=== PATIENT | female | born 1935 | race Caucasian/White ===

== ENCOUNTER → 2017-04-11 | Outpatient (CLI) | payer MEDICARE, BC ==
--- NOTE | 2017-04-12 09:17 | MM ---
Reason for exam: screening (asymptomatic). Last mammogram was performed 1 year and 3 months ago. History: Patient is postmenopausal and has history of other cancer at age 48. Family history of premenopausal breast cancer in daughter at age 44. Benign excisional biopsy of the right breast, 1969. Physical Findings: A clinical breast exam by your physician is recommended on an annual basis and results should be correlated with mammographic findings. MG Screening Mammo w CAD Bilateral CC and MLO view(s) were taken. Prior study comparison: December 31, 2015, bilateral MG screening mammo w CAD. The breast tissue is heterogeneously dense. This may lower the sensitivity of mammography. Previous mammotome biopsy in the left breast. No significant changes when compared with prior studies. ASSESSMENT: Benign, BI-RAD 2 RECOMMENDATION: Routine screening mammogram of both breasts in 1 year.
== END | disposition home or self-care (01) ==
LOC: RADMAMWWP 10:26
PROVIDERS: ATTEND Internal Medicine Geriatric Medicine
DX: Z12.31 Encounter for screening mammogram for malignant neoplasm of breast (principal)

== ENCOUNTER 2017-10-13 14:14 | Emergency (ER) | payer MEDICARE, BC ==
--- NOTE | 2017-10-13 16:03 | ED ---
General Adult HPI - General Chief complaint: Skin/Abscess/Foreign Body Stated complaint: Swollen finger Time Seen by Provider: 10/13/17 15:38 Source: patient Mode of arrival: ambulatory Limitations: physical limitation - History of Present Illness Initial comments: the patient is a very pleasant 82-year-old female presents with a chief complaint of swollen fingers and inability to remove her rings. The patient states that over the last week or so she has been "retaining water", and was recently placed on Lasix for this issue by her primary care physician. The patient reports pain to her left ring finger as she has an engagement, and room wedding ring on that finger. Patient denies pain proximally or distally to her rings. Patient states that she has tried cold water, lubrication, and soap to get the rings off without avail. The patient has no other complaints at this time. - Related Data Home Medications Medication Instructions Recorded Confirmed Levothyroxine Sodium [Levoxyl] 75 mcg PO DAILY 09/18/14 10/13/17 Simvastatin [Zocor] 20 mg PO DAILY 09/18/14 10/13/17 Lisinopril [Zestril] 10 mg PO DAILY 08/17/17 10/13/17 Multivit-Min/Iron/Folic/Lutein 1 tab PO DAILY 08/17/17 10/13/17 [Centrum Silver Women Tablet] Timolol 0.5% Ophth Soln [Timoptic 1 drop BOTH EYES QAM 08/17/17 10/13/17 0.5% Ophth Soln] amLODIPine [Norvasc] 10 mg PO DAILY 08/17/17 10/13/17 Pantoprazole Sodium [Protonix] 40 mg PO DAILY 08/18/17 10/13/17 Furosemide [Lasix] 20 mg PO DAILY@1530 10/13/17 10/13/17 Mirtazapine [Remeron] 15 mg PO HS 10/13/17 10/13/17 Previous Rx's Medication Instructions Recorded Sulfamethox-Tmp 800-160Mg [Bactrim 1 tab PO Q12HR #10 tab 10/13/17 DS 800-160 mg] Allergies Allergy/AdvReac Type Severity Reaction Status Date / Time [facility] Allergy Unknown Verified 10/13/17 16:02 guaifenesin Allergy Unknown Verified 10/13/17 16:02 Latex, Natural Rubber Allergy BURNING Verified 10/13/17 16:02 SKIN levofloxacin [From Levaquin] Allergy Unknown Verified 10/13/17 16:02 pneumococcal vaccine Allergy Unknown Verified 10/13/17 16:02 Review of Systems ROS Statement: Those systems with pertinent positive or pertinent negative responses have been documented in the HPI. ROS Other: All systems not noted in ROS Statement are negative. Past Medical History Past Medical History: Cancer, Eye Disorder, GERD/Reflux, Hyperlipidemia, Hypertension, Osteoarthritis (OA), Pneumonia, Skin Disorder, Thyroid Disorder Additional Past Medical History / Comment(s): Glaucoma and macular degeneration bilaterally, hypothyroid, heart murmur, oral cancer with removal, UTIs, bronhitis, past Raynauld's syndrome, osteoporosis, psoriasis, hemorrhoids. History of Any Multi-Drug Resistant Organisms: None Reported Past Surgical History: Breast Surgery, Section Additional Past Surgical History / Comment(s): mouth cancer removed, R breast lumpectomy-benign, colonoscopies, bilateral cataract removal with lens implants. Past Anesthesia/Blood Transfusion Reactions: No Reported Reaction Past Psychological History: No Psychological Hx Reported Smoking Status: Former smoker Past Alcohol Use History: None Reported Past Drug Use History: None Reported - Past Family History Father Family Medical History: Cancer, Myocardial Infarction (DC) Additional Family Medical History / Comment(s): Father at age 77yrs from a DC and lung cancer. Mother Family Medical History: No Reported History Additional Family Medical History / Comment(s): Mother at age 87yrs. She was healthy. General Exam Limitations: physical limitation General appearance: alert, in no apparent distress Head exam: Present: atraumatic, normocephalic Eye exam: Present: normal appearance ENT exam: Present: normal exam Neck exam: Present: normal inspection Respiratory exam: Present: normal lung sounds bilaterally, respiratory distress Cardiovascular Exam: Present: regular rate, normal rhythm GI/Abdominal exam: Present: soft. Absent: distended, tenderness Extremities exam: Present: other (patient has excoriation and warmth at the area of her rings on her ring finger. There is mild swelling present. The skin underneath the rings appears excoriated. That area is tender to touch. There is no drainage or purulence noted) Back exam: Present: normal inspection Neurological exam: Present: alert, oriented X3 Psychiatric exam: Present: normal affect, normal mood Skin exam: Present: warm, dry, intact Course Vital Signs 10/13/17 15:20 Temperature 97.0 F L Pulse Rate 88 Respiratory 22 Rate Blood Pressure 129/90 O2 Sat by Pulse 96 Oximetry Medical Decision Making - Medical Decision Making patient presents with a chief complaint of finger swelling and inability to remove her rings. Patient asked to have her rings cut off. On initial evaluation, patient appears stable, vital signs are within normal limits. Patient is no acute distress. Patient is rings were cut off, reevaluation of the finger shows an excoriated left ring finger without overt signs of infection. There is no tenderness proximally or distally to the area of the rings. 4:25 PM The patient was instructed to wash her hands thoroughly for 5 minutes. Her finger was reexamined, the patient states that her pain is already improved vastly. Does not appear to be any signs of infection at this time however given the fact that the affected area is on the patient's hand she will be covered prophylactically with Bactrim as there is skin breakdown excoriation. She was instructed to follow up with primary care or return to the emergency department if her symptoms worsen or change. Disposition Clinical Impression: Finger swelling Disposition: HOME SELF-CARE Condition: Good Instructions: Cellulitis (ED) Prescriptions: Sulfamethox-Tmp 800-160Mg [Bactrim DS 800-160 mg] 1 tab PO Q12HR #10 tab Referrals: Darwin Jaquez MD [Primary Care Provider] - 1-2 days
[2017-10-13 16:52] VITALS: BP 124/90; PULSE 82; RESP 20; TEMP 97.1
== END 2017-10-13 16:51 | disposition home or self-care (01) ==
LOC: EC 14:14
DX: M79.89 Other specified soft tissue disorders (principal); M79.645 Pain in left finger(s); K21.9 Gastro-esophageal reflux disease without esophagitis; E78.5 Hyperlipidemia, unspecified; I10 Essential (primary) hypertension; E03.9 Hypothyroidism, unspecified; Z85.819 Personal history of malignant neoplasm of unspecified site of lip, oral cavity, and pharynx; Z87.891 Personal history of nicotine dependence; Z88.7 Allergy status to serum and vaccine; Z88.1 Allergy status to other antibiotic agents; Z91.040 Latex allergy status; Z91.048 Other nonmedicinal substance allergy status; Z88.8 Allergy status to other drugs, medicaments and biological substances; Z79.899 Other long term (current) drug therapy
CPT/HCPCS: 99283

== ENCOUNTER → 2018-06-18 | Outpatient (CLI) | payer MEDICARE, BC ==
--- NOTE | 2018-06-19 09:17 | MM ---
Reason for exam: screening (asymptomatic). Last mammogram was performed 1 year and 2 months ago. History: Patient is postmenopausal and has history of other cancer at age 48. Family history of premenopausal breast cancer in daughter at age 44. Benign excisional biopsy of the right breast, 1969. Physical Findings: A clinical breast exam by your physician is recommended on an annual basis and results should be correlated with mammographic findings. MG Screening Mammo w CAD Bilateral CC and MLO view(s) were taken. Prior study comparison: April 11, 2017, bilateral MG screening mammo w CAD. December 31, 2015, bilateral MG screening mammo w CAD. The breast tissue is heterogeneously dense. This may lower the sensitivity of mammography. There is no discrete abnormality. No significant changes when compared with prior studies. ASSESSMENT: Negative, BI-RAD 1 RECOMMENDATION: Routine screening mammogram of both breasts in 1 year.
== END | disposition home or self-care (01) ==
LOC: RADMAMWWP 10:31
PROVIDERS: ATTEND Internal Medicine
DX: Z12.31 Encounter for screening mammogram for malignant neoplasm of breast (principal)
CPT/HCPCS: 77067

== ENCOUNTER 2019-01-08 11:33 | Inpatient (IN) | payer MEDICARE, BC ==
[2019-01-08] MEDS ORDERED: NITROGLYCERIN OINT 1 INCH/GM PACKET TOPICAL STA (11:37)
--- NOTE | 2019-01-08 11:41 | ED ---
General Adult HPI - General Stated complaint: Chest Pain Time Seen by Provider: 01/08/19 11:33 Source: RN notes reviewed - History of Present Illness Initial comments: This is an 83-year-old female has past medical history significant for an LA diabetes high blood pressure high cholesterol. Patient states approximately one hour prior to arrival she started having chest pain throughout her whole chest. Patient states she took 2 aspirin it did not help she took some Tums that did not help. Patient called in and does when EMS arrived they gave her nitroglycerin that also did not help. Patient states the pain now is starting to finally subside. Patient denies any associated radiation of the pain or difficulty breathing. Patient denies any palpitations. Patient denied any nausea or diaphoretic episodes. Patient denies any abdominal pain. Patient denies any nausea or vomiting. Patient denies headache patient denies numbness weakness. Patient denies any leg swelling or calf tenderness. - Related Data Home Medications Medication Instructions Recorded Confirmed Levothyroxine Sodium [Levoxyl] 75 mcg PO DAILY 09/18/14 01/08/19 Timolol 0.5% Ophth Soln [Timoptic 1 drop BOTH EYES QAM 08/17/17 01/08/19 0.5% Ophth Soln] amLODIPine [Norvasc] 10 mg PO HS 08/17/17 01/08/19 Pantoprazole Sodium [Protonix] 40 mg PO DAILY 08/18/17 01/08/19 Metoprolol Tartrate [Lopressor] 12.5 mg PO BID 12/06/17 01/08/19 Naphazoline HCl/Glycerin [Clear 1 drop BOTH EYES Q4H PRN 12/06/17 01/08/19 Eyes Max Redness Rlf Drp] Nitroglycerin Sl Tabs [Nitrostat] 0.4 mg SUBLINGUAL Q5M PRN 12/06/17 01/08/19 Aspirin EC [Ecotrin Low Dose] 81 mg PO DAILY 01/08/19 01/08/19 Carbamide Peroxide [Debrox Otic] 1 drops BOTH EARS Q7D 01/08/19 01/08/19 Latanoprost [Xalatan 0.005%] 1 drop BOTH EYES HS 01/08/19 01/08/19 Loperamide [Imodium] 4 mg PO TID PRN 01/08/19 01/08/19 Multivitamins, Thera [Multivitamin 1 tab PO DAILY 01/08/19 01/08/19 (formulary)] Vit A/Vit C/Vit E/Zinc/Copper 2 cap PO BID 01/08/19 01/08/19 [ICAPS SOFTGEL] Allergies Allergy/AdvReac Type Severity Reaction Status Date / Time cetirizine [From Zyrtec] Allergy Unknown Verified 01/08/19 12:13 guaifenesin Allergy Unknown Verified 01/08/19 12:13 Latex, Natural Rubber Allergy BURNING Verified 01/08/19 12:13 SKIN levofloxacin [From Levaquin] Allergy Unknown Verified 01/08/19 12:13 pneumococcal vaccine Allergy Unknown Verified 01/08/19 12:13 Review of Systems ROS Statement: Those systems with pertinent positive or pertinent negative responses have been documented in the HPI. ROS Other: All systems not noted in ROS Statement are negative. Past Medical History Past Medical History: Cancer, Eye Disorder, GERD/Reflux, Hyperlipidemia, Hyper tension, Skin Disorder, Thyroid Disorder Additional Past Medical History / Comment(s): Glaucoma and macular degeneration bilaterally, hypothyroid, heart murmur, oral cancer with removal, UTIs, bronhitis, past Raynauld's syndrome, osteoporosis, psoriasis, hemorrhoids. History of Any Multi-Drug Resistant Organisms: None Reported Past Surgical History: Breast Surgery, Section Additional Past Surgical History / Comment(s): mouth cancer removed, R breast lumpectomy-benign, colonoscopies, bilateral cataract removal with lens implants. Past Anesthesia/Blood Transfusion Reactions: No Reported Reaction Past Psychological History: No Psychological Hx Reported Additional Psychological History / Comment(s): Pt resides alone. She uses a walker when out at the mall. She no longer has a vehicle. She uses [employer] for transportation. She gets meals on wheels. She manages her own medications. Smoking Status: Former smoker Past Alcohol Use History: None Reported Additional Past Alcohol Use History / Comment(s): Pt smoked from [id number]. She drinks 2-3 beers each evening. Past Drug Use History: None Reported - Past Family History Father Family Medical History: Cancer, Myocardial Infarction (LA) Additional Family Medical History / Comment(s): Father at age 77yrs from a LA and lung cancer. Mother Family Medical History: No Reported History Additional Family Medical History / Comment(s): Mother at age 87yrs. She was healthy. General Exam - General Exam Comments Initial Comments: GENERAL: Patient is well-developed and well-nourished. Patient is nontoxic and well- hydrated and is in mild distress. ENT: Neck is soft and supple. No significant lymphadenopathy is noted. Oropharynx i s clear. Moist mucous membranes. Neck has full range of motion without eliciting any pain. EYES: The sclera were anicteric and conjunctiva were pink and moist. Extraocular movements were intact and pupils were equal round and reactive to light. Eyelids were unremarkable. PULMONARY: Unlabored respirations. Good breath sounds bilaterally. No audible rales rhonchi or wheezing was noted. CARDIOVASCULAR: There is a regular rate and rhythm without any murmurs gallops or rubs. ABDOMEN: Soft and nontender with normal bowel sounds. SKIN: Skin is clear with no lesions or rashes and otherwise unremarkable. NEUROLOGIC: Patient is alert and oriented x3. Cranial nerves II through XII are grossly intact. Motor and sensory are also intact. Normal speech, volume and content. Symmetrical smile. MUSCULOSKELETAL: Normal extremities with adequate strength and full range of motion. LYMPHATICS: No significant lymphadenopathy is noted PSYCHIATRIC: Normal psychiatric evaluation. Course Vital Signs 01/08/19 01/08/19 01/08/19 11:34 11:42 11:45 Temperature 99.0 F Pulse Rate 79 84 73 Respiratory 18 45 H 26 H Rate Blood Pressure 145/85 145/85 O2 Sat by Pulse 96 97 Oximetry 01/08/19 01/08/19 01/08/19 11:50 11:55 12:00 Temperature Pulse Rate 27 L 84 86 Respiratory 39 H 24 21 Rate Blood Pressure 145/85 113/78 113/78 O2 Sat by Pulse 93 L 97 92 L Oximetry 01/08/19 12:05 Temperature Pulse Rate 76 Respiratory 11 L Rate Blood Pressure 114/69 O2 Sat by Pulse 97 Oximetry Medical Decision Making - Medical Decision Making EKG shows a normal sinus rhythm at 79 bpm ND interval is 146 QRS is 116 QT interval 394 QTC is 451. Patient's EKG shows no ST segment elevation or depression compared this EKG to an old EKG no acute changes are noted. Patient started having significant chest pain after we had first interviewed her. I get a repeat EKG about prior to that her rhythm strip showed bradycardia about 28 beats a minute she was having pretty significant chest pain at this point time I gave her half an amp of atropine her heart rate went up to about 75-80 at this time and she was feeling better. The second EKG showed a normal sinus rhythm at 87 bpm ND interval is 142 QRS is 116 QT interval 414 QTC is 498. Patient's EKG shows no ST segment elevation or depression or T-wave abdomen is noted I spoke with Dr. Ritchie at 12:00 and indicated to him that the patient was having quite symptomatic bradycardia. Shortly after I spoke with Dr. Ritchie he arrived in the emergency department and evaluated the patient. Dr. Guerra stated that he thought this was probably related to a vasovagal episode. I spoke with Dr. Jaquez he is aware of the patient's emergency department and he agrees to admit the patient admitted the patient wrote admitting orders I started the patient on heparin. I consult cardiology. I continue aspirin and Nitropaste and heparin the floor. - Lab Data Result diagrams: 01/08/19 12:00 01/08/19 12:00 Lab Results 01/08/19 01/08/19 01/08/19 Range/Units 12:00 12:00 12:00 WBC 7.5 (3.8-10.6) k/uL RBC 4.14 (3.80-5.40) m/uL Hgb 13.2 (11.4-16.0) gm/dL Hct 39.8 (34.0-46.0) % MCV 96.1 (80.0-100.0) fL MCH 32.0 (25.0-35.0) pg MCHC 33.3 (31.0-37.0) g/dL RDW 13.1 (11.5-15.5) % Plt Count 285 (150-450) k/uL Neutrophils % 63 % Lymphocytes % 21 % Monocytes % 9 % Eosinophils % 4 % Basophils % 1 % Neutrophils # 4.7 (1.3-7.7) k/uL Lymphocytes # 1.5 (1.0-4.8) k/uL Monocytes # 0.6 (0-1.0) k/uL Eosinophils # 0.3 (0-0.7) k/uL Basophils # 0.0 (0-0.2) k/uL PT 11.3 (9.0-12.0) sec INR 1.1 (<1.2) APTT 24.9 (22.0-30.0) sec Sodium 136 L (137-145) mmol/L Potassium 4.1 (3.5-5.1) mmol/L Chloride 103 (98-107) mmol/L Carbon Dioxide 24 (22-30) mmol/L Anion Gap 9 mmol/L BUN 18 H (7-17) mg/dL Creatinine 0.84 (0.52-1.04) mg/dL Est GFR (CKD-EPI)AfAm 73 (>60 ml/min/1.73 sqM) Est GFR (CKD-EPI)NonAf 64 (>60 ml/min/1.73 sqM) Glucose 119 H (74-99) mg/dL Calcium 9.4 (8.4-10.2) mg/dL Magnesium 1.9 (1.6-2.3) mg/dL Total Bilirubin 1.0 (0.2-1.3) mg/dL AST 49 H (14-36) U/L ALT 40 (9-52) U/L Alkaline Phosphatase 310 H (38-126) U/L Troponin I (0.000-0.034) ng/mL Total Protein 7.6 (6.3-8.2) g/dL Albumin 4.1 (3.5-5.0) g/dL 01/08/19 Range/Units 12:00 WBC (3.8-10.6) k/uL RBC (3.80-5.40) m/uL Hgb (11.4-16.0) gm/dL Hct (34.0-46.0) % MCV (80.0-100.0) fL MCH (25.0-35.0) pg MCHC (31.0-37.0) g/dL RDW (11.5-15.5) % Plt Count (150-450) k/uL Neutrophils % % Lymphocytes % % Monocytes % % Eosinophils % % Basophils % % Neutrophils # (1.3-7.7) k/uL Lymphocytes # (1.0-4.8) k/uL Monocytes # (0-1.0) k/uL Eosinophils # (0-0.7) k/uL Basophils # (0-0.2) k/uL PT (9.0-12.0) sec INR (<1.2) APTT (22.0-30.0) sec Sodium (137-145) mmol/L Potassium (3.5-5.1) mmol/L Chloride (98-107) mmol/L Carbon Dioxide (22-30) mmol/L Anion Gap mmol/L BUN (7-17) mg/dL Creatinine (0.52-1.04) mg/dL Est GFR (CKD-EPI)AfAm (>60 ml/min/1.73 sqM) Est GFR (CKD-EPI)NonAf (>60 ml/min/1.73 sqM) Glucose (74-99) mg/dL Calcium (8.4-10.2) mg/dL Magnesium (1.6-2.3) mg/dL Total Bilirubin (0.2-1.3) mg/dL AST (14-36) U/L ALT (9-52) U/L Alkaline Phosphatase (38-126) U/L Troponin I <0.012 (0.000-0.034) ng/mL Total Protein (6.3-8.2) g/dL Albumin (3.5-5.0) g/dL Critical Care Time Critical Care Time: Yes Total Critical Care Time: 35 Disposition Clinical Impression: Symptomatic bradycardia, Unstable angina Disposition: ADMITTED IP TO THIS HOSP Is patient prescribed a controlled substance at d/c from ED?: No Referrals: Darwin Jaquez MD [Primary Care Provider] - 1-2 days Time of Disposition: 13:21
[2019-01-08] MEDS ORDERED: ONDANSETRON 4 MG/2 ML VIAL IVP STA (11:51)
[2019-01-08] MEDS ORDERED: ATROPINE SULFATE 0.1 MG/ML 10ML SYRINGE IV STA (11:51)
[2019-01-08 12:13] LABS: Basophils % (A) 1 %; Eosinophils # (A) 0.3 k/uL (0-0.7); Eosinophils % (A) 4 %; HCT 39.8 % (34.0-46.0); HGB 13.2 gm/dL (11.4-16.0); Lymphocytes # (A) 1.5 k/uL (1.0-4.8); Lymphocytes % (A) 21 %; MCHC 33.3 g/dL (31.0-37.0); MCV 96.1 fL (80.0-100.0); Mean Platelet Volume 6.8; Monocytes # (A) 0.6 k/uL (0-1.0); Monocytes % (A) 9 %; Neutrophils # (A) 4.7 k/uL (1.3-7.7); Neutrophils % (A) 63 %; Platelet Count 285 k/uL (150-450); RBC 4.14 m/uL (3.80-5.40); RDW 13.1 % (11.5-15.5); WBC 7.5 k/uL (3.8-10.6)
[2019-01-08 12:21] LABS: Albumin 4.1 g/dL (3.5-5.0); Calcium 9.4 mg/dL (8.4-10.2); Magnesium 1.9 mg/dL (1.6-2.3); Potassium 4.1 mmol/L (3.5-5.1); Total Protein 7.6 g/dL (6.3-8.2)
[2019-01-08 12:37] LABS: INR 1.1 (<1.2); Partial Thromboplastin Time 24.9 sec (22.0-30.0); Prothrombin Time 11.3 sec (9.0-12.0)
--- NOTE | 2019-01-08 12:56 | XR ---
EXAMINATION TYPE: XR chest 2V DATE OF EXAM: 01/08/2019 COMPARISON: 12/06/2017 INDICATION: Chest pain TECHNIQUE: Frontal and lateral views of the chest are obtained. FINDINGS: The heart size is normal. The pulmonary vasculature is normal. The lungs are clear. IMPRESSION: 1. No acute pulmonary process.
[2019-01-08] MEDS ORDERED: HEPARIN SODIUM,PORCINE 5,000 UNIT/ML 1 ML VIAL IV ONE (13:22)
[2019-01-08] MEDS ORDERED: NITROGLYCERIN SL TABS 0.4 MG TAB SUBLINGUAL PRN ×2 (13:24→14:32)
[2019-01-08] MEDS ORDERED: HEPARIN SOD,PORK IN 0.45% NACL 25,000 UNIT in 0.45% NACL 1 250ML.BAG IV SCH (13:30)
--- NOTE | 2019-01-08 13:31 | CONS ---
CONSULTATION CHIEF COMPLAINT: Chest pain. Elizabeth is an 83-year-old lady with history of coronary artery disease, hypothyroidism, GERD, and hypertension who presented to hospital complaining of chest pain. She describes it as a chest discomfort that is all over the place including over the abdomen and over the chest. She is having intermittent episodes of this pain. Her baseline EKG shows left bundle branch block. While in the emergency room, she had an episode of pain, nausea, and became bradycardic. She received atropine following which she developed stable sinus rhythm and has been well since. At the time of my evaluation, patient appears comfortable at rest. She is not diaphoretic. She is not short of breath. When asked she complains of this vague pain both over her chest and abdomen. Her labs show a hemoglobin of 13.2, platelet count is 285. Potassium is 4.1. AST is elevated. Alkaline phosphatase is elevated. Troponin is normal. The patient's chest and abdominal pain could either be due to an acute ischemic syndrome or could be related to an acute abdominal process. I will obtain a 2-D echo to evaluate his LV function and wall motion and obtain cardiac enzymes to rule out myocardial infarction. If she has further episodes of chest pain, we will consider invasive angiography. In the meantime, I will treat her with IV heparin. PAST MEDICAL HISTORY: Significant for hypertension, GERD, hypothyroidism. CURRENT MEDICATIONS: Current medications include Xalatan, aspirin, Imodium, Lopressor, multivitamins, Protonix, Norvasc. ALLERGIES: Patient is allergic to LATEX, LEVAQUIN and ZYRTEC. FAMILY HISTORY: Family history is negative for premature coronary artery disease. SOCIAL HISTORY: Social history is negative for smoking, EtOH abuse or drug abuse. REVIEW OF SYSTEMS: HEENT is unremarkable. CARDIAC: As described above. RESPIRATORY: Negative. GI: Negative. GENITOURINARY: Negative. ALLERGY/IMMUNOLOGY: Negative. SKIN: Negative. MUSCULOSKELETAL: Significant for arthritis. PSYCHOSOCIAL: Negative. ENDOCRINE: Negative. HEMATOLOGICAL: Negative. DERM: Negative. CONSTITUTIONAL: Negative. ONCOLOGICAL: Negative. PHYSICAL EXAMINATION: On exam, patient is comfortable at rest. Heart rate is 76 beats per minute. Blood pressure is 114/69. Respiratory rate is 18. Chest exam reveals good air entry bilaterally. Heart exam reveals first and second heart sounds. Systolic murmur at the left lower sternal border. Abdomen is soft. Examination of the extremities revealed trace edema. Peripheral pulses are palpable. Labs have been reviewed. EKG is as described above. Rhythm strips are as described above. ASSESSMENT: 1. Precordial chest pain. 2. Severe symptomatic bradycardia, probably vasovagal in origin related to pain and vomiting. PLAN: I will obtain a 2D echo, IV heparin, obtain troponin and watch and see how she does. If she has more abdominal pain and chest pain, then that needs to be investigated. If she continues to have chest pain, she will need invasive angiography. MMODL / IJN: [id number] /
[2019-01-08] MEDS ORDERED: NAPHAZOLINE-PHENIRA 0.025-0.3% DROPS 15 ML BTL BOTH EYES PRN (14:32)
--- NOTE | 2019-01-08 17:07 | HP ---
HISTORY AND PHYSICAL Age 83-year-old white female, . Date of is 1935. Expected to be in the gambling monitor floor. Currently on hold in the ER #4. NEW DATA: She is 5 foot height, weight 48.081 kg, BSA 1.43 m2, BMI 20.7 kg/m2. ALLERGY: SHE IS ALLERGIC TO CITRUS SEEN, GUAIFENESIN, LATEX, NATURAL RUBBER, LEVOFLOXACIN, PNEUMONIA VACCINE. HISTORY AND CHIEF COMPLAINT: Patient brought by ambulance with the chest pain, precordial with no specific radiation to the neck or to the arm. HISTORY OF PRESENT ILLNESS: The patient has a chronic problem with diarrhea versus loose bowel and recently. Today, she had experienced precordial chest pain, which she never had before. She tried Tums twice, it did not work. Subsequently, she took a couple aspirin and she thought maybe heart attack. Subsequently called the ambulance 911, who brought her to [facility] emergency room. In the emergency room, the patient seen by the ER physician, and subsequently she underwent a sinus bradycardia. They gave her atropine and put a pacer and she recovered very nicely. Currently, her heart rate 72 per minute. In the emergency room, she had initially normal sinus rhythm with a questionable anterior OR undetermined age and subsequently the event happened with severe bradycardia. Chest x-ray was done and was negative. In the ER was mentioned as presentation, she had a past history of OR, hypertension, diabetes and the pain as brought by EMS they gave her nitroglycerin, however, did not help. The patient denied any radiation. No shortness of breath. No palpitation. However, patient was nauseated and the pain got her the pocket, but she never vomited. No swelling of her legs. and no shortness of breath. MEDICATION: She is on the Levothyroxine 75 mcg daily. She is on eye drops, timolol ophthalmic solution. She is on amlodipine for hypertension 10 mg at bedtime and also for GERD disease on pantoprazole 40 mg daily and she is on Lopressor 12.5 mg twice a day. She has also eye hydrops every hours for dryness. She has been on sublingual nitroglycerin and aspirin enteric-coated 81 mg daily and she is on Debrox, otic solution that is a p.r.n. and Xalatan 0.005% 1 drop each eye. Currently, she is on Loperamide Imodium 4 mg t.i.d. for loose and frequent bowel movement. She is on multivitamin once a day and vitamin AC and D and zinc and copper, which is soft gel 1 capsule. She take 2 capsules twice a day. ALLERGY: As reviewed with the patient. She only have the latex and natural rubber causes burning of the skin. However, the other allergy reaction is unknown. PAST MEDICAL HISTORY: She had history of hyperlipidemia, hypertension, skin disorder, thyroid disease and eye disorder and history of cancer. She has also history of glaucoma and macular degeneration bilaterally and hypothyroidism. She has a heart murmur and she had oral cancer removed. She has been recently on antibiotic, which is finished and she had partial lower for denture and the upper caps. She had history of Raynaud phenomenon and osteoporosis. However, she was stating that she had psoriasis, but actually there is no lesion to indicate psoriasis and she has appointment with Dr. Zohaib Gao Dermatology. However, she is here at this time and will be seeing him later on after she is discharged. She had right breast lumpectomy and her history of cancer of the mouth. She has past history of colonoscopy, bilateral cataracts and history of removal of the lenses and the implant. SOCIAL HISTORY: She uses a walker when she have a prolonged walk, especially in the mall and she uses the [employer] on [employer] for transportation. She does not drive and she gets [employer] on wheels. She used to be former smoker. However, she has been a nonsmoker since 1951. She drinks 2-3 beers in the evening intermittently. FAMILY HISTORY: Father has OR and cancer, of age 7777 years old and was lung cancer. Mother at age of 87 and she was healthy. REVIEW OF SYSTEM: Neuropsychiatry was negative. She has ear severe hard of hearing with bilateral hearing aid. Oropharynx: She had lower partial and upper caps. She has underlying generalized degenerative arthritis. Heart: Prior to this event: Regular sinus. Chest is no shortness of breath. GI: She had frequent bowel movement and sometimes is normal, sometimes is loose. was negative and musculoskeletal she use a cane and occasionally walker with the underlying arthritis. Skin: She had complaints of skin spots, looks like eczema to me. However, somebody told her that she had psoriasis, which I do not believe. She has no history of stroke. No lymphadenopathy and no psychiatric breakdown. PHYSICAL EXAMINATION: On the physical exam today, the patient seen in the module #4 and her vital signs indicating that her febrile. Pulse is 75 per minute, regular sinus and her respiratory rate is 14. His blood pressure 111/65 with a mean 80. Her oxygen was fluctuating however currently on oxygen 2 L nasal cannula. On the exam, HEENT head was normocephalic, atraumatic. Pupils equal, reactive. Conjunctivae was pink. Sclerae was nonicteric. Oropharynx as mentioned. She had a partial lower and she history of caps. Hearing aides bilaterally. Normal smelling and nose. No rhinitis. Neck was supple. No JVD. No thyromegaly. No lymphadenopathy. However, she is having arthritis of the cervical spine. CHEST: Clear to auscultation and percussion with the mild increased anteroposterior diameter with underlying mild kyphoscoliosis. The heart was PMI in the 5th intercostal space and outside midclavicular line with underlying normal S1, S2. However, the patient during her presence in the ER went to bradycardia and at that time they gave her atropine as well as the put the external pacer as well as consultation with the Cardiology, Dr. Ritchie who saw her in the ER. ABDOMEN: Soft, positive bowel sounds. No organ enlargement. EXTREMITIES: No edema and positive pulses. She has degenerative arthritis of the feet, knees and spine and cervical spine as well. The consultation was made by Dr. Brannon Ritchie and he is indicating that patient while she was in the emergency room, she had episode of midline EKG showed left bundle branch block and the emergency room she had an episode of pain, nausea become after that bradycardic. She received atropine as he stated which she developed sinus rhythm and has been since sinus. She appears comfortable. She is not diaphoretic, not short of breath and she complained that this is vague pain both over her chest and abdomen. Hemoglobin was 13.2, and the platelet count was 285, and potassium 4.1 with a mild elevation of AST and alkaline phosphatase. Troponin is normal the 1st draws. His explanation that could be associated with ischemic syndrome and he will order a 2D echos for assessment of her heart and also cardiac enzymes. If there is abnormalities, will be considered the invasive angiography and the patient placed on IV heparin by the Cardiology. IMPRESSION: 1. Precordial chest pain. 2. Severe symptomatic bradycardia, probably vasovagal and related to the pain. Currently plan will be the patient admitted to gambling monitor floor. She is currently on hold in the ER until the bed is available, patient will have 2D echo, IV heparin, and monitoring chest pain or abdominal pain and if there is further abnormalities, further angiography will be obtained. LABORATORIES: On reviewing the laboratories was indicating that white count 7.5 with hemoglobin 13.2 and hematocrit is 39.8. Initial PT 11.3 and INR 1.1 and PTT 24.9. Her chemistry indicating the sodium 136, potassium 4.1, chloride 103, carbon dioxide 24, BUN 18, creatinine 0.84 with the estimated glomerular filtration rate for non- 64. Her blood sugar 119. Her liver enzymes was indicating that AST 49 and that is mildly above the normal range, but ALT is normal 40. The she had alkaline phosphatase is elevated at 310 and her protein and albumin is normal. PLAN: We will be obtaining the alkaline phosphatase, enzyme for clarification came from bone or came from the liver. Her magnesium is normal and total bilirubin is normal. Further evaluation depends on patient's current condition and improvement. Initial troponin less than 0.012. MMODL / IJN: [id number] /
[2019-01-08] MEDS: NITROGLYCERIN OINT 1 INCH/GM PACKET TOPICAL SCH ×2 (17:23→22:57)
[2019-01-08] MEDS: METOPROLOL TARTRATE 12.5 MG TAB PO SCH (21:37)
[2019-01-08] MEDS: LATANOPROST 0.005% OPHTH DROPS 2.5 ML BTL BOTH EYES SCH (21:37)
[2019-01-09] MEDS: NITROGLYCERIN OINT 1 INCH/GM PACKET TOPICAL SCH ×4 (06:21→22:40)
[2019-01-09] MEDS: PANTOPRAZOLE 40 MG TABLET PO SCH (06:21)
[2019-01-09] MEDS: LEVOTHYROXINE 75 MCG TAB PO SCH (06:21)
[2019-01-09 07:26] LABS: Calcium 9.2 mg/dL (8.4-10.2); Potassium 4.1 mmol/L (3.5-5.1)
[2019-01-09] MEDS: ASPIRIN 81 MG PO SCH (08:30)
[2019-01-09] MEDS: MULTIVITAMINS, THERA 1 EACH TAB PO SCH (08:31)
[2019-01-09] MEDS: METOPROLOL TARTRATE 12.5 MG TAB PO SCH ×2 (08:31→19:53)
[2019-01-09] MEDS: TIMOLOL 0.5% OPHTH DROPS 5 ML BTL BOTH EYES SCH (08:31)
[2019-01-09] MEDS ORDERED: ASPIRIN 325 MG TAB PO SCH (09:00)
[2019-01-09] MEDS ORDERED: ZOLPIDEM 5 MG TAB PO PRN (12:32)
--- NOTE | 2019-01-09 12:44 | P.PN ---
Subjective Progress Note Date: 01/09/19 (Precordial chest pain) Dictation on the progress note date of service 01/09/2019. Patient seen and evaluated. Troponin 3 less than 0.012. No evidence of EKG changes. Laboratory reviewed with the underlying heparin protocol has been discontinued, with the plan by the cardiology for echocardiogram and stress test in the morning. And if this testing has been negative patient will be discharged tomorrow subsequently. Patient her alkaline phosphatase is elevated was on admission 310 today is 248, her blood sugar 101 normal and the EGFR for non- 68. Otherwise electrolytes within normal limit. Lipid profile indicating that he'll LDL 35, HDL 66 and total cholesterol 114. Her vital sign Vital sign indicating temperature 97.6 orally pulse 87 regular respiratory rate 20 blood pressure 113/57 with a mean 75 oxygen saturation 94%. Patient severe hard of hearing with a bilateral hearing aids. HEENT was negative otherwise. Neck was supple no JVD no thyromegaly no lymphadenopathy trachea midline. Chest is clear to auscultation and percussion with the underlying mild increased anteroposterior diameter with kyphoscoliosis. The heart regular sinus rhythm soft murmur left sternal border with history of mitral regurg. Abdomen soft positive bowel sounds no tenderness in the 4 quadrants. Extremities no edema and positive pulses. Assessment: Acute precordial chest pain brought her by ambulance to the emergency room. Hypertension with the underlying left bundle branch block no acute changes and the blood pressure is controlled. Insomnia with inability to sleep during the night in the hospital requesting sleeping 8 and will start her on Ambien 5 mg at at bedtime when necessary. Plan: #1 patient going to have echocardiogram as well as stress test that will be done in the morning. #2 Ambien 5 mg at at bedtime for sleeping with insomnia. #3 we'll check on her thyroid function. Rule out event of bradycardia/tachycardia. Objective - Vital Signs Vital signs: Vital Signs Temp 97.6 F 01/09/19 08:00 Pulse 87 01/09/19 08:00 Resp 20 01/09/19 08:00 BP 113/57 01/09/19 08:00 Pulse Ox 94 L 01/09/19 08:00 Intake & Output 01/08/19 01/09/19 01/09/19 18:59 06:59 18:59 Intake Total 240 45.198 180 Balance 240 45.198 180 Weight 48.081 kg 48.7 kg Intake: Intake, IV Titration 45.198 Amount Heparin Sod,Pork in 0.45% 45.198 NaCl 25,000 unit In 0.45 % NaCl 1 250ml.bag @ 12 UNITS/KG/HR 5.77 mls/hr IV .Q24H COUNTS INCLUDE 234 BEDS AT THE [facility] Rx#: [id number] Oral 240 180 Other: Voiding Method Bedside Commode # Voids 1 1 1 - Labs CBC & Chem 7: 01/08/19 12:00 01/09/19 06:15 Labs: Abnormal Lab Results - Last 24 Hours (Table) 01/08/19 01/09/19 01/09/19 Range/Units 21:04 06:15 06:15 APTT 44.7 H 55.3 H (22.0-30.0) sec Glucose 101 H (74-99) mg/dL Alkaline Phosphatase 248 H (38-126) U/L HDL Cholesterol 66 H (40-60) mg/dL
[2019-01-09 13:19] LABS: Hemoglobin A1C 5.8 % (4.0-6.0)
[2019-01-09 14:19] VITALS: BMI 20.9
--- NOTE | 2019-01-09 14:42 | P.PN ---
Subjective Progress Note Date: 01/09/19 This is a pleasant 83-year-old female patient with history of coronary artery disease, hypothyroidism, GERD, hypertension, who initially presented to the hospital with symptoms of chest pain. She was seen in consultation by Dr. Sparks. Patient was also noted to have some mild abnormality in the alkaline ph osphatase. Which is improved today. Echocardiogram with Doppler study has been performed but is yet pending. Patient was seen and examined this morning, she denies having any further chest discomfort, actually feels well and is anticipating being discharged home soon. We will review the results of her echocardiogram with Doppler study. Dr. Ritchie also recommend patient undergo stress testing. Objective - Vital Signs Vital signs: Vital Signs Temp 97.3 F L 01/09/19 12:00 Pulse 75 01/09/19 12:00 Resp 18 01/09/19 12:00 BP 121/74 01/09/19 12:00 Pulse Ox 96 01/09/19 12:00 Intake & Output 01/08/19 01/09/19 01/09/19 18:59 06:59 18:59 Intake Total 240 45.198 550 Balance 240 45.198 550 Weight 48.081 kg 48.7 kg 48.7 kg Intake: IV 10 0.9 10 Intake, IV Titration 45.198 Amount Heparin Sod,Pork in 0.45% 45.198 NaCl 25,000 unit In 0.45 % NaCl 1 250ml.bag @ 12 UNITS/KG/HR 5.77 mls/hr IV .Q24H [facility] Rx#: [id number] Oral 240 540 Other: Voiding Method Bedside Commode Toilet # Voids 1 1 1 - Exam PHYSICAL EXAMINATION: GENERAL: 83-year-old female in no acute distress at the time HEENT: Head is atraumatic, normocephalic. Pupils equal, round. Sclera anic teric. Conjunctiva are clear. Mucous membranes of the mouth are moist. Neck is supple. There is no elevated jugular venous pressure. No carotid bruit is heard. HEART EXAMINATION: S1 and S2 systolic murmur is heard. CHEST EXAMINATION: Lungs are clear to auscultation and precussion. No chest wall tenderness is noted on palpation or with deep breathing. ABDOMEN: Soft, nontender. Bowel sounds are heard. No organomegaly noted. EXTREMITIES: 2+ peripheral pulses with no evidence of peripheral edema and no calf tenderness noted. NEUROLOGIC patient is awake, alert and oriented 3. . - Labs CBC & Chem 7: 01/08/19 12:00 01/09/19 06:15 Labs: Abnormal Lab Results - Last 24 Hours (Table) 01/08/19 01/09/19 01/09/19 Range/Units 21:04 06:15 06:15 APTT 44.7 H 55.3 H (22.0-30.0) sec Glucose 101 H (74-99) mg/dL Alkaline Phosphatase 248 H (38-126) U/L HDL Cholesterol 66 H (40-60) mg/dL Assessment and Plan Plan: Assessment and plan #1 chest pain, cardiac enzymes and troponins negative. #2 sinus bradycardia, could be secondary to abdominal discomfort Plan We will review the echocardiogram with Doppler study. We'll also recommend patient undergo stress testing which will be scheduled for tomorrow. Further recommendations to follow. DNP note has been reviewed, I agree with a documented findings and plan of care. Patient was seen and examined.
[2019-01-09] MEDS: LATANOPROST 0.005% OPHTH DROPS 2.5 ML BTL BOTH EYES SCH (19:53)
[2019-01-10 05:44] VITALS: TEMP 97.2
[2019-01-10] MEDS ORDERED: CAFFEINE CITRATE 60 MG/3 ML VIAL IV PRN (09:23)
[2019-01-10] MEDS ORDERED: AMINOPHYLLINE 500 MG/20 ML VIAL IV PRN (09:23)
[2019-01-10] MEDS ORDERED: REGADENOSON 0.4 MG/5 ML SYRINGE IV ONE (09:23)
[2019-01-10] MEDS ORDERED: SODIUM CHLORIDE 0.9% IV ONE (09:30)
[2019-01-10] MEDS ORDERED: DIPYRIDAMOLE IV ONE (09:30)
--- NOTE | 2019-01-10 09:56 | ECHOF ---
Referral Reason:chest pain MEASUREMENTS -------- HEIGHT: 152.4 cm WEIGHT: 47.6 kg BP: RVIDd: 2.1 cm (< 3.3) IVSd: 0.8 cm (0.6 - 1.1) LVIDd: 4.2 cm (3.9 - 5.3) LVPWd: 0.9 cm (0.6 - 1.1) IVSs: 1.3 cm LVIDs: 2.3 cm LVPWs: 1.1 cm LA Diam: 3.2 cm (2.7 - 3.8) Ao Diam: 2.6 cm (2.0 - 3.7) AV Cusp: 1.6 cm (1.5 - 2.6) LA Diam: 3.4 cm (2.7 - 3.8) MV EXCURSION: 10.412 mm (> 18.000) MV EF SLOPE: 93 mm/s (70 - 150) EPSS: 0.2 cm MV E Roverto: 0.47 m/s MV DecT: 167 ms MV A Roverto: 0.75 m/s MV E/A Ratio: 0.63 RAP: 5.00 mmHg RVSP: 35.85 mmHg FINDINGS -------- Sinus rhythm. This was a techncally difficult study with suboptimal views, , Lumason utilized for enhancement of im ages. The left ventricular size is normal. Left ventricular wall thickness is normal. Overall left vent ricular systolic function is low-normal with, an EF between 50 - 55 %. Basal inferoseptal LV wall m otion is hypokinetic. The right ventricle is normal in size. The left atrial size is normal. The right atrial size is normal. 5.0mg OF Lumason UTLIZED: 2 OR MORE WALL SEGMENTS NOT VISUALIZED. Interatrial and interventricular septum intact. There is mild aortic valve sclerosis. There is no evidence of aortic regurgitation. Mild mitral annular calcification present. Mild mitral regurgitation is present. Mild tricuspid regurgitation present. There is mild pulmonary hypertension. The right ventricular systolic pressure, as measured by Doppler, is 35.85mmHg. The pulmonic valve was not well visualized. The aortic root size is normal. There is no pericardial effusion. CONCLUSIONS -------- 1. This was a techncally difficult study with suboptimal views, , Lumason utilized for enhancement of images. 2. The left ventricular size is normal. 3. Left ventricular wall thickness is normal. 4. Overall left ventricular systolic function is low-normal with, an EF between 50 - 55 %. 5. Basal inferoseptal LV wall motion is hypokinetic. 6. The right ventricle is normal in size. 7. The left atrial size is normal. 8. The right atrial size is normal. 9. 5.0mg OF Lumason UTLIZED: 2 OR MORE WALL SEGMENTS NOT VISUALIZED. 10. Interatrial and interventricular septum intact. 11. There is mild aortic valve sclerosis. 12. Mild mitral annular calcification present. 13. Mild mitral regurgitation is present. 14. Mild tricuspid regurgitation present. 15. There is mild pulmonary hypertension. 16. The right ventricular systolic pressure, as measured by Doppler, is 35.85mmHg. 17. The pulmonic valve was not well visualized. 18. The aortic root size is normal. 19. There is no pericardial effusion. COSMETIC SALES ADVISOR: Xochilt Hinkle RDCS
[2019-01-10 10:44] VITALS: RESP 16
--- NOTE | 2019-01-10 12:19 | NM ---
EXAMINATION TYPE: NM stress lexiscan cardiolite DATE OF EXAM: 01/10/2019 COMPARISON: NONE HISTORY: Chest pain with hypertension, diabetes, hyperlipidemia, prior [place], and family history of matilda nary artery disease TECHNIQUE: After the intravenous administration of 9.89 mCi Tc 99m Sestamibi - Cardiolite resting SP ECT images acquired 45 minutes post injection. The patient received 0.4mg Lexiscan, 25.2 mCi Tc 99m Sestamibi - Stress images obtained [address] injection FINDINGS: Review of stress and rest SPECT images demonstrates no reversible perfusion abnormality. There is a small mild defect in the anteroseptal wall in the distribution of the left anterior descending bee ry artery compatible with prior infarct. Gated analysis shows normal wall motion with an estimated le ft ventricular ejection fraction of 71 %. TID is calculated within normal limits at 0.92. IMPRESSION: 1. No scintigraphic evidence for reversible ischemia. 2. Small defect in the distribution of the left anterior descending coronary artery and the anterior septal wall from prior infarct. No louise-infarct ischemia seen.
--- NOTE | 2019-01-10 12:39 | P.DS ---
Providers Date of admission: 01/08/19 13:24 Expected date of discharge: 01/10/19 (Precordial chest pain without EKG changes or elevated troponin) Attending physician: Darwin Jaquez Consults: 01/08/19 13:03 Consult Physician Urgent Consulting Provider: Brannon Ritchie Consult Reason/Comments: Chest Pain/Bradycardia Do you want consulting provider notified?: Yes Primary care physician: Darwin Jaquez Diagnosis: Acute precordial chest pain with no radiation, no EKG changes with the underlying chronic left bundle branch block and no troponin elevation. #2 hypothyroidism on treatment chronic. #3 hypertension with hypertensive heart disease with the blood pressure control 127/24781/69. #4 dysfunctional bowel with frequency and loose intermittently has been resolved. With loperamide. #5 coronary artery disease atherosclerotic heart disease. #6 Mild pulmonary hypertension #7 mitral regurgitation tricuspid regurg. #7 no evidence of diabetes mellitus. Echocardiogram: Results indicating #1 ejection fraction 50-55%, basal inferoseptal left ventricular wall motion hypokinesis. Mild aortic valve sclerosis, mitral regurgitation mild, tricuspid regurgitation mild, pulmonary hypertension mild,. Lexiscan stress test was done result to follow. Laboratories: Last lab on 01/09/2019 alkaline phosphatase 248, the isoenzyme is not available or the bone fraction is not available. The troponin 3 was nega tive neck is and 0.012, Lipid profile indicating her HDL 66 with the LDL 35 and the total cholesterol 114. Her TSH space 3.530 and she is receiving thyroid medication and hypothyroidism has been controlled. Her hemoglobin A1c 5.8 and a fasting blood sugar is normal and that she had blood sugar 101 in a.m. no evidence of diabetes mellitus. Patient seen and examined today prior to the discharge. Conscious alert oriented, ambulatory, she just returned from the stress test with the picture of the heart the result not available. ER presentation: Precordial chest pain she called the [address] [place] [address] ER. Hospital course patient, patient monitors, seen in the ER by Dr. Guerra cardiology, subsequent Admitted to telemetry, echocardiogram was obtained, which was essentially negative for acute MA, serial cardiac enzyme and EKG was negative. She underwent stress test this morning and the result is pending. As the results is negative patient will go home today as a did discuss with her in [id number] conversation. Discharge exam: Conscious alert oriented 3 no chest pain and she did not have a bowel movement since she had medication advised to that to hold on loperamide until she had a bowel movement. HEENT was negative, Neck supple no JVD no thyromegaly no lymphadenopathy. Chest is clear to auscultation percussion no wheezes no rhonchi's. Heart regular sinus rhythm no dysrhythmia and no chest pain. Abdomen soft positive bowel sounds no organ enlargement. Extremities no edema and positive pulses Neurologically: No lateralizing sign, severe hearing deficit. Assessment and plan: Discussed with the patient in detail, waiting for the stress test results, patient had no chest pain no other symptoms no shortness of breath. Patient will be discharged home today if the stress test is negative, I did discuss it with Dr. Cavazos the nurse of dictation for cardiology and to responded to the clinician if there is any problem patient will be counseled the discharge. In the regards of the results of the stress test. We'll continue the current medication has been given to her at home. Acceptive the cardiology changing any medication they will give a prescription for It. Plan - Discharge Summary Discharge Rx Participant: No New Discharge Prescriptions: Continue Levothyroxine Sodium [Levoxyl] 75 mcg PO DAILY amLODIPine [Norvasc] 10 mg PO HS Timolol 0.5% Ophth Soln [Timoptic 0.5% Ophth Soln] 1 drop BOTH EYES QAM Pantoprazole Sodium [Protonix] 40 mg PO DAILY Nitroglycerin Sl Tabs [Nitrostat] 0.4 mg SUBLINGUAL Q5M PRN PRN Reason: Chest Pain Naphazoline HCl/Glycerin [Clear Eyes Max Redness Rlf Drp] 1 drop BOTH EYES Q4H PRN PRN Reason: DRY EYES Metoprolol Tartrate [Lopressor] 12.5 mg PO BID Vit A/Vit C/Vit E/Zinc/Copper [ICAPS SOFTGEL] 2 cap PO BID Latanoprost [Xalatan 0.005%] 1 drop BOTH EYES HS Aspirin EC [Ecotrin Low Dose] 81 mg PO DAILY Multivitamins, Thera [Multivitamin (formulary)] 1 tab PO DAILY Loperamide [Imodium] 4 mg PO TID PRN PRN Reason: Loose Stool Carbamide Peroxide [Debrox Otic] 1 drops BOTH EARS Q7D Discharge Medication List Levothyroxine Sodium [Levoxyl] 75 mcg PO DAILY 09/18/14 [History] Timolol 0.5% Ophth Soln [Timoptic 0.5% Ophth Soln] 1 drop BOTH EYES QAM 08/17/17 [History] amLODIPine [Norvasc] 10 mg PO HS 08/17/17 [History] Pantoprazole Sodium [Protonix] 40 mg PO DAILY 08/18/17 [History] Metoprolol Tartrate [Lopressor] 12.5 mg PO BID 12/06/17 [History] Naphazoline HCl/Glycerin [Clear Eyes Max Redness Rlf Drp] 1 drop BOTH EYES Q4H PRN 12/06/17 [History] Nitroglycerin Sl Tabs [Nitrostat] 0.4 mg SUBLINGUAL Q5M PRN 12/06/17 [History] Aspirin EC [Ecotrin Low Dose] 81 mg PO DAILY 01/08/19 [History] Carbamide Peroxide [Debrox Otic] 1 drops BOTH EARS Q7D 01/08/19 [History] Latanoprost [Xalatan 0.005%] 1 drop BOTH EYES HS 01/08/19 [History] Loperamide [Imodium] 4 mg PO TID PRN 01/08/19 [History] Multivitamins, Thera [Multivitamin (formulary)] 1 tab PO DAILY 01/08/19 [History] Vit A/Vit C/Vit E/Zinc/Copper [ICAPS SOFTGEL] 2 cap PO BID 01/08/19 [History] Follow up Appointment(s)/Referral(s): [facility] [Provider Group] - 1 Week Darwin Jaquez MD [Primary Care Provider] - 1-2 days Discharge Disposition: HOME SELF-CARE
--- NOTE | 2019-01-10 12:46 | P.PN ---
Subjective Progress Note Date: 01/10/19 This is a pleasant 83-year-old female patient with history of coronary artery disease, hypothyroidism, GERD, hypertension, who initially presented to the hospital with symptoms of chest pain. She was seen in consultation by Dr. Sparks. Patient was also noted to have some mild abnormality in the alkaline ph osphatase. Which is improved today. Echocardiogram with Doppler study has been performed but is yet pending. Patient was seen and examined this morning, she denies having any further chest discomfort, actually feels well and is anticipating being discharged home soon. We will review the results of her echocardiogram with Doppler study. Dr. Ritchie also recommend patient undergo stress testing. 01/10/2018 Patient was seen and examined this morning, no further episodes of any chest discomfort. She underwent a Persantine stress test today which was negative for any reversible ischemia. Blood pressure 138/60 with a heart rate in the 70s, 94% on room air. Sodium 138, potassium 4.1, BUN 16 and creatinine 0.8. Objective - Vital Signs Vital signs: Vital Signs Temp 97.2 F L 01/10/19 04:00 Pulse 75 01/10/19 08:00 Resp 16 01/10/19 11:48 BP 139/69 01/10/19 08:00 Pulse Ox 94 L 01/10/19 08:00 Intake & Output 01/09/19 01/10/19 01/10/19 18:59 06:59 18:59 Intake Total 910 Balance 910 Weight 48.7 kg 48.4 kg 48.4 kg Intake: IV 10 0.9 10 Oral 900 Other: Voiding Method Toilet Toilet Toilet # Voids 1 2 - Exam PHYSICAL EXAMINATION: GENERAL: 83-year-old female in no acute distress at the time HEENT: Head is atraumatic, normocephalic. Pupils equal, round. Sclera anicteric. Conjunctiva are clear. Mucous membranes of the mouth are moist. Neck is supple. There is no elevated jugular venous pressure. No carotid bruit is heard. HEART EXAMINATION: S1 and S2 systolic murmur is heard. CHEST EXAMINATION: Lungs are clear to auscultation and precussion. No chest wall tenderness is noted on palpation or with deep breathing. ABDOMEN: Soft, nontender. Bowel sounds are heard. No organomegaly noted. EXTREMITIES: 2+ peripheral pulses with no evidence of peripheral edema and no calf tenderness noted. NEUROLOGIC patient is awake, alert and oriented 3. . - Labs CBC & Chem 7: 01/08/19 12:00 01/09/19 06:15 Assessment and Plan Plan: Assessment and plan #1 chest pain, cardiac enzymes and troponins negative. #2 sinus bradycardia, could be secondary to abdominal discomfort Plan Echocardiogram with Doppler study revealed an ejection fraction of 50-55%, basal inferior septal wall hypokinesia. Persantine stress test negative for any reversible ischemia. From cardiology's perspective, patient may be able to be discharged home today. We will make a follow-up appointment in the office with Dr. Ritchie post discharge. DNP note has been reviewed, I agree with a documented findings and plan of care. Patient was seen and examined.
[2019-01-10] MEDS: NITROGLYCERIN OINT 1 INCH/GM PACKET TOPICAL SCH ×2 (12:50→12:57)
[2019-01-10] MEDS: MULTIVITAMINS, THERA 1 EACH TAB PO SCH (12:56)
[2019-01-10] MEDS: METOPROLOL TARTRATE 12.5 MG TAB PO SCH (12:56)
[2019-01-10] MEDS: ASPIRIN 81 MG PO SCH (12:56)
[2019-01-10] MEDS: TIMOLOL 0.5% OPHTH DROPS 5 ML BTL BOTH EYES SCH (12:56)
[2019-01-10] MEDS: PANTOPRAZOLE 40 MG TABLET PO SCH (12:57)
[2019-01-10] MEDS: LEVOTHYROXINE 75 MCG TAB PO SCH (12:57)
[2019-01-10 13:04] VITALS: BP 164/72; PULSE 97
--- NOTE | 2019-01-10 13:12 | EST ---
EXERCISE STRESS DATE OF SERVICE: 01/10/2019 AGE: 83 SEX: Female HT: 60" WT: 106 pounds PROTOCOL: Lexiscan Cardiolite STAGE: DURATION OF EXERCISE: HEART RATE REST: 74 BLOOD PRESSURE REST: 158/78 MAXIMUM HEART RATE ACHIEVED: 103 MAXIMUM BLOOD PRESSURE: 166/82 85% MPHR: 115 100% MPHR: 135 METS: INDICATIONS: Chest pain. CLINICAL INFORMATION: Baseline EKG revealed a sinus mechanism with IVCD and inferolateral ST-segment depression. With Lexiscan administration, heart rate changed from 74 to 103 beats per minute. Blood pressure changed from 158/78 to 166/82. EKG remained inconclusive. Patient did not have any significant symptoms. Rare PVCs were noted. By EKG criteria is an inconclusive Lexiscan stress test. The nuclear scan results which are more pertinent will be reported by the radiologist. ASHISH / LUDMILA: [id number] /
== END 2019-01-10 14:21 | disposition home or self-care (01) | DRG 313 ==
LOC: EC 11:33 → 3SCARD 13:24
PROVIDERS: ADMIT Internal Medicine; ATTEND Internal Medicine
DX: R07.2 Precordial pain (principal); E03.9 Hypothyroidism, unspecified; I11.9 Hypertensive heart disease without heart failure; I27.20 Pulmonary hypertension, unspecified; I08.1 Rheumatic disorders of both mitral and tricuspid valves; E78.00 Pure hypercholesterolemia, unspecified; E78.5 Hyperlipidemia, unspecified; G47.00 Insomnia, unspecified; H35.30 Unspecified macular degeneration; E11.39 Type 2 diabetes mellitus with other diabetic ophthalmic complication; H42 Glaucoma in diseases classified elsewhere; H91.90 Unspecified hearing loss, unspecified ear; I44.7 Left bundle-branch block, unspecified; I73.00 Raynaud's syndrome without gangrene; K21.9 Gastro-esophageal reflux disease without esophagitis; M41.9 Scoliosis, unspecified; R00.1 Bradycardia, unspecified; M81.0 Age-related osteoporosis without current pathological fracture; Z96.1 Presence of intraocular lens; I25.2 Old myocardial infarction; Z91.018 Allergy to other foods; Z88.1 Allergy status to other antibiotic agents; Z91.040 Latex allergy status; Z88.7 Allergy status to serum and vaccine; Z91.09 Other allergy status, other than to drugs and biological substances; Z79.82 Long term (current) use of aspirin; Z79.890 Hormone replacement therapy; Z79.899 Other long term (current) drug therapy; Z85.3 Personal history of malignant neoplasm of breast; Z85.819 Personal history of malignant neoplasm of unspecified site of lip, oral cavity, and pharynx; Z87.891 Personal history of nicotine dependence; Z98.41 Cataract extraction status, right eye; Z98.42 Cataract extraction status, left eye; Z80.1 Family history of malignant neoplasm of trachea, bronchus and lung; Z82.49 Family history of ischemic heart disease and other diseases of the circulatory system
CPT/HCPCS: 36415; 71046; 78452; 80048; 80053; 80061; 83036; 83735; 84075; 84443; 84484; 85025; 85610; 85730; 93005; 93017; 93306; 96374; 96375; 99291

== ENCOUNTER → 2019-03-17 | Outpatient (CLI) | payer MEDICARE, BC ==
--- NOTE | 2019-03-17 09:35 | XR ---
EXAMINATION TYPE: XR abdomen 2V DATE OF EXAM: 03/17/2019 9:28 AM CLINICAL HISTORY: Abdominal pain TECHNIQUE: Single upright image of the abdomen is obtained. COMPARISON: None. FINDINGS: Scattered gas is seen in nondilated small bowel loops. Gas and fecal material is seen in no ndilated colon. No pneumoperitoneum. The lung bases are clear and the osseous structures are intact. Cholecystectomy clips are present. Numerous phleboliths are seen within the low pelvis. Additional ca lculus in the upper true pelvis measures 4 mm and may relate to a ureteral calcification or additiona l phlebolith. Extensive atherosclerosis is seen within the small vasculature. Moderate to severe bila teral femoral acetabular arthropathy and degenerative changes of the lumbosacral junction are also no mike. IMPRESSION: Nonobstructive bowel gas pattern. 4 mm calculus within the true pelvis on the left may relate to uret eral calculus or phlebolith.
== END | disposition home or self-care (01) ==
LOC: RADXRMAIN 09:13
PROVIDERS: ATTEND Internal Medicine
DX: N20.0 Calculus of kidney (principal); Z90.49 Acquired absence of other specified parts of digestive tract
CPT/HCPCS: 74019

== ENCOUNTER 2019-04-17 11:15 | Inpatient (IN) | payer MEDICARE, BC ==
--- NOTE | 2019-04-17 11:36 | ED ---
General Adult HPI - General Chief complaint: Fall Stated complaint: Fall Time Seen by Provider: 04/17/19 11:19 Source: patient, EMS Mode of arrival: EMS Limitations: physical limitation - History of Present Illness Initial comments: Dictation was produced using [employer] dictation software. please excuse any grammatical, word or spelling errors. Chief Complaint: 84-year-old female presents after fall. History of Present Illness: 84-year-old female she is brought in by EMS. Patient allegedly fell last night. She states she had tenderness she is causing her to fall forward. Patient reports that she was too weak to get up. 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 She was found to be on the ground. Patient states she did not lose consciousness. She does complain of bilateral knee pain. States that she was able to get up and stand was crawling around in her living space. She did manage to get to the bathroom equal the cord for help. Patient complains of bilateral knee pain, left shoulder pain bilateral elbow pain. She denies taking any blood thinners. The ROS documented in this emergency department record has been reviewed and confirmed by me. Those systems with pertinent positive or negative responses have been documented in the HPI. All other systems are other negative and/or noncontributory. PHYSICAL EXAM: General Impression: Alert and oriented x3, not in acute distress HEENT: Periorbital left ecchymoses without tarsal plate sparing, extra-ocular movements intact, pupils equal and reactive to light bilaterally, mucous membranes moist. Cardiovascular: Heart regular rate and rhythm, S1&S2 audible, no murmurs, rubs or gallops Chest: Lungs clear to auscultation bilaterally, no rhonchi, no wheeze, no rales Abdomen: Bowel sounds present, abdomen soft, non-tender, non-distended, no organomegaly Musculoskeletal: Pulses present and equal in all extremities, no peripheral edema Motor: no focal deficits noted Neurological: CN II-XII grossly intact, no focal motor or sensory deficits noted Skin: Ecchymoses of bilateral elbows and bilateral knees Psych: Normal affect and mood ED course: 84-year-old female presents after fall. She reports being on the ground for several hours since last night. Concerns of rhabdomyolysis. Vital signs upon arrival shows heart rate of 121, rest of vital signs within acceptable limits. Review vital signs were obtained showing improvement of heart rate and blood pressure. Lab data evaluation obtained mild leukocytosis of 13.8 likely secondary to stress. Rest of CBC unremarkable. Coag panel negative. Patient d oes have mild Acidosis. She does have elevated renal markers. HEENT sinuses consistent with rhabdomyolysis. Urinalysis is unremarkable. Chest x-ray is nonacute. Computed tomography scan of the head and C-spine are unremarkable. C-collar was cleared. Pelvis x-ray is nonacute. Shoulder x-ray is negative. Pending the x-ray and elbow x-ray radiology read. Doubt significant acute traumatic injury. Discussed patient case with Dr. Adele Phipps who is willing to accept patients care for rhabdomyolysis. Nephrology be on consultation. EKG interpretation: Ventricular rate 110, sinus tachycardia, OK interval 122, care is 114, QTc 484. No OK prolongation, no QTC prolongation, no ST or T-wave changes noted. EKG compared to 01/08/2019 showing no changes. Overall, this EKG is unremarkable - Related Data Home Medications Medication Instructions Recorded Confirmed Levothyroxine Sodium [Levoxyl] 75 mcg PO DAILY 09/18/14 04/17/19 Timolol 0.5% Ophth Soln [Timoptic 1 drop BOTH EYES QAM 08/17/17 04/17/19 0.5% Ophth Soln] amLODIPine [Norvasc] 10 mg PO HS 08/17/17 04/17/19 Pantoprazole Sodium [Protonix] 40 mg PO DAILY 08/18/17 04/17/19 Metoprolol Tartrate [Lopressor] 12.5 mg PO BID 12/06/17 04/17/19 Naphazoline HCl/Glycerin [Clear 1 drop BOTH EYES Q4H PRN 12/06/17 04/17/19 Eyes Max Redness Rlf Drp] Nitroglycerin Sl Tabs [Nitrostat] 0.4 mg SUBLINGUAL Q5M PRN 12/06/17 04/17/19 Aspirin EC [Ecotrin Low Dose] 81 mg PO DAILY 01/08/19 04/17/19 Carbamide Peroxide [Debrox Otic] 1 drops BOTH EARS Q7D 01/08/19 04/17/19 Latanoprost [Xalatan 0.005%] 1 drop BOTH EYES HS 01/08/19 04/17/19 Loperamide [Imodium] 4 mg PO TID PRN 01/08/19 04/17/19 Multivitamins, Thera [Multivitamin 1 tab PO DAILY 01/08/19 04/17/19 (formulary)] Vit A/Vit C/Vit E/Zinc/Copper 2 cap PO BID 01/08/19 04/17/19 [ICAPS SOFTGEL] Allergies Allergy/AdvReac Type Severity Reaction Status Date / Time cetirizine [From Zyrtec] Allergy Unknown Verified 04/17/19 12:19 guaifenesin Allergy Unknown Verified 04/17/19 12:19 Latex, Natural Rubber Allergy BURNING Verified 04/17/19 12:19 SKIN levofloxacin [From Levaquin] Allergy Unknown Verified 04/17/19 12:19 pneumococcal vaccine Allergy Unknown Verified 04/17/19 12:19 Review of Systems ROS Statement: Those systems with pertinent positive or pertinent negative responses have been documented in the HPI. ROS Other: All systems not noted in ROS Statement are negative. Past Medical History Past Medical History: Cancer, Eye Disorder, GERD/Reflux, Hyperlipidemia, Hypertension, Myocardial Infarction (MD), Pneumonia, Skin Disorder, Thyroid Disorder Additional Past Medical History / Comment(s): Glaucoma and macular degeneration bilaterally, hypothyroid, heart murmur, oral cancer with removal, UTIs, bronchitis, Raynauld's syndrome, osteoporosis, psoriasis, hemorrhoids. Last Myocardial Infarction Date:: ? 1-1.5 yrs ago per pt History of Any Multi-Drug Resistant Organisms: None Reported Past Surgical History: Breast Surgery, Section, Cholecystectomy Additional Past Surgical History / Comment(s): Oral cancer removed, R breast lumpectomy-benign, colonoscopies, bilateral cataract removal with lens implants. Past Anesthesia/Blood Transfusion Reactions: No Reported Reaction Past Psychological History: No Psychological Hx Reported Smoking Status: Former smoker Past Alcohol Use History: Daily - Past Family History Father Family Medical History: Cancer, Myocardial Infarction (MD) Additional Family Medical History / Comment(s): Father at age 77yrs from a MD and lung cancer. Mother Family Medical History: No Reported History Additional Family Medical History / Comment(s): Mother at age 87yrs. She was healthy. General Exam Limitations: physical limitation Course Vital Signs 04/17/19 04/17/19 04/17/19 11:17 11:21 12:00 Temperature 97.8 F Pulse Rate 121 H Respiratory 20 Rate Blood Pressure 114/99 114/99 143/80 O2 Sat by Pulse 98 95 98 Oximetry 04/17/19 12:30 Temperature Pulse Rate Respiratory Rate Blood Pressure 135/78 O2 Sat by Pulse 92 L Oximetry Medical Decision Making - Lab Data Result diagrams: 04/17/19 11:43 04/17/19 11:43 Lab Results 04/17/19 04/17/19 04/17/19 Range/Units 11:43 11:43 11:43 WBC 13.8 H (3.8-10.6) k/uL RBC 4.92 (3.80-5.40) m/uL Hgb 16.0 (11.4-16.0) gm/dL Hct 47.0 H (34.0-46.0) % MCV 95.6 (80.0-100.0) fL MCH 32.6 (25.0-35.0) pg MCHC 34.1 (31.0-37.0) g/dL RDW 13.5 (11.5-15.5) % Plt Count 372 (150-450) k/uL Neutrophils % 86 % Lymphocytes % 7 % Monocytes % 5 % Eosinophils % 0 % Basophils % 0 % Neutrophils # 11.9 H (1.3-7.7) k/uL Lymphocytes # 1.0 (1.0-4.8) k/uL Monocytes # 0.7 (0-1.0) k/uL Eosinophils # 0.0 (0-0.7) k/uL Basophils # 0.0 (0-0.2) k/uL PT 11.0 (9.0-12.0) sec INR 1.0 (<1.2) Sodium 139 (137-145) mmol/L Potassium 4.4 (3.5-5.1) mmol/L Chloride 100 (98-107) mmol/L Carbon Dioxide 19 L (22-30) mmol/L Anion Gap 20 mmol/L BUN 34 H (7-17) mg/dL Creatinine 1.38 H (0.52-1.04) mg/dL Est GFR (CKD-EPI)AfAm 40 (>60 ml/min/1.73 sqM) Est GFR (CKD-EPI)NonAf 35 (>60 ml/min/1.73 sqM) Glucose 179 H (74-99) mg/dL Calcium 10.1 (8.4-10.2) mg/dL Magnesium 2.1 (1.6-2.3) mg/dL Creatine Kinase 2437 H* (30-135) U/L Urine Color Urine Appearance (Clear) Urine pH (5.0-8.0) Ur Specific [place] (1.001-1.035) Urine Protein (Negative) Urine Glucose (UA) (Negative) Urine Ketones (Negative) Urine Blood (Negative) Urine Nitrite (Negative) Urine Bilirubin (Negative) Urine Urobilinogen (<2.0) mg/dL Ur Leukocyte Esterase (Negative) Urine RBC (0-5) /hpf Urine WBC (0-5) /hpf Ur Squamous Epith Cells (0-4) /hpf Hyaline Casts (0-2) /lpf Urine Mucus (None) /hpf 04/17/19 Range/Units 13:37 WBC (3.8-10.6) k/uL RBC (3.80-5.40) m/uL Hgb (11.4-16.0) gm/dL Hct (34.0-46.0) % MCV (80.0-100.0) fL MCH (25.0-35.0) pg MCHC (31.0-37.0) g/dL RDW (11.5-15.5) % Plt Count (150-450) k/uL Neutrophils % % Lymphocytes % % Monocytes % % Eosinophils % % Basophils % % Neutrophils # (1.3-7.7) k/uL Lymphocytes # (1.0-4.8) k/uL Monocytes # (0-1.0) k/uL Eosinophils # (0-0.7) k/uL Basophils # (0-0.2) k/uL PT (9.0-12.0) sec INR (<1.2) Sodium (137-145) mmol/L Potassium (3.5-5.1) mmol/L Chloride (98-107) mmol/L Carbon Dioxide (22-30) mmol/L Anion Gap mmol/L BUN (7-17) mg/dL Creatinine (0.52-1.04) mg/dL Est GFR (CKD-EPI)AfAm (>60 ml/min/1.73 sqM) Est GFR (CKD-EPI)NonAf (>60 ml/min/1.73 sqM) Glucose (74-99) mg/dL Calcium (8.4-10.2) mg/dL Magnesium (1.6-2.3) mg/dL Creatine Kinase (30-135) U/L Urine Color Yellow Urine Appearance Clear (Clear) Urine pH 6.0 (5.0-8.0) Ur Specific [place] 1.017 (1.001-1.035) Urine Protein 2+ H (Negative) Urine Glucose (UA) Negative (Negative) Urine Ketones 1+ H (Negative) Urine Blood Negative (Negative) Urine Nitrite Negative (Negative) Urine Bilirubin Negative (Negative) Urine Urobilinogen <2.0 (<2.0) mg/dL Ur Leukocyte Esterase Negative (Negative) Urine RBC <1 (0-5) /hpf Urine WBC 2 (0-5) /hpf Ur Squamous Epith Cells 1 (0-4) /hpf Hyaline Casts 4 H (0-2) /lpf Urine Mucus Occasional H (None) /hpf Disposition Clinical Impression: Rhabdomyolysis Disposition: ADMITTED IP TO THIS [facility] Condition: Fair Is patient prescribed a controlled substance at d/c from ED?: No Referrals: Darwin Jaquez MD [Primary Care Provider] - 1-2 days Decision Time: 14:51
[2019-04-17 11:58] LABS: Basophils % (A) 0 %; Eosinophils % (A) 0 %; Lymphocytes % (A) 7 %; MCH 32.6 pg (25.0-35.0); MCHC 34.1 g/dL (31.0-37.0); MCV 95.6 fL (80.0-100.0); Mean Platelet Volume 6.8; Monocytes # (A) 0.7 k/uL (0-1.0); Monocytes % (A) 5 %; Neutrophils # (A) 11.9 k/uL (1.3-7.7); Neutrophils % (A) 86 %; Platelet Count 372 k/uL (150-450); RBC 4.92 m/uL (3.80-5.40); RDW 13.5 % (11.5-15.5); WBC 13.8 k/uL (3.8-10.6)
[2019-04-17 12:13] LABS: Calcium 10.1 mg/dL (8.4-10.2); Magnesium 2.1 mg/dL (1.6-2.3); Potassium 4.4 mmol/L (3.5-5.1)
--- NOTE | 2019-04-17 12:50 | CT ---
EXAMINATION TYPE: CT brain herbie maria DATE OF EXAM: 04/17/2019 COMPARISON: NONE HISTORY: Fall with subsequent head and neck pain CT DLP: 1311.4 mGycm. Automated Exposure Control for Dose Reduction was Utilized. TECHNIQUE: CT scan of the head and cervical spine are performed without contrast. FINDINGS: There is no acute intracranial hemorrhage or midline shift identified. There is diffuse v entricular and sulcal prominence consistent with diffuse age-related cerebral atrophy. There is low- attenuation in the periventricular white matter consistent with chronic small vessel ischemic change. The globes are intact and the visualized sinuses are clear. Cervical spine is visualized in its entirety from C1 through upper thoracic levels and demonstrates s atisfactory alignment without evidence of acute fracture or dislocation. Moderate multilevel degenera tive disc disease is seen with posterior disc osteophyte complexes at C5-C6 and C6-C7, multilevel unc overtebral hypertrophy, and multilevel facet arthropathy creating variable degrees of neural foramina l narrowing. Prevertebral soft tissue appears within normal limits. The C1-C2 articulation is unrema rkable. IMPRESSION: 1. There is no acute fracture or dislocation evident in the cervical spine. 2. No acute intracranial hemorrhage, mass effect, or midline shift is seen. 3. 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 4. Age-related cerebral volume loss and confluent areas of nonspecific white matter change, likely on the basis of microangiopathy.
[2019-04-17] MEDS ORDERED: SODIUM CHLORIDE 0.9% 1,000 ML IV STA (13:24)
[2019-04-17 13:55] LABS: Appearance,Urine Clear (Clear); Bilirubin,Urine Negative (Negative); Blood,Urine Negative (Negative); Color,Urine Yellow; Glucose,Urine (UA) Negative (Negative); Hyaline Casts,Urine 4 /lpf (0-2); Ketones,Urine 1+ (Negative); Leukocyte Esterase,Urine Negative (Negative); Mucus,Urine Occasional /hpf; Nitrite,Urine Negative (Negative); Protein,Urine 2+ (Negative); RBC,Urine <1 /hpf (0-5); Specific Gravity,Urine 1.017 (1.001-1.035); Squamous Epithelial Cell,Urine 1 /hpf (0-4); Urobilinogen,Urine <2.0 mg/dL (<2.0); WBC,Urine 2 /hpf (0-5)
--- NOTE | 2019-04-17 14:39 | XR ---
EXAMINATION TYPE: XR shoulder complete LT DATE OF EXAM: 04/17/2019 CLINICAL HISTORY: Fall injury with pain. TECHNIQUE: Three views of the left shoulder are obtained. COMPARISON: None. FINDINGS: Demineralization is present. There is no acute fracture/dislocation evident in the left sh oulder. There is moderate narrowing and spurring at acromioclavicular joint. Glenohumeral joint is m aintained. The visualized ribs are intact and unremarkable. IMPRESSION: There is no acute fracture or dislocation in the left shoulder.
--- NOTE | 2019-04-17 14:43 | XR ---
EXAMINATION TYPE: XR pelvis AP view DATE OF EXAM: 04/17/2019 CLINICAL HISTORY: Fall injury with pain. TECHNIQUE: A single AP view of the pelvis is obtained. COMPARISON: Abdominal x-ray March 17, 2019 FINDINGS: There is no acute fracture/dislocation evident in the pelvis. Asymmetric left sacroiliac j oint narrowing is redemonstrated. Moderate axial joint space loss in both hips is redemonstrated. Sc attered pelvic phlebolith are again seen. Vascular calcification into bilateral groin region is redem onstrated. IMPRESSION: There is no acute fracture or dislocation in the pelvis.
[2019-04-17] MEDS ORDERED: NALOXONE 0.4 MG/ML 1 ML VIAL IV PRN (14:46)
--- NOTE | 2019-04-17 14:46 | XR ---
EXAMINATION TYPE: XR chest 1V portable DATE OF EXAM: 04/17/2019 COMPARISON: 01/08/2019 HISTORY: Shortness of breath TECHNIQUE: Single frontal view of the chest is obtained. FINDINGS: There is no focal air space opacity, pleural effusion, or pneumothorax seen. The cardiac silhouette size is within normal limits. The osseous structures are intact. IMPRESSION: No acute process.
--- NOTE | 2019-04-17 14:49 | XR ---
EXAMINATION TYPE: XR elbow limited bilateral DATE OF EXAM: 04/17/2019 CLINICAL HISTORY: Bilateral elbow pain after fall TECHNIQUE: Frontal and lateral images of the bilateral ankles were obtained. COMPARISON: 02/09/2015 bone survey FINDINGS: There is no acute fracture/dislocation evident in either elbow. No abnormal fat pad signs are seen. Old well-corticated fractures are seen of the lateral epicondyles is noted on the prior b one survey dated 02/09/2015. These appear well-corticated. The overlying soft tissue appears unremarka ble. IMPRESSION: acute fracture or dislocation in either elbow.
--- NOTE | 2019-04-17 14:52 | XR ---
EXAMINATION TYPE: XR knee 4V bilateral DATE OF EXAM: 04/17/2019 CLINICAL HISTORY: Bilateral knee pain after fall. TECHNIQUE: 4 views of the bilateral knees were obtained. COMPARISON: None. FINDINGS: There is no acute fracture/dislocation evident in either knee. There is medial and lateral compartment chondrocalcinosis of the bilateral knees. Very small medial compartment osteophytes is s een on the left and lateral compartment osteophyte on the right. Small superior patellar pole osteoph ytes are also seen bilaterally. Severe atherosclerosis on the left and moderate to severe atheroscler osis on the right. No patellar dislocation bilaterally. No discrete patellar fracture is seen of eith er knee. Minimal suprapatellar subcutaneous soft tissue swelling of the right. No suprapatellar joint effusion of either knee. IMPRESSION: 1. No acute fracture or dislocation in either knee. 2. Mild soft tissue swelling of the suprapatellar subcutaneous tissues on the right. 3. Mild arthropathy of the knees and bicompartmental chondrocalcinosis bilaterally.
[2019-04-17] MEDS: SODIUM CHLORIDE 0.9% 1,000 ML IV SCH (16:33)
[2019-04-17] MEDS ORDERED: LOPERAMIDE 2 MG CAP PO PRN (18:05)
[2019-04-17] MEDS ORDERED: NITROGLYCERIN SL TABS 0.4 MG TAB SUBLINGUAL PRN (18:05)
--- NOTE | 2019-04-17 19:01 | P.HPIM ---
History of Present Illness H&P Date: 04/17/19 (Fall off her bed during the night) Chief Complaint: Aches and pain secondary to fall off her bed during the night and stayed on This is the tavera history and physical dictated to service 04/17/2019. Chief complaint: Patient presented to the emergency room by ambulance after she fell down off her bed during the night [place] in her blankets and could not get up History of present illness 84 years old white female lives in an apartment of assisted living, urinating the night she was planning to go to the bathroom but she indicating old and her blankets fell on the floor and could not get up until the morning. Patient missed her appointment with Dr. Reese Davison see the gastroenterology and at that time they called to the assisted living where the maintenance and check on her apartment found that she is laying on the floor could not stand up with the underlying weakness , vision sent to the hospital by ambulance and at that time found she had abrasion on the knee, they did x-rays elbows knees and neck and head and pelvis with no evidence of fracture. Laboratory indicating the patient had rhabdomyolysis secondary to fall, and a creatine kinase 2437 with the underlying rhabdomyolysis also found that her carbon dioxide is 19 and a creatinine 1.38 and had a BUN 35. With the normal magnesium and normal calcium, also found that her white count 13.8 with leukocyt osis with negative chest x-ray and negative urine analysis, patient to hematocrit was 47 which is high and the hemoglobin was 16 with the associated dehydration moderate. Her estimated glomerular filtration rate for non- 35. And she had a mild hyperglycemia with glucose was 170. Her past medical history : Essential hypertension, hyperlipidemia, hypothyroidism, pulmonary hypertension, rheumatic tricuspid insufficiency, diabetes mellitus without complication, irritable bowel syndrome, Mona Karon. Patient followed by Dr. 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 She had a follow-up appointment with Dr. Reese Lizarraga gastroenterology for her regular bowel movement from diarrhea to constipation and very vigorous with failure of treatment as outpatient. Social history: Caffeine 3-4 cups per day, alcohol very rare beer. Former smoker started at age of 16 and ended at age of 47 and was back per day. Family history: She had a daughter 1 and the son 1. She lives in assisted living alone. And she is following low sugar diet. ALLERGY to pneumococcal vaccine. She is on Lipitor 10 mg tablet daily at bedtime, metoprolol 25 mg she take only half a tablet equal to 12.5 mg twice a day. Protonix 40 mg before meals breakfast, 4 hypertension amlodipine 10 mg at bedtime, hypothyroidism she takes levothyroxine 75 g daily Cristobal before meals breakfast. She had underlying history of angina and she used nitroglycerin 0.4 mg sublingual when necessary. She also using Debrox 6.5% solution for wax of t he ears. She uses clear I drops ophthalmic [id number] medication. She take aspirin 81 mg daily and that she take timolol ophthalmic from 0.5% solution 1 drop each eye in a.m. by Dr. Bear. She also taken N a past of cellulitic 0.005% solution that was ordered in the past by Dr. Mahmood. She has been seen Dr. Leigh gastroenterology for frequent bowel movement with unknown etiology. Review of system: Patient has severe hard of hearing with the use of hearing aid and the need for loud voice still here or understanding. HEENT: The head no confusion and normocephalic and atraumatic. Ear bilateral hearing aid, nose no discharge. Pupil reactive and she had history Mona Karon. Oropharynx negative, Neck was supple no JVD no thyromegaly no lymphadenopathy trachea midline. Chest was clear to auscultation and percussion with the underlying mild kyphosis. Abdomen is soft positive bowel sounds no organ enlargement. Skin warm and dry with the abrasions on the knee bilaterally associated with the fall. Extremities: There is no edema and positive pulses but she had fall with scattered confusion normal x-rays no evidence of fracture. Neurologically stable general condition. Laboratory underlying leukocytosis with the stress of fall and laid down all night on the floor associated with rhabdo as well as abrasion of the knee. Assessment: #1 fall off the bed during the night as entangled in the bed sheets and she was planning to go to the bathroom. She stayed on the floor rest of the night. #2 rhabdomyolysis with the high creatinine kinase. #3 hyperglycemia with mild diabetes mellitus type 2 #4 chronic kidney disease stage III #5 hemoconcentration with a possibly mild dehydration with elevated hematocrit. #6 advanced degenerative osteoarthritis generalized. Plan: #1 continue hydration #2 consultation with the nephrology #3 patient has mild decrease on the CO2 however patient currently hydrated and will see the effect tomorrow. #3 monitoring the serum creatinine kinase with lab tomorrow for also the renal function. #4 heparin subcu every 12 lower as patient bedridden at this time. Past Medical History Past Medical History: Cancer, Eye Disorder, GERD/Reflux, Hyperlipidemia, Hypertension, Myocardial Infarction ([place]), Pneumonia, Skin Disorder, Thyroid Disorder Additional Past Medical History / Comment(s): Glaucoma and macular degeneration bilaterally, hypothyroid, heart murmur, oral cancer with removal, UTIs, bronchitis, Raynauld's syndrome, osteoporosis, psoriasis, hemorrhoids. Last Myocardial Infarction Date:: ? 1-1.5 yrs ago per pt History of Any Multi-Drug Resistant Organisms: None Reported Past Surgical History: Breast Surgery, Section, Cholecystectomy Additional Past Surgical History / Comment(s): Oral cancer removed, R breast lumpectomy-benign, colonoscopies, bilateral cataract removal with lens implants. Past Anesthesia/Blood Transfusion Reactions: No Reported Reaction Past Psychological History: No Psychological Hx Reported Additional Psychological History / Comment(s): Pt resides alone. She uses a walker occasionally. She no longer has a vehicle. She uses [employer] for transportation. She does light housework and has a petrographer every 2 weeks for the heavier cleaning. She manages her own medications. Smoking Status: Former smoker Past Alcohol Use History: Daily Additional Past Alcohol Use History / Comment(s): Pt smoked from 3438-5714. She used to drink 2-3 beers each evening but states she no longer drinks at all. Past Drug Use History: None Reported - Past Family History Father Family Medical History: Cancer, Myocardial Infarction ([place]) Additional Family Medical History / Comment(s): Father at age 77yrs from a [place] and lung cancer. Mother Family Medical History: No Reported History Additional Family Medical History / Comment(s): Mother at age 87yrs. She was healthy. Medications and Allergies Home Medications Medication Instructions Recorded Confirmed Type Levothyroxine Sodium [Levoxyl] 75 mcg PO DAILY 09/18/14 04/17/19 History Timolol 0.5% Ophth Soln [Timoptic 1 drop BOTH EYES QAM 08/17/17 04/17/19 History 0.5% Ophth Soln] amLODIPine [Norvasc] 10 mg PO HS 08/17/17 04/17/19 History Pantoprazole Sodium [Protonix] 40 mg PO DAILY 08/18/17 04/17/19 History Metoprolol Tartrate [Lopressor] 12.5 mg PO BID 12/06/17 04/17/19 History Naphazoline HCl/Glycerin [Clear 1 drop BOTH EYES Q4H PRN 12/06/17 04/17/19 History Eyes Max Redness Rlf Drp] Nitroglycerin Sl Tabs [Nitrostat] 0.4 mg SUBLINGUAL Q5M PRN 12/06/17 04/17/19 History Aspirin EC [Ecotrin Low Dose] 81 mg PO DAILY 01/08/19 04/17/19 History Carbamide Peroxide [Debrox Otic] 1 drops BOTH EARS Q7D 01/08/19 04/17/19 History Latanoprost [Xalatan 0.005%] 1 drop BOTH EYES HS 01/08/19 04/17/19 History Loperamide [Imodium] 4 mg PO TID PRN 01/08/19 04/17/19 History Multivitamins, Thera [Multivitamin 1 tab PO DAILY 01/08/19 04/17/19 History (formulary)] Vit A/Vit C/Vit E/Zinc/Copper 2 cap PO BID 01/08/19 04/17/19 History [ICAPS SOFTGEL] Allergies Allergy/AdvReac Type Severity Reaction Status Date / Time cetirizine [From Zyrtec] Allergy Unknown Verified 04/17/19 12:19 guaifenesin Allergy Unknown Verified 04/17/19 12:19 Latex, Natural Rubber Allergy BURNING Verified 04/17/19 12:19 SKIN levofloxacin [From Levaquin] Allergy Unknown Verified 04/17/19 12:19 pneumococcal vaccine Allergy Unknown Verified 04/17/19 12:19 Physical Exam Vitals: Vital Signs Temp Pulse Resp BP Pulse Ox 04/17/19 14:48 51 L 18 103/85 95 04/17/19 12:30 135/78 92 L 04/17/19 12:00 143/80 98 04/17/19 11:21 114/99 95 04/17/19 11:17 97.8 F 121 H 20 114/99 98 Intake and Output 04/17/19 04/17/19 04/17/19 06:59 14:59 22:59 Other: Weight 48.534 kg Results CBC & Chem 7: 04/17/19 11:43 04/17/19 11:43 Labs: Abnormal Lab Results - Last 24 Hours (Table) 04/17/19 04/17/19 04/17/19 Range/Units 11:43 11:43 13:37 WBC 13.8 H (3.8-10.6) k/uL Hct 47.0 H (34.0-46.0) % Neutrophils # 11.9 H (1.3-7.7) k/uL Carbon Dioxide 19 L (22-30) mmol/L BUN 34 H (7-17) mg/dL Creatinine 1.38 H (0.52-1.04) mg/dL Glucose 179 H (74-99) mg/dL Creatine Kinase 2437 H* (30-135) U/L Urine Protein 2+ H (Negative) Urine Ketones 1+ H (Negative) Hyaline Casts 4 H (0-2) /lpf Urine Mucus Occasional H (None) /hpf Microbiology - Last 24 Hours (Table) 04/17/19 13:37 Urine Culture - Preliminary Urine,Voided
[2019-04-17] MEDS: amLODIPine 5 MG TAB PO SCH (20:17)
[2019-04-17] MEDS: METOPROLOL TARTRATE 12.5 MG TAB PO SCH (20:33)
[2019-04-17] MEDS: BACITRACIN 500 UNIT/GM OINT 28.4 GM TUBE TOPICAL SCH (20:33)
[2019-04-17] MEDS: VIT A,C & E-LUTEIN-MINERALS 1 EACH TAB PO SCH (20:33)
[2019-04-17] MEDS: HEPARIN SODIUM,PORCINE 5,000 UNIT/ML 1 ML VIAL SQ SCH (20:33)
[2019-04-17] MEDS: LATANOPROST 0.005% OPHTH DROPS 2.5 ML BTL BOTH EYES SCH (20:33)
[2019-04-17] MEDS ORDERED: amLODIPine 10 MG TAB PO SCH (21:00)
[2019-04-17] MEDS ORDERED: KETOTIFEN 0.025% OPHTH DROPS 5 ML BTL BOTH EYES PRN (21:00)
[2019-04-17] MEDS: ZOLPIDEM 5 MG TAB PO PRN (21:10)
[2019-04-18] MEDS: SODIUM CHLORIDE 0.9% 1,000 ML IV SCH ×3 (01:17→21:06)
[2019-04-18] MEDS ORDERED: LEVOTHYROXINE 75 MCG TAB PO SCH (06:30)
[2019-04-18 07:40] LABS: Albumin 3.6 g/dL (3.5-5.0); Potassium 3.5 mmol/L (3.5-5.1); Total Bilirubin 1.5 mg/dL (0.2-1.3); Total Protein 6.9 g/dL (6.3-8.2)
[2019-04-18 07:44] LABS: Basophils % (A) 0 %; Eosinophils # (A) 0.1 k/uL (0-0.7); Eosinophils % (A) 1 %; HCT 40.9 % (34.0-46.0); HGB 13.3 gm/dL (11.4-16.0); Lymphocytes # (A) 1.1 k/uL (1.0-4.8); Lymphocytes % (A) 11 %; MCH 31.7 pg (25.0-35.0); MCHC 32.6 g/dL (31.0-37.0); MCV 97.2 fL (80.0-100.0); Mean Platelet Volume 7.1; Monocytes # (A) 0.7 k/uL (0-1.0); Monocytes % (A) 7 %; Neutrophils # (A) 7.3 k/uL (1.3-7.7); Neutrophils % (A) 78 %; Platelet Count 254 k/uL (150-450); RBC 4.21 m/uL (3.80-5.40); RDW 14.7 % (11.5-15.5); WBC 9.3 k/uL (3.8-10.6)
[2019-04-18 08:53] LABS: T4, Free (Free Thyroxine) 1.17 ng/dL (0.78-2.19)
[2019-04-18] MEDS: ASPIRIN 81 MG PO SCH (09:15)
[2019-04-18] MEDS: BACITRACIN 500 UNIT/GM OINT 28.4 GM TUBE TOPICAL SCH ×2 (09:15→21:27)
[2019-04-18] MEDS: TIMOLOL 0.5% OPHTH DROPS 5 ML BTL BOTH EYES SCH (09:15)
[2019-04-18] MEDS: MULTIVITAMINS, THERA 1 EACH TAB PO SCH (09:15)
[2019-04-18] MEDS: VIT A,C & E-LUTEIN-MINERALS 1 EACH TAB PO SCH ×2 (09:15→21:28)
[2019-04-18] MEDS: PANTOPRAZOLE 40 MG TABLET PO SCH (09:15)
[2019-04-18] MEDS: HEPARIN SODIUM,PORCINE 5,000 UNIT/ML 1 ML VIAL SQ SCH ×2 (09:16→21:27)
[2019-04-18] MEDS: METOPROLOL TARTRATE 12.5 MG TAB PO SCH ×2 (09:16→21:27)
--- NOTE | 2019-04-18 09:27 | P.PN ---
Subjective Progress Note Date: 04/18/19 (Fall off her bed, rhabdomyolysis, dehydration) Principal diagnosis: Diagnoses: #1 rhabdomyolysis, secondary to fall off her bed, entangled in her bedsheet, stayed on the floor for approximately 12 are. #2 dehydration. #3 chronic kidney disease stage III with hypertensive nephrosclerosis. #4 hypothyroidism not well controlled medication adjusted. #5 hypertension was hypertensive heart disease. Patient seen today, progress note date of service 04/18/2019. Patient reviewed her laboratory indicating that her creatine kinase 1146 which is improving but still elevated. Her TSH 16 which is indicating the thyroid was not well controlled. Leukocytosis has been resolved it was 13.8, now 9.3. Her hemoglobin was 16 now is 13.3 with hydration, hematocrit 47 on admission and now 40.9. Platelet count 254 stable. Carbon dioxide was 19 now improved to 21, BUN 34 now 29. Creatinine mean was 1.38 now 0.93 with the underlying estimated GFR indicating 56 currently was 35 on admission. Vital sign temperature 97.4 F oral heart rate is 84 bpm regular sinus and respiratory rate 15 her blood pressure 148/80 and the pulse ox 97 on the room air. On the clinical exam patient is conscious alert oriented she had a little bruises on her left facial from the fall. She had the abrasion on the knee bilateral which was treated. X-rays was negative in the ER however he has generalized rhabdomyolysis as well as generalized weakness. Her blood pressure fluctuating earlier blood pressure 106/61 and currently 148/80 currently within the movement of the patient as well as her shower this morning. HEENT was negative neck was supple and no JVD chest was clear and the heart was regular sinus rhythm Abdomen is soft positive bowel sounds and no tenderness and extremities no edema she had the abrasion on the knee pulses was intact bilateral. Patient is very hard of hearing in spite of that she use a hearing aid. Patient able to swallow communicate as well as eat. Assessment: # #1 the rhabdomyolysis secondary to a fell off her bed during the night, gradual improvement but not cleared yet. #2 dehydration improving. #3 hemoconcentration and that resulted in the IV fluid. #4 chronic kidney disease stage III. #5 history of severe hypertension was hypertensive nephrosclerosis. #6 hearing deficit bilateral neurosensory with the use of the hearing aid. Number #7 advanced degenerative osteoarthritis generalized with no evidence of fracture. #8 hypothyroidism with the uncontrolled and the TSH today 16 supplemented. 9 need the physical therapist. Plan continue with the treatment and hydration, increase it levothyroxin to 100 g once a day. And continue monitoring the creatine kinase and the renal function which is improved. Check on hemoglobin A1c with a history of diabetes mellitus diet controlled. And we'll obtain CBG before meals meals. Objective - Vital Signs Vital signs: Vital Signs Temp 97.4 F L 04/18/19 00:18 Pulse 84 04/18/19 00:18 Resp 15 04/18/19 00:18 BP 148/80 04/18/19 00:18 Pulse Ox 97 04/18/19 00:18 Intake & Output 04/17/19 04/18/19 04/18/19 18:59 06:59 18:59 Weight 48.534 kg Other: Voiding Method Bedpan # Voids 1 - Labs CBC & Chem 7: 04/18/19 07:05 04/18/19 07:05 Labs: Abnormal Lab Results - Last 24 Hours (Table) 04/17/19 04/17/19 04/17/19 Range/Units 11:43 11:43 13:37 WBC 13.8 H (3.8-10.6) k/uL Hct 47.0 H (34.0-46.0) % Neutrophils # 11.9 H (1.3-7.7) k/uL Carbon Dioxide 19 L (22-30) mmol/L BUN 34 H (7-17) mg/dL Creatinine 1.38 H (0.52-1.04) mg/dL Glucose 179 H (74-99) mg/dL Total Bilirubin (0.2-1.3) mg/dL AST (14-36) U/L ALT (9-52) U/L Alkaline Phosphatase (38-126) U/L Creatine Kinase 2437 H* (30-135) U/L TSH (0.465-4.680) mIU/L Urine Protein 2+ H (Negative) Urine Ketones 1+ H (Negative) Hyaline Casts 4 H (0-2) /lpf Urine Mucus Occasional H (None) /hpf 04/18/19 Range/Units 07:05 WBC (3.8-10.6) k/uL Hct (34.0-46.0) % Neutrophils # (1.3-7.7) k/uL Carbon Dioxide 21 L (22-30) mmol/L BUN 29 H (7-17) mg/dL Creatinine (0.52-1.04) mg/dL Glucose 112 H (74-99) mg/dL Total Bilirubin 1.5 H (0.2-1.3) mg/dL AST 87 H (14-36) U/L ALT 54 H (9-52) U/L Alkaline Phosphatase 160 H (38-126) U/L Creatine Kinase 1146 H* (30-135) U/L TSH 16.000 H (0.465-4.680) mIU/L Urine Protein (Negative) Urine Ketones (Negative) Hyaline Casts (0-2) /lpf Urine Mucus (None) /hpf Microbiology - Last 24 Hours (Table) 04/17/19 13:37 Urine Culture - Preliminary Urine,Voided
--- NOTE | 2019-04-18 11:02 | CDI ---
Documentation Clarification Form Date: 04/18/2019 10:12:00 AM From: Patricia Gtz RN, CCDS Admit Date: 04/17/2019 2:46:00 PM Patient Name: Elizabeth Correa Visit Number: [id number] Discharge Date: ATTENTION: The Clinical Documentation Specialists (CDI) and [facility] Coding Staff appreciate your assistance in clarifying documentation. Please respond to the clarification below the line at the bottom and electronically sign. The CDI & [facility] Coding staff will review the response and follow-up if needed. Please note: Queries are made part of the Legal Health Record. If you have any questions, please contact the author of this message via ITS. Dr. Darwin Jaquez The patient presented after a fall on the floor and reports was too weak to get up. History/Risk Factors: Hypertension, Diabetes Mellitus Type 2, Irritable bowel syndrome, Former smoker Clinical Indicators: 84-year-old female present after fall at home on ground all night. She complains of bilateral knees pain, left shoulder pain and bilateral elbow pain. She has ecchymosis of bilateral elbows and bilateral knees. All x- rays were negative for fracture. Lab findings: Creatine kinase 2437, CO2 19, Creatinine 1.38, BUN 35, GFR 35; WBC 13.8, Vital Signs: 114/99 121 20 97.8 98 % RA Treatment: IV Fluids Montor Lytes, serum Creatine Kinase Consults: Nephrology (Pending) In your professional opinion, can you please further clarify the Rhabdomyolysis? Rhabdomyolysis, Traumatic Rhabdomyolysis, Nontraumatic Other, please specify Unable to determine (Last Revision: December 2017) Rhabdomyolysis, traumatic as mentioned in the history and physical and the progress note due to fall off her bed tangled with a sheet stayed on the floor for almost 12 hours approximately. YANCI
[2019-04-18 12:08] LABS: Glucose,Whole Blood 95 mg/dL (75-99)
[2019-04-18] MEDS: INSULIN ASPART (NovoLOG) 100 UNIT/ML VIAL SQ SCH ×2 (13:33→16:57)
[2019-04-18] MEDS ORDERED: POTASSIUM CHLORIDE ER 20 MEQ TAB.ER PO STA (15:06)
--- NOTE | 2019-04-18 15:08 | P.NPCON ---
History of Present Illness - Reason for Consult acute renal failure - History of Present Illness Reason for consultation: Acute kidney injury History of present illness: Patient is a 84-year-old female seen in consultation for acute kidney injury. Creatinine was 1.3 done admission and is down to 0.93 today. He should presented to the hospital after sustaining a fall. Patient states she got tangled in her bed sheets and try to get up too fast to go to the bathroom and fell. Patient states she was down on the floor all night and was unable to get up. Patient's CK level was 2437 on admission and is 1146 today. She is maintained on normal saline at 100 mL an hour. She denies any vomiting or zhou rrhea. Hemodynamically she stable. She has been voiding. No hematuria or dysuria. Denies chest pain or shortness of breath. Admits to being sore. Denies any history of renal disease. No history of diabetes. Denies regular use of nonsteroidals. Vital signs are stable. General: The patient appeared well nourished and normally developed. HEENT: Head exam is unremarkable. Neck is without jugular venous distension. LUNGS: Lungs are clear to auscultation and percussion. Breath sounds decreased. HEART: Rate and Rhythm are regular. First and second heart sounds normal. No murmurs, rubs or gallops. ABDOMEN: Abdominal exam reveals normal bowel sounds. Non-tender and non- distended. No evidence of peritonitis. EXTREMITITES: No clubbing, cyanosis, or edema. Past Medical History Past Medical History: Cancer, Eye Disorder, GERD/Reflux, Hyperlipidemia, Hypertension, Myocardial Infarction ([place]), Pneumonia, Skin Disorder, Thyroid Disorder Additional Past Medical History / Comment(s): Glaucoma and macular degeneration bilaterally, hypothyroid, heart murmur, oral cancer with removal, UTIs, bronchitis, Raynauld's syndrome, osteoporosis, psoriasis, hemorrhoids. Last Myocardial Infarction Date:: ? 1-1.5 yrs ago per pt History of Any Multi-Drug Resistant Organisms: None Reported Past Surgical History: Breast Surgery, Section, Cholecystectomy Additional Past Surgical History / Comment(s): Oral cancer removed, R breast lumpectomy-benign, colonoscopies, bilateral cataract removal with lens implants. Past Anesthesia/Blood Transfusion Reactions: No Reported Reaction Past Psychological History: No Psychological Hx Reported Additional Psychological History / Comment(s): Pt resides alone. She uses a walker occasionally. She no longer has a vehicle. She uses [employer] for transportation. She does light housework and has a retail merchandising coordinator every 2 weeks for the heavier cleaning. She manages her own medications. Smoking Status: Former smoker Past Alcohol Use History: Daily Additional Past Alcohol Use History / Comment(s): Pt smoked from [id number]. She used to drink 2-3 beers each evening but states she no longer drinks at all. Past Drug Use History: None Reported - Past Family History Father Family Medical History: Cancer, Myocardial Infarction ([place]) Additional Family Medical History / Comment(s): Father at age 77yrs from a [place] and lung cancer. Mother Family Medical History: No Reported History Additional Family Medical History / Comment(s): Mother at age 87yrs. She was healthy. Medications and Allergies Home Medications Medication Instructions Recorded Confirmed Type Levothyroxine Sodium [Levoxyl] 75 mcg PO DAILY 09/18/14 04/17/19 History Timolol 0.5% Ophth Soln [Timoptic 1 drop BOTH EYES QAM 08/17/17 04/17/19 History 0.5% Ophth Soln] amLODIPine [Norvasc] 10 mg PO HS 08/17/17 04/17/19 History Pantoprazole Sodium [Protonix] 40 mg PO DAILY 08/18/17 04/17/19 History Metoprolol Tartrate [Lopressor] 12.5 mg PO BID 12/06/17 04/17/19 History Naphazoline HCl/Glycerin [Clear 1 drop BOTH EYES Q4H PRN 12/06/17 04/17/19 History Eyes Max Redness Rlf Drp] Nitroglycerin Sl Tabs [Nitrostat] 0.4 mg SUBLINGUAL Q5M PRN 12/06/17 04/17/19 History Aspirin EC [Ecotrin Low Dose] 81 mg PO DAILY 01/08/19 04/17/19 History Carbamide Peroxide [Debrox Otic] 1 drops BOTH EARS Q7D 01/08/19 04/17/19 History Latanoprost [Xalatan 0.005%] 1 drop BOTH EYES HS 01/08/19 04/17/19 History Loperamide [Imodium] 4 mg PO TID PRN 01/08/19 04/17/19 History Multivitamins, Thera [Multivitamin 1 tab PO DAILY 01/08/19 04/17/19 History (formulary)] Vit A/Vit C/Vit E/Zinc/Copper 2 cap PO BID 01/08/19 04/17/19 History [ICAPS SOFTGEL] Allergies Allergy/AdvReac Type Severity Reaction Status Date / Time cetirizine [From Zyrtec] Allergy Unknown Verified 04/17/19 12:19 guaifenesin Allergy Unknown Verified 04/17/19 12:19 Latex, Natural Rubber Allergy BURNING Verified 04/17/19 12:19 SKIN levofloxacin [From Levaquin] Allergy Unknown Verified 04/17/19 12:19 pneumococcal vaccine Allergy Unknown Verified 04/17/19 12:19 Physical Exam Vitals: Vital Signs Temp Pulse Resp BP Pulse Ox 04/18/19 07:00 98.2 F 92 12 152/81 94 L 04/18/19 00:18 97.4 F L 84 15 148/80 97 04/17/19 19:30 97.8 F 107 H 15 106/61 96 Intake and Output 04/18/19 04/18/19 04/18/19 06:59 14:59 22:59 Other: # Voids 1 Results - Lab Results Most recent lab results Calcium 9.0 mg/dL (8.4-10.2) 04/18/19 07:05 Magnesium 2.1 mg/dL (1.6-2.3) 04/17/19 11:43 04/18/19 07:05 04/18/19 07:05 Assessment and Plan Plan: Assessment: 1. Acute kidney injury mostly prerenal improved with IV hydration. Creatinine 0.93 today. 2. Mild rhabdomyolysis. CK levels trending down. 3. Status post fall. 4. Metabolic acidosis secondary to acute kidney injury. Better. 5. Benign hypertension. 6. Mild hypokalemia and hypomagnesemia. Plan: Maintain normal saline at 100 mL an hour. Likely Hep-Lock IV fluids tomorrow. Replace potassium. 20 mEq today. Replace magnesium. 2 g IV today. Repeat electrolytes in the morning. Thank you for the consultation. I will continue to follow patient with you during her hospital stay.
[2019-04-18] MEDS: MAGNESIUM SULFATE-D5W PMX 1 GM in DEXTROSE/WATER 1 100ML.BAG IVPB SCH ×2 (16:23→18:14)
[2019-04-18 17:08] LABS: Glucose,Whole Blood 112 mg/dL (75-99)
[2019-04-18] MEDS: LATANOPROST 0.005% OPHTH DROPS 2.5 ML BTL BOTH EYES SCH (21:27)
[2019-04-18] MEDS: amLODIPine 5 MG TAB PO SCH (21:28)
[2019-04-18] MEDS: ZOLPIDEM 5 MG TAB PO PRN (21:28)
[2019-04-18 22:05] LABS: Glucose,Whole Blood 103 mg/dL (75-99)
[2019-04-19 03:05] LABS: Hemoglobin A1C 5.9 % (4.0-6.0)
[2019-04-19] MEDS: LEVOTHYROXINE 100 MCG TAB PO SCH (06:00)
[2019-04-19 07:32] LABS: Glucose,Whole Blood 79 mg/dL (75-99)
--- NOTE | 2019-04-19 09:59 | P.PN ---
Subjective Progress Note Date: 04/19/19 Principal diagnosis: Diagnoses: #1 rhabdomyolysis, secondary to fall off her bed, entangled in her bedsheet, stayed on the floor for approximately 12 are. #2 dehydration. #3 chronic kidney disease stage III with hypertensive nephrosclerosis. #4 hypothyroidism not well controlled medication adjusted. #5 hypertension was hypertensive heart disease. Progress note date of service 04/19/2019Sunday. Patient seen and evaluated and discussed with her the future management, need for rehabilitation, patient is conscious alert oriented 3, she requested I [facility] or [facility] [place] for continuing rehabilitation. Her laboratory and the creatinine creatine kinase is not available or BMP and is ordered for today. Patient has generalized soreness and rehabilitation in the hospital has been consulted. Her vital signs stable temperature 98.5 F oral. And pulse rate 65/m regular sinus respiratory rate is 12/m nonlabored blood pressure 132/79 with a mean 96. And the the pulse ox is 99 on room air. On 04/18/2019 creatine kinase 1146 today is not yet available. TSH was 16 on the same day 726 and supplementation was added. Her blood sugar has been fairly well controlled was no need for adding insulin however she had CBG to scale with the insulin coverage. On exam: Patient conscious alert oriented 3 and she helped with the physical therapy. Her HEENT was negative she had only left fascial bruises from the fall. Neck was supple no JVD no thyromegaly no lymphadenopathy trachea midline. Chest was clear to auscultation and percussion. Heart was regular sinus rhythm. No dysphagia and no evidence of heart failure. The abdomen is soft positive bowel sounds no organ enlargement. Extremities she had an abrasion on the knee is healing. The next. No edema of the lower extremities. Her blood pressure well-controlled she had history of severe hypertension. Assessment: Dr. James did see the patient and his impression is acute kidney injury. And History of dehydration prerenal. Rhabdomyolysis mild. Hypertension is well-controlled at this time. Sensory deficit of the hearing with a severe hearing disability. Patient may need for further rehabilitation especially she lives alone in an apartment after her fall and tingling in her sheet of the bed and stayed on the floor for almost 12 hour that associated with rhabdomyolysis. Plan we order the creatine kinases and BMP, and we will wait also for arrangement for the custodial rehabilitation probably patient will be ready to go by Sunday to custodial. Objective - Vital Signs Vital signs: Vital Signs Temp 98.5 F 04/19/19 07:00 Pulse 65 04/19/19 07:35 Resp 12 04/19/19 07:35 BP 132/79 04/19/19 07:00 Pulse Ox 99 04/19/19 07:00 Intake & Output 04/18/19 04/19/19 04/19/19 18:59 06:59 18:59 Other: Voiding Method Bedside Commode Toilet Bedside Commode # Voids 3 1 1 - Labs CBC & Chem 7: 04/18/19 07:05 04/18/19 07:05 Labs: Abnormal Lab Results - Last 24 Hours (Table) 04/18/19 04/18/19 Range/Units 16:57 21:53 POC Glucose (mg/dL) 112 H 103 H (75-99) mg/dL Microbiology - Last 24 Hours (Table) 04/17/19 13:37 Urine Culture - Final Urine,Voided
[2019-04-19] MEDS: BACITRACIN 500 UNIT/GM OINT 28.4 GM TUBE TOPICAL SCH ×2 (10:45→21:35)
[2019-04-19] MEDS: SODIUM CHLORIDE 0.9% 1,000 ML IV SCH ×2 (10:48→17:03)
[2019-04-19] MEDS: INSULIN ASPART (NovoLOG) 100 UNIT/ML VIAL SQ SCH ×3 (10:48→17:04)
[2019-04-19] MEDS: TIMOLOL 0.5% OPHTH DROPS 5 ML BTL BOTH EYES SCH (10:49)
[2019-04-19] MEDS: ASPIRIN 81 MG PO SCH (10:49)
[2019-04-19] MEDS: HEPARIN SODIUM,PORCINE 5,000 UNIT/ML 1 ML VIAL SQ SCH ×2 (10:49→21:35)
[2019-04-19] MEDS: METOPROLOL TARTRATE 12.5 MG TAB PO SCH ×2 (10:49→21:35)
[2019-04-19] MEDS: PANTOPRAZOLE 40 MG TABLET PO SCH (10:50)
[2019-04-19] MEDS: VIT A,C & E-LUTEIN-MINERALS 1 EACH TAB PO SCH ×2 (10:58→21:36)
[2019-04-19] MEDS: MULTIVITAMINS, THERA 1 EACH TAB PO SCH (10:58)
[2019-04-19 11:31] LABS: Calcium 8.9 mg/dL (8.4-10.2); Potassium 3.8 mmol/L (3.5-5.1)
[2019-04-19 12:16] LABS: Glucose,Whole Blood 115 mg/dL (75-99)
[2019-04-19 17:10] LABS: Glucose,Whole Blood 108 mg/dL (75-99)
[2019-04-19] MEDS: amLODIPine 5 MG TAB PO SCH (21:35)
[2019-04-19] MEDS: LATANOPROST 0.005% OPHTH DROPS 2.5 ML BTL BOTH EYES SCH (21:35)
[2019-04-19] MEDS: ZOLPIDEM 5 MG TAB PO PRN (21:36)
[2019-04-19 22:06] LABS: Glucose,Whole Blood 100 mg/dL (75-99)
[2019-04-20] MEDS: SODIUM CHLORIDE 0.9% 1,000 ML IV SCH ×2 (04:33→17:36)
[2019-04-20] MEDS: LEVOTHYROXINE 100 MCG TAB PO SCH (05:27)
[2019-04-20 07:04] LABS: Glucose,Whole Blood 91 mg/dL (75-99)
[2019-04-20] MEDS: INSULIN ASPART (NovoLOG) 100 UNIT/ML VIAL SQ SCH ×3 (08:59→17:36)
[2019-04-20] MEDS: TIMOLOL 0.5% OPHTH DROPS 5 ML BTL BOTH EYES SCH (09:15)
[2019-04-20] MEDS: MULTIVITAMINS, THERA 1 EACH TAB PO SCH (09:16)
[2019-04-20] MEDS: VIT A,C & E-LUTEIN-MINERALS 1 EACH TAB PO SCH ×2 (09:16→21:31)
[2019-04-20] MEDS: PANTOPRAZOLE 40 MG TABLET PO SCH (09:16)
[2019-04-20] MEDS: HEPARIN SODIUM,PORCINE 5,000 UNIT/ML 1 ML VIAL SQ SCH ×2 (09:16→21:31)
[2019-04-20] MEDS: BACITRACIN 500 UNIT/GM OINT 28.4 GM TUBE TOPICAL SCH ×2 (09:16→21:31)
[2019-04-20] MEDS: ASPIRIN 81 MG PO SCH (09:16)
[2019-04-20] MEDS: METOPROLOL TARTRATE 12.5 MG TAB PO SCH ×2 (09:16→21:31)
[2019-04-20 11:31] LABS: Glucose,Whole Blood 96 mg/dL (75-99)
--- NOTE | 2019-04-20 11:51 | P.PN ---
Subjective Progress Note Date: 04/20/19 (Rhabdomyolysis) Principal diagnosis: Diagnoses: #1 rhabdomyolysis, secondary to fall off her bed, entangled in her bedsheet, stayed on the floor for approximately 12 are. #2 dehydration. #3 chronic kidney disease stage III with hypertensive nephrosclerosis. #4 hypothyroidism not well controlled medication adjusted. #5 hypertension was hypertensive heart disease. This is a progress note date of service 04/20/2019. Patient seen and evaluated discussed with her the plan, patient has generalized weakness and need to 4:30 rehabilitation in one of the fdc she donnell Bustillos. Her vital sign is stable with temperature 98.3 F oral, her pulse rate 86/m and regular sinus, her respiratory rate 17 nonlabored, her blood pressure drug abuse technician hour was 164/80 and a mean blood pressure is 108, her pulse ox was 94. With the increase of blood pressure drug abuse technician hour we'll start her on lisinopril DARWIN inhibitor 5 mg daily 1 dose this morning. Creatinine kinase was still elevated yesterday and the level on 04/19/2019 642. And we will be repeating again with the continuing hydration this creatinine kinase tomorrow with a BMP as well as CBC. Her blood sugar has been maintained normal the highest 1:15 on 04/19/2019 115, this morning her blood sugar 91 normal without any medication or insulin added. 84 years old white female conscious alert oriented severe hearing deficit and despite that using the hearing aid. HEENT normal with no changes Neck was supple no JVD no thyromegaly no lymphadenopathy. Chest was clear to auscultation and percussion no wheezes no rhonchi's. The heart was regular sinus rhythm no dysrhythmia with mild hypertension which is adjusted medication no angina no chest pain. Abdomen soft positive bowel sound no nausea no vomiting. Extremities no edema and positive pulses bilateral. Neurologically stable. Assessment and plan: The generalized weakness with the need for rehab patient live alone and the need for referral to one of the rehab fdc i.e. [facility] [place] [facility] [place]. Rhabdomyolysis secondary to fall off her bed during the night and stayed on the floor could not stand up for almost 12 hour. History of hypertension and hypertensive heart disease Currently the blood pressure not well controlled and added lisinopril 5 mg daily 1 dose this morning. With the monitoring the blood pressure is well We'll be maintaining current physical therapy and the plan for fdc rehab in the bed is available and 24 hour period Laboratory ordered for this tomorrow morning. Objective - Vital Signs Vital signs: Vital Signs Temp 98.2 F 04/20/19 11:41 Pulse 80 04/20/19 11:41 Resp 16 04/20/19 11:41 BP 145/80 04/20/19 11:41 Pulse Ox 96 04/20/19 11:41 Intake & Output 04/19/19 04/20/19 04/20/19 18:59 06:59 18:59 Intake Total 900 240 Balance 900 240 Intake: Intake, IV Titration 900 Amount Sodium Chloride 0.9% 1, 900 000 ml @ 100 mls/hr IV . Q10H [facility] Rx#:[id number] Oral 240 Other: Voiding Method Toilet Bedside Commode # Voids 3 1 1 # Bowel Movements 1 - Labs CBC & Chem 7: 04/18/19 07:05 04/19/19 10:36 Labs: Abnormal Lab Results - Last 24 Hours (Table) 04/19/19 04/19/19 04/19/19 Range/Units 11:39 16:43 21:55 POC Glucose (mg/dL) 115 H 108 H 100 H (75-99) mg/dL
[2019-04-20] MEDS: LISINOPRIL 5 MG TAB PO SCH (12:39)
[2019-04-20 17:02] LABS: Glucose,Whole Blood 97 mg/dL (75-99)
[2019-04-20 21:00] LABS: Glucose,Whole Blood 105 mg/dL (75-99)
[2019-04-20] MEDS: amLODIPine 5 MG TAB PO SCH (21:31)
[2019-04-20] MEDS: LATANOPROST 0.005% OPHTH DROPS 2.5 ML BTL BOTH EYES SCH (21:31)
[2019-04-20] MEDS: ZOLPIDEM 5 MG TAB PO PRN (21:32)
[2019-04-21] MEDS: SODIUM CHLORIDE 0.9% 1,000 ML IV SCH ×2 (01:34→10:46)
[2019-04-21] MEDS: LEVOTHYROXINE 100 MCG TAB PO SCH (05:23)
[2019-04-21 06:28] VITALS: RESP 17
[2019-04-21 07:35] LABS: Glucose,Whole Blood 87 mg/dL (75-99)
[2019-04-21 07:37] VITALS: BP 162/90; PULSE 94; TEMP 98.6
[2019-04-21] MEDS: INSULIN ASPART (NovoLOG) 100 UNIT/ML VIAL SQ SCH ×2 (08:41→12:58)
[2019-04-21] MEDS: PANTOPRAZOLE 40 MG TABLET PO SCH (10:43)
[2019-04-21] MEDS: MULTIVITAMINS, THERA 1 EACH TAB PO SCH (10:44)
[2019-04-21] MEDS: VIT A,C & E-LUTEIN-MINERALS 1 EACH TAB PO SCH (10:44)
[2019-04-21] MEDS: ASPIRIN 81 MG PO SCH (10:44)
[2019-04-21] MEDS: METOPROLOL TARTRATE 12.5 MG TAB PO SCH (10:45)
[2019-04-21] MEDS: LISINOPRIL 5 MG TAB PO SCH (10:45)
[2019-04-21] MEDS: HEPARIN SODIUM,PORCINE 5,000 UNIT/ML 1 ML VIAL SQ SCH (10:45)
[2019-04-21] MEDS: TIMOLOL 0.5% OPHTH DROPS 5 ML BTL BOTH EYES SCH (10:46)
[2019-04-21] MEDS: BACITRACIN 500 UNIT/GM OINT 28.4 GM TUBE TOPICAL SCH (10:46)
[2019-04-21 11:04] LABS: Basophils % (A) 0 %; Eosinophils # (A) 0.1 k/uL (0-0.7); Eosinophils % (A) 2 %; HCT 39.1 % (34.0-46.0); HGB 12.8 gm/dL (11.4-16.0); Lymphocytes # (A) 0.9 k/uL (1.0-4.8); Lymphocytes % (A) 15 %; MCH 32.1 pg (25.0-35.0); MCHC 32.6 g/dL (31.0-37.0); MCV 98.6 fL (80.0-100.0); Mean Platelet Volume 7.4; Monocytes # (A) 0.6 k/uL (0-1.0); Monocytes % (A) 10 %; Neutrophils # (A) 3.9 k/uL (1.3-7.7); Neutrophils % (A) 69 %; Platelet Count 264 k/uL (150-450); RBC 3.97 m/uL (3.80-5.40); RDW 14.4 % (11.5-15.5); WBC 5.7 k/uL (3.8-10.6)
[2019-04-21 11:07] LABS: Glucose,Whole Blood 106 mg/dL (75-99)
[2019-04-21 11:14] LABS: Calcium 9.5 mg/dL (8.4-10.2); Potassium 3.2 mmol/L (3.5-5.1)
[2019-04-21] MEDS ORDERED: POTASSIUM CHLORIDE ER 20 MEQ TAB.ER PO STA (13:08)
--- NOTE | 2019-04-21 13:26 | P.DS ---
Providers Date of admission: 04/17/19 14:46 Expected date of discharge: 04/21/19 (Rhabdomyolysis secondary to the fall) Attending physician: Darwin Jaquez Consults: 04/17/19 14:47 Consult Physician Routine Consulting Provider: Vishal James Consult Reason/Comments: rhabdo Do you want consulting provider notified?: Yes Primary care physician: Darwin Jaquez The dictation of discharge summary date of service 04/21/2019. Final diagnosis: #1 rhabdomyolysis secondary to fall off the bed entangled in her sheet stayed on the floor for almost 12 hours . #2 hypertension with hypertensive heart disease. #3 severe hearing deficit even with the use of hearing aid. #4 dehydration. #5 generalized weakening with walking disability. #6 acute kidney injury prerenal. Borderline diabetes mellitus with blood sugar fasting 106 and she is not in any medication on diet only. #7 uncontrolled hypothyroidism and adjusted medication for her levothyroxine to 100 g daily. #8 the hypertension was uncontrolled and we added lisinopril 5 mg once daily. Patient presented to the emergency room: With the high CPK creatinekinase more than 2000, Patient's admitted to the hospital, hospital course In the emergency room consulted Dr. James nephrology will follow the patient. Patient hydrated and followed and monitored the creatinine kinase currently is down with the descending number and patient is conscious alert oriented and her renal function has been improved Hospital course: Patient did well her vital signs stable and still need for rehabilitation. Temperature 98.6 F oral pulse rate is 94 permanent respiratory rate 17 per minute nonlabored blood pressure was fluctuating between 127/72 and 162/90. With the saturation 95% on the room air. Laboratory: White count 5.7 hemoglobin 12.8 hematocrit 39.1 and MCV 98.6. Her chemistry indicating that sodium 137 potassium 3.2 supplemented today with 20 mEq of KCl to be checked in the halfway which she is going to medical [facility] [place]. Her renal function has significantly improved with the estimated glomerular filtration rate for non- 16 9 and creatinine kinase today is 316 with the descending trend to normal. Examination on discharge: Patient conscious alert oriented able to communicate freely however she had severe hearing deficit. HEENT was negative neck was supple chest was clear to auscultation and percussion with no wheezes no rhonchi's the heart was regular sinus rhythm and abdomen is soft positive bowel sounds extremities no edema and positive pulses and she is in rehab for continuing rehab dictation. No neuro deficit. Assessment and plan patient will be transferred today to medical [place] [facility] [place]. We'll be following her in the medical [place]. Patient her medications continued including the lisinopril 5 mg once daily and increased her levothyroxine to 100 g Patient Condition at Discharge: Fair Plan - Discharge Summary New Discharge Prescriptions: New Bacitracin Oint 1 applic TOPICAL BID applic Levothyroxine Sodium [Synthroid] 100 mcg PO DAILY@0630 tab Lisinopril [Zestril] 5 mg PO DAILY tab Continue amLODIPine [Norvasc] 10 mg PO HS Timolol 0.5% Ophth Soln [Timoptic 0.5% Ophth Soln] 1 drop BOTH EYES QAM Pantoprazole Sodium [Protonix] 40 mg PO DAILY Nitroglycerin Sl Tabs [Nitrostat] 0.4 mg SUBLINGUAL Q5M PRN PRN Reason: Chest Pain Naphazoline HCl/Glycerin [Clear Eyes Max Redness Rlf Drp] 1 drop BOTH EYES Q4H PRN PRN Reason: DRY EYES Metoprolol Tartrate [Lopressor] 12.5 mg PO BID Vit A/Vit C/Vit E/Zinc/Copper [ICAPS SOFTGEL] 2 cap PO BID Latanoprost [Xalatan 0.005%] 1 drop BOTH EYES HS Aspirin EC [Ecotrin Low Dose] 81 mg PO DAILY Multivitamins, Thera [Multivitamin (formulary)] 1 tab PO DAILY Loperamide [Imodium] 4 mg PO TID PRN PRN Reason: Loose Stool Discontinued Levothyroxine Sodium [Levoxyl] 75 mcg PO DAILY Carbamide Peroxide [Debrox Otic] 1 drops BOTH EARS Q7D Discharge Medication List Timolol 0.5% Ophth Soln [Timoptic 0.5% Ophth Soln] 1 drop BOTH EYES QAM 08/17/17 [History] amLODIPine [Norvasc] 10 mg PO HS 08/17/17 [History] Pantoprazole Sodium [Protonix] 40 mg PO DAILY 08/18/17 [History] Metoprolol Tartrate [Lopressor] 12.5 mg PO BID 12/06/17 [History] Naphazoline HCl/Glycerin [Clear Eyes Max Redness Rlf Drp] 1 drop BOTH EYES Q4H PRN 12/06/17 [History] Nitroglycerin Sl Tabs [Nitrostat] 0.4 mg SUBLINGUAL Q5M PRN 12/06/17 [History] Aspirin EC [Ecotrin Low Dose] 81 mg PO DAILY 01/08/19 [History] Latanoprost [Xalatan 0.005%] 1 drop BOTH EYES HS 01/08/19 [History] Loperamide [Imodium] 4 mg PO TID PRN 01/08/19 [History] Multivitamins, Thera [Multivitamin (formulary)] 1 tab PO DAILY 01/08/19 [History] Vit A/Vit C/Vit E/Zinc/Copper [ICAPS SOFTGEL] 2 cap PO BID 01/08/19 [History] Bacitracin Oint 1 applic TOPICAL BID applic 04/21/19 [Rx] Levothyroxine Sodium [Synthroid] 100 mcg PO DAILY@0630 tab 04/21/19 [Rx] Lisinopril [Zestril] 5 mg PO DAILY tab 04/21/19 [Rx] Follow up Appointment(s)/Referral(s): Lexi Mcnamara, [NON-STAFF] - As Needed Darwin Jaquez MD [Primary Care Provider] - 1-2 days
[2019-04-23] MEDS ORDERED: CARBAMIDE PEROXIDE 6.5% DROPS 15 ML BTL BOTH EARS SCH (09:00)
== END 2019-04-21 15:31 | DRG 565 ==
LOC: EC 11:15 → 4SSUR 14:46
PROVIDERS: ADMIT Internal Medicine; ATTEND Internal Medicine
DX: T79.6XXA Traumatic ischemia of muscle, initial encounter (principal); E87.2 Acidosis; N17.9 Acute kidney failure, unspecified; E11.22 Type 2 diabetes mellitus with diabetic chronic kidney disease; E11.65 Type 2 diabetes mellitus with hyperglycemia; E86.0 Dehydration; N18.3 Chronic kidney disease, stage 3 (moderate); E03.9 Hypothyroidism, unspecified; E78.5 Hyperlipidemia, unspecified; E83.42 Hypomagnesemia; E87.6 Hypokalemia; I07.1 Rheumatic tricuspid insufficiency; H91.90 Unspecified hearing loss, unspecified ear; I12.9 Hypertensive chronic kidney disease with stage 1 through stage 4 chronic kidney disease, or unspecified chronic kidney disease; H35.30 Unspecified macular degeneration; M19.90 Unspecified osteoarthritis, unspecified site; M81.0 Age-related osteoporosis without current pathological fracture; Z96.1 Presence of intraocular lens; K21.9 Gastro-esophageal reflux disease without esophagitis; W06.XXXA Fall from bed, initial encounter; I27.20 Pulmonary hypertension, unspecified; I25.2 Old myocardial infarction; Z79.890 Hormone replacement therapy; Z79.82 Long term (current) use of aspirin; Z79.899 Other long term (current) drug therapy; Z80.1 Family history of malignant neoplasm of trachea, bronchus and lung; Z82.49 Family history of ischemic heart disease and other diseases of the circulatory system; Z85.819 Personal history of malignant neoplasm of unspecified site of lip, oral cavity, and pharynx; Z87.891 Personal history of nicotine dependence; Z98.41 Cataract extraction status, right eye; Z98.42 Cataract extraction status, left eye; Z88.7 Allergy status to serum and vaccine; Z88.1 Allergy status to other antibiotic agents; Z91.040 Latex allergy status; Z87.01 Personal history of pneumonia (recurrent); Z90.49 Acquired absence of other specified parts of digestive tract; Z90.89 Acquired absence of other organs; Z98.890 Other specified postprocedural states; Y93.89 Activity, other specified; Y92.092 Bedroom in other non-institutional residence as the place of occurrence of the external cause; Z74.01 Bed confinement status
CPT/HCPCS: 36415; 70450; 71045; 72125; 72170; 80048; 80053; 81001; 82550; 83036; 83735; 84439; 84443; 85025; 85610; 87086; 93005; 96360; 99285

== ENCOUNTER 2019-10-06 14:27 | Emergency (ER) | payer MEDICARE, BC ==
[2019-10-06 14:32] VITALS: RESP 18; TEMP 98.7
[2019-10-06] MEDS ORDERED: NITROGLYCERIN SL TABS 0.4 MG TAB SUBLINGUAL STA (14:48)
[2019-10-06] MEDS ORDERED: ASPIRIN 81 MG PO STA (14:48)
--- NOTE | 2019-10-06 14:54 | ED ---
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 No dizziness or lightheadedness. She states the pain does get worse with lying on her side but no overt change with movement. No other modifying factors or complaints at this time MD Complaint: chest pain - Related Data Home Medications Medication Instructions Recorded Confirmed Timolol 0.5% Ophth Soln [Timoptic 1 drop BOTH EYES QAM 08/17/17 04/17/19 0.5% Ophth Soln] amLODIPine [Norvasc] 10 mg PO HS 08/17/17 04/17/19 Pantoprazole Sodium [Protonix] 40 mg PO DAILY 08/18/17 04/17/19 Metoprolol Tartrate [Lopressor] 12.5 mg PO BID 12/06/17 04/17/19 Naphazoline HCl/Glycerin [Clear 1 drop BOTH EYES Q4H PRN 12/06/17 04/17/19 Eyes Max Redness Rlf Drp] Nitroglycerin Sl Tabs [Nitrostat] 0.4 mg SUBLINGUAL Q5M PRN 12/06/17 04/17/19 Aspirin EC [Ecotrin Low Dose] 81 mg PO DAILY 01/08/19 04/17/19 Latanoprost [Xalatan 0.005%] 1 drop BOTH EYES HS 01/08/19 04/17/19 Loperamide [Imodium] 4 mg PO TID PRN 01/08/19 04/17/19 Multivitamins, Thera [Multivitamin 1 tab PO DAILY 01/08/19 04/17/19 (formulary)] Vit A/Vit C/Vit E/Zinc/Copper 2 cap PO BID 01/08/19 04/17/19 [ICAPS SOFTGEL] Previous Rx's Medication Instructions Recorded Bacitracin Oint 1 applic TOPICAL BID applic 04/21/19 Levothyroxine Sodium [Synthroid] 100 mcg PO DAILY@0630 tab 04/21/19 Lisinopril [Zestril] 5 mg PO DAILY tab 04/21/19 Ibuprofen [Motrin] 600 mg PO Q6HR PRN #20 tab 10/06/19 Allergies Allergy/AdvReac Type Severity Reaction Status Date / Time cetirizine [From Zyrtec] Allergy Unknown Verified 10/06/19 14:30 [email or web address] Allergy Unknown Verified 10/06/19 14:30 Latex, Natural Rubber Allergy BURNING Verified 10/06/19 14:30 SKIN levofloxacin [From Levaquin] Allergy Unknown Verified 10/06/19 14:30 pneumococcal vaccine Allergy Unknown Verified 10/06/19 14:30 Review of Systems ROS Statement: Those systems with pertinent positive or pertinent negative responses have been documented in the HPI. ROS Other: All systems not noted in ROS Statement are negative. Past Medical History Past Medical History: Cancer, Eye Disorder, GERD/Reflux, Hyperlipidemia, Hypertension, Myocardial Infarction ([place]), Pneumonia, Skin Disorder, Thyroid Disorder Additional Past Medical History / Comment(s): Glaucoma and macular degeneration bilaterally, hypothyroid, heart murmur, oral cancer with removal, UTIs, bronchitis, Raynauld's syndrome, osteoporosis, psoriasis, hemorrhoids. Last Myocardial Infarction Date:: ? 1-1.5 yrs ago per pt History of Any Multi-Drug Resistant Organisms: None Reported Past Surgical History: Breast Surgery, Section, Cholecystectomy Additional Past Surgical History / Comment(s): Oral cancer removed, R breast lumpectomy-benign, colonoscopies, bilateral cataract removal with lens implants. Past Anesthesia/Blood Transfusion Reactions: No Reported Reaction Past Psychological History: No Psychological Hx Reported Smoking Status: Former smoker Past Alcohol Use History: Daily Past Drug Use History: None Reported - Past Family History Father Family Medical History: Cancer, Myocardial Infarction ([place]) Additional Family Medical History / Comment(s): Father at age 77yrs from a [place] and lung cancer. Mother Family Medical History: No Reported History Additional Family Medical History / Comment(s): Mother at age 87yrs. She was healthy. General Exam - General Exam Comments Initial Comments: This is a well-developed asthenic appearing female who is awake alert oriented 3 she is hard of hearing Limitations: no limitations General appearance: alert, in no apparent distress Head exam: Present: atraumatic, normocephalic, normal inspection Eye exam: Present: normal appearance, PERRL, EOMI. Absent: scleral icterus, conjunctival injection, periorbital swelling ENT exam: Present: normal exam, mucous membranes moist Neck exam: Present: normal inspection. Absent: tenderness, meningismus, lymphadenopathy Respiratory exam: Present: normal lung sounds bilaterally. Absent: respiratory distress, wheezes, rales, rhonchi, stridor Cardiovascular Exam: Present: regular rate, normal rhythm, normal heart sounds. Absent: systolic murmur, diastolic murmur, rubs, gallop, clicks GI/Abdominal exam: Present: soft, normal bowel sounds. Absent: distended, tenderness, guarding, rebound, rigid Extremities exam: Present: normal inspection, full ROM, tenderness (Tennis palpation of the mid to distal left arm it does somewhat reproduce patient's pain she states), normal capillary refill. Absent: pedal edema, joint swelling, calf tenderness Back exam: Present: normal inspection Neurological exam: Present: alert, oriented X3, CN II-XII intact Psychiatric exam: Present: normal affect, normal mood Skin exam: Present: warm, dry, intact, normal color. 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 EKG shows evidence of an old anterior changes and bundle-branch block which is been there on previous examinations. Patient be discharged and follow-up with Dr. Ritchie. I did discuss case with Dr. Ritchie and with family members the current presentation is consistent with musculoskeletal pain Disposition Clinical Impression: Musculoskeletal pain of left upper extremity Disposition: HOME SELF-CARE Condition: Good Instructions (If sedation given, give patient instructions): Musculoskeletal Pain (ED) Additional Instructions: The prescription was sent to the [facility] pharmacy Prescriptions: Ibuprofen [Motrin] 600 mg PO Q6HR PRN #20 tab PRN Reason: Pain Is patient prescribed a controlled substance at d/c from ED?: No Referrals: Darwin Jaquez MD [Primary Care Provider] - 1-2 days
[2019-10-06 15:22] LABS: Basophils # (A) 0.1 k/uL (0-0.2); Basophils % (A) 1 %; Eosinophils # (A) 0.1 k/uL (0-0.7); Eosinophils % (A) 2 %; HCT 42.7 % (34.0-46.0); HGB 13.7 gm/dL (11.4-16.0); Lymphocytes # (A) 1.2 k/uL (1.0-4.8); Lymphocytes % (A) 23 %; MCH 31.1 pg (25.0-35.0); MCHC 32.1 g/dL (31.0-37.0); MCV 96.7 fL (80.0-100.0); Monocytes # (A) 0.6 k/uL (0-1.0); Monocytes % (A) 11 %; Neutrophils # (A) 3.3 k/uL (1.3-7.7); Neutrophils % (A) 60 %; Platelet Count 246 k/uL (150-450); RBC 4.42 m/uL (3.80-5.40); RDW 13.5 % (11.5-15.5); WBC 5.5 k/uL (3.8-10.6)
--- NOTE | 2019-10-06 15:25 | XR ---
EXAMINATION TYPE: XR chest 2V DATE OF EXAM: 10/06/2019 COMPARISON: 04/17/2019 HISTORY: Chest pain TECHNIQUE: Frontal and lateral views of the chest are obtained. FINDINGS: There is no focal air space opacity, pleural effusion, or pneumothorax seen. The cardiac silhouette size is within normal limits. The osseous structures are intact. Mild multilevel degener ative change of the spine. IMPRESSION: No acute cardiopulmonary process.
[2019-10-06 15:32] LABS: Albumin 4.4 g/dL (3.5-5.0); Calcium 9.6 mg/dL (8.4-10.2); Total Bilirubin 0.7 mg/dL (0.2-1.3)
[2019-10-06 15:50] LABS: D-Dimer 0.54 mg/L FEU (<0.60); Partial Thromboplastin Time 23.9 sec (22.0-30.0); Prothrombin Time 10.6 sec (9.0-12.0)
[2019-10-06 16:23] VITALS: BP 150/81; PULSE 86
[2019-10-06] MEDS ORDERED: KETOROLAC 60 MG/2 ML VIAL IM STA (16:28)
[2019-10-06] MEDS ORDERED: KETOROLAC 30 MG/ML 1 ML VIAL IVP STA (16:53)
== END 2019-10-06 16:55 | disposition home or self-care (01) ==
LOC: EC 14:27
DX: M79.602 Pain in left arm (principal); I45.4 Nonspecific intraventricular block; H91.90 Unspecified hearing loss, unspecified ear; R53.1 Weakness; R07.9 Chest pain, unspecified; H40.9 Unspecified glaucoma; H35.30 Unspecified macular degeneration; K21.9 Gastro-esophageal reflux disease without esophagitis; I10 Essential (primary) hypertension; I25.2 Old myocardial infarction; Z87.891 Personal history of nicotine dependence; Z88.1 Allergy status to other antibiotic agents; Z88.7 Allergy status to serum and vaccine; Z88.8 Allergy status to other drugs, medicaments and biological substances; Z91.040 Latex allergy status; Z79.82 Long term (current) use of aspirin; Z79.899 Other long term (current) drug therapy; Z82.49 Family history of ischemic heart disease and other diseases of the circulatory system; Z53.8 Procedure and treatment not carried out for other reasons; Z85.819 Personal history of malignant neoplasm of unspecified site of lip, oral cavity, and pharynx; Z98.890 Other specified postprocedural states
CPT/HCPCS: 36415; 93005; 85379; 83880; 80053; 82550; 83690; 83735; 84484; 85025; 85610; 85730; 71046; 99285; 96374; J1885

== ENCOUNTER 2019-10-18 11:54 | Emergency (ER) | payer MEDICARE, BC ==
[2019-10-18 12:01] VITALS: TEMP 97.6
--- NOTE | 2019-10-18 12:43 | XR ---
EXAMINATION TYPE: XR shoulder complete RT , 4 VIEWS DATE OF EXAM ORDERED: 10/18/2019 HISTORY: pain. COMPARISON: None. FINDINGS: There is a comminuted fracture of the greater tuberosity. This is minimally displaced. No additional fractures are seen. No dislocation is identified. IMPRESSION: MILDLY DISPLACED, COMMINUTED FRACTURES OF THE GREATER TUBEROSITY OF THE RIGHT HUMERUS. CODE A: INITIAL ENCOUNTER FOR CLOSED FRACTURE.
--- NOTE | 2019-10-18 13:16 | ED ---
Upper Extremity HPI - General Chief Complaint: Extremity Injury, Upper Stated Complaint: Fall Time Seen by Provider: 10/18/19 12:06 Source: patient, EMS Mode of arrival: EMS Limitations: no limitations - History of Present Illness Initial Comments: This is a 84 show female presents emergency Department chief complaint of trip and fall. Patient states that she tripped at home falling onto her right shoulder. Patient did not strike her head no loss conscious. Patient also complaints right shoulder pain. Patient is right-hand dominant. No prior fr actures. - Related Data Home Medications Medication Instructions Recorded Confirmed Timolol 0.5% Ophth Soln [Timoptic 1 drop BOTH EYES QAM 08/17/17 04/17/19 0.5% Ophth Soln] amLODIPine [Norvasc] 10 mg PO HS 08/17/17 04/17/19 Pantoprazole Sodium [Protonix] 40 mg PO DAILY 08/18/17 04/17/19 Metoprolol Tartrate [Lopressor] 12.5 mg PO BID 12/06/17 04/17/19 Naphazoline HCl/Glycerin [Clear 1 drop BOTH EYES Q4H PRN 12/06/17 04/17/19 Eyes Max Redness Rlf Drp] Nitroglycerin Sl Tabs [Nitrostat] 0.4 mg SUBLINGUAL Q5M PRN 12/06/17 04/17/19 Aspirin EC [Ecotrin Low Dose] 81 mg PO DAILY 01/08/19 04/17/19 Latanoprost [Xalatan 0.005%] 1 drop BOTH EYES HS 01/08/19 04/17/19 Loperamide [Imodium] 4 mg PO TID PRN 01/08/19 04/17/19 Multivitamins, Thera [Multivitamin 1 tab PO DAILY 01/08/19 04/17/19 (formulary)] Vit A/Vit C/Vit E/Zinc/Copper 2 cap PO BID 01/08/19 04/17/19 [ICAPS SOFTGEL] Previous Rx's Medication Instructions Recorded Bacitracin Oint 1 applic TOPICAL BID applic 04/21/19 Levothyroxine Sodium [Synthroid] 100 mcg PO DAILY@0630 tab 04/21/19 Lisinopril [Zestril] 5 mg PO DAILY tab 04/21/19 Ibuprofen [Motrin] 600 mg PO Q6HR PRN #20 tab 10/06/19 Allergies Allergy/AdvReac Type Severity Reaction Status Date / Time cetirizine [From Zyrtec] Allergy Unknown Verified 10/06/19 14:30 guaifenesin Allergy Unknown Verified 10/06/19 14:30 Latex, Natural Rubber Allergy BURNING Verified 10/06/19 14:30 SKIN levofloxacin [From Levaquin] Allergy Unknown Verified 10/06/19 14:30 pneumococcal vaccine Allergy Unknown Verified 10/06/19 14:30 Review of Systems ROS Statement: Those systems with pertinent positive or pertinent negative responses have been documented in the HPI. ROS Other: All systems not noted in ROS Statement are negative. Past Medical History Past Medical History: Cancer, Eye Disorder, GERD/Reflux, Hyperlipidemia, Hypertension, Myocardial Infarction ([place]), Pneumonia, Skin Disorder, Thyroid Disorder Additional Past Medical History / Comment(s): Glaucoma and macular degeneration bilaterally, hypothyroid, heart murmur, oral cancer with removal, UTIs, bronchitis, Raynauld's syndrome, osteoporosis, psoriasis, hemorrhoids. Last Myocardial Infarction Date:: ? 1-1.5 yrs ago per pt History of Any Multi-Drug Resistant Organisms: None Reported Past Surgical History: Breast Surgery, Section, Cholecystectomy Additional Past Surgical History / Comment(s): Oral cancer removed, R breast lumpectomy-benign, colonoscopies, bilateral cataract removal with lens implants. Past Anesthesia/Blood Transfusion Reactions: No Reported Reaction Past Psychological History: No Psychological Hx Reported Smoking Status: Former smoker Past Alcohol Use History: Daily Past Drug Use History: None Reported - Past Family History Father Family Medical History: Cancer, Myocardial Infarction ([place]) Additional Family Medical History / Comment(s): Father at age 77yrs from a [place] and lung cancer. Mother Family Medical History: No Reported History Additional Family Medical History / Comment(s): Mother at age 87yrs. She was healthy. General Exam Limitations: no limitations General appearance: alert, in no apparent distress Head exam: Present: atraumatic, normocephalic, normal inspection Eye exam: Present: normal appearance, PERRL, EOMI. Absent: scleral icterus, conjunctival injection, periorbital swelling ENT exam: Present: normal exam, normal oropharynx, mucous membranes moist Neck exam: Present: normal inspection, full ROM. Absent: tenderness, meningismus, lymphadenopathy Respiratory exam: Present: normal lung sounds bilaterally. Absent: respiratory distress, wheezes, rales, rhonchi, stridor Cardiovascular Exam: Present: regular rate, normal rhythm, normal heart sounds. Absent: systolic murmur, diastolic murmur, rubs, gallop, clicks Extremities exam: Present: other (Right shoulder tenderness at the proximal humerus region, no iris deformity neurovascular intact limited range of motion) Back exam: Present: full ROM. Absent: tenderness, paraspinal tenderness, vertebral tenderness Course Vital Signs 10/18/19 11:55 Temperature 97.6 F Pulse Rate 69 Respiratory 16 Rate Blood Pressure 135/67 O2 Sat by Pulse 96 Oximetry Medical Decision Making - Medical Decision Making X-rays were obtained shows evidence of comminuted fracture of the right proximal humerus region. Patient was offered pain medication in the emergency department and upon discharge patient declined. Patient was placed in a sling and will follow-up with on-call orthopedics Disposition Clinical Impression: Closed fracture of right proximal humerus Disposition: HOME SELF-CARE Condition: Stable Instructions (If sedation given, give patient instructions): Proximal Humerus Fracture (ED) Additional Instructions: Please return to the Emergency Department if symptoms worsen or any other concerns. Is patient prescribed a controlled substance at d/c from ED?: No Referrals: Darwin Jaquez MD [Primary Care Provider] - 1-2 days Michael Rice MD [STAFF PHYSICIAN] - 1-2 days Time of Disposition: 13:15
[2019-10-18 13:49] VITALS: BP 128/79; PULSE 79; RESP 18
== END 2019-10-18 13:49 | disposition home or self-care (01) ==
LOC: EC 11:54
DX: S42.201A Unspecified fracture of upper end of right humerus, initial encounter for closed fracture (principal); K21.9 Gastro-esophageal reflux disease without esophagitis; I10 Essential (primary) hypertension; I25.2 Old myocardial infarction; H40.9 Unspecified glaucoma; Z85.818 Personal history of malignant neoplasm of other sites of lip, oral cavity, and pharynx; Z87.891 Personal history of nicotine dependence; Z79.82 Long term (current) use of aspirin; Z79.899 Other long term (current) drug therapy; Z88.8 Allergy status to other drugs, medicaments and biological substances; Z91.040 Latex allergy status; Z88.1 Allergy status to other antibiotic agents; Z88.7 Allergy status to serum and vaccine; Z53.29 Procedure and treatment not carried out because of patient's decision for other reasons; W01.0XXA Fall on same level from slipping, tripping and stumbling without subsequent striking against object, initial encounter; Y92.009 Unspecified place in unspecified non-institutional (private) residence as the place of occurrence of the external cause
CPT/HCPCS: 99284

== ENCOUNTER → 2019-11-24 | Outpatient (CLI) | payer MEDICARE, BC ==
[2019-11-24 17:00] LABS: Basophils % (A) 1 %; Eosinophils # (A) 0.2 k/uL (0-0.7); Eosinophils % (A) 4 %; HCT 42.3 % (34.0-46.0); HGB 13.6 gm/dL (11.4-16.0); Lymphocytes # (A) 1.2 k/uL (1.0-4.8); Lymphocytes % (A) 19 %; MCH 31.4 pg (25.0-35.0); MCHC 32.1 g/dL (31.0-37.0); MCV 97.7 fL (80.0-100.0); Monocytes # (A) 0.7 k/uL (0-1.0); Monocytes % (A) 10 %; Neutrophils # (A) 3.9 k/uL (1.3-7.7); Neutrophils % (A) 63 %; Platelet Count 284 k/uL (150-450); RBC 4.33 m/uL (3.80-5.40); RDW 12.9 % (11.5-15.5); WBC 6.3 k/uL (3.8-10.6)
--- NOTE | 2019-11-25 08:43 | XR ---
EXAMINATION TYPE: XR chest 2V DATE OF EXAM: 11/24/2019 COMPARISON: 10/06/2019 INDICATION: Persistent cough TECHNIQUE: Frontal and lateral views of the chest are obtained. FINDINGS: The heart size is normal. The pulmonary vasculature is normal. The lungs are clear. IMPRESSION: 1. No acute pulmonary process.
== END | disposition home or self-care (01) ==
LOC: LABWHC1 16:23
PROVIDERS: ATTEND Internal Medicine
DX: R05 Cough (principal)
CPT/HCPCS: 36415; 71046; 85025

== ENCOUNTER → 2020-04-07 | Outpatient (CLI) | payer MEDICARE, BC ==
--- NOTE | 2020-04-09 09:00 | MM ---
Reason for exam: screening (asymptomatic). Last mammogram was performed 1 year and 10 months ago. History: Patient is postmenopausal and has history of other cancer at age 48. Family history of premenopausal breast cancer in daughter at age 44. Benign excisional biopsy of the right breast, 1969. Physical Findings: A clinical breast exam by your physician is recommended on an annual basis and results should be correlated with mammographic findings. MG 3D Screening Mammo W/Cad Bilateral CC and MLO view(s) were taken. Prior study comparison: June 18, 2018, bilateral MG screening mammo w CAD. April 11, 2017, bilateral MG screening mammo w CAD. The breast tissue is heterogeneously dense. This may lower the sensitivity of mammography. No significant changes when compared with prior studies. ASSESSMENT: Negative, BI-RAD 1 RECOMMENDATION: Routine screening mammogram of both breasts in 1 year.
== END | disposition home or self-care (01) ==
LOC: RADMAMWWP 13:15
PROVIDERS: ATTEND Internal Medicine
DX: Z12.31 Encounter for screening mammogram for malignant neoplasm of breast (principal)
CPT/HCPCS: 77063; 77067

== ENCOUNTER 2021-04-20 19:12 | Inpatient (IN) | payer MEDICARE, BC ==
--- NOTE | 2021-04-20 19:43 | ED ---
Fall HPI - General Chief Complaint: Fall Stated Complaint: fall Time Seen by Provider: 04/20/21 19:28 Source: EMS, old records reviewed Mode of arrival: EMS - History of Present Illness Initial Comments: Patient is an 86-year-old female presenting to the emergency department via EMS after falling at home. Patient pressed her medical tendon and EMS arrived on scene. She was complaining of right leg pain. She states she did not hit her head or lose consciousness however when asked, patient states she does not know how she fell. She does smell of alcohol, does admit to drinking. He denies having a headache, no neck pain, no chest pain or shortness of breath, no abdominal pain. She denies any upper extremity pain. She states her only pain is her upper right leg. She denies any previous surgeries of her right hip. She denies being on blood thinners. C-collar was placed by EMS, she was given a baby aspirin. She has no further complaints. Her vitals are stable upon arrival. - Related Data Home Medications Medication Instructions Recorded Confirmed Timolol 0.5% Ophth Soln [Timoptic 1 drop BOTH EYES QA 08/17/17 04/20/21 0.5% Ophth Soln] amLODIPine [Norvasc] 10 mg PO HS 08/17/17 04/20/21 Pantoprazole Sodium [Protonix] 40 mg PO DAILY 08/18/17 04/20/21 Metoprolol Tartrate [Lopressor] 12.5 mg PO BID 12/06/17 04/20/21 Latanoprost [Xalatan 0.005%] 1 drop BOTH EYES HS 01/08/19 04/20/21 Atorvastatin Calcium [Lipitor] 10 mg PO DAILY 04/20/21 04/20/21 Escitalopram [Lexapro] 10 mg PO DAILY 04/20/21 04/20/21 Levothyroxine Sodium [Synthroid] 75 mcg PO DAILY 04/20/21 04/20/21 hydrALAZINE HCL 25 mg PO BID 04/20/21 04/20/21 Allergies Allergy/AdvReac Type Severity Reaction Status Date / Time cetirizine [From Zyrtec] Allergy Unknown Verified 04/20/21 20:56 guaifenesin Allergy Unknown Verified 04/20/21 20:56 Latex, Natural Rubber Allergy BURNING Verified 04/20/21 20:56 SKIN levofloxacin [From Levaquin] Allergy Unknown Verified 04/20/21 20:56 pneumococcal vaccine Allergy Unknown Verified 04/20/21 20:56 Review of Systems ROS Statement: Those systems with pertinent positive or pertinent negative responses have been documented in the HPI. ROS Other: All systems not noted in ROS Statement are negative. Past Medical History Past Medical History: Cancer, Eye Disorder, GERD/Reflux, Hyperlipidemia, Hypertension, Myocardial Infarction ([place]), Pneumonia, Skin Disorder, Thyroid Disorder Additional Past Medical History / Comment(s): Glaucoma and macular degeneration bilaterally, hypothyroid, heart murmur, oral cancer with removal, UTIs, bronchitis, Raynauld's syndrome, osteoporosis, psoriasis, hemorrhoids. Last Myocardial Infarction Date:: ? 1-1.5 yrs ago per pt History of Any Multi-Drug Resistant Organisms: None Reported Past Surgical History: Breast Surgery, Section, Cholecystectomy Additional Past Surgical History / Comment(s): Oral cancer removed, R breast lumpectomy-benign, colonoscopies, bilateral cataract removal with lens implants. Past Anesthesia/Blood Transfusion Reactions: No Reported Reaction Past Psychological History: No Psychological Hx Reported Past Alcohol Use History: Daily Past Drug Use History: None Reported - Past Family History Father Family Medical History: Cancer, Myocardial Infarction ([place]) Additional Family Medical History / Comment(s): Father at age 77yrs from a [place] and lung cancer. Mother Family Medical History: No Reported History Additional Family Medical History / Comment(s): Mother at age 87yrs. She was healthy. General Exam - General Exam Comments Initial Comments: GENERAL: Patient is well-developed and well-nourished. Patient is nontoxic and in no acute distress, smells of alcohol, intoxicated. Very hard of hearing HEAD: Atraumatic, normocephalic. She has no hematoma, no signs of a surgical fracture. EYES: Anisocoria, left pupil is smaller, she does have history of this. extraocular movements intact, sclera anicteric, conjunctiva are normal. Eyelids were unremarkable. ENT: TMs normal, nares patent, oropharynx clear without exudates. Moist mucous membranes. NECK: C-collar place on EMS prior to arrival, after cleared, Normal range of motion, supple without lymphadenopathy or JVD. No midline tenderness. LUNGS: Unlabored respirations. Breath sounds clear to auscultation bilaterally and equal. No wheezes rales or rhonchi. HEART: Regular rate and rhythm without murmurs, rubs or gallops. ABDOMEN: Soft, nontender, normoactive bowel sounds. No guarding, no rebound. No masses appreciated. : Deferred MUSCULOSKELETAL: Pain of the right hip, decreased range of motion secondary to pain. She neurovascular intact, there is some shortening noted to the right leg compared to left. No clubbing or cyanosis. NEUROLOGICAL: Patient is alert and oriented x 3. Motor and sensory are also intact. Cranial nerves II through XII grossly intact. Symmetrical smile. PSYCH: Normal mood, normal affect. SKIN: Warm, Dry, normal turgor, no rashes or lesions noted. Limitations: physical limitation Course Vital Signs 04/20/21 19: Temperature 97.7 F Pulse Rate 82 Respiratory 18 Rate Blood Pressure 141/77 O2 Sat by Pulse 94 L Oximetry Medical Decision Making - Medical Decision Making Patient is an 86-year-old female brought in by EMS after a fall at home. She is complaining of right hip pain. She does admit to drinking alcohol tonight. She does not remember how she fell, she states she did not hit her head. She has no neck pain. Her vitals are stable upon arrival. CT of the brain and C-spine show no acute intracranial abnormalities, no acute fractures or dislocations of the neck. Right hip x-ray shows an acute intertrochanteric fracture of the right femur. Presurgical chest x-ray was ordered, no acute process, EKG showing normal sinus rhythm, stable. Labs show normal coags, alcohol is 169 today. Some hyponatremia with sodium at 127. Patient will be admitted for hip fractu re, patient accepted by [facility], with Dr. Garibay. I did order a right femur x-ray per Lon, his is pending. I also consulted Dr. Jaquez for medical clearance and medical management. Case discussed with Dr. Dow. - Lab Data Result diagrams: 04/20/21 19:53 04/20/21 19:53 Lab Results 04/20/21 04/20/21 04/20/21 Range/Units 19:53 19:53 19:53 WBC 5.8 (3.8-10.6) k/uL RBC 4.14 (3.80-5.40) m/uL Hgb 14.0 (11.4-16.0) gm/dL Hct 40.8 (34.0-46.0) % MCV 98.5 (80.0-100.0) fL MCH 33.8 (25.0-35.0) pg MCHC 34.3 (31.0-37.0) g/dL RDW 12.7 (11.5-15.5) % Plt Count 203 (150-450) k/uL MPV 8.1 PT 10.7 (9.0-12.0) sec INR 1.0 (<1.2) APTT 23.4 (22.0-30.0) sec Sodium 127 L (137-145) mmol/L Potassium 4.4 (3.5-5.1) mmol/L Chloride 90 L (98-107) mmol/L Carbon Dioxide 24 (22-30) mmol/L Anion Gap 13 mmol/L BUN 23 H (7-17) mg/dL Creatinine 0.69 (0.52-1.04) mg/dL Est GFR (CKD-EPI)AfAm >90 (>60 ml/min/1.73 sqM) Est GFR (CKD-EPI)NonAf 78 (>60 ml/min/1.73 sqM) Glucose 131 H (74-99) mg/dL Calcium 9.5 (8.4-10.2) mg/dL Total Bilirubin 0.8 (0.2-1.3) mg/dL AST 88 H (14-36) U/L ALT 52 H (4-34) U/L Alkaline Phosphatase 621 H (38-126) U/L Total Protein 8.2 (6.3-8.2) g/dL Albumin 4.5 (3.5-5.0) g/dL Serum Alcohol 169 mg/dL - EKG Data EKG Comments: Normal sinus rhythm, septal infarct, age undetermined, no signs of acute ST segment elevation. Ventricular rate 83, [place] interval 162, QTC 408. This is similar to her previous on 10/06/2019. Disposition Clinical Impression: Fall, Alcohol abuse, Intertrochanteric fracture of right femur Disposition: ADMITTED IP TO THIS [facility] Condition: Stable Referrals: None,Stated [Primary Care Provider] - 1-2 days Decision Date: 04/20/21 Decision Time: 21:16
[2021-04-20 20:10] LABS: ALT 52 U/L (4-34); AST 88 U/L (14-36); African American GFR (CKD) >90 (>60 ml/min/1.73 sqM); Albumin 4.5 g/dL (3.5-5.0); Alkaline Phosphatase 621 U/L (38-126); Anion Gap 13 mmol/L; Blood Urea Nitrogen 23 mg/dL (7-17); Calcium 9.5 mg/dL (8.4-10.2); Carbon Dioxide 24 mmol/L (22-30); Chloride 90 mmol/L (98-107); Glucose 131 mg/dL (74-99); Non-African American GFR(CKD) 78 (>60 ml/min/1.73 sqM); Potassium 4.4 mmol/L (3.5-5.1); Sodium 127 mmol/L (137-145); Total Bilirubin 0.8 mg/dL (0.2-1.3); Total Protein 8.2 g/dL (6.3-8.2)
[2021-04-20 20:17] LABS: Partial Thromboplastin Time 23.4 sec (22.0-30.0); Prothrombin Time 10.7 sec (9.0-12.0)
[2021-04-20 20:18] LABS: HCT 40.8 % (34.0-46.0); MCH 33.8 pg (25.0-35.0); MCHC 34.3 g/dL (31.0-37.0); MCV 98.5 fL (80.0-100.0); Mean Platelet Volume 8.1; Platelet Count 203 k/uL (150-450); RBC 4.14 m/uL (3.80-5.40); RDW 12.7 % (11.5-15.5); WBC 5.8 k/uL (3.8-10.6)
[2021-04-20 20:36] LABS: Alcohol 169 mg/dL
--- NOTE | 2021-04-20 20:36 | CT ---
EXAMINATION TYPE: CT brain herbie wo con DATE OF EXAM: 04/20/2021 COMPARISON: 04/17/2019 HISTORY: Fall. CT DLP: 1405.9 mGycm Automated exposure control for dose reduction was used. Images obtained of the brain and cervical spine without contrast. There is cerebral atrophy. There is no mass effect nor midline shift. There is no sign of intracrania l hemorrhage. Calvarium is intact. There is hypodensity in the periventricular white matter. Cervical vertebra have normal alignment. There is narrowing of the C5-6 and C6-7 disc spaces with spu rring of the endplates. There is uncovertebral spurring and bilateral neural foraminal narrowing at C 5-6 and C6-7. There is no paraspinal mass. There is no compression fracture. There is spurring of the facet joints throughout the cervical spine. IMPRESSION: Cerebral atrophy and chronic small vessel ischemia. No acute intracranial abnormality. White matter c hanges more noticeable than old exam. Spondylotic changes in the cervical spine. There is increased spurring at C5-6 and C6-7 compared to o ld exam.
--- NOTE | 2021-04-20 20:40 | XR ---
EXAMINATION TYPE: XR chest 1V DATE OF EXAM: 04/20/2021 COMPARISON: November 24, 2019 HISTORY: Chest pain TECHNIQUE: FINDINGS: Heart is normal. Lungs are clear of consolidation. There are no hilar masses. Thoracic aort a is atheromatous. There is no pleural effusion. Bony thorax appears intact. IMPRESSION: No active cardiopulmonary disease. Normal heart.
--- NOTE | 2021-04-20 20:44 | XR ---
EXAMINATION TYPE: XR Hip RT and AP Pelvis DATE OF EXAM: 04/20/2021 COMPARISON: NONE HISTORY: Fall. Pain. TECHNIQUE: 3 views FINDINGS: The pelvic ring is intact. There is an acute comminuted intertrochanteric fracture of the r ight femur. There is coxa vera deformity. Proximal left femur is intact there is vascular calcificati on. Sacroiliac joints are intact. IMPRESSION: Acute intertrochanteric fracture right femur.
[2021-04-20] MEDS ORDERED: MORPHINE SULFATE 2 MG/ML SYRINGE IVP ONE (20:51)
[2021-04-20] MEDS ORDERED: NALOXONE 0.4 MG/ML 1 ML VIAL IV PRN (21:09)
[2021-04-20 21:17] LABS: Eosinophils # (M) 0.29 k/uL (0-0.7); Lymphocytes # (M) 1.57 k/uL (1.0-4.8); Monocytes # (M) 0.87 k/uL (0-1.0); Neutrophils # (M) 3.07 k/uL (1.3-7.7); Neutrophils % (M) 53 %; Nucleated Red Blood Cells 0 /100 WBC (0-0); Total Cells Counted 100
[2021-04-20 21:36] LABS: Amorphous Sediment,Urine Occasional /hpf; Appearance,Urine Clear (Clear); Bilirubin,Urine Negative (Negative); Blood,Urine Negative (Negative); Color,Urine Yellow; Glucose,Urine (UA) Negative (Negative); Hyaline Casts,Urine 3 /lpf (0-2); Ketones,Urine Negative (Negative); Leukocyte Esterase,Urine Negative (Negative); Mucus,Urine Rare /hpf; Nitrite,Urine Negative (Negative); PH, Urine 5.5 (5.0-8.0); Protein,Urine 1+ (Negative); RBC,Urine 1 /hpf (0-5); Specific Gravity,Urine 1.016 (1.001-1.035); Squamous Epithelial Cell,Urine <1 /hpf (0-4); Urobilinogen,Urine <2.0 mg/dL (<2.0); WBC,Urine 1 /hpf (0-5)
[2021-04-20 21:45] LABS: Amphetamine Screen,Urine Not Detected (NotDetected); Barbiturate Screen,Urine Not Detected (NotDetected); Benzodiazepines Screen,Urine Not Detected (NotDetected); Cocaine Screen,Urine Not Detected (NotDetected); Methadone Screen, Urine Not Detected (NotDetected); Opiate Screen,Urine Not Detected (NotDetected); Oxycodone Screen, Urine Not Detected (NotDetected); Phencyclidine Screen,Urine Not Detected (NotDetected); Tricyclic Antidepressant,Urine Not Detected (NotDetected); Urn Cannabinoid Scrn Not Detected (NotDetected)
[2021-04-20] MEDS: SODIUM CHLORIDE 0.9% 1,000 ML IV SCH (21:50)
--- NOTE | 2021-04-20 21:50 | XR ---
EXAMINATION TYPE: XR femur RT DATE OF EXAM: 04/20/2021 COMPARISON: NONE HISTORY: Fall. Pain TECHNIQUE: 4 views FINDINGS: There is comminuted acute intertrochanteric fracture right femur. The knee joint is intact. There is vascular calcification. There is coxa vera deformity. IMPRESSION: Acute intertrochanteric fracture right femur.
[2021-04-20] MEDS ORDERED: LORazepam 2 MG/ML INJ IV PRN ×3 (23:06)
[2021-04-20] MEDS: THIAMINE 100 MG TAB PO SCH (23:11)
[2021-04-21] MEDS: ONDANSETRON 4 MG/2 ML VIAL IVP PRN (00:20)
[2021-04-21] MEDS: MORPHINE SULFATE 4 MG/ML SYRINGE IV PRN ×4 (01:56→23:25)
--- NOTE | 2021-04-21 03:54 | P.CONS ---
History of Present Illness - Reason for Consult Consult date: 04/21/21 - History of Present Illness The patient is a 86-year-old female with a PMH of hypertension, hyperlipidemia, coronary artery disease, and hypogonadism who was brought into the emergency room after a fall at home. The patient is extremely hard of hearing despite having hearing aids in place, thereby history was very difficult to obtain. After the fall, the patient had activated her medical alert bracelet after which the EMS arrived that her home. The patient reported falling on her right leg but was unable to recall what triggered the fall. She denied losing consciousness or head trauma. The patient reported having drank 2 glasses of wine tonight, which is how much she drinks on a daily basis. She denied any trauma elsewhere aside from her right leg. Denied any previous such falls. Further denied experiencing chest discomfort, shortness of breath, palpitations. Denied nausea, vomiting, abdominal pain, diarrhea. Denied headaches, weakness, numbness, tingling. Patient was admitted to the orthopedic surgery service with the medicine on consult. In the emergency room, imaging revealed a right femora l fracture with laboratory evaluation showing a sodium of 127, chloride 90, BUN 23, was 131, AST 82, ALT 52, alk phos 621, and an unremarkable UA. Review of systems: Pertinent positives and negatives as discussed in HPI, a complete review of systems was performed and all other systems are negative. Physical examination: General: non toxic, no distress, appears at stated age, normal weight Derm: no unusual rashes/lesions no unusual ecchymoses, warm, dry Head: atraumatic, normocephalic, symmetric Eyes: EOMI, no lid lag, anicteric sclera, pupils equal round reactive to light ENT: Nose and ears atraumatic, no thrush, no pharyngeal erythema Neck: No thyromegaly, no cervical lymphadenopathy, trachea midline, supple Mouth: no lip lesion, mucus membranes moist Cardiovascular: S1S2 reg, no murmur, positive posterior tibial pulse bilateral, no edema, capillary refill less than 2 seconds Lungs: CTA bilateral, no rhonchi, no rales , no accessory muscle use Abdominal: soft, nontender to palpation, no guarding, no appreciable organomegaly, normal bowel sounds Ext: no gross muscle atrophy, muscle strength 5 out of 5 in all 4 extremities grossly except right lower extremity due to pain, no right lower extremity overlying skin abnormalities noted, right lateral hip mild tenderness, no cont ractures, Neuro: CN II-XI grossly intact, light touch intact all 4 extremities, finger to nose within normal limits, Psych: Alert, oriented, appropriate affect Assessment/plan Preoperative evaluation -RCRI score - 0 -Reports using her walker to ambulate throughout her house and is able to complete most of her ADLs as she lives independently. She denied experiencing exertional dyspnea or chest discomfort. -The patient is however currently hyponatremic and is thereby NOT optimized for surgery at this time -Hyponatremia workup pending -May be due to SIADH in setting of acute pain and stress versus poor oral intake with tea and toast diet Abnormal LFTs -Likely secondary to EtOH use -Monitor for now -CIWA protocol Prerenal azotemia -Suspected secondary to poor oral intake -Continue the IV fluids Right femoral fracture -Defer management including pain control and DVT prophylaxis to the surgery service Past Medical History Past Medical History: Cancer, Eye Disorder, GERD/Reflux, Hyperlipidemia, Hypertension, Myocardial Infarction ([place]), Pneumonia, Skin Disorder, Thyroid Disorder Additional Past Medical History / Comment(s): Glaucoma and macular degeneration bilaterally, hypothyroid, heart murmur, oral cancer with removal, UTIs, bronchitis, Raynauld's syndrome, osteoporosis, psoriasis, hemorrhoids. Last Myocardial Infarction Date:: ? 1-1.5 yrs ago per pt History of Any Multi-Drug Resistant Organisms: None Reported Past Surgical History: Breast Surgery, Section, Cholecystectomy Additional Past Surgical History / Comment(s): Oral cancer removed, R breast lumpectomy-benign, colonoscopies, bilateral cataract removal with lens implants. Past Anesthesia/Blood Transfusion Reactions: No Reported Reaction Past Psychological History: No Psychological Hx Reported Additional Psychological History / Comment(s): Pt resides alone. She uses a walker occasionally. She no longer has a vehicle. She uses [employer] for transportation. She does light housework and has a toolmaker every 2 weeks for the heavier cleaning. She manages her own medications. Smoking Status: Former smoker Past Alcohol Use History: Daily Additional Past Alcohol Use History / Comment(s): Pt smoked from [id number]. She used to drink 2-3 beers each evening but states she no longer drinks at all. Past Drug Use History: None Reported - Past Family History Father Family Medical History: Cancer, Myocardial Infarction ([place]) Additional Family Medical History / Comment(s): Father at age 77yrs from a [place] and lung cancer. Mother Family Medical History: No Reported History Additional Family Medical History / Comment(s): Mother at age 87yrs. She was healthy. Medications and Allergies Home Medications Medication Instructions Recorded Confirmed Type Timolol 0.5% Ophth Soln [Timoptic 1 drop BOTH EYES QAM 08/17/17 04/20/21 History 0.5% Ophth Soln] amLODIPine [Norvasc] 10 mg PO HS 08/17/17 04/20/21 History Pantoprazole Sodium [Protonix] 40 mg PO DAILY 08/18/17 04/20/21 History Metoprolol Tartrate [Lopressor] 12.5 mg PO BID 12/06/17 04/20/21 History Latanoprost [Xalatan 0.005%] 1 drop BOTH EYES HS 01/08/19 04/20/21 History Atorvastatin Calcium [Lipitor] 10 mg PO DAILY 04/20/21 04/20/21 History Escitalopram [Lexapro] 10 mg PO DAILY 04/20/21 04/20/21 History Levothyroxine Sodium [Synthroid] 75 mcg PO DAILY 04/20/21 04/20/21 History hydrALAZINE HCL 25 mg PO BID 04/20/21 04/20/21 History Allergies Allergy/AdvReac Type Severity Reaction Status Date / Time cetirizine [From Zyrtec] Allergy Unknown Verified 04/20/21 20:56 guaifenesin Allergy Unknown Verified 04/20/21 20:56 Latex, Natural Rubber Allergy BURNING Verified 04/20/21 20:56 SKIN levofloxacin [From Levaquin] Allergy Unknown Verified 04/20/21 20:56 pneumococcal vaccine Allergy Unknown Verified 04/20/21 20:56 Physical Exam Vitals: Vital Signs Temp Pulse Pulse Resp BP BP Pulse Ox 04/21/21 01:44 97.4 F L 81 16 111/53 95 04/20/21 21:52 81 16 116/70 96 04/20/21 19:21 97.7 F 82 18 141/77 94 L Intake and Output 04/20/21 04/20/21 04/21/21 14:59 22:59 06:59 Other: Voiding Method Indwelling Catheter Weight 54.885 kg 54.885 kg Results CBC & Chem 7: 04/20/21 19:53 04/20/21 19:53 Labs: Abnormal Lab Results - Last 24 Hours (Table) 04/20/21 04/20/21 Range/Units 19:53 21:12 Sodium 127 L (137-145) mmol/L Chloride 90 L (98-107) mmol/L BUN 23 H (7-17) mg/dL Glucose 131 H (74-99) mg/dL AST 88 H (14-36) U/L ALT 52 H (4-34) U/L Alkaline Phosphatase 621 H (38-126) U/L Urine Protein 1+ H (Negative) Amorphous Sediment Occasional H (None) /hpf Hyaline Casts 3 H (0-2) /lpf Urine Mucus Rare H (None) /hpf
[2021-04-21] MEDS: THIAMINE 100 MG TAB PO SCH ×3 (07:37→21:14)
[2021-04-21 07:40] LABS: ALT 68 U/L (4-34); AST 135 U/L (14-36); African American GFR (CKD) >90 (>60 ml/min/1.73 sqM); Albumin 4.1 g/dL (3.5-5.0); Albumin/Globulin Ratio 1.3; Alkaline Phosphatase 624 U/L (38-126); Anion Gap 11 mmol/L; Blood Urea Nitrogen 23 mg/dL (7-17); Calcium 9.1 mg/dL (8.4-10.2); Carbon Dioxide 25 mmol/L (22-30); Chloride 92 mmol/L (98-107); Globulin 3.2 g/dL; Glucose 127 mg/dL (74-99); Magnesium 1.8 mg/dL (1.6-2.3); Non-African American GFR(CKD) 78 (>60 ml/min/1.73 sqM); Potassium 4.8 mmol/L (3.5-5.1); Sodium 128 mmol/L (137-145); Total Bilirubin 1.3 mg/dL (0.2-1.3); Total Protein 7.3 g/dL (6.3-8.2)
[2021-04-21 07:44] LABS: Glucose,Whole Blood 126 mg/dL (75-99)
[2021-04-21] MEDS: SODIUM CHLORIDE 0.9% 1,000 ML IV SCH ×2 (07:54→23:25)
--- NOTE | 2021-04-21 10:02 | P.HPOR ---
<FishLon - Last Filed: 04/21/21 10:02> History of Present Illness H&P Date: 04/21/21 Chief Complaint: right hip pain 86-year-old female presenting to the ER yesterday with right hip pain status post fall at home. Patient denies any other previous orthopedic surgical history. Patient says pain is 10/10 located at the right hip and she points and grimaces at the anterior aspect of her right hip. Her right leg is shortened and externally rotated. Patient says she is not any blood thinners and denies any heart history. She says patient will ambulate with walker/cane at home usually. Patient denies chest pain, fever, shortness of breath, change in vision, nausea, vomiting. Patient denies saddle anesthesia. Patient denies loss of bowel/bladder control. Past Medical History Past Medical History: Cancer, Eye Disorder, GERD/Reflux, Hyperlipidemia, Hypertension, Myocardial Infarction ([place]), Pneumonia, Skin Disorder, Thyroid Disorder Additional Past Medical History / Comment(s): Glaucoma and macular degeneration bilaterally, hypothyroid, heart murmur, oral cancer with removal, UTIs, bronchitis, Raynauld's syndrome, osteoporosis, psoriasis, hemorrhoids. Last Myocardial Infarction Date:: ? 1-1.5 yrs ago per pt History of Any Multi-Drug Resistant Organisms: None Reported Past Surgical History: Breast Surgery, Section, Cholecystectomy Additional Past Surgical History / Comment(s): Oral cancer removed, R breast lumpectomy-benign, colonoscopies, bilateral cataract removal with lens implants. Past Anesthesia/Blood Transfusion Reactions: No Reported Reaction Past Psychological History: No Psychological Hx Reported Additional Psychological History / Comment(s): Pt resides alone. She uses a walker occasionally. She no longer has a vehicle. She uses [employer] for transportation. She does light housework and has a surveillance systems engineer every 2 weeks for the heavier cleaning. She manages her own medications. Smoking Status: Former smoker Past Alcohol Use History: Daily Additional Past Alcohol Use History / Comment(s): Pt smoked from [id number]. She used to drink 2-3 beers each evening but states she no longer drinks at all. Past Drug Use History: None Reported - Past Family History Father Family Medical History: Cancer, Myocardial Infarction ([place]) Additional Family Medical History / Comment(s): Father at age 77yrs from a [place] and lung cancer. Mother Family Medical History: No Reported History Additional Family Medical History / Comment(s): Mother at age 87yrs. She was healthy. Medications and Allergies Home Medications Medication Instructions Recorded Confirmed Type Timolol 0.5% Ophth Soln [Timoptic 1 drop BOTH EYES QAM 08/17/17 04/20/21 History 0.5% Ophth Soln] amLODIPine [Norvasc] 10 mg PO HS 08/17/17 04/20/21 History Pantoprazole Sodium [Protonix] 40 mg PO DAILY 08/18/17 04/20/21 History Metoprolol Tartrate [Lopressor] 12.5 mg PO BID 12/06/17 04/20/21 History Latanoprost [Xalatan 0.005%] 1 drop BOTH EYES HS 01/08/19 04/20/21 History Atorvastatin Calcium [Lipitor] 10 mg PO DAILY 04/20/21 04/20/21 History Escitalopram [Lexapro] 10 mg PO DAILY 04/20/21 04/20/21 History Levothyroxine Sodium [Synthroid] 75 mcg PO DAILY 04/20/21 04/20/21 History hydrALAZINE HCL 25 mg PO BID 04/20/21 04/20/21 History Allergies Allergy/AdvReac Type Severity Reaction Status Date / Time cetirizine [From Zyrtec] Allergy Unknown Verified 04/20/21 20:56 guaifenesin Allergy Unknown Verified 04/20/21 20:56 Latex, Natural Rubber Allergy BURNING Verified 04/20/21 20:56 SKIN levofloxacin [From Levaquin] Allergy Unknown Verified 04/20/21 20:56 pneumococcal vaccine Allergy Unknown Verified 04/20/21 20:56 Physical Examination Inspection: Shortening and external rotation of right leg. No evidence of open fractures. Negative for any ecchymosis. Negative for any significant discoloration other than as noted. Negative for nodules, erythema. Sensation: Sensation is intact in bilateral upper extremities symmetric, equal in distribution. Sensation is intact in bilateral lower extremities symmetric, equal in distribution Palpation: Significant tenderness to palpation over the proximal right femur anteriorly and medially. Nontender to palpation throughout rest of exam Range of motion: Limited range of motion in the right leg due to patient being in significant pain. Decreased hip flexion in right leg. Bilateral upper extremities full range of motion in elbow extension/flexion as well as shoulder internal and external rotation abduction and forward elevation. Left lower extremity full range of motion and knee flexion extension and hip flexion extension. Plantar and dorsiflexion full range of motion bilaterally Motor: Strength 5 out of 5 in upper extremities as well as conservation biology professor strength. Left lower extremity 5/5 in resisted flexion extension and hip flexion extension. Right leg exam limited due to patient being in significant amount of pain Neurovascular status/tensioning signs: Refill under 3 seconds bilaterally in lower and upper extremities. Skin mildly warm to touch in hands bilaterally as well as bilaterally in the lower extremities. Dorsalis pedis pulses intact, 2+ bilaterally. Radial pulses intact, 2+ bilaterally. Negative Homans bilaterally. Negative Ariane's bilaterally. Negative clonus upon dorsiflex ing feet bilaterally. Results - Labs Labs: Abnormal Lab Results - Last 24 Hours (Table) 04/20/21 04/20/21 04/21/21 Range/Units 19:53 21:12 06:11 Sodium 127 L 128 L (137-145) mmol/L Chloride 90 L 92 L (98-107) mmol/L BUN 23 H 23 H (7-17) mg/dL Glucose 131 H 127 H (74-99) mg/dL POC Glucose (mg/dL) (75-99) mg/dL Osmolality 271 L (280-301) mosm/kg AST 88 H 135 H (14-36) U/L ALT 52 H 68 H (4-34) U/L Alkaline Phosphatase 621 H 624 H (38-126) U/L Urine Protein 1+ H (Negative) Amorphous Sediment Occasional H (None) /hpf Hyaline Casts 3 H (0-2) /lpf Urine Mucus Rare H (None) /hpf 04/21/21 Range/Units 07:30 Sodium (137-145) mmol/L Chloride (98-107) mmol/L BUN (7-17) mg/dL Glucose (74-99) mg/dL POC Glucose (mg/dL) 126 H (75-99) mg/dL Osmolality (280-301) mosm/kg AST (14-36) U/L ALT (4-34) U/L Alkaline Phosphatase (38-126) U/L Urine Protein (Negative) Amorphous Sediment (None) /hpf Hyaline Casts (0-2) /lpf Urine Mucus (None) /hpf H & H 07/28/21 Range/Units 19:53 Hgb 14.0 (11.4-16.0) gm/dL Hct 40.8 (34.0-46.0) % Coagulation 04/20/21 Range/Units 19:53 INR 1.0 (<1.2) Result Diagrams: 04/20/21 19:53 04/21/21 06:11 Assessment and Plan Assessment: 1. Right hip intertrochanteric fracture, displaced, status post fall Plan: 1. Right hip intertrochanteric fracture, displaced - surgery has been scheduled for this afternoon, , 04/21/2021 for right hip IM nail. Nothing by mouth diet. Patient needs medical clearance. CBC, PT/INR, chest x-ray 2. Appreciate medical management - needs medical clearance 3. Pain management - stable at this time 4. PT/OT - nonweightbearing right leg. Time with Patient: Less than 30 <Henrique Garibay - Last Filed: 04/21/21 10:12> Physical Examination Osteopathic Statement: *. No significant issues noted on an osteopathic s tructural exam other than those noted in the History and Physical/Consult. Results - Labs Labs: Abnormal Lab Results - Last 24 Hours (Table) 04/20/21 04/20/21 04/21/21 Range/Units 19:53 21:12 06:11 Sodium 127 L 128 L (137-145) mmol/L Chloride 90 L 92 L (98-107) mmol/L BUN 23 H 23 H (7-17) mg/dL Glucose 131 H 127 H (74-99) mg/dL POC Glucose (mg/dL) (75-99) mg/dL Osmolality 271 L (280-301) mosm/kg AST 88 H 135 H (14-36) U/L ALT 52 H 68 H (4-34) U/L Alkaline Phosphatase 621 H 624 H (38-126) U/L Urine Protein 1+ H (Negative) Amorphous Sediment Occasional H (None) /hpf Hyaline Casts 3 H (0-2) /lpf Urine Mucus Rare H (None) /hpf 04/21/21 Range/Units 07:30 Sodium (137-145) mmol/L Chloride (98-107) mmol/L BUN (7-17) mg/dL Glucose (74-99) mg/dL POC Glucose (mg/dL) 126 H (75-99) mg/dL Osmolality (280-301) mosm/kg AST (14-36) U/L ALT (4-34) U/L Alkaline Phosphatase (38-126) U/L Urine Protein (Negative) Amorphous Sediment (None) /hpf Hyaline Casts (0-2) /lpf Urine Mucus (None) /hpf H & H 04/20/21 Range/Units 19:53 Hgb 14.0 (11.4-16.0) gm/dL Hct 40.8 (34.0-46.0) % Coagulation 04/20/21 Range/Units 19:53 INR 1.0 (<1.2) Result Diagrams: 04/20/21 19:53 04/21/21 06:11
--- NOTE | 2021-04-21 10:42 | P.PN ---
Progress Note - Text Progress Note Date: 04/21/21 I saw and evaluated patient today independently. I agree with the assessment and plan as documented by my colleague earlier this morning. RCRI is 1 with score based on prior [place] with evidence on EKG with anterior deep Q waves and patient report. Patient otherwise has a METs equivalent < 4. However, no further testing is indicated at this time as testing would not preclude the patient from undergoing this beneficial surgery which outweighs the risks. Clinical optimization of fluid and Na status could be considered for 12-24 hours from admission, but should not further delay surgery as any risk reduction benefit would be marginal when weighed against the increased risk of clots and prolonged immobilization.
[2021-04-21 12:28] LABS: Creatinine,Urine Random 89.8 mg/dL
[2021-04-21 14:02] LABS: African American GFR (CKD) >90 (>60 ml/min/1.73 sqM); Anion Gap 8 mmol/L; Blood Urea Nitrogen 17 mg/dL (7-17); Calcium 8.9 mg/dL (8.4-10.2); Carbon Dioxide 27 mmol/L (22-30); Chloride 93 mmol/L (98-107); Glucose 123 mg/dL (74-99); Non-African American GFR(CKD) 81 (>60 ml/min/1.73 sqM); Potassium 4.7 mmol/L (3.5-5.1); Sodium 128 mmol/L (137-145)
[2021-04-22] MEDS: ACETAMINOPHEN TAB 325 MG TAB PO PRN ×2 (01:16→19:48)
[2021-04-22] MEDS: MORPHINE SULFATE 4 MG/ML SYRINGE IV PRN ×2 (02:54→22:03)
[2021-04-22 07:45] LABS: ALT 45 U/L (4-34); AST 60 U/L (14-36); African American GFR (CKD) >90 (>60 ml/min/1.73 sqM); Albumin 3.6 g/dL (3.5-5.0); Albumin/Globulin Ratio 1.2; Alkaline Phosphatase 526 U/L (38-126); Anion Gap 4 mmol/L; Blood Urea Nitrogen 11 mg/dL (7-17); Calcium 9.2 mg/dL (8.4-10.2); Carbon Dioxide 30 mmol/L (22-30); Chloride 99 mmol/L (98-107); Globulin 3.1 g/dL; Glucose 160 mg/dL (74-99); Non-African American GFR(CKD) 84 (>60 ml/min/1.73 sqM); Potassium 5.3 mmol/L (3.5-5.1); Sodium 133 mmol/L (137-145); Total Bilirubin 1.2 mg/dL (0.2-1.3); Total Protein 6.7 g/dL (6.3-8.2)
--- NOTE | 2021-04-22 08:58 | P.PN ---
Subjective Progress Note Date: 04/22/21 Principal diagnosis: right hip intertrochanteric fracture Patient seen at bedside this morning. Patient lying semirecumbent in bed. She says her right hip is still painful. She says she is ready of surgery. Patient denies any new areas of pain. Patient denies chest pain, fever, shortness breath, nausea, vomiting, change in vision, loss of bowel/bladder control. Objective - Vital Signs Vital signs: Vital Signs Temp 97.7 F 04/22/21 07:54 Pulse 83 04/22/21 07:54 Resp 16 04/22/21 07:54 BP 134/72 04/22/21 07:54 Pulse Ox 92 L 04/22/21 07:54 Intake & Output 04/21/21 04/22/21 04/22/21 18:59 06:59 18:59 Intake Total 600 Output Total 400 825 Balance 200 -825 Intake: Intake, IV Titration 600 Amount Sodium Chloride 0.9% 1, 600 000 ml @ 75 mls/hr IV . [id number] [facility] Rx#:[id number] Output: Urine 400 825 Uretheral ([place]) 150 Other: Voiding Method Indwelling Catheter Indwelling Catheter - Exam Inspection: Shortening and external rotation of right leg. No evidence of open fractures. Negative for any ecchymosis. Negative for any significant discoloration other than as noted. Negative for nodules, erythema. Sensation: Sensation is intact in bilateral upper extremities symmetric, equal in distribution. Sensation is intact in bilateral lower extremities symmetric, equal in distribution Palpation: Significant tenderness to palpation over the proximal right femur anteriorly and medially. Nontender to palpation throughout rest of exam Range of motion: Limited range of motion in the right leg due to patient being in significant pain. Decreased hip flexion in right leg. Bilateral upper extremities full range of motion in elbow extension/flexion as well as shoulder internal and external rotation abduction and forward elevation. Left lower extremity full range of motion and knee flexion extension and hip flexion extension. Plantar and dorsiflexion full range of motion bilaterally Motor: Strength 5 out of 5 in upper extremities as well as gluing machine offbearer strength. Left lower extremity 5/5 in resisted flexion extension and hip flexion extension. Right leg exam limited due to patient being in significant amount of pain Neurovascular status/tensioning signs: Refill under 3 seconds bilaterally in lower and upper extremities. Skin mildly warm to touch in hands bilaterally as well as bilaterally in the lower extremities. Dorsalis pedis pulses intact, 2+ bilaterally. Radial pulses intact, 2+ bilaterally. Negative Homans bilaterally. Negative Ariane's bilaterally. Negative clonus upon dorsiflexing feet bilaterally. - Labs CBC & Chem 7: 04/20/21 19:53 04/22/21 07:10 Labs: Abnormal Lab Results - Last 24 Hours (Table) 04/21/21 04/22/21 Range/Units 13:39 07:10 Sodium 128 L 133 L (137-145) mmol/L Potassium 5.3 H (3.5-5.1) mmol/L Chloride 93 L (98-107) mmol/L Glucose 123 H 160 H (74-99) mg/dL AST 60 H (14-36) U/L ALT 45 H (4-34) U/L Alkaline Phosphatase 526 H (38-126) U/L Assessment and Plan Assessment: 1. Right hip intertrochanteric fracture, displaced, status post fall Plan: 1. Right hip intertrochanteric fracture, displaced - surgery has been scheduled for this afternoon, 04/22/2021 for right hip IM nail. Nothing by mouth diet. CBC, PT/INR, chest x-ray 2. Appreciate medical management 3. Pain management - stable at this time 4. PT/OT - nonweightbearing right leg.
--- NOTE | 2021-04-22 11:38 | P.PN ---
Subjective Progress Note Date: 04/22/21 Pt doing well, is ready for surgery, no copmlaints of dyspnea or chest pain, palps. Objective - Vital Signs Vital signs: Vital Signs Temp 97.7 F 04/22/21 07:54 Pulse 83 04/22/21 07:54 Resp 16 04/22/21 07:54 BP 134/72 04/22/21 07:54 Pulse Ox 92 L 04/22/21 07:54 Intake & Output 04/21/21 04/22/21 04/22/21 18:59 06:59 18:59 Intake Total 600 Output Total 400 825 Balance 200 -825 Intake: Intake, IV Titration 600 Amount Sodium Chloride 0.9% 1, 600 000 ml @ 75 mls/hr IV . [id number] [facility] Rx#:[id number] Output: Urine 400 825 Uretheral ([place]) 150 Other: Voiding Method Indwelling Catheter Indwelling Catheter Indwelling Catheter - Exam Gen: asleep, resting comfortably HEENT: normocephalic, atraumatic, good hearing acuity, moist mucous membranes Resp: good air exchange, breathing comfortably with no accessory muscle use CVS: good distal perfusion x 4, GI: soft, NTTP, ND : no SPT, no CVAT, stover catheter not present MSK: no pitting edema, no clubbing Neuro: non-focal, moving all extremities Psych: cooperative, euthymic mood - Labs CBC & Chem 7: 04/20/21 19:53 04/22/21 07:10 Labs: Abnormal Lab Results - Last 24 Hours (Table) 04/21/21 04/22/21 Range/Units 13:39 07:10 Sodium 128 L 133 L (137-145) mmol/L Potassium 5.3 H (3.5-5.1) mmol/L Chloride 93 L (98-107) mmol/L Glucose 123 H 160 H (74-99) mg/dL AST 60 H (14-36) U/L ALT 45 H (4-34) U/L Alkaline Phosphatase 526 H (38-126) U/L Assessment and Plan Assessment: Preoperative evaluation -Reports using her walker to ambulate throughout her house and is able to complete most of her ADLs as she lives independently. She denied experiencing exertional dyspnea or chest discomfort. -RCRI is 1 with score based on prior [place] with evidence on EKG with anterior deep Q waves and patient report. Patient otherwise has a METs equivalent < 4. However, no further testing is indicated at this time as testing would not preclude the patient from undergoing this beneficial surgery which outweighs the risks. Clinical optimization of fluid and Na status could be considered for 12- 24 hours from admission, but should not further delay surgery as any risk reduction benefit would be marginal when weighed against the increased risk of clots and prolonged immobilization. ETOH Abuse Hyponatremia -Monitor for now -[facility] protocol -ETOH level 126 on admission -IVF likely to improve Na, as it is most likely hypovolemic hyponatremia secondary to ETOH related diuresis and poor dietary intake -NS @ 75 cc/hr -Na on 04/22 is 133 Acute Hypoxemic Respiratory Failure -likely secondary to atelectasis -oxygen PRN -encourage IS, early mobilization s/p surgery -daily CBC -duoneb PRN Right femoral fracture -Defer management including pain control and DVT prophylaxis to the surgery service
[2021-04-22] MEDS ORDERED: LACTATED RINGERS 1,000 ML IV ONE (12:02)
[2021-04-22] MEDS: ONDANSETRON 4 MG/2 ML VIAL IVP PRN (12:02)
[2021-04-22] MEDS ORDERED: PROPOFOL 10 MG/ML 20 ML VIAL IV ONE (12:38)
[2021-04-22] MEDS ORDERED: MIDAZOLAM 2 MG/2 ML VIAL ONE (12:38)
[2021-04-22] MEDS ORDERED: PHENYLEPHRINE-0.9% NACL SYG 1,000 MCG/10 ML SYRINGE ONE (12:38)
[2021-04-22] MEDS ORDERED: KETAMINE 10 MG/ML 20 ML VIAL ONE (12:38)
[2021-04-22] MEDS ORDERED: ceFAZolin 1,000 MG in SODIUM CHLORIDE 0.9% 1,000 ML IRRIGATION ONE (13:12)
--- NOTE | 2021-04-22 13:41 | CONS ---
CONSULTATION REASON FOR CONSULT: Hyponatremia. HISTORY OF PRESENT ILLNESS: The patient is an 86-year-old female who was admitted to the hospital status post fall. She has underlying history of hypertension, hyperlipidemia. The patient was found to have right femoral fracture and awaiting surgery. Serum sodium was noted to be 127 mEq/L. The patient denies any previous history of low sodium. Her blood pressure has been slightly on the lower side with systolic around 111-105 mmHg. The patient was maintained on saline at 75 mL an hour. Her sodium has improved to 133 today. Urine osmolality 602. PAST MEDICAL HISTORY: Significant for hypertension, gastroesophageal reflux disease, hyperlipidemia, history of NH, pneumonia, hypothyroidism, macular degeneration, UTIs, Raynaud syndrome, hypothyroidism, psoriasis, hemorrhoids, osteoporosis. PAST SURGICAL HISTORY: Removal of oral cancer, right breast lumpectomy, colonoscopies, cataract surgery. SOCIAL HISTORY: The patient is a former smoker. No history of drug abuse or alcohol abuse. MEDICATIONS: Medications prior to admission included: Protonix, Lopressor, Lipitor, Lexapro, Synthroid, hydralazine, Norvasc. ALLERGIES: INCLUDE ZYRTEC, GUAIFENESIN, LEVAQUIN, PNEUMOCOCCAL VACCINE. REVIEW OF SYSTEMS: As per HPI. Other systems negative. EXAMINATION: Comfortable, awake, alert, oriented x3, not in any acute distress. Blood pressure 134/72, heart rate 83 per minute. She is afebrile. Examination of the heart S1, S2. Examination of the lungs, bilateral breath sounds are heard. Abdomen is soft, nontender. Examination of lower extremities shows no significant edema. SERVICES REP exam grossly intact. Patient is not moving her right leg much from pain. LAB: Show sodium 133, potassium 5.3, chloride 99, BUN 11, creatinine 0.5. ASSESSMENT: 1. Hypovolemic hyponatremia currently improved with normal saline. Urine osmolality is high, mostly due to volume depletion. I will continue with the saline for now and repeat labs again tomorrow morning. 2. Status post fall with right femoral fracture with plans for surgery. 3. History of hypertension, blood pressure on the lower side. 4. Mild hyperkalemia, monitor for now. PLAN: Okay to proceed with surgery. Continue with normal saline. Repeat labs in a.m. Encourage increased oral intake, particularly protein. Thank you for this consultation. We will continue to follow the patient with you during her hospitalization. ASHISH / IJN: [id number] / YANCI
--- NOTE | 2021-04-22 14:51 | XR ---
EXAMINATION TYPE: XR Hip Complete RT DATE OF EXAM: 04/22/2021 CLINICAL HISTORY: Left hip pain and osteoarthritis. TECHNIQUE: Single AP portable view of right hip is obtained immediately postoperatively. COMPARISON: None. FINDINGS: Metallic hardware from right hip dynamic compression screw and intramedullary yo is seen a nd appears satisfactory in alignment and position. There is evidence of recent surgery with subcutan eous gas noted laterally. IMPRESSION: As above
--- NOTE | 2021-04-22 14:53 | FL ---
Fluoroscopy History: RIGHT INTERTROCHANTERIC FRACTURE RT hip nailing with Dr. Garibay. 9 images sent. 2 min 2 sec fluoro time.
--- NOTE | 2021-04-22 15:49 | P.OP ---
Date of Procedure: 04/22/21 Preoperative Diagnosis: 1. Right comminuted, displaced, intertrocanteric hip fracture 2. s/p ffs 3. complex medical history Postoperative Diagnosis: 1. Right comminuted, displaced, intertrocanteric hip fracture 2. s/p ffs 3. complex medical history Procedure(s) Performed: 1. intramedullary nail fixation of right hip Implants: Alonso and nephew IM nail 130 deg x 11 mm x 178 mm 95 mm lag screw 90 mm compression screw 27.5 mm distal locking screw Anesthesia: spinal Surgeon: Henrique Garibay Estimated Blood Loss (ml): 100 IV fluids (ml): 1,300 Urine output (ml): 150 Pathology: none sent Condition: stable Disposition: PACU Indications for Procedure: 86 yo female presented after ffs on to her right hip with right hip pain inability to ambulate and hyponatremia. Pt found to have a comminuted right intertrochanteric hip fracture requiring fixation. Discussed risks and benefits with pt, cousin and son all in agreement with surgical fixation based on risks and benefits and they are willing to assume these for surgery. She was medically optimized prior to surgery and cleared by anesthesia prior to surgery. Operative Findings: Displaced, comminuted 3-4 part IT fracture right hip Description of Procedure: The patient was seen and examined in the preoperative area. All preoperative protocols were followed. Informed consent was obtained risks and benefits of the procedure were discussed at length. Risks including bleeding infection damage to the surrounding tissue and risk of reoperation were discussed with the patient. Risk of anesthesia up to and including was a discussed with the patient. These are outlined in the risk reviewed. They were willing to accept these risks and all of the risks of surgery. The patient was given a weight- based dose of antibiotics in the form of 2 g Ancef IVPB 1. The patient was seen and evaluated by the anesthesia team who deemed them fit for surgery. The site was marked, the patient was willing to proceed with the procedure. The patient was transferred to the operative suite by the Department of anesthesia. There were then drifted off to sleep by the department of anesth esia and final anesthesia along with sedationanesthesia was used. Once adequate anesthesia had been obtained the patient was carefully transferred to the operative bed. All bony prominences were padded accordingly. SCDs were placed on the nonoperative lower extremities. Arms were well padded. right lower extremity was placed in a hand table boot secured to the table. The left leg was placed in the well leg duarte and well padded and secured patient was secured to the table with a post as well as safety strap Preoperative briefing was done with the operative team and everyone was ready for the procedure to start. The patients right leg was then prepped and draped in the normal sterile fashion. Timeout was then performed and all parties in agreement with the procedure to be performed. incision was made to send me approximately greater trochanter taken down to the fascia which was split bluntly. Blunt dissection was taken down to the greater trochanteric region and all was then used to localize a starting point for intramedullary nail fixation. All was then advanced under AP and lateral fluoroscopy and was in good position both guidewire was then placed over this a ll was removed an opening reamer was placed. Reaming was placed we then used a 10 flexible reamer followed by a 13 flexible reamer to allow for placement of a nail through the isthmus region due to her small stature. We then measured and selected for a 11 mm x 1 30 short nail. This was in place of the ball-tipped guidewire which was then removed nail was impacted into good position in AP and lateral fluoroscopy. We then used the guide for the lag screw this was marked on the skin the skin incision was made then made and taken through the tensor fascia was then used blunt dissection taken down to the femoral shaft. The guide was then placed and a guidepin was placed through the proximal hole. This was drilled to within 10 mm of AP and lateral of the subchondral bone. This was measured to 95 mm. We then drilled for the compression screw distally within the proximal legs for hole this was drilled in this fashion was in place. We then drilled over the pin for a 95 mm screw. The screw was then placed over the guidewire and in good position once it was in good position and the compression screw was placed to this was then hand tightened to allow for about 5 mm of compression under AP and lateral fluoroscopy. Once this is all in good position we turned our attention to the distal locking screw through the place the guide for the distal locking screws and the skin incision was made and blunt dissection taken down the guide was in place against bone we then drilled this and measured it for a 27.5 mm distal locking screws was then placed under AP and lateral fluoroscopic guidance position. We then locked the nail proximally. The jig was then removed and final x-rays were taken the nail was in good position fracture was reduced and in good position. We then copiously irrigated the wounds with normal sterile saline. #1 Vicryl was used to close the fascia proximally in the gluteal region as well as over the tensor fascia orin. We then used 0 Vicryl in the deep subcu tissue followed by 2-0 Vicryl in the subcu tissue followed by ajith in the skin. We then cleaned and sterilely dressed the wound with sterile Adaptic ABDs and tape. The patient was then transferred back to their hospital bed. There were awakened by department of anesthesia having tolerated the procedure very well with no complications. The patient was then transported to the postoperative care unit in stable condition.
[2021-04-22] MEDS: THIAMINE 100 MG TAB PO SCH ×2 (16:31→19:47)
[2021-04-22] MEDS: SODIUM CHLORIDE 0.9% 1,000 ML IV SCH ×2 (16:31→22:02)
[2021-04-22] MEDS: traMADol 50 MG TAB PO PRN (17:42)
--- NOTE | 2021-04-22 18:58 | XR ---
EXAMINATION TYPE: XR Hip Complete RT DATE OF EXAM: 04/22/2021 COMPARISON: NONE HISTORY: Postop TECHNIQUE: One view submitted. FINDINGS: There is postsurgical change in near anatomic alignment. There is soft tissue edema and emphysema. IMPRESSION: 1. Postoperative change. Appears in near-anatomic alignment.
[2021-04-23] MEDS ORDERED: SODIUM POLYSTYRENE SULFONATE 15 GM/60 ML BOTTLE PO ONE (03:47)
[2021-04-23] MEDS: LEVOTHYROXINE 75 MCG TAB PO SCH (06:17)
[2021-04-23] MEDS: PANTOPRAZOLE 40 MG TABLET PO SCH (08:13)
[2021-04-23] MEDS: TIMOLOL 0.5% OPHTH DROPS 5 ML BTL BOTH EYES SCH (08:13)
[2021-04-23] MEDS: ESCITALOPRAM 10 MG TAB PO SCH (08:13)
[2021-04-23] MEDS: METOPROLOL TARTRATE 12.5 MG TAB PO SCH ×2 (08:13→19:44)
[2021-04-23] MEDS: ATORVASTATIN 10 MG TAB PO SCH (08:13)
[2021-04-23] MEDS: ACETAMINOPHEN TAB 325 MG TAB PO PRN ×2 (08:18→15:17)
[2021-04-23] MEDS ORDERED: ESCITALOPRAM 10 MG TAB PO SCH (09:00)
--- NOTE | 2021-04-23 09:44 | P.PN ---
Subjective Progress Note Date: 04/23/21 Principal diagnosis: POD #1 s/p right hip intertrochanteric fracture Patient seen at bedside this morning. Patient lying semirecumbent in bed. She is eating breakfast. Patient states her hip is feeling okay this morning. Patient says she has not had a bowel movement yet, however, patient says she has been passing gas. Patient denies chest pain, fever, shortness breath, nausea, vomiting, change in vision, loss of bowel/bladder control. Objective - Vital Signs Vital signs: Vital Signs Temp 98.4 F 04/23/21 07:58 Pulse 87 04/23/21 08:15 Resp 17 04/23/21 08:15 BP 111/65 04/23/21 07:58 Pulse Ox 93 L 04/23/21 07:58 Intake & Output 04/22/21 04/23/21 04/23/21 18:59 06:59 18:59 Intake Total 651 Output Total 900 150 Balance -249 -150 Intake: IV 651 Output: Urine 800 150 Estimated Blood Loss 100 Other: Voiding Method Indwelling Catheter Indwelling Catheter Indwelling Catheter - Exam Inspection: Incision is clean, dry, intact. Gilbert in good place. No evidence of open fractures. Negative for any ecchymosis. Negative for any significant discoloration other than as noted. Negative for nodules, erythema. Sensation: Sensation is intact in bilateral upper extremities symmetric, equal in distribution. Sensation is intact in bilateral lower extremities symmetric, equal in distribution Palpation: Right hip still somewhat TTP over incision. Nontender to palpation throughout rest of exam Range of motion: Limited range of motion in the right leg due to patient being in poain post-surgery. Bilateral upper extremities full range of motion in elbow extension/flexion as well as shoulder internal and external rotation abduction and forward elevation. Left lower extremity full range of motion and knee flexion extension and hip flexion extension. Plantar and dorsiflexion full range of motion bilaterally Motor: Strength 5 out of 5 in upper extremities as well as painter drum strength. Left lower extremity 5/5 in resisted flexion extension and hip flexion extension. Right leg exam limited due to patient being in post-surgical pain Neurovascular status/tensioning signs: Refill under 3 seconds bilaterally in l ower and upper extremities. Skin mildly warm to touch in hands bilaterally as well as bilaterally in the lower extremities. Dorsalis pedis pulses intact, 2+ bilaterally. Radial pulses intact, 2+ bilaterally. Negative Homans bilaterally. Negative Ariane's bilaterally. Negative clonus upon haven siflexing feet bilaterally. - Labs CBC & Chem 7: 04/20/21 19:53 04/22/21 07:10 Assessment and Plan Assessment: 1. Right hip intertrochanteric fracture, displaced, status post fall Plan: 1. Right hip intertrochanteric fracture, displaced - surgery performes yesterday, 04/22/2021 - right hip IM nail. Patient seen at bedside this morning doing well. We'll continue to follow daily. 2. Appreciate medical management 3. Pain management - stable at this time 4. PT/OT - weightbearing as tolerated with walker for assistance 5. GI ppx/DVT ppx - Protonix; Lovenox 6. Discharge planning - Plan to discharge to rehab Sunday vs Sunday Time with Patient: Less than 30
--- NOTE | 2021-04-23 09:51 | P.PN ---
Progress Note - Text Progress Note Date: 04/23/21 Patient seen and examined she is doing okay this morning. She states some pain in her hip after surgery. She is otherwise doing alright she is sitting up eating breakfast. She denies any fevers chills or some breath or chest pain. She has good strength in dorsi flexion and plantar flexion bilaterally. Her sensations intact L2 S1 is palpable dorsalis pedis was posterior to the pulses components are soft and compressible. Dressings are clean dry and intact no erythema or ecchymosis or edema surrounding area. Postop images demonstrated good placement right intramedullary nail Today we have encouraged patient to ambulate with assist and physical therapy pain control as well as GI and DVT prophylaxis. He will continue with medications appreciate medical management at this time and we will plan for RAAD within the next one to 2 days. Her her labs as well for possible need for sparks sfusion
--- NOTE | 2021-04-23 09:59 | XR ---
EXAMINATION TYPE: XR chest 1V portable DATE OF EXAM: 04/23/2021 COMPARISON: 04/12/2021 HISTORY: Chest pain TECHNIQUE: Single frontal view of the chest is obtained. FINDINGS: There has been mild increase in airspace opacity in the right lung base compared to previou s. The remainder the lungs are clear. There is no pleural effusion or pneumothorax. The heart, pulmonary vasculature, mediastinum and hilum appear normal. The osseous structures are intact. IMPRESSION: Subtle partial mild opacity in the right lung base. Could represent an early pneumonic process or pulmonary edema. Clinical correlation and short-term follow-up to resolution is recommende guerrero
[2021-04-23 10:01] LABS: African American GFR (CKD) >90 (>60 ml/min/1.73 sqM); Anion Gap 9 mmol/L; Blood Urea Nitrogen 14 mg/dL (7-17); Calcium 8.5 mg/dL (8.4-10.2); Carbon Dioxide 25 mmol/L (22-30); Chloride 97 mmol/L (98-107); Glucose 199 mg/dL (74-99); Magnesium 1.8 mg/dL (1.6-2.3); Non-African American GFR(CKD) 78 (>60 ml/min/1.73 sqM); Potassium 4.1 mmol/L (3.5-5.1); Sodium 131 mmol/L (137-145)
[2021-04-23 10:10] LABS: Basophils % (A) 0 %; Eosinophils # (A) 0.1 k/uL (0-0.7); Eosinophils % (A) 1 %; HCT 30.9 % (34.0-46.0); Lymphocytes # (A) 0.7 k/uL (1.0-4.8); Lymphocytes % (A) 8 %; MCH 34.2 pg (25.0-35.0); MCHC 32.9 g/dL (31.0-37.0); Macrocytosis Slight; Mean Platelet Volume 8.5; Monocytes # (A) 0.6 k/uL (0-1.0); Monocytes % (A) 7 %; Neutrophils # (A) 7.2 k/uL (1.3-7.7); Neutrophils % (A) 81 %; Platelet Count 160 k/uL (150-450); RBC 2.97 m/uL (3.80-5.40); RDW 13.3 % (11.5-15.5); WBC 8.9 k/uL (3.8-10.6)
[2021-04-23 10:12] LABS: HGB 10.2 gm/dL (11.4-16.0)
[2021-04-23 11:26] LABS: Glucose,Whole Blood 178 mg/dL (75-99)
--- NOTE | 2021-04-23 12:10 | P.PN ---
Subjective Progress Note Date: 04/23/21 Pt is doing well s/p ORIF yesterday. Increased O2 requirement but no chest pain, dyspnea, palps, cough, fevers, chills. CXR from today shows increased opacity in the RLL with increased pulmonary vascular markings throughout, possible mild right sided pleural effusion as well. Pt still with elevated alk phos and midly elevated AST/ALT in cholestatic pattern. Will obtain echo to rule out HF with hepatic congestion. Objective - Vital Signs Vital signs: Vital Signs Temp 98.4 F 04/23/21 07:58 Pulse 87 04/23/21 08:15 Resp 17 04/23/21 08:15 BP 111/65 04/23/21 07:58 Pulse Ox 93 L 04/23/21 07:58 Intake & Output 04/22/21 04/23/21 04/23/21 18:59 06:59 18:59 Intake Total 651 Output Total 900 150 Balance -249 -150 Intake: IV 651 Output: Urine 800 150 Estimated Blood Loss 100 Other: Voiding Method Indwelling Catheter Indwelling Catheter Indwelling Catheter - Exam Gen: asleep, resting comfortably HEENT: normocephalic, atraumatic, good hearing acuity, moist mucous membranes Resp: good air exchange, breathing comfortably with no accessory muscle use, Right and Left posterior crackles in lower lung sandoval, worse on the right CVS: good distal perfusion x 4, GI: soft, NTTP, ND : no SPT, no CVAT, stover catheter not present MSK: no pitting edema, no clubbing Neuro: non-focal, moving all extremities Psych: cooperative, euthymic mood - Labs CBC & Chem 7: 04/23/21 09:02 04/23/21 09:02 Labs: Abnormal Lab Results - Last 24 Hours (Table) 04/23/21 04/23/21 04/23/21 Range/Units 09:02 09:02 11:26 RBC 2.97 L (3.80-5.40) m/uL Hgb 10.2 L D (11.4-16.0) gm/dL Hct 30.9 L (34.0-46.0) % MCV 104.0 H D (80.0-100.0) fL Lymphocytes # 0.7 L (1.0-4.8) k/uL Sodium 131 L (137-145) mmol/L Chloride 97 L (98-107) mmol/L Glucose 199 H (74-99) mg/dL POC Glucose (mg/dL) 178 H (75-99) mg/dL Assessment and Plan Assessment: Preoperative evaluation -Reports using her walker to ambulate throughout her house and is able to complete most of her ADLs as she lives independently. She denied experiencing exertional dyspnea or chest discomfort. -RCRI is 1 with score based on prior [place] with evidence on EKG with anterior deep Q waves and patient report. Patient otherwise has a METs equivalent < 4. However, no further testing is indicated at this time as testing would not preclude the patient from undergoing this beneficial surgery which outweighs the risks. Clinical optimization of fluid and Na status could be considered for 12-24 hours from admission, but should not further delay surgery as any risk reduction benefit would be marginal when weighed against the increased risk of clots and prolonged immobilization. ETOH Abuse Hyponatremia -Monitor for now -[facility] protocol -ETOH level 126 on admission -IVF likely to improve Na, as it is most likely hypovolemic hyponatremia secondary to ETOH related diuresis and poor dietary intake -NS @ 75 cc/hr -Na on 04/23 is 131, UOsm on 04/22 in the 600s Acute Hypoxemic Respiratory Failure versus Volume Overload versus Early Aspiration Pneumonia -oxygen PRN -encourage IS, early mobilization s/p surgery -daily CBC -duoneb PRN -Echo pending -BNP pending -will hold off on abx for now, but low threshold to start unasyn Right femoral fracture -Defer management including pain control and DVT prophylaxis to the surgery service
--- NOTE | 2021-04-23 15:01 | P.PN ---
Subjective Progress Note Date: 04/23/21 Follow-up for hyponatremia. Objective - Vital Signs Vital signs: Vital Signs Temp 98.4 F 04/23/21 14:00 Pulse 104 H 04/23/21 14:00 Resp 18 04/23/21 14:00 BP 118/65 04/23/21 14:00 Pulse Ox 90 L 04/23/21 14:00 Intake & Output 04/22/21 04/23/21 04/23/21 18:59 06:59 18:59 Intake Total 651 Output Total 900 150 450 Balance -249 -150 -450 Intake: IV 651 Output: Urine 800 150 450 Estimated Blood Loss 100 Other: Voiding Method Indwelling Catheter Indwelling Catheter Indwelling Catheter - Exam No acute distress S1-S2 heard Lungs clear No edema - Labs CBC & Chem 7: 04/23/21 09:02 04/23/21 09:02 Labs: Abnormal Lab Results - Last 24 Hours (Table) 04/23/21 04/23/21 04/23/21 Range/Units 09:02 09:02 11:26 RBC 2.97 L (3.80-5.40) m/uL Hgb 10.2 L D (11.4-16.0) gm/dL Hct 30.9 L (34.0-46.0) % MCV 104.0 H D (80.0-100.0) fL Lymphocytes # 0.7 L (1.0-4.8) k/uL Sodium 131 L (137-145) mmol/L Chloride 97 L (98-107) mmol/L Glucose 199 H (74-99) mg/dL POC Glucose (mg/dL) 178 H (75-99) mg/dL Assessment and Plan Assessment: #1 hypovolemic hyponatremia improved with saline. SIADH cannot be completely excluded. #2 status post fall with right femoral fracture #3 hypertension essential. Plan: #1 sodium improved yesterday and started dropping again today. Stop IV fluids. #2 repeat labs in the morning.
[2021-04-23] MEDS ORDERED: MAGNESIUM HYDROXIDE 2,400 MG/10 ML CUP PO PRN (15:12)
[2021-04-23] MEDS: THIAMINE 100 MG TAB PO SCH (17:12)
--- NOTE | 2021-04-23 17:46 | ECHOF ---
Referral Reason:pulmonary edema MEASUREMENTS -------- HEIGHT: 152.4 cm WEIGHT: 49.9 kg BP: 111/65 RVIDd: 3.1 cm (< 3.3) IVSd: 1.0 cm (0.6 - 1.1) LVIDd: 3.5 cm (3.9 - 5.3) LVPWd: 1.1 cm (0.6 - 1.1) IVSs: 1.4 cm LVIDs: 2.3 cm LVPWs: 1.6 cm LA Diam: 2.9 cm (2.7 - 3.8) LAESV Index (A-L): 20.97 ml/m Ao Diam: 2.9 cm (2.0 - 3.7) AV Cusp: 1.7 cm (1.5 - 2.6) MV EXCURSION: 14.881 mm (> 18.000) MV EF SLOPE: 46 mm/s (70 - 150) EPSS: 0.3 cm MV E Roverto: 0.83 m/s MV DecT: 185 ms MV A Roverto: 1.15 m/s MV E/A Ratio: 0.72 RAP: 5.00 mmHg RVSP: 45.50 mmHg FINDINGS -------- Sinus rhythm. This was a technically adequate study. The left ventricular size is normal. There is borderline concentric left ventricular hypertrophy. Overall left ventricular systolic function is normal with, an EF between 60 - 65 %. The right ventricle is normal in size. Normal LA size by volume 22+/-6 ml/m2. The right atrium is normal in size. Interatrial and interventricular septum intact. There is mild aortic valve sclerosis. The mitral valve leaflets are mildly thickened. Mild mitral annular calcification present. Mild tricuspid regurgitation present. There is mild to moderate pulmonary hypertension. The right ventricular systolic pressure, as measured by Doppler, is 45.50mmHg. The pulmonic valve was not well visualized. The aortic root size is normal. Normal inferior vena cava with normal inspiratory collapse consistent with estimated right atrial pre ssure of 5 mmHg. There is no pericardial effusion. CONCLUSIONS -------- 1. The left ventricular size is normal. 2. There is borderline concentric left ventricular hypertrophy. 3. Overall left ventricular systolic function is normal with, an EF between 60 - 65 %. 4. The mitral valve leaflets are mildly thickened. 5. Mild mitral annular calcification present. 6. Mild tricuspid regurgitation present. 7. There is mild to moderate pulmonary hypertension. 8. The right ventricular systolic pressure, as measured by Doppler, is 45.50mmHg. 9. There is no pericardial effusion. DRY CANS BACK TENDER: Amy Landin RDCS
[2021-04-23] MEDS: LATANOPROST 0.005% OPHTH DROPS 2.5 ML BTL BOTH EYES SCH (19:44)
[2021-04-23] MEDS: amLODIPine 10 MG TAB PO SCH (19:45)
[2021-04-23] MEDS: traMADol 50 MG TAB PO PRN (21:45)
[2021-04-24] MEDS: MAGNESIUM HYDROXIDE 2,400 MG/10 ML CUP PO PRN (05:50)
[2021-04-24] MEDS: LEVOTHYROXINE 75 MCG TAB PO SCH (05:50)
[2021-04-24] MEDS: traMADol 50 MG TAB PO PRN ×2 (05:57→20:15)
[2021-04-24] MEDS: TIMOLOL 0.5% OPHTH DROPS 5 ML BTL BOTH EYES SCH (07:41)
[2021-04-24] MEDS: THIAMINE 100 MG TAB PO SCH ×2 (08:02→16:24)
[2021-04-24] MEDS: PANTOPRAZOLE 40 MG TABLET PO SCH (08:02)
[2021-04-24] MEDS: METOPROLOL TARTRATE 12.5 MG TAB PO SCH ×2 (08:02→20:15)
[2021-04-24] MEDS: ATORVASTATIN 10 MG TAB PO SCH (08:02)
[2021-04-24] MEDS: ESCITALOPRAM 10 MG TAB PO SCH (08:02)
[2021-04-24] MEDS: ENOXAPARIN 40 MG/0.4 ML SYRINGE SQ SCH (08:02)
[2021-04-24] MEDS ORDERED: FUROSEMIDE 10 MG/ML 2 ML VIAL IV ONE (08:44)
--- NOTE | 2021-04-24 09:19 | P.PN ---
Subjective Progress Note Date: 04/24/21 Principal diagnosis: POD #2 s/p right hip intertrochanteric fracture Patient seen at bedside this morning. Patient lying semirecumbent in bed. Patient states her hip is feeling a little better this morning. She says she got up with PT yesterday and walked around room using walker. She said her hip was sore after that. Patient says she has not had a bowel movement yet, however, patient says she has been passing gas. Patient denies chest pain, fever, shortness breath, nausea, vomiting, change in vision, loss of bowel/bladder control. Objective - Vital Signs Vital signs: Vital Signs Temp 98.4 F 04/24/21 07:54 Pulse 95 04/24/21 08:03 Resp 18 04/24/21 08:03 BP 122/66 04/24/21 07:54 Pulse Ox 92 L 04/24/21 07:54 Intake & Output 04/23/21 04/24/21 04/24/21 18:59 06:59 18:59 Output Total 450 1800 Balance -450 -1800 Output: Urine 450 1800 Other: Voiding Method Indwelling Catheter Indwelling Catheter Indwelling Catheter - Exam Inspection: Incision is clean, dry, intact. Gilbert in good place. No evidence of open fractures. Negative for any ecchymosis. Negative for any significant discoloration other than as noted. Negative for nodules, erythema. Sensation: Sensation is intact in bilateral upper extremities symmetric, equal in distribution. Sensation is intact in bilateral lower extremities symmetric, equal in distribution Palpation: Right hip still somewhat TTP over incision. Nontender to palpation throughout rest of exam Range of motion: Limited range of motion in the right leg due to patient being in pain post-surgery. Bilateral upper extremities full range of motion in elbow extension/flexion as well as shoulder internal and external rotation abduction and forward elevation. Left lower extremity full range of motion and knee flexion extension and hip flexion extension. Plantar and dorsiflexion full range of motion bilaterally Motor: Strength 5 out of 5 in upper extremities as well as irb compliance coordinator strength. Left lower extremity 5/5 in resisted flexion extension and hip flexion extension. Right leg exam limited due to patient being in post-surgical pain Neurovascular status/tensioning signs: Refill under 3 seconds bilaterally in lower and upper extremities. Skin mildly warm to touch in hands bilaterally as well as bilaterally in the lower extremities. Dorsalis pedis pulses intact, 2+ bilaterally. Radial pulses intact, 2+ bilaterally. Negative Homans bilaterally. Negative Ariane's bilaterally. Negative clonus upon dorsiflexing feet bilaterally. - Labs CBC & Chem 7: 04/23/21 09:02 04/23/21 09:02 Labs: Abnormal Lab Results - Last 24 Hours (Table) 04/23/21 04/23/21 04/23/21 Range/Units 09:02 09:02 11:26 RBC 2.97 L (3.80-5.40) m/uL Hgb 10.2 L D (11.4-16.0) gm/dL Hct 30.9 L (34.0-46.0) % MCV 104.0 H D (80.0-100.0) fL Lymphocytes # 0.7 L (1.0-4.8) k/uL Sodium 131 L (137-145) mmol/L Chloride 97 L (98-107) mmol/L Glucose 199 H (74-99) mg/dL POC Glucose (mg/dL) 178 H (75-99) mg/dL Assessment and Plan Assessment: 1. Right hip intertrochanteric fracture, displaced, status post fall Plan: 1. Right hip intertrochanteric fracture, displaced - surgery performed 04/22/2021 - right hip IM nail. Patient seen at bedside this morning doing well. We'll continue to follow daily. 2. Appreciate medical management 3. Pain management - stable at this time 4. PT/OT - weightbearing as tolerated with walker for assistance 5. GI ppx/DVT ppx - Protonix; Lovenox 6. Discharge planning - Plan to discharge to rehab Sunday vs Sunday Time with Patient: Less than 30
[2021-04-24 10:22] LABS: HCT 25.7 % (37.2-46.3); HGB 8.2 g/dL (12.0-15.0); MCH 32.5 pg (27.0-32.0); MCHC 31.9 g/dL (32.0-37.0); Mean Platelet Volume 10.2 fL (9.5-12.2); Platelet Count 136 X 10*3/uL (140-440); RBC 2.52 X 10*6/uL (4.10-5.20); RDW 13.4 % (11.5-14.5)
[2021-04-24 10:24] LABS: African American GFR (CKD) 100.2 (60.0-200.0); Anion Gap 3.1 mmol/L (4.00-12.00); Calcium 8.4 mg/dL (8.7-10.3); Carbon Dioxide 33.9 mmol/L (21.6-31.8); Magnesium 1.6 mg/dL (1.5-2.4); Non-African American GFR(CKD) 86.4 (60.0-200.0); Potassium 3.8 mmol/L (3.5-5.5)
[2021-04-24 11:04] LABS: Basophils # (A) 0.03 X 10*3/uL (0.00-0.10); Basophils % (A) 0.4 %; Eosinophils # (A) 0.18 X 10*3/uL (0.04-0.35); Eosinophils % (A) 2.6 %; Lymphocytes # (A) 0.93 X 10*3/uL (0.90-5.00); Lymphocytes % (A) 13.7 %; Monocytes # (A) 0.68 X 10*3/uL (0.20-1.00); Neutrophils # (A) 4.94 X 10*3/uL (1.80-7.70); Neutrophils % (A) 72.7 %
--- NOTE | 2021-04-24 13:57 | P.PN ---
Subjective Progress Note Date: 04/24/21 No new complaints today. Hgb is 8.2, down from 14 on admission. O2 requirement is still 4L and patient is at 92%, but no complaints of dyspnea. RLL has crackles, no wheezing throughout. Objective - Vital Signs Vital signs: Vital Signs Temp 98.4 F 04/24/21 07:54 Pulse 95 04/24/21 08:03 Resp 18 04/24/21 08:03 BP 122/66 04/24/21 07:54 Pulse Ox 92 L 04/24/21 07:54 Intake & Output 04/23/21 04/24/21 04/24/21 18:59 06:59 18:59 Output Total 450 1800 Balance -450 -1800 Output: Urine 450 1800 Other: Voiding Method Indwelling Catheter Indwelling Catheter Indwelling Catheter - Exam Gen: asleep, resting comfortably HEENT: normocephalic, atraumatic, good hearing acuity, moist mucous membranes Resp: good air exchange, breathing comfortably with no accessory muscle use, Right and Left posterior crackles in lower lung sandoval, worse on the right CVS: good distal perfusion x 4, GI: soft, NTTP, ND : no SPT, no CVAT, stover catheter not present MSK: no pitting edema, no clubbing Neuro: non-focal, moving all extremities Psych: cooperative, euthymic mood - Labs CBC & Chem 7: 04/24/21 06:22 04/24/21 06:22 Labs: Abnormal Lab Results - Last 24 Hours (Table) 04/24/21 04/24/21 Range/Units 06:22 06:22 RBC 2.52 L (4.10-5.20) X 10*6/uL Hgb 8.2 L (12.0-15.0) g/dL Hct 25.7 L (37.2-46.3) % MCV 102.0 H (80.0-97.0) fL MCH 32.5 H (27.0-32.0) pg MCHC 31.9 L (32.0-37.0) g/dL Plt Count 136 L (140-440) X 10*3/uL Plt Count Comment DECREASED A Sodium 134 L (135-145) mmol/L Carbon Dioxide 33.9 H (21.6-31.8) mmol/L Anion Gap 3.10 L (4.00-12.00) mmol/L BUN 6.0 L (9.0-27.0) mg/dL Creatinine 0.5 L (0.6-1.5) mg/dL Glucose 127 H (70-110) mg/dL Calcium 8.4 L (8.7-10.3) mg/dL Assessment and Plan Assessment: Preoperative evaluation -Reports using her walker to ambulate throughout her house and is able to complete most of her ADLs as she lives independently. She denied experiencing exertional dyspnea or chest discomfort. -RCRI is 1 with score based on prior GA with evidence on EKG with anterior deep Q waves and patient report. Patient otherwise has a METs equivalent < 4. However, no further testing is indicated at this time as testing would not preclude the patient from undergoing this beneficial surgery which outweighs the risks. Clinical optimization of fluid and Na status could be considered for 12- 24 hours from admission, but should not further delay surgery as any risk reduction benefit would be marginal when weighed against the increased risk of clots and prolonged immobilization. ETOH Abuse Hyponatremia -Monitor for now -[facility] protocol -ETOH level 126 on admission -IVF likely to improve Na, as it is most likely hypovolemic hyponatremia secondary to ETOH related diuresis and poor dietary intake -NS @ 75 cc/hr -Na on 04/23 is 131, UOsm on 04/22 in the 600s Acute Hypoxemic Respiratory Failure versus Volume Overload versus Early Aspiration Pneumonia -oxygen PRN -encourage IS, early mobilization s/p surgery -daily CBC -duoneb PRN -Echo Preserved EF, no WMA, no diastolic dysfunction -BNP 479 -will hold off on abx for now, but low threshold to start unasyn -trial of lasix 20mg IV Right femoral fracture -Defer management including pain control and DVT prophylaxis to the surgery service
--- NOTE | 2021-04-24 15:42 | P.PN ---
Subjective Progress Note Date: 04/24/21 Follow-up for hyponatremia. Objective - Vital Signs Vital signs: Vital Signs Temp 97.8 F 04/24/21 14:00 Pulse 87 04/24/21 14:00 Resp 18 04/24/21 14:00 BP 104/64 04/24/21 14:00 Pulse Ox 93 L 04/24/21 14:00 Intake & Output 04/23/21 04/24/21 04/24/21 18:59 06:59 18:59 Output Total 450 1800 700 Balance -450 -1800 -700 Output: Urine 450 1800 700 Other: Voiding Method Indwelling Catheter Indwelling Catheter Indwelling Catheter - Exam No acute distress S1-S2 heard Lungs clear No edema - Labs CBC & Chem 7: 04/24/21 06:22 04/24/21 06:22 Labs: Abnormal Lab Results - Last 24 Hours (Table) 04/24/21 04/24/21 Range/Units 06:22 06:22 RBC 2.52 L (4.10-5.20) X 10*6/uL Hgb 8.2 L (12.0-15.0) g/dL Hct 25.7 L (37.2-46.3) % MCV 102.0 H (80.0-97.0) fL MCH 32.5 H (27.0-32.0) pg MCHC 31.9 L (32.0-37.0) g/dL Plt Count 136 L (140-440) X 10*3/uL Plt Count Comment DECREASED A Sodium 134 L (135-145) mmol/L Carbon Dioxide 33.9 H (21.6-31.8) mmol/L Anion Gap 3.10 L (4.00-12.00) mmol/L BUN 6.0 L (9.0-27.0) mg/dL Creatinine 0.5 L (0.6-1.5) mg/dL Glucose 127 H (70-110) mg/dL Calcium 8.4 L (8.7-10.3) mg/dL Assessment and Plan Assessment: #1 hypovolemic hyponatremia improved with saline. SIADH cannot be completely excluded. #2 status post fall with right femoral fracture #3 hypertension essential. Plan: #1 sodium improved after stopping IV fluids. #2 repeat labs in the morning.
[2021-04-24] MEDS: ACETAMINOPHEN TAB 325 MG TAB PO PRN (16:24)
[2021-04-24] MEDS: amLODIPine 10 MG TAB PO SCH (20:15)
[2021-04-24] MEDS: LATANOPROST 0.005% OPHTH DROPS 2.5 ML BTL BOTH EYES SCH (20:16)
[2021-04-25] MEDS: MORPHINE SULFATE 4 MG/ML SYRINGE IV PRN (00:38)
[2021-04-25] MEDS: LEVOTHYROXINE 75 MCG TAB PO SCH (05:47)
[2021-04-25] MEDS: PANTOPRAZOLE 40 MG TABLET PO SCH (07:45)
[2021-04-25] MEDS: THIAMINE 100 MG TAB PO SCH ×2 (07:45→15:30)
[2021-04-25] MEDS: METOPROLOL TARTRATE 12.5 MG TAB PO SCH ×2 (07:45→20:15)
[2021-04-25] MEDS: ENOXAPARIN 40 MG/0.4 ML SYRINGE SQ SCH (07:46)
[2021-04-25] MEDS: ATORVASTATIN 10 MG TAB PO SCH (07:46)
[2021-04-25] MEDS: TIMOLOL 0.5% OPHTH DROPS 5 ML BTL BOTH EYES SCH (07:46)
[2021-04-25] MEDS: ESCITALOPRAM 10 MG TAB PO SCH (07:46)
[2021-04-25 09:31] LABS: African American GFR (CKD) 94.3 (60.0-200.0); Anion Gap 2.9 mmol/L (4.00-12.00); BUN/Creat Ratio 16.67 Ratio (12.00-20.00); Calcium 8.7 mg/dL (8.7-10.3); Carbon Dioxide 36.1 mmol/L (21.6-31.8); Magnesium 1.9 mg/dL (1.5-2.4); Non-African American GFR(CKD) 81.4 (60.0-200.0); Potassium 4.4 mmol/L (3.5-5.5)
--- NOTE | 2021-04-25 10:30 | P.PN ---
Subjective Patient is seen in follow-up for hyponatremia. Sodium level fairly stable. Oral intake is fair. No chest pain or shortness of breath. Nonoliguric. Vital signs are stable. General: The patient appeared well nourished and normally developed. HEENT: Head exam is unremarkable. Neck is without jugular venous distension. LUNGS: Breath sounds decreased. HEART: Rate and Rhythm are regular. ABDOMEN: Soft, no distention. EXTREMITITES: No edema. Objective - Vital Signs Vital signs: Vital Signs Temp 97.7 F 04/25/21 07:13 Pulse 88 04/25/21 07:13 Resp 17 04/25/21 07:13 BP 111/59 04/25/21 07:13 Pulse Ox 92 L 04/25/21 07:13 Intake & Output 04/24/21 04/25/21 04/25/21 18:59 06:59 18:59 Output Total 700 275 Balance -700 -275 Output: Urine 700 275 Other: Voiding Method Indwelling Catheter Indwelling Catheter - Labs CBC & Chem 7: 04/24/21 06:22 04/25/21 05:48 Labs: Abnormal Lab Results - Last 24 Hours (Table) 04/24/21 04/25/21 Range/Units 06:22 05:48 Plt Count Comment DECREASED A Sodium 133 L (135-145) mmol/L Chloride 94 L (96-109) mmol/L Carbon Dioxide 36.1 H (21.6-31.8) mmol/L Anion Gap 2.90 L (4.00-12.00) mmol/L Glucose 119 H (70-110) mg/dL Assessment and Plan Plan: Assessment: 1. Hyponatremia secondary to SIADH. Sodium level stable at 133 today.urine osmolality 602. 2. Status post fall with right femoral fracture. 3. Benign hypertension. Plan: Encouraged oral intake. 1200 mL fluid restriction. Check TSH. Repeat labs in the morning.
[2021-04-25] MEDS ORDERED: RX INFO: IV CONTRAST WAS GIVEN 1 EACH MISC MISCELLANE PRN (11:31)
--- NOTE | 2021-04-25 12:44 | P.PN ---
Subjective Progress Note Date: 04/25/21 Principal diagnosis: POD #3 s/p right hip intertrochanteric fracture Patient seen at bedside this morning. Patient lying semirecumbent in bed. Patient states her hip is feeling a little better this morning. She says she got up with PT yesterday and walked around room using walker. She said her hip was sore after that. Patient says she has not had a bowel movement yet, however, patient says she has been passing gas. Patient denies chest pain, fever, shortness breath, nausea, vomiting, change in vision, loss of bowel/bladder control. Objective - Vital Signs Vital signs: Vital Signs Temp 97.7 F 04/25/21 07:13 Pulse 88 04/25/21 07:13 Resp 17 04/25/21 07:13 BP 111/59 04/25/21 07:13 Pulse Ox 92 L 04/25/21 07:13 Intake & Output 04/24/21 04/25/21 04/25/21 18:59 06:59 18:59 Output Total 700 275 Balance -700 -275 Output: Urine 700 275 Other: Voiding Method Indwelling Catheter Indwelling Catheter - Exam Inspection: Incision is clean, dry, intact. Gilbert in good place. No evidence of open fractures. Negative for any ecchymosis. Negative for any significant discoloration other than as noted. Negative for nodules, erythema. Sensation: Sensation is intact in bilateral upper extremities symmetric, equal in distribution. Sensation is intact in bilateral lower extremities symmetric, equal in distribution Palpation: Right hip still somewhat TTP over incision. Nontender to palpation throughout rest of exam Range of motion: Limited range of motion in the right leg due to patient being in pain post-surgery. Bilateral upper extremities full range of motion in elbow extension/flexion as well as shoulder internal and external rotation abduction and forward elevation. Left lower extremity full range of motion and knee flexion extension and hip flexion extension. Plantar and dorsiflexion full range of motion bilaterally Motor: Strength 5 out of 5 in upper extremities as well as soil analyst strength. Left lower extremity 5/5 in resisted flexion extension and hip flexion extension. Right leg exam limited due to patient being in post-surgical pain Neurovascular status/tensioning signs: Refill under 3 seconds bilaterally in lower and upper extremities. Skin mildly warm to touch in hands bilaterally as well as bilaterally in the lower extremities. Dorsalis pedis pulses intact, 2+ bilaterally. Radial pulses intact, 2+ bilaterally. Negative Homans bilaterally. Negative Ariane's bilaterally. Negative clonus upon do rsiflexing feet bilaterally. - Labs CBC & Chem 7: 04/24/21 06:22 04/25/21 05:48 Labs: Abnormal Lab Results - Last 24 Hours (Table) 04/24/21 04/24/21 04/25/21 Range/Units 06:22 06:22 05:48 RBC 2.52 L (4.10-5.20) X 10*6/uL Hgb 8.2 L (12.0-15.0) g/dL Hct 25.7 L (37.2-46.3) % MCV 102.0 H (80.0-97.0) fL MCH 32.5 H (27.0-32.0) pg MCHC 31.9 L (32.0-37.0) g/dL Plt Count 136 L (140-440) X 10*3/uL Plt Count Comment DECREASED A Sodium 134 L 133 L (135-145) mmol/L Chloride 94 L (96-109) mmol/L Carbon Dioxide 33.9 H 36.1 H (21.6-31.8) mmol/L Anion Gap 3.10 L 2.90 L (4.00-12.00) mmol/L BUN 6.0 L (9.0-27.0) mg/dL Creatinine 0.5 L (0.6-1.5) mg/dL Glucose 127 H 119 H (70-110) mg/dL Calcium 8.4 L (8.7-10.3) mg/dL Assessment and Plan Assessment: 1. Right hip intertrochanteric fracture, displaced, status post fall Plan: 1. Right hip intertrochanteric fracture, displaced - surgery performed 04/22/2021 - right hip IM nail. Patient seen at bedside this morning doing well. Plan to discharge to [facility] 2. Appreciate medical management 3. Pain management - stable at this time 4. PT/OT - weightbearing as tolerated with walker for assistance 5. GI ppx/DVT ppx - Protonix; Lovenox 6. Discharge planning - Plan to discharge to [facility] for rehab. Time with Patient: Less than 30
[2021-04-25] MEDS: traMADol 50 MG TAB PO PRN ×2 (13:36→20:20)
[2021-04-25 14:07] LABS: Basophils # (A) 0.04 X 10*3/uL (0.00-0.10); Basophils % (A) 0.5 %; Eosinophils # (A) 0.32 X 10*3/uL (0.04-0.35); Eosinophils % (A) 4.4 %; HCT 25.8 % (37.2-46.3); HGB 8.3 g/dL (12.0-15.0); Lymphocytes # (A) 0.85 X 10*3/uL (0.90-5.00); Lymphocytes % (A) 11.6 %; MCH 33.2 pg (27.0-32.0); MCHC 32.2 g/dL (32.0-37.0); MCV 103.2 fL (80.0-97.0); Monocytes # (A) 1.08 X 10*3/uL (0.20-1.00); Monocytes % (A) 14.7 %; Neutrophils # (A) 4.99 X 10*3/uL (1.80-7.70); Platelet Count 174 X 10*3/uL (140-440); RDW 13.5 % (11.5-14.5); WBC 7.34 X 10*3/uL (4.50-10.00)
--- NOTE | 2021-04-25 14:08 | P.PN ---
Subjective Progress Note Date: 04/25/21 No new complaints. Pt still requiring 4L O2. Has clubbing on phx c/w chronic hypoxia, however, there does appear to be a superimposed acute component. CT chest demonstrated b/l pleural effusions and emphysema in the lungs. Plan to start lasix IV standing today. Objective - Vital Signs Vital signs: Vital Signs Temp 97.7 F 04/25/21 07:13 Pulse 81 04/25/21 08:00 Resp 17 04/25/21 08:00 BP 111/59 04/25/21 07:13 Pulse Ox 92 L 04/25/21 07:13 Intake & Output 04/24/21 04/25/21 04/25/21 18:59 06:59 18:59 Output Total 700 275 Balance -700 -275 Output: Urine 700 275 Other: Voiding Method Indwelling Catheter Indwelling Catheter Indwelling Catheter - Exam Gen: asleep, resting comfortably HEENT: normocephalic, atraumatic, good hearing acuity, moist mucous membranes Resp: good air exchange, breathing comfortably with no accessory muscle use, Right and Left posterior crackles in lower lung sandoval, worse on the right CVS: good distal perfusion x 4, GI: soft, NTTP, ND : no SPT, no CVAT, stover catheter not present MSK: no pitting edema, no clubbing Neuro: non-focal, moving all extremities Psych: cooperative, euthymic mood - Labs CBC & Chem 7: 04/24/21 06:22 04/25/21 05:48 Labs: Abnormal Lab Results - Last 24 Hours (Table) 04/25/21 Range/Units 05:48 Sodium 133 L (135-145) mmol/L Chloride 94 L (96-109) mmol/L Carbon Dioxide 36.1 H (21.6-31.8) mmol/L Anion Gap 2.90 L (4.00-12.00) mmol/L Glucose 119 H (70-110) mg/dL Assessment and Plan Assessment: Preoperative evaluation -Reports using her walker to ambulate throughout her house and is able to complete most of her ADLs as she lives independently. She denied experiencing exertional dyspnea or chest discomfort. -RCRI is 1 with score based on prior [place] with evidence on EKG with anterior deep Q waves and patient report. Patient otherwise has a METs equivalent < 4. However, no further testing is indicated at this time as testing would not preclude the patient from undergoing this beneficial surgery which outweighs the risks. Clinical optimization of fluid and Na status could be considered for 12- 24 hours from admission, but should not further delay surgery as any risk reduction benefit would be marginal when weighed against the increased risk of clots and prolonged immobilization. ETOH Abuse Hyponatremia -Monitor for now -[facility] protocol -ETOH level 126 on admission -IVF likely to improve Na, as it is most likely hypovolemic hyponatremia secondary to ETOH related diuresis and poor dietary intake -NS @ 75 cc/hr d/c'd -Na on 04/23 is 131, UOsm on 04/22 in the 600s Acute Hypoxemic Respiratory Failure secondary to Volume Overload -oxygen PRN -encourage IS, early mobilization s/p surgery -daily CBC -duoneb PRN -Echo Preserved EF, no WMA, no diastolic dysfunction -BNP 479 -will hold off on abx for now, but low threshold to start unasyn -lasix 40mg IV daily Right femoral fracture -Defer management including pain control and DVT prophylaxis to the surgery service
--- NOTE | 2021-04-25 14:37 | CT ---
EXAMINATION TYPE: CT chest w con DATE OF EXAM: 04/25/2021 COMPARISON: None HISTORY: Hypoxia with suspected Pulmonary Fibrosis CT DLP: 223.3 mGycm, Automated exposure control for dose reduction was used. CONTRAST: Performed injected with 100 mL of Isovue 300. TECHNIQUE: Axial images were obtained at 5 mm thick sections. Reconstructed images are reviewed on [employer] computer in the coronal plane. FINDINGS: Portion of the thyroid visualized is normal. Small bilateral pleural effusions are present. There is adjacent compressive atelectasis No enlarged mediastinal or hilar adenopathy is evident. The ascending aorta diameter at the level o f the main pulmonary artery is 2.8 cm. The main pulmonary artery diameter at the bifurcation is 2.5 cm. Coronary artery calcification is present Limited CT sections are obtained through the upper abdomen. Abdomen is essentially unremarkable. IMPRESSIONS: 1. Small bilateral pleural effusions with adjacent compressive atelectasis. 2. No suspicious changes for pulmonary fibrosis.
[2021-04-25] MEDS: FUROSEMIDE 10 MG/ML 4 ML VIAL IV SCH (15:29)
[2021-04-25] MEDS: amLODIPine 10 MG TAB PO SCH (20:15)
[2021-04-25] MEDS: LATANOPROST 0.005% OPHTH DROPS 2.5 ML BTL BOTH EYES SCH (20:36)
[2021-04-26] MEDS: MORPHINE SULFATE 4 MG/ML SYRINGE IV PRN (00:10)
[2021-04-26] MEDS: MELATONIN 3 MG TABLET PO SCH ×2 (02:11→22:04)
[2021-04-26] MEDS: traMADol 50 MG TAB PO PRN ×2 (02:12→16:30)
[2021-04-26] MEDS: LEVOTHYROXINE 75 MCG TAB PO SCH (05:30)
[2021-04-26] MEDS: FUROSEMIDE 10 MG/ML 4 ML VIAL IV SCH ×2 (07:26→22:03)
--- NOTE | 2021-04-26 07:59 | P.PN ---
Subjective Progress Note Date: 04/26/21 Principal diagnosis: POD #4 s/p right hip intertrochanteric fracture Patient seen at bedside this morning. Patient lying semirecumbent in bed on 2 L O2 via nasal cannula. Patient seems confused and is not responding to questions when asked. Patient denies chest pain, fever, shortness breath, nausea, vomiting, change in vision, loss of bowel/bladder control. Objective - Vital Signs Vital signs: Vital Signs Temp 98.0 F 04/26/21 02:00 Pulse 75 04/26/21 02:00 Resp 20 04/26/21 02:00 BP 105/63 04/26/21 02:00 Pulse Ox 91 L 04/26/21 02:00 Intake & Output 04/25/21 04/26/21 04/26/21 18:59 06:59 18:59 Intake Total 100 Output Total 400 600 Balance -400 -500 Intake: Oral 100 Output: Urine 400 600 Other: Voiding Method Indwelling Catheter Indwelling Catheter # Voids 0 # Bowel Movements 0 - Exam Inspection: Incision is clean, dry, intact. Gilbert in good place. No evidence of open fractures. Negative for any ecchymosis. Negative for any significant discoloration other than as noted. Negative for nodules, erythema. Sensation: Sensation is intact in bilateral upper extremities symmetric, equal in distribution. Sensation is intact in bilateral lower extremities symmetric, equal in distribution Palpation: Right hip still somewhat TTP over incision. Nontender to palpation throughout rest of exam Range of motion: Limited range of motion in the right leg due to patient being in pain post-surgery. Bilateral upper extremities full range of motion in elbow extension/flexion as well as shoulder internal and external rotation abduction and forward elevation. Left lower extremity full range of motion and knee flexion extension and hip flexion extension. Plantar and dorsiflexion full range of motion bilaterally Motor: Strength 5 out of 5 in upper extremities as well as interventional radiology technologist strength. Left lower extremity 5/5 in resisted flexion extension and hip flexion extension. Right leg exam limited due to patient being in post-surgical pain Neurovascular status/tensioning signs: Refill under 3 seconds bilaterally in lower and upper extremities. Skin mildly warm to touch in hands bilaterally as well as bilaterally in the lower extremities. Dorsalis pedis pulses intact, 2+ bilaterally. Radial pulses intact, 2+ bilaterally. Negative Homans bilaterally. Negative Ariane's bilaterally. Negative clonus upon dorsiflexing feet bilaterally. - Labs CBC & Chem 7: 04/25/21 05:48 04/25/21 05:48 Labs: Abnormal Lab Results - Last 24 Hours (Table) 04/25/21 04/25/21 Range/Units 05:48 05:48 RBC 2.50 L (4.10-5.20) X 10*6/uL Hgb 8.3 L (12.0-15.0) g/dL Hct 25.8 L (37.2-46.3) % MCV 103.2 H (80.0-97.0) fL MCH 33.2 H (27.0-32.0) pg Immature Gran # 0.06 H (0.00-0.04) X 10*3/uL Lymphocytes # 0.85 L (0.90-5.00) X 10*3/uL Monocytes # 1.08 H (0.20-1.00) X 10*3/uL Sodium 133 L (135-145) mmol/L Chloride 94 L (96-109) mmol/L Carbon Dioxide 36.1 H (21.6-31.8) mmol/L Anion Gap 2.90 L (4.00-12.00) mmol/L Glucose 119 H (70-110) mg/dL Assessment and Plan Assessment: 1. Right hip intertrochanteric fracture, displaced, status post fall Plan: 1. Right hip intertrochanteric fracture, displaced - surgery performed 04/22/2021 - right hip IM nail. Patient seen at bedside this morning. Plan to discharge to [facility] whenever patient is cleared by medicine 2. Appreciate medical management 3. Pain management - stable at this time 4. PT/OT - weightbearing as tolerated with walker for assistance 5. GI ppx/DVT ppx - Protonix; Lovenox 6. Discharge planning - Plan to discharge to [facility] for rehab. Time with Patient: Less than 30
[2021-04-26] MEDS: THIAMINE 100 MG TAB PO SCH ×2 (08:19→16:30)
[2021-04-26] MEDS: PANTOPRAZOLE 40 MG TABLET PO SCH (08:20)
[2021-04-26] MEDS: ENOXAPARIN 40 MG/0.4 ML SYRINGE SQ SCH (08:20)
[2021-04-26] MEDS: ATORVASTATIN 10 MG TAB PO SCH (08:20)
[2021-04-26] MEDS: METOPROLOL TARTRATE 12.5 MG TAB PO SCH ×2 (08:21→22:03)
[2021-04-26] MEDS: ESCITALOPRAM 10 MG TAB PO SCH (08:22)
[2021-04-26] MEDS: TIMOLOL 0.5% OPHTH DROPS 5 ML BTL BOTH EYES SCH (08:23)
--- NOTE | 2021-04-26 08:43 | P.PN ---
Progress Note - Text Progress Note Date: 04/26/21 Patient seen and examined I agree with the note of YU Johnson Patient seen and examined. She is a little slightly sleepy today. She was kept due to her oxygenation status which was poor yesterday. Her labs have been trending in better directions. She complains of some pain in the hip. Her exam is stable she has good dorsiflexion plantar flexion EHL FHL however she has poor cooperation today. Compartments are soft and compressive dressing is clean dry and intact. Fluid go to rehab today versus tomorrow pending medical treatments.
--- NOTE | 2021-04-26 10:03 | P.PN ---
Subjective Patient is seen in follow-up for hyponatremia. Sodium level fairly stable. Oral intake is fair. No chest pain or shortness of breath. Nonoliguric. On IV Lasix. Hard of hearing. Vital signs are stable. General: The patient appeared well nourished and normally developed. HEENT: Head exam is unremarkable. Neck is without jugular venous distension. LUNGS: Breath sounds decreased. HEART: Rate and Rhythm are regular. ABDOMEN: Soft, no distention. EXTREMITITES: No edema. Objective - Vital Signs Vital signs: Vital Signs Temp 98.1 F 04/26/21 08:17 Pulse 78 04/26/21 08:17 Resp 20 04/26/21 08:17 BP 108/63 04/26/21 08:17 Pulse Ox 93 L 04/26/21 08:17 Intake & Output 04/25/21 04/26/21 04/26/21 18:59 06:59 18:59 Intake Total 100 Output Total 400 600 Balance -400 -500 Intake: Oral 100 Output: Urine 400 600 Other: Voiding Method Indwelling Catheter Indwelling Catheter # Voids 0 # Bowel Movements 0 - Labs CBC & Chem 7: 04/25/21 05:48 04/25/21 05:48 Labs: Abnormal Lab Results - Last 24 Hours (Table) 04/25/21 Range/Units 05:48 RBC 2.50 L (4.10-5.20) X 10*6/uL Hgb 8.3 L (12.0-15.0) g/dL Hct 25.8 L (37.2-46.3) % MCV 103.2 H (80.0-97.0) fL MCH 33.2 H (27.0-32.0) pg Immature Gran # 0.06 H (0.00-0.04) X 10*3/uL Lymphocytes # 0.85 L (0.90-5.00) X 10*3/uL Monocytes # 1.08 H (0.20-1.00) X 10*3/uL Assessment and Plan Plan: Assessment: 1. Hyponatremia secondary to SIADH. Sodium level stable at 133 yesterday. Urine osmolality 602. 2. Status post fall with right femoral fracture. 3. Benign hypertension. Stable. Plan: Encouraged oral intake. 1200 mL fluid restriction. Maintain Lasix. Follow-up TSH. Morning labs pending.
[2021-04-26 14:45] LABS: African American GFR (CKD) 76.3 (60.0-200.0); Anion Gap 5.6 mmol/L (4.00-12.00); BUN/Creat Ratio 18.75 Ratio (12.00-20.00); Calcium 8.5 mg/dL (8.7-10.3); Carbon Dioxide 36.4 mmol/L (21.6-31.8); Magnesium 1.9 mg/dL (1.5-2.4); Non-African American GFR(CKD) 65.8 (60.0-200.0); Potassium 4.5 mmol/L (3.5-5.5)
[2021-04-26 17:16] LABS: Glucose,Whole Blood 121 mg/dL (75-99)
[2021-04-26] MEDS ORDERED: MELATONIN 3 MG TABLET PO SCH (21:00)
[2021-04-26] MEDS: amLODIPine 10 MG TAB PO SCH (22:03)
[2021-04-26] MEDS: LATANOPROST 0.005% OPHTH DROPS 2.5 ML BTL BOTH EYES SCH (22:04)
[2021-04-27] MEDS: LEVOTHYROXINE 75 MCG TAB PO SCH (05:18)
[2021-04-27] MEDS: PANTOPRAZOLE 40 MG TABLET PO SCH (07:33)
[2021-04-27] MEDS: THIAMINE 100 MG TAB PO SCH ×2 (07:33→16:51)
--- NOTE | 2021-04-27 07:54 | P.PN ---
Subjective Progress Note Date: 04/27/21 Principal diagnosis: POD #5 s/p right hip intertrochanteric fracture Patient seen at bedside this morning. Patient lying semirecumbent in bed on 2 L O2 via nasal cannula. Patient denies chest pain, fever, shortness breath, nausea, vomiting, change in vision, loss of bowel/bladder control. Objective - Vital Signs Vital signs: Vital Signs Temp 98.3 F 04/27/21 01:57 Pulse 78 04/27/21 01:57 Resp 16 04/27/21 01:57 BP 111/57 04/27/21 01:57 Pulse Ox 94 L 04/27/21 01:57 Intake & Output 04/26/21 04/27/21 04/27/21 18:59 06:59 18:59 Intake Total 200 Output Total 550 900 Balance -550 -700 Weight 57.5 kg Intake: Oral 200 Output: Urine 550 900 Other: Voiding Method Indwelling Catheter Indwelling Catheter # Bowel Movements 0 - Exam Inspection: Incision is clean, dry, intact. Gilbert in good place. No evidence of open fractures. Negative for any ecchymosis. Negative for any significant discoloration other than as noted. Negative for nodules, erythema. Sensation: Sensation is intact in bilateral upper extremities symmetric, equal in distribution. Sensation is intact in bilateral lower extremities symmetric, equal in distribution Palpation: Right hip still somewhat TTP over incision. Nontender to palpation throughout rest of exam Range of motion: Limited range of motion in the right leg due to patient being in pain post-surgery. Bilateral upper extremities full range of motion in elbow extension/flexion as well as shoulder internal and external rotation abduction and forward elevation. Left lower extremity full range of motion and knee flexion extension and hip flexion extension. Plantar and dorsiflexion full range of motion bilaterally Motor: Strength 5 out of 5 in upper extremities as well as labor service representative strength. Left lower extremity 5/5 in resisted flexion extension and hip flexion extension. Ri ght leg exam limited due to patient being in post-surgical pain Neurovascular status/tensioning signs: Refill under 3 seconds bilaterally in lower and upper extremities. Skin mildly warm to touch in hands bilaterally as well as bilaterally in the lower extremities. Dorsalis pedis pulses intact, 2+ bilaterally. Radial pulses intact, 2+ bilaterally. Negative Homans bilaterally. Negative Ariane's bilaterally. Negative clonus upon dorsiflexing feet bilaterally. - Labs CBC & Chem 7: 04/25/21 05:48 04/26/21 06:34 Labs: Abnormal Lab Results - Last 24 Hours (Table) 04/26/21 04/26/21 Range/Units 06:34 17:05 Sodium 131 L (135-145) mmol/L Chloride 89 L (96-109) mmol/L Carbon Dioxide 36.4 H (21.6-31.8) mmol/L Glucose 147 H (70-110) mg/dL POC Glucose (mg/dL) 121 H (75-99) mg/dL Calcium 8.5 L (8.7-10.3) mg/dL TSH 19.880 H (0.350-5.500) uIU/mL Assessment and Plan Assessment: 1. Right hip intertrochanteric fracture, displaced, status post fall Plan: 1. Right hip intertrochanteric fracture, displaced - surgery performed 04/22/2021 - right hip IM nail. Patient seen at bedside this morning. Plan to discharge to [facility] whenever patient is cleared by medicine 2. Appreciate medical management 3. Pain management - stable at this time 4. PT/OT - weightbearing as tolerated with walker for assistance 5. GI ppx/DVT ppx - Protonix; Lovenox 6. Discharge planning - Plan to discharge to [facility] for rehab. Time with Patient: Less than 30
[2021-04-27 08:37] LABS: HCT 26.6 % (34.0-46.0); HGB 8.9 gm/dL (11.4-16.0); MCH 33.9 pg (25.0-35.0); MCHC 33.3 g/dL (31.0-37.0); MCV 101.6 fL (80.0-100.0); Macrocytosis Slight; Mean Platelet Volume 8.6; Platelet Count 272 k/uL (150-450); RBC 2.62 m/uL (3.80-5.40); WBC 6.5 k/uL (3.8-10.6)
[2021-04-27 08:47] LABS: ALT 39 U/L (4-34); AST 69 U/L (14-36); Alkaline Phosphatase 457 U/L (38-126)
[2021-04-27] MEDS: FUROSEMIDE 10 MG/ML 4 ML VIAL IV SCH ×2 (08:59→21:53)
[2021-04-27] MEDS: ATORVASTATIN 10 MG TAB PO SCH (09:46)
[2021-04-27] MEDS: ESCITALOPRAM 10 MG TAB PO SCH (09:46)
[2021-04-27] MEDS: METOPROLOL TARTRATE 12.5 MG TAB PO SCH ×2 (09:46→21:52)
[2021-04-27] MEDS: ENOXAPARIN 40 MG/0.4 ML SYRINGE SQ SCH (09:46)
[2021-04-27] MEDS: TIMOLOL 0.5% OPHTH DROPS 5 ML BTL BOTH EYES SCH (09:47)
--- NOTE | 2021-04-27 10:10 | P.PN ---
Subjective Patient is seen in follow-up for hyponatremia. Sodium level 131 yesterday. Oral intake is fair. No chest pain or shortness of breath. Nonoliguric. On IV Lasix. Hard of hearing. Hemodynamically stable. No changes overnight. On 5 L nasal cannula. Vital signs are stable. General: The patient appeared well nourished and normally developed. HEENT: Head exam is unremarkable. Neck is without jugular venous distension. LUNGS: Breath sounds decreased. HEART: Rate and Rhythm are regular. ABDOMEN: Soft, no distention. EXTREMITITES: No edema. Objective - Vital Signs Vital signs: Vital Signs Temp 97.8 F 04/27/21 07:59 Pulse 77 04/27/21 07:59 Resp 20 04/27/21 07:59 BP 122/65 04/27/21 07:59 Pulse Ox 93 L 04/27/21 07:59 Intake & Output 04/26/21 04/27/21 04/27/21 18:59 06:59 18:59 Intake Total 200 Output Total 550 900 Balance -550 -700 Weight 57.5 kg Intake: Oral 200 Output: Urine 550 900 Other: Voiding Method Indwelling Catheter Indwelling Catheter # Bowel Movements 0 - Labs CBC & Chem 7: 04/27/21 05:48 04/26/21 06:34 Labs: Abnormal Lab Results - Last 24 Hours (Table) 04/26/21 04/26/21 04/27/21 Range/Units 06:34 17:05 05:48 RBC 2.62 L (3.80-5.40) m/uL Hgb 8.9 L (11.4-16.0) gm/dL Hct 26.6 L (34.0-46.0) % MCV 101.6 H (80.0-100.0) fL Sodium 131 L (135-145) mmol/L Chloride 89 L (96-109) mmol/L Carbon Dioxide 36.4 H (21.6-31.8) mmol/L Glucose 147 H (70-110) mg/dL POC Glucose (mg/dL) 121 H (75-99) mg/dL Calcium 8.5 L (8.7-10.3) mg/dL AST (14-36) U/L ALT (4-34) U/L Alkaline Phosphatase (38-126) U/L TSH 19.880 H (0.350-5.500) uIU/mL 04/27/21 Range/Units 05:48 RBC (3.80-5.40) m/uL Hgb (11.4-16.0) gm/dL Hct (34.0-46.0) % MCV (80.0-100.0) fL Sodium (135-145) mmol/L Chloride (96-109) mmol/L Carbon Dioxide (21.6-31.8) mmol/L Glucose (70-110) mg/dL POC Glucose (mg/dL) (75-99) mg/dL Calcium (8.7-10.3) mg/dL AST 69 H (14-36) U/L ALT 39 H (4-34) U/L Alkaline Phosphatase 457 H (38-126) U/L TSH (0.350-5.500) uIU/mL Assessment and Plan Plan: Assessment: 1. Hyponatremia secondary to SIADH. Sodium level stable at 131 yesterday. Urine osmolality 602. TSH elevated. 2. Status post fall with right femoral fracture. 3. Benign hypertension. Stable. 4. Hypothyroidism. On Synthroid. 5. Volume overload. 6. Acute on chronic diastolic CHF with moderate pulmonary hypertension. Plan: Encouraged oral intake. 1200 mL fluid restriction. Maintain Lasix. Morning labs pending.
[2021-04-27 10:57] LABS: African American GFR (CKD) 89.7 (60.0-200.0); Anion Gap 7.4 mmol/L (4.00-12.00); BUN/Creat Ratio 22.86 Ratio (12.00-20.00); Calcium 8.6 mg/dL (8.7-10.3); Carbon Dioxide 37.6 mmol/L (21.6-31.8); Magnesium 1.5 mg/dL (1.5-2.4); Non-African American GFR(CKD) 77.4 (60.0-200.0); Potassium 3.8 mmol/L (3.5-5.5)
[2021-04-27] MEDS: traMADol 50 MG TAB PO PRN (11:20)
--- NOTE | 2021-04-27 11:47 | P.PN ---
Subjective Progress Note Date: 04/26/21 Pt not complaining of dyspnea. CT scan demonstrated b/l pleural effusions. Objective - Vital Signs Vital signs: Vital Signs Temp 97.8 F 04/27/21 07:59 Pulse 77 04/27/21 07:59 Resp 20 04/27/21 07:59 BP 122/65 04/27/21 07:59 Pulse Ox 93 L 04/27/21 07:59 Intake & Output 04/26/21 04/27/21 04/27/21 18:59 06:59 18:59 Intake Total 200 Output Total 550 900 Balance -550 -700 Weight 57.5 kg Intake: Oral 200 Output: Urine 550 900 Other: Voiding Method Indwelling Catheter Indwelling Catheter Indwelling Catheter # Bowel Movements 0 - Exam Gen: asleep, resting comfortably HEENT: normocephalic, atraumatic, good hearing acuity, moist mucous membranes Resp: good air exchange, breathing comfortably with no accessory muscle use, Rig ht and Left posterior crackles in lower lung sandoval, worse on the right CVS: good distal perfusion x 4, GI: soft, NTTP, ND : no SPT, no CVAT, stover catheter not present MSK: no pitting edema, no clubbing Neuro: non-focal, moving all extremities Psych: cooperative, euthymic mood - Labs CBC & Chem 7: 04/27/21 05:48 04/27/21 05:48 Labs: Abnormal Lab Results - Last 24 Hours (Table) 04/26/21 04/26/21 04/26/21 Range/Units 06:34 06:34 17:05 RBC (3.80-5.40) m/uL Hgb (11.4-16.0) gm/dL Hct (34.0-46.0) % MCV (80.0-100.0) fL Sodium 131 L (135-145) mmol/L Chloride 89 L (96-109) mmol/L Carbon Dioxide 36.4 H (21.6-31.8) mmol/L BUN/Creatinine Ratio (12.00-20.00) Ratio Glucose 147 H (70-110) mg/dL POC Glucose (mg/dL) 121 H (75-99) mg/dL Calcium 8.5 L (8.7-10.3) mg/dL AST (14-36) U/L ALT (4-34) U/L Alkaline Phosphatase (38-126) U/L TSH 19.880 H (0.350-5.500) uIU/mL Free T4 0.70 L (0.80-1.80) ng/dL 04/27/21 04/27/21 04/27/21 Range/Units 05:48 05:48 05:48 RBC 2.62 L (3.80-5.40) m/uL Hgb 8.9 L (11.4-16.0) gm/dL Hct 26.6 L (34.0-46.0) % MCV 101.6 H (80.0-100.0) fL Sodium 131 L (135-145) mmol/L Chloride 86 L (96-109) mmol/L Carbon Dioxide 37.6 H (21.6-31.8) mmol/L BUN/Creatinine Ratio 22.86 H (12.00-20.00) Ratio Glucose (70-110) mg/dL POC Glucose (mg/dL) (75-99) mg/dL Calcium 8.6 L (8.7-10.3) mg/dL AST 69 H (14-36) U/L ALT 39 H (4-34) U/L Alkaline Phosphatase 457 H (38-126) U/L TSH (0.350-5.500) uIU/mL Free T4 (0.80-1.80) ng/dL Assessment and Plan Assessment: Preoperative evaluation -Reports using her walker to ambulate throughout her house and is able to complete most of her ADLs as she lives independently. She denied experiencing exertional dyspnea or chest discomfort. -RCRI is 1 with score based on prior LA with evidence on EKG with anterior deep Q waves and patient report. Patient otherwise has a METs equivalent < 4. However, no further testing is indicated at this time as testing would not prec lude the patient from undergoing this beneficial surgery which outweighs the risks. Clinical optimization of fluid and Na status could be considered for 12- 24 hours from admission, but should not further delay surgery as any risk reduction benefit would be marginal when weighed against the increased risk of clots and prolonged immobilization. ETOH Abuse Hyponatremia -Monitor for now -[facility] protocol -ETOH level 126 on admission -IVF likely to improve Na, as it is most likely hypovolemic hyponatremia secondary to ETOH related diuresis and poor dietary intake -NS @ 75 cc/hr d/c'd -Na on 04/23 is 131, UOsm on 04/22 in the 600s Acute Hypoxemic Respiratory Failure secondary to Volume Overload -oxygen PRN -encourage IS, early mobilization s/p surgery -daily CBC -duoneb PRN -Echo Preserved EF, no WMA, no diastolic dysfunction -BNP 479 -will hold off on abx for now, but low threshold to start unasyn -lasix 40mg IV daily Right femoral fracture -Defer management including pain control and DVT prophylaxis to the surgery service
[2021-04-27] MEDS: ACETAMINOPHEN TAB 325 MG TAB PO PRN (13:03)
[2021-04-27] MEDS: MAGNESIUM SULFATE-D5W PMX 1 GM in DEXTROSE/WATER 1 100ML.BAG IVPB SCH ×3 (13:15→16:50)
[2021-04-27 14:02] VITALS: BMI 23.9
[2021-04-27] MEDS: MORPHINE SULFATE 4 MG/ML SYRINGE IV PRN ×2 (15:03→21:54)
[2021-04-27] MEDS ORDERED: methylPREDNISolone SOD SUCCI 125 MG/2 ML VIAL IV STA (17:10)
--- NOTE | 2021-04-27 17:15 | P.PN ---
Subjective Progress Note Date: 04/27/21 Hospital course: Patient is a very pleasant 86-year-old female with a past medical history of CAD, hypertension, hyperlipidemia, and hypogonadism. she presented to the hospital on 04/21/21 after experiencing a fall at home resulting in an intertrochanteric fracture of her right femur. Patient underwent surgical repair on 04/22/21. She was initially admitted under primary orthopedic team and we were on consult for continued medical management, however patient was later transferred under our services secondary to persistent hypoxia status post surgical procedure. Physical exam: Vital signs reviewed and stable. General: Nontoxic, no distress and appears stated age. Derm: Skin warm and dry, normal coloration for ethnicity. Head: Atraumatic, normocephalic and symmetric. Eyes: EOMs intact, no lid lag, and anicteric sclera Mouth: no lip lesions, mucus membranes moist Cardiovascular: regular rate and rhythm with normal S1S2, no murmur, positive posterior tibial pulses bilaterally, and cap refill < 2 seconds. Lungs: Respirations even, regular, and unlabored on room air. Lungs CTA bilaterally, no rhonchi, no rales, no wheezing, and no accessory muscle usage. Abdominal: soft, nontender to palpation, no guarding, no appreciable organomegaly Ext: ROM intact. No gross muscle atrophy, no edema, no contractures Neuro: Speech clear, face symmetrical and CN II-XII grossly intact with no noted focal neuro deficits Psych: Alert and oriented to person, place, time, and situation. Appropriate and pleasant affect. Assessment and Plan of Care: Acute respiratory failure with Hypoxia -X-ray lungs revealing small opacity at the right lung base possibly representing an early pneumonic process versus pulmonary edema. -CT chest with contrast revealing small bilateral pleural effusions with adjacent comprehensive atelectasis negative for acute PE. Echocardiogram revealing a normal EF 60-65% with mild to moderate pulmonary hypertension. -continue oxygenation as needed to maintain SpO2 equal to or greater than 90%. Patient currently on 5 L. -Repeat chest x-ray secondary to persistent postsurgical hypoxia. -Encourage use of incentive spirometry 10-15 times hourly while awake. -Patient being given loading dose of Solu-Medrol 125 mg IVP and being started on Solu-Medrol 40 mg daily. -Repeat d-dimer Hypomagnesemia -Magnesium 1.5, replaced. -We will continue to monitor closely with repeat a.m. labs and replace abnormal electrolyte values as needed. Hypothyroidism -TSH 19.880 and free T4 of 0.70, increase Synthroid to 100 g daily. -Patient to follow up outpatient with PCP/endocrinology for continued long-term monitoring and management and repeat TSH in 8-12 weeks. Hypertension Monitor vital signs and continue daily medication regimen with amlodipine and metoprolol. Hyperlipidemia Continue daily medication management with atorvastatin. Heart healthy diet. Fall resulting in intertrochanteric fracture of right femur -Fall precautions -Symptomatic care and pain management -Management per orthopedic team. DVT prophylaxis with Lovenox. PT/OT CODE STATUS: full code DVT prophylaxis: Lovenox Discussed with: patient and RN Anticipated discharge date: clinical course to determine Anticipated discharge place: home with homecare vs SNF A total of 45 minutes was spent on the care of this complex patient more than 50% of the time was spent in counseling and care coordination. Objective - Vital Signs Vital signs: Vital Signs Temp 97.8 F 04/27/21 07:59 Pulse 77 04/27/21 07:59 Resp 20 04/27/21 07:59 BP 122/65 04/27/21 07:59 Pulse Ox 93 L 04/27/21 07:59 Intake & Output 04/26/21 04/27/21 04/27/21 18:59 06:59 18:59 Intake Total 200 Output Total 550 900 Balance -550 -700 Weight 57.5 kg Intake: Oral 200 Output: Urine 550 900 Other: Voiding Method Indwelling Catheter Indwelling Catheter # Bowel Movements 0 - Labs CBC & Chem 7: 04/27/21 05:48 04/27/21 05:48 Labs: Abnormal Lab Results - Last 24 Hours (Table) 04/26/21 04/26/21 04/27/21 Range/Units 06:34 17:05 05:48 RBC 2.62 L (3.80-5.40) m/uL Hgb 8.9 L (11.4-16.0) gm/dL Hct 26.6 L (34.0-46.0) % MCV 101.6 H (80.0-100.0) fL Sodium 131 L (135-145) mmol/L Chloride 89 L (96-109) mmol/L Carbon Dioxide 36.4 H (21.6-31.8) mmol/L Glucose 147 H (70-110) mg/dL POC Glucose (mg/dL) 121 H (75-99) mg/dL Calcium 8.5 L (8.7-10.3) mg/dL AST (14-36) U/L ALT (4-34) U/L Alkaline Phosphatase (38-126) U/L TSH 19.880 H (0.350-5.500) uIU/mL 04/27/21 Range/Units 05:48 RBC (3.80-5.40) m/uL Hgb (11.4-16.0) gm/dL Hct (34.0-46.0) % MCV (80.0-100.0) fL Sodium (135-145) mmol/L Chloride (96-109) mmol/L Carbon Dioxide (21.6-31.8) mmol/L Glucose (70-110) mg/dL POC Glucose (mg/dL) (75-99) mg/dL Calcium (8.7-10.3) mg/dL AST 69 H (14-36) U/L ALT 39 H (4-34) U/L Alkaline Phosphatase 457 H (38-126) U/L TSH (0.350-5.500) uIU/mL
--- NOTE | 2021-04-27 21:20 | CT ---
EXAMINATION TYPE: CT chest angio for PE DATE OF EXAM: 04/27/2021 COMPARISON: HISTORY: elevated d-dimer, hypoxia CT DLP: 200.5 mGycm Automated exposure control for dose reduction was used. CONTRAST: Performed with IV Contrast, patient injected with 65cc mL of Isovue 370. There are 3-D post processed images. There are mild bilateral pleural effusions. There is some atelectasis at both lung bases. Heart size is fairly normal. There is no pericardial effusion. There is no evidence of a pulmonary mass. Thoracic aorta is atheromatous. There is no mediastinal adenopathy. There are a few paratracheal lymp h nodes that measure up to 1 cm. There are no hilar masses. There is normal contrast opacification of the pulmonary arteries. There are no filling defects. There is no sign of aortic aneurysm or dissection. Bony thorax is intact. There is no compression fracture. Sternum is intact. IMPRESSION: No evidence of pulmonary embolism. Pleural effusions with basilar pulmonary atelectasis. No suspiciou s pulmonary mass. There are few nonspecific mediastinal lymph nodes.
[2021-04-27] MEDS: amLODIPine 10 MG TAB PO SCH (21:52)
[2021-04-27] MEDS: MELATONIN 3 MG TABLET PO SCH (21:52)
[2021-04-27] MEDS: LATANOPROST 0.005% OPHTH DROPS 2.5 ML BTL BOTH EYES SCH (21:54)
--- NOTE | 2021-04-28 06:30 | XR ---
EXAMINATION TYPE: XR chest 1V portable DATE OF EXAM: 04/28/2021 CLINICAL HISTORY: Hypoxia progress study. TECHNIQUE: Single AP portable upright view of the chest is obtained. COMPARISON: Chest x-ray from April 23, 2021. Chest CT April 25, 2021 FINDINGS: Persistent small to tiny bilateral pleural effusions. No new focal airspace opacity. Cardi ac silhouette size stable and within normal limits. Underlying scoliotic curvature. Old fracture defo rmity right proximal humerus. Cholecystectomy clips redemonstrated. IMPRESSION: Small to tiny bilateral pleural effusions remain present.
[2021-04-28] MEDS: LEVOTHYROXINE 100 MCG TAB PO SCH (07:08)
--- NOTE | 2021-04-28 07:32 | P.PN ---
Subjective Progress Note Date: 04/28/21 Principal diagnosis: POD #6 s/p right hip intertrochanteric fracture Patient seen at bedside this morning. Patient lying semirecumbent in bed. Patient says her hip is feeling little bit better. She still seems somewhat confused. Patient denies chest pain, fever, shortness breath, nausea, vomiting, change in vision, loss of bowel/bladder control. Objective - Vital Signs Vital signs: Vital Signs Temp 97.9 F 04/28/21 02:00 Pulse 69 04/28/21 02:00 Resp 18 04/28/21 02:00 BP 97/59 04/28/21 02:00 Pulse Ox 95 04/28/21 02:00 Intake & Output 04/27/21 04/28/21 04/28/21 18:59 06:59 18:59 Output Total 800 1300 Balance -800 -1300 Weight 57.5 kg Output: Urine 800 1300 Other: Voiding Method Indwelling Catheter Indwelling Catheter - Exam Inspection: Incision is clean, dry, intact. Gilbert in good place. No evidence of open fractures. Negative for any ecchymosis. Negative for any significant discoloration other than as noted. Negative for nodules, erythema. Sensation: Sensation is intact in bilateral upper extremities symmetric, equal in distribution. Sensation is intact in bilateral lower extremities symmetric, equal in distribution Palpation: Right hip still somewhat TTP over incision. Nontender to palpation throughout rest of exam Range of motion: Limited range of motion in the right leg due to patient being in pain post-surgery. Bilateral upper extremities full range of motion in elbow extension/flexion as well as shoulder internal and external rotation abduction and forward elevation. Left lower extremity full range of motion and knee flexion extension and hip flexion extension. Plantar and dorsiflexion full ra nge of motion bilaterally Motor: Strength 5 out of 5 in upper extremities as well as animal care giver strength. Left lower extremity 5/5 in resisted flexion extension and hip flexion extension. Right leg exam limited due to patient being in post-surgical pain Neurovascular status/tensioning signs: Refill under 3 seconds bilaterally in lower and upper extremities. Skin mildly warm to touch in hands bilaterally as well as bilaterally in the lower extremities. Dorsalis pedis pulses intact, 2+ bilaterally. Radial pulses intact, 2+ bilaterally. Negative Homans bilaterally. Negative Ariane's bilaterally. Negative clonus upon dorsiflexing feet bilaterally. - Labs CBC & Chem 7: 08/04/21 05:48 04/27/21 05:48 Labs: Abnormal Lab Results - Last 24 Hours (Table) 04/26/21 04/27/21 04/27/21 Range/Units 06:34 05:48 05:48 RBC 2.62 L (3.80-5.40) m/uL Hgb 8.9 L (11.4-16.0) gm/dL Hct 26.6 L (34.0-46.0) % MCV 101.6 H (80.0-100.0) fL D-Dimer (<0.60) mg/L FEU Sodium 131 L (135-145) mmol/L Chloride 86 L (96-109) mmol/L Carbon Dioxide 37.6 H (21.6-31.8) mmol/L BUN/Creatinine Ratio 22.86 H (12.00-20.00) Ratio Calcium 8.6 L (8.7-10.3) mg/dL AST (14-36) U/L ALT (4-34) U/L Alkaline Phosphatase (38-126) U/L Free T4 0.70 L (0.80-1.80) ng/dL 04/27/21 04/27/21 Range/Units 05:48 17:47 RBC (3.80-5.40) m/uL Hgb (11.4-16.0) gm/dL Hct (34.0-46.0) % MCV (80.0-100.0) fL D-Dimer 4.88 H (<0.60) mg/L FEU Sodium (135-145) mmol/L Chloride (96-109) mmol/L Carbon Dioxide (21.6-31.8) mmol/L BUN/Creatinine Ratio (12.00-20.00) Ratio Calcium (8.7-10.3) mg/dL AST 69 H (14-36) U/L ALT 39 H (4-34) U/L Alkaline Phosphatase 457 H (38-126) U/L Free T4 (0.80-1.80) ng/dL Assessment and Plan Assessment: 1. Right hip intertrochanteric fracture, displaced, status post fall Plan: 1. Right hip intertrochanteric fracture, displaced - surgery performed 04/22/2021 - right hip IM nail. Patient seen at bedside this morning. Plan to discharge to [facility] whenever patient is cleared by medicine 2. Appreciate medical management 3. Pain management - stable at this time 4. PT/OT - weightbearing as tolerated with walker for assistance 5. GI ppx/DVT ppx - Protonix; Lovenox 6. Discharge planning - Plan to discharge to [facility] for rehab. Time with Patient: Less than 30
[2021-04-28] MEDS: FUROSEMIDE 10 MG/ML 4 ML VIAL IV SCH ×2 (08:10→20:38)
[2021-04-28] MEDS: THIAMINE 100 MG TAB PO SCH ×2 (08:12→16:15)
[2021-04-28] MEDS: PANTOPRAZOLE 40 MG TABLET PO SCH (08:13)
[2021-04-28] MEDS ORDERED: methylPREDNISolone SOD SUCCI 40 MG/ML 1 ML VIAL IV SCH (09:00)
[2021-04-28] MEDS: ATORVASTATIN 10 MG TAB PO SCH (09:23)
[2021-04-28] MEDS: ESCITALOPRAM 10 MG TAB PO SCH (09:24)
[2021-04-28] MEDS: METOPROLOL TARTRATE 12.5 MG TAB PO SCH ×2 (09:24→20:37)
[2021-04-28] MEDS: ENOXAPARIN 40 MG/0.4 ML SYRINGE SQ SCH (09:25)
[2021-04-28] MEDS: TIMOLOL 0.5% OPHTH DROPS 5 ML BTL BOTH EYES SCH (09:27)
--- NOTE | 2021-04-28 10:08 | P.PN ---
Subjective Patient is seen in follow-up for hyponatremia. Sodium level 131 yesterday. Oral intake is fair. No chest pain or shortness of breath. Nonoliguric. On IV Lasix. Hard of hearing. Hemodynamically stable. No changes overnight. On 5 L nasal cannula. Vital signs are stable. General: The patient appeared well nourished and normally developed. HEENT: Head exam is unremarkable. Neck is without jugular venous distension. LUNGS: Breath sounds decreased. HEART: Rate and Rhythm are regular. ABDOMEN: Soft, no distention. EXTREMITITES: 1+ edema right lower extremity. Trace edema left lower extremity. Objective - Vital Signs Vital signs: Vital Signs Temp 97.0 F L 04/28/21 08:00 Pulse 74 04/28/21 08:00 Resp 20 04/28/21 08:00 BP 117/71 04/28/21 08:00 Pulse Ox 100 04/28/21 08:31 Intake & Output 04/27/21 04/28/21 04/28/21 18:59 06:59 18:59 Output Total 800 1300 Balance -800 -1300 Weight 57.5 kg Output: Urine 800 1300 Other: Voiding Method Indwelling Catheter Indwelling Catheter - Labs CBC & Chem 7: 04/27/21 05:48 04/27/21 05:48 Labs: Abnormal Lab Results - Last 24 Hours (Table) 04/26/21 04/27/21 04/27/21 Range/Units 06:34 05:48 17:47 D-Dimer 4.88 H (<0.60) mg/L FEU Sodium 131 L (135-145) mmol/L Chloride 86 L (96-109) mmol/L Carbon Dioxide 37.6 H (21.6-31.8) mmol/L BUN/Creatinine Ratio 22.86 H (12.00-20.00) Ratio Calcium 8.6 L (8.7-10.3) mg/dL Free T4 0.70 L (0.80-1.80) ng/dL Assessment and Plan Plan: Assessment: 1. Hyponatremia secondary to SIADH. Sodium level stable at 131 yesterday. Urine osmolality 602. TSH elevated. 2. Status post fall with right femoral fracture. 3. Benign hypertension. Stable. 4. Hypothyroidism. On Synthroid. 5. Volume overload. 6. Acute on chronic diastolic CHF with moderate pulmonary hypertension. 7. Hypomagnesemia from diuresis. Replaced. Plan: Encouraged oral intake. 1200 mL fluid restriction. Maintain Lasix. Morning labs pending. If sodium level is not improved, I will give her a dose of Samsca.
[2021-04-28] MEDS ORDERED: IPRATROPIUM-ALBUTEROL 3 ML NEB INHALATION PRN (10:25)
[2021-04-28 11:09] LABS: African American GFR (CKD) 76.3 (60.0-200.0); Anion Gap 10.5 mmol/L (4.00-12.00); BUN/Creat Ratio 23.75 Ratio (12.00-20.00); Calcium 8.7 mg/dL (8.7-10.3); Carbon Dioxide 34.5 mmol/L (21.6-31.8); Non-African American GFR(CKD) 65.8 (60.0-200.0); Potassium 4.1 mmol/L (3.5-5.5)
--- NOTE | 2021-04-28 12:56 | P.CNPUL ---
History of Present Illness Consult date: 04/28/21 Requesting physician: Dixon Webb Reason for consult: hypoxemia, abnormal CXR/CT (Small basilar pleural effusions/atelectasis) Chief complaint: Right hip fracture History of present illness: This is a very pleasant, very hard of hearing 86-year-old female patient presented on 04/20/2021 status post fall and found to have a intertrochanteric hip fracture on the right. She had undergone intramedullary nail fixation on 04/22/2021. Since her surgery she had remained somewhat hypoxemic. CAT scan of the chest 04/25/2021 revealed small bilateral pleural effusions with adjacent compressive atelectasis. Repeat CT angiogram on 04/27/2021 revealed no evidence of pulmonary embolism, again revealing small pleural effusions with basilar atelectasis. Today's chest x-ray reveals small, tiny bilateral pleural effusions. Echocardiogram is revealed preserved left ventricular systolic function with an ejection fraction 60-65% and no significant valvular disease. She is seen today in consultation regular medical floor. She is currently sitting up in a chair at the bedside. Awake and alert in no acute distress. She denies any worsening shortness of breath, cough or congestion. She is pulling approximately 750 MLS on the incentive spirometer. She is maintaining O2 saturations up to 100% on 5 L/m per nasal cannula. Afebrile. Hemodynamically stable. White count 6.5. Hemoglobin 8.9. Sodium 129. Potassium 4.1. Creatinine 0.8. TSH 19.88. Free T4 0.70. Review of Systems REVIEW OF SYSTEMS: CONSTITUTIONAL: Denies any recent significant weight loss or weight gain. EYES: Denies change in vision. EARS, NOSE, MOUTH, THROAT: Denies headaches, denies sore throat. CARDIOVASCULAR: Denies chest pain, palpitations or syncopal episodes. RESPIRATORY: Denies shortness of breath, cough, congestion or hemoptysis. GASTROINTESTINAL: Denies change in appetite, denies abdominal pain GENITOURINARY: Denies hematuria, denies infections. MUSKULOSKELETAL: Pain in right hip status post fall INTEGUMENTARY: Denies rash, denies eczema. NEUROLOGICAL: Denies recent memory loss, no recent seizure activity. PSYCHIATRIC: Denies anxiety, denies depression. HEMATOLOGIC/LYMPHATIC: Denies anemia, denies enlarged lymph nodes. Past Medical History Past Medical History: Cancer, Eye Disorder, GERD/Reflux, Hyperlipidemia, Hypertension, Myocardial Infarction (AK), Pneumonia, Skin Disorder, Thyroid Disorder Additional Past Medical History / Comment(s): Glaucoma and macular degeneration bilaterally, hypothyroid, heart murmur, oral cancer with removal, UTIs, bronchitis, Raynauld's syndrome, osteoporosis, psoriasis, hemorrhoids. Last Myocardial Infarction Date:: ? 1-1.5 yrs ago per pt History of Any Multi-Drug Resistant Organisms: None Reported Past Surgical History: Breast Surgery, Section, Cholecystectomy Additional Past Surgical History / Comment(s): Oral cancer removed, R breast lumpectomy-benign, colonoscopies, bilateral cataract removal with lens implants. Past Anesthesia/Blood Transfusion Reactions: No Reported Reaction Past Psychological History: No Psychological Hx Reported Additional Psychological History / Comment(s): Pt resides alone. She uses a walker occasionally. She no longer has a vehicle. She uses [employer] for transportation. She does light housework and has a general engineering teacher every 2 weeks for the heavier cleaning. She manages her own medications. Smoking Status: Former smoker Past Alcohol Use History: Daily Additional Past Alcohol Use History / Comment(s): Pt smoked from [id number]. She used to drink 2-3 beers each evening but states she no longer drinks at all. Past Drug Use History: None Reported - Past Family History Father Family Medical History: Cancer, Myocardial Infarction (AK) Additional Family Medical History / Comment(s): Father at age 77yrs from a AK and lung cancer. Mother Family Medical History: No Reported History Additional Family Medical History / Comment(s): Mother at age 87yrs. She was healthy. Medications and Allergies Home Medications Medication Instructions Recorded Confirmed Type Timolol 0.5% Ophth Soln [Timoptic 1 drop BOTH EYES QAM 08/17/17 04/20/21 History 0.5% Ophth Soln] amLODIPine [Norvasc] 10 mg PO HS 08/17/17 04/20/21 History Pantoprazole Sodium [Protonix] 40 mg PO DAILY 08/18/17 04/20/21 History Metoprolol Tartrate [Lopressor] 12.5 mg PO BID 12/06/17 04/20/21 History Latanoprost [Xalatan 0.005%] 1 drop BOTH EYES HS 01/08/19 04/20/21 History Atorvastatin Calcium [Lipitor] 10 mg PO DAILY 04/20/21 04/20/21 History Escitalopram [Lexapro] 10 mg PO DAILY 04/20/21 04/20/21 History Levothyroxine Sodium [Synthroid] 75 mcg PO DAILY 04/20/21 04/20/21 History hydrALAZINE HCL 25 mg PO BID 04/20/21 04/20/21 History Allergies Allergy/AdvReac Type Severity Reaction Status Date / Time cetirizine [From Zyrtec] Allergy Unknown Verified 04/20/21 20:56 [email or web address] Allergy Unknown Verified 04/20/21 20:56 Latex, Natural Rubber Allergy BURNING Verified 04/20/21 20:56 SKIN levofloxacin [From Levaquin] Allergy Unknown Verified 04/20/21 20:56 pneumococcal vaccine Allergy Unknown Verified 04/20/21 20:56 Physical Exam Vitals: Vital Signs Temp Pulse Resp BP BP Pulse Ox 04/28/21 08:31 100 04/28/21 08:00 97.0 F L 74 20 117/71 95 04/28/21 02:00 97.9 F 69 18 97/59 95 04/27/21 19:44 97.8 F 69 17 100/49 89 L 04/27/21 14:00 97.5 F L 73 16 90/54 90 L Intake and Output 04/27/21 04/28/21 04/28/21 22:59 06:59 14:59 Intake Total 120 Output Total 800 1300 300 Balance -800 -1300 -180 Intake: Oral 120 Output: Urine 800 1300 300 Uretheral (Taveras) 300 Other: Voiding Method Indwelling Catheter # Bowel Movements 1 GENERAL EXAM: Alert, very pleasant, very hard of hearing 78-year-old female patient, on 5 L nasal cannula, comfortable in no apparent distress. HEAD: Normocephalic. EYES: Normal reaction of pupils, equal size. NOSE: Clear with pink turbinates. THROAT: No erythema or exudates. NECK: No masses, no JVD. CHEST: No chest wall deformity. LUNGS: Equal air entry with faint crackles in the bilateral posterior bases. CVS: S1 and S2 normal with no audible murmur, regular rhythm. ABDOMEN: No hepatosplenomegaly, normal bowel sounds, no guarding or rigidity. SPINE: No scoliosis or deformity SKIN: No rashes, Surgical site clean and dry CENTRAL NERVOUS SYSTEM: No focal deficits, tone is normal in all 4 extremities. EXTREMITIES: The right hip dressing dry and intact. There is no peripheral edema. No clubbing, no cyanosis. Peripheral pulses are intact. Results - Laboratory Findings CBC and BMP: 04/27/21 05:48 04/28/21 06:20 PT/INR, D-dimer PT 10.7 sec (9.0-12.0) 04/20/21 19:53 INR 1.0 (<1.2) 04/20/21 19:53 D-Dimer 4.88 mg/L FEU (<0.60) H 04/27/21 17:47 Abnormal lab findings: Abnormal Labs 04/20/21 04/20/21 04/21/21 19:53 21:12 06:11 RBC Hgb Hct MCV MCH MCHC Plt Count Plt Count Comment Immature Gran # Lymphocytes # Monocytes # D-Dimer Sodium 127 L 128 L Potassium Chloride 90 L 92 L Carbon Dioxide Anion Gap BUN 23 H 23 H Creatinine BUN/Creatinine Ratio Glucose 131 H 127 H POC Glucose (mg/dL) Osmolality 271 L Calcium AST 88 H 135 H ALT 52 H 68 H Alkaline Phosphatase 621 H 624 H TSH Free T4 Urine Protein 1+ H Amorphous Sediment Occasional H Hyaline Casts 3 H Urine Mucus Rare H 04/21/21 04/21/21 04/22/21 07:30 13:39 07:10 RBC Hgb Hct MCV MCH MCHC Plt Count Plt Count Comment Immature Gran # Lymphocytes # Monocytes # D-Dimer Sodium 128 L 133 L Potassium 5.3 H Chloride 93 L Carbon Dioxide Anion Gap BUN Creatinine BUN/Creatinine Ratio Glucose 123 H 160 H POC Glucose (mg/dL) 126 H Osmolality Calcium AST 60 H ALT 45 H Alkaline Phosphatase 526 H TSH Free T4 Urine Protein Amorphous Sediment Hyaline Casts Urine Mucus 04/23/21 04/23/21 04/23/21 09:02 09:02 11:26 RBC 2.97 L Hgb 10.2 L D Hct 30.9 L MCV 104.0 H D MCH MCHC Plt Count Plt Count Comment Immature Gran # Lymphocytes # 0.7 L Monocytes # D-Dimer Sodium 131 L Potassium Chloride 97 L Carbon Dioxide Anion Gap BUN Creatinine BUN/Creatinine Ratio Glucose 199 H POC Glucose (mg/dL) 178 H Osmolality Calcium AST ALT Alkaline Phosphatase TSH Free T4 Urine Protein Amorphous Sediment Hyaline Casts Urine Mucus 04/24/21 04/24/21 04/25/21 06:22 06:22 05:48 RBC 2.52 L 2.50 L Hgb 8.2 L 8.3 L Hct 25.7 L 25.8 L MCV 102.0 H 103.2 H MCH 32.5 H 33.2 H MCHC 31.9 L Plt Count 136 L Plt Count Comment DECREASED A Immature Gran # 0.06 H Lymphocytes # 0.85 L Monocytes # 1.08 H D-Dimer Sodium 134 L Potassium Chloride Carbon Dioxide 33.9 H Anion Gap 3.10 L BUN 6.0 L Creatinine 0.5 L BUN/Creatinine Ratio Glucose 127 H POC Glucose (mg/dL) Osmolality Calcium 8.4 L AST ALT Alkaline Phosphatase TSH Free T4 Urine Protein Amorphous Sediment Hyaline Casts Urine Mucus 04/25/21 04/26/21 04/26/21 05:48 06:34 06:34 RBC Hgb Hct MCV MCH MCHC Plt Count Plt Count Comment Immature Gran # Lymphocytes # Monocytes # D-Dimer Sodium 133 L 131 L Potassium Chloride 94 L 89 L Carbon Dioxide 36.1 H 36.4 H Anion Gap 2.90 L BUN Creatinine BUN/Creatinine Ratio Glucose 119 H 147 H POC Glucose (mg/dL) Osmolality Calcium 8.5 L AST ALT Alkaline Phosphatase TSH 19.880 H Free T4 0.70 L Urine Protein Amorphous Sediment Hyaline Casts Urine Mucus 04/26/21 04/27/21 04/27/21 17:05 05:48 05:48 RBC 2.62 L Hgb 8.9 L Hct 26.6 L MCV 101.6 H MCH MCHC Plt Count Plt Count Comment Immature Gran # Lymphocytes # Monocytes # D-Dimer Sodium 131 L Potassium Chloride 86 L Carbon Dioxide 37.6 H Anion Gap BUN Creatinine BUN/Creatinine Ratio 22.86 H Glucose POC Glucose (mg/dL) 121 H Osmolality Calcium 8.6 L AST ALT Alkaline Phosphatase TSH Free T4 Urine Protein Amorphous Sediment Hyaline Casts Urine Mucus 04/27/21 04/27/21 04/28/21 05:48 17:47 06:20 RBC Hgb Hct MCV MCH MCHC Plt Count Plt Count Comment Immature Gran # Lymphocytes # Monocytes # D-Dimer 4.88 H Sodium 129 L Potassium Chloride 84 L Carbon Dioxide 34.5 H Anion Gap BUN Creatinine BUN/Creatinine Ratio 23.75 H Glucose 180 H POC Glucose (mg/dL) Osmolality Calcium AST 69 H ALT 39 H Alkaline Phosphatase 457 H TSH Free T4 Urine Protein Amorphous Sediment Hyaline Casts Urine Mucus - Diagnostic Findings Chest x-ray: image reviewed CT scan - chest: image reviewed Assessment and Plan Assessment: 1 Acute right intertrochanteric hip fracture secondary to fall, status post intramedullary nailing on 04/22/2021 2 Acute hypoxemic respiratory failure secondary to fluid volume overload with tiny small bilateral effusions, compressive atelectasis 3 Hyponatremia 4 Anemia 5 Hypothyroidism 6 History of coronary artery disease 7 History of daily alcohol use 8 Former smoker Plan: The patient was seen and evaluated by Dr. Gill Chest x-ray, CAT scans and labs reviewed Continue to encourage increased use the incentive spirometer and cough and deep breathing exercises Discontinue Solu-Medrol Add updraft treatments Increase her activity as tolerated Titrate down the FiO2 as tolerated Evaluate for possible home oxygen We will continue to follow and make further recommendations based on her clinical status I, the cosigning physician, performed a history & physical examination of the patient. Lungs sounds with faint crackles in the posterior bases. Maintaining good O2 saturations in the 90s on 5 L/m per nasal cannula. I discussed the assessment and plan of care with my nurse practitioner, Natalia Brandon. I attest to the above consultation as dictated by her. Time with Patient: Greater than 30
--- NOTE | 2021-04-28 13:58 | P.PN ---
Subjective Progress Note Date: 04/28/21 Hospital course: Patient is a very pleasant 86-year-old female with a past medical history of CAD, hypertension, hyperlipidemia, and hypogonadism. she presented to the hospital on 04/21/21 after experiencing a fall at home resulting in an intertrochanteric fracture of her right femur. Patient underwent surgical repair on 04/22/21. She was initially admitted under primary orthopedic team and we were on consult for continued medical management, however patient was later transferred under our services secondary to persistent hypoxia status post surgical procedure. Physical exam: Patient seen and fully evaluated at the bedside this morning. Patient was resting comfortably showing no signs of acute distress, however she remains on 5 L O2 via nasal cannula. Morning SpO2 96% which has improved patient titrated down to 3 L O2 at this time and plan to reassess. Patient denies any further complaints including headache, lightheadedness, dizziness, chest pain, palpitations, shortness of breath, cough or congestion, or experiencing any numbness/tingling/weakness in her extremities. Vital signs reviewed and stable. General: Nontoxic, no distress and appears stated age. Derm: Skin warm and dry, normal coloration for ethnicity. Head: Atraumatic, normocephalic and symmetric. Very hard of hearing Eyes: EOMs intact, no lid lag, and anicteric sclera Mouth: no lip lesions, mucus membranes moist Cardiovascular: regular rate and rhythm with normal S1S2, no murmur, positive posterior tibial pulses bilaterally, and cap refill < 2 seconds. Lungs: Respirations even, regular, and unlabored on room air. Lungs CTA bilaterally, no rhonchi, no rales, no wheezing, and no accessory muscle usage. Abdominal: soft, nontender to palpation, no guarding, no appreciable organomegaly Ext: ROM intact. No gross muscle atrophy, no edema, no contractures. Dressing right lateral hip in place, no signs of postoperative bleeding or drainage. Neuro: Speech clear, face symmetrical and CN II-XII grossly intact with no noted focal neuro deficits Psych: Alert and oriented to person, place, time, and situation. Appropriate and pleasant affect. Assessment and Plan of Care: Acute respiratory failure with Hypoxia -Continue oxygenation supplementation to maintain SpO2 greater than 90%, attempts to wean oxygen as patient tolerates. -X-ray lungs revealing small opacity at the right lung base possibly representing an early pneumonic process versus pulmonary edema. -CT chest with contrast revealing small bilateral pleural effusions with adjacent comprehensive atelectasis negative for acute PE. Echocardiogram revealing a normal EF 60-65% with mild to moderate pulmonary hypertension. -continue oxygenation as needed to maintain SpO2 equal to or greater than 90%. Patient currently on 5 L. -Repeat chest x-ray showing small tiny bilateral pleural effusions. -Encourage use of incentive spirometry 10-15 times hourly while awake. -Pulmonology following recommending patient to continue with use of incentive spirometer with cough and deep breathing exercises and plan for evaluation for possible home oxygen. Hypomagnesemia, resolved -We will continue to monitor closely with repeat a.m. labs and replace abnormal electrolyte values as needed. Hypothyroidism -TSH 19.880 and free T4 of 0.70, increase Synthroid to 100 g daily. -Patient to follow up outpatient with PCP/endocrinology for continued long-term monitoring and management and repeat TSH in 8-12 weeks. Hypertension Monitor vital signs and continue daily medication regimen with amlodipine and metoprolol. Hyperlipidemia Continue daily medication management with atorvastatin. Heart healthy diet. Fall resulting in intertrochanteric fracture of right femur status post intramedullary nailing on 04/22/21 -Fall precautions -Symptomatic care and pain management -Management per orthopedic team. DVT prophylaxis with Lovenox. PT/OT CODE STATUS: full code DVT prophylaxis: Lovenox Discussed with: patient and RN Anticipated discharge date: clinical course to determine Anticipated discharge place: home with homecare vs SNF A total of 45 minutes was spent on the care of this complex patient more than 50% of the time was spent in counseling and care coordination. Objective - Vital Signs Vital signs: Vital Signs Temp 97.0 F L 04/28/21 08:00 Pulse 74 04/28/21 08:00 Resp 20 04/28/21 08:00 BP 117/71 04/28/21 08:00 Pulse Ox 100 04/28/21 08:31 Intake & Output 04/27/21 04/28/21 04/28/21 18:59 06:59 18:59 Intake Total 120 Output Total 800 1300 300 Balance -800 -1300 -180 Weight 57.5 kg Intake: Oral 120 Output: Urine 800 1300 300 Uretheral (Taveras) 300 Other: Voiding Method Indwelling Catheter Indwelling Catheter # Bowel Movements 1 - Labs CBC & Chem 7: 04/27/21 05:48 04/28/21 06:20 Labs: Abnormal Lab Results - Last 24 Hours (Table) 04/27/21 04/28/21 Range/Units 17:47 06:20 D-Dimer 4.88 H (<0.60) mg/L FEU Sodium 129 L (135-145) mmol/L Chloride 84 L (96-109) mmol/L Carbon Dioxide 34.5 H (21.6-31.8) mmol/L BUN/Creatinine Ratio 23.75 H (12.00-20.00) Ratio Glucose 180 H (70-110) mg/dL
[2021-04-28] MEDS ORDERED: TOLVAPTAN 15 MG 1/2 TABLET PO ONE (14:00)
[2021-04-28 19:50] LABS: % Iron Saturation 24.89 (12.00-45.00)
[2021-04-28 20:23] LABS: Ferritin 325.5 ng/mL (10.0-291.0)
[2021-04-28] MEDS: amLODIPine 10 MG TAB PO SCH (20:37)
[2021-04-28] MEDS: MORPHINE SULFATE 4 MG/ML SYRINGE IV PRN (20:38)
[2021-04-28] MEDS: MELATONIN 3 MG TABLET PO SCH (20:38)
[2021-04-28] MEDS: LATANOPROST 0.005% OPHTH DROPS 2.5 ML BTL BOTH EYES SCH (20:53)
[2021-04-28] MEDS: MAGNESIUM HYDROXIDE 2,400 MG/10 ML CUP PO PRN (21:08)
[2021-04-29] MEDS: LEVOTHYROXINE 100 MCG TAB PO SCH (06:23)
[2021-04-29] MEDS: PANTOPRAZOLE 40 MG TABLET PO SCH (07:32)
[2021-04-29] MEDS: THIAMINE 100 MG TAB PO SCH (07:32)
[2021-04-29 07:54] VITALS: BP 108/53; PULSE 67; RESP 17; TEMP 97.9
[2021-04-29] MEDS: ENOXAPARIN 40 MG/0.4 ML SYRINGE SQ SCH (08:36)
[2021-04-29] MEDS: ATORVASTATIN 10 MG TAB PO SCH (08:37)
[2021-04-29] MEDS: METOPROLOL TARTRATE 12.5 MG TAB PO SCH (08:37)
[2021-04-29] MEDS: ESCITALOPRAM 10 MG TAB PO SCH (08:38)
[2021-04-29] MEDS: TIMOLOL 0.5% OPHTH DROPS 5 ML BTL BOTH EYES SCH (08:43)
--- NOTE | 2021-04-29 10:46 | P.PN ---
Subjective Patient is seen in follow-up for hyponatremia. Sodium level 129 yesterday. Oral intake is fair. No chest pain or shortness of breath. Nonoliguric. IV Lasix stopped yesterday. She did receive a dose of Samsca yesterday. Hard of hearing. Hemodynamically stable. No changes overnight. On 3 L nasal cannula. Vital signs are stable. General: The patient appeared well nourished and normally developed. HEENT: Head exam is unremarkable. Neck is without jugular venous distension. LUNGS: Breath sounds decreased. HEART: Rate and Rhythm are regular. ABDOMEN: Soft, no distention. EXTREMITITES: 1+ edema right lower extremity. Trace edema left lower extremity. Objective - Vital Signs Vital signs: Vital Signs Temp 97.9 F 04/29/21 07:53 Pulse 67 04/29/21 07:53 Resp 17 04/29/21 07:53 BP 108/53 04/29/21 07:53 Pulse Ox 95 04/29/21 07:53 Intake & Output 04/28/21 04/29/21 04/29/21 18:59 06:59 18:59 Intake Total 356 118 Output Total 850 1200 475 Balance -494 -1200 -658 Intake: Oral 356 118 Output: Urine 850 1200 475 Uretheral (Taveras) 300 950 475 Other: Voiding Method Indwelling Catheter # Bowel Movements 1 - Labs CBC & Chem 7: 04/27/21 05:48 04/28/21 18:56 Labs: Abnormal Lab Results - Last 24 Hours (Table) 04/28/21 04/28/21 04/28/21 Range/Units 06:20 06:20 18:56 Sodium 129 L 127 L (135-145) mmol/L Chloride 84 L (96-109) mmol/L Carbon Dioxide 34.5 H (21.6-31.8) mmol/L BUN/Creatinine Ratio 23.75 H (12.00-20.00) Ratio Glucose 180 H (70-110) mg/dL Ferritin 325.5 H (10.0-291.0) ng/mL Assessment and Plan Plan: Assessment: 1. Hyponatremia secondary to SIADH. Sodium level stable at 129 yesterday. Urine osmolality 602. TSH elevated -dose of Synthroid adjusted. Status post Samsca April 28. 2. Status post fall with right femoral fracture. 3. Benign hypertension. Stable. 4. Hypothyroidism. On Synthroid. 5. Volume overload. improved with diuresis. 6. Acute on chronic diastolic CHF with moderate pulmonary hypertension. 7. Hypomagnesemia from diuresis. Replaced. Plan: Encouraged oral intake. 1200 mL fluid restriction. Morning labs pending. Follow-up echocardiogram. Stop amlodipine as blood pressure is low.
--- NOTE | 2021-04-29 11:19 | P.PN ---
Subjective Progress Note Date: 04/29/21 Principal diagnosis: Right hip fracture, status post repair This is a very pleasant, very hard of hearing 86-year-old female patient presented on 04/20/2021 status post fall and found to have a intertrochanteric hip fracture on the right. She had undergone intramedullary nail fixation on 04/22/2021. Since her surgery she had remained somewhat hypoxemic. CAT scan of the chest 04/25/2021 revealed small bilateral pleural effusions with adjacent compressive atelectasis. Repeat CT angiogram on 04/27/2021 revealed no evidence of pulmonary embolism, again revealing small pleural effusions with basilar atelectasis. Today's chest x-ray reveals small, tiny bilateral pleural e ffusions. Echocardiogram is revealed preserved left ventricular systolic function with an ejection fraction 60-65% and no significant valvular disease. She is seen today in consultation regular medical floor. She is currently sitting up in a chair at the bedside. Awake and alert in no acute distress. She denies any worsening shortness of breath, cough or congestion. She is pulling approximately 750 MLS on the incentive spirometer. She is maintaining O2 saturations up to 100% on 5 L/m per nasal cannula. Afebrile. Hemodynamically stable. White count 6.5. Hemoglobin 8.9. Sodium 129. Potassium 4.1. Creatinine 0.8. TSH 19.88. Free T4 0.70. The patient is seen today 04/29/2021 in follow-up on the regular medical floor. She is currently resting comfortably in bed. Awake and alert in no acute distress. She denies any worsening shortness of breath, cough or congestion. She is still requiring oxygen at 3 L/m per nasal cannula to maintain O2 saturations in the 90s. She is attempting to work well with the incentive spirometer. She's been afebrile. She remains hyponatremic with a sodium of 127. She remains on DuoNeb inhalations, Lovenox for DVT prophylaxis. Objective - Vital Signs Vital signs: Vital Signs Temp 97.9 F 04/29/21 07:53 Pulse 67 04/29/21 07:53 Resp 17 04/29/21 07:53 BP 108/53 04/29/21 07:53 Pulse Ox 95 04/29/21 07:53 Intake & Output 04/28/21 04/29/21 04/29/21 18:59 06:59 18:59 Intake Total 356 118 Output Total 850 1200 475 Balance -494 -1200 -357 Intake: Oral 356 118 Output: Urine 850 1200 475 Uretheral (Taveras) 300 950 475 Other: Voiding Method Indwelling Catheter # Bowel Movements 1 - Exam GENERAL EXAM: Alert, very pleasant, very hard of hearing 78-year-old female patient, on 3 L nasal cannula, comfortable in no apparent distress. HEAD: Normocephalic. EYES: Normal reaction of pupils, equal size. NOSE: Clear with pink turbinates. THROAT: No erythema or exudates. NECK: No masses, no JVD. CHEST: No chest wall deformity. LUNGS: Equal air entry with faint crackles in the bilateral posterior bases. CVS: S1 and S2 normal with no audible murmur, regular rhythm. ABDOMEN: No hepatosplenomegaly, normal bowel sounds, no guarding or rigidity. SPINE: No scoliosis or deformity SKIN: No rashes, Surgical site clean and dry CENTRAL NERVOUS SYSTEM: No focal deficits, tone is normal in all 4 extremities. EXTREMITIES: The right hip dressing dry and intact. There is no peripheral edema. No clubbing, no cyanosis. Peripheral pulses are intact. - Labs CBC & Chem 7: 04/27/21 05:48 04/28/21 18:56 Labs: Abnormal Lab Results - Last 24 Hours (Table) 04/28/21 04/28/21 Range/Units 06:20 18:56 Sodium 127 L (137-145) mmol/L Ferritin 325.5 H (10.0-291.0) ng/mL Assessment and Plan Assessment: 1 Acute right intertrochanteric hip fracture secondary to fall, status post intramedullary nailing on 04/22/2021 2 Acute hypoxemic respiratory failure secondary to fluid volume overload with tiny small bilateral effusions, compressive atelectasis 3 Hyponatremia 4 Anemia 5 Hypothyroidism 6 History of coronary artery disease 7 History of daily alcohol use 8 Former smoker Plan: The patient was seen and evaluated by Dr. Gill Continue to encourage increased use the incentive spirometer and cough and deep breathing exercises Continue bronchodilators Titrate down the FiO2 as tolerated Evaluate for possible home oxygen Plan is for possible transfer to [facility] today. I, the cosigning physician, performed a history & physical examination of the patient. Lungs sounds with faint crackles in the posterior bases. Maintaining good O2 saturations in the 90s on 3 L/m per nasal cannula. I discussed the assessment and plan of care with my nurse practitioner, Natalia Brandon. I attest to the above note as dictated by her.
[2021-04-29 12:03] LABS: African American GFR (CKD) 89 (>60 ml/min/1.73 sqM); Anion Gap 6 mmol/L; Blood Urea Nitrogen 20 mg/dL (7-17); Calcium 8.8 mg/dL (8.4-10.2); Carbon Dioxide 40 mmol/L (22-30); Chloride 88 mmol/L (98-107); Glucose 155 mg/dL (74-99); Magnesium 2.3 mg/dL (1.6-2.3); Non-African American GFR(CKD) 78 (>60 ml/min/1.73 sqM); Potassium 3.4 mmol/L (3.5-5.1); Sodium 134 mmol/L (137-145)
--- NOTE | 2021-04-29 12:20 | ECHOF ---
Referral Reason:rule out intracardiac shunt, hypoxia MEASUREMENTS -------- HEIGHT: 154.9 cm WEIGHT: 57.2 kg BP: 98/49 RAP: 5.00 mmHg RVSP: 37.19 mmHg FINDINGS -------- Sinus rhythm. Limited Study Overall left ventricular systolic function is normal with, an EF between 55 - 60 %. Contrast study was performed with 2 iv injections of 8 ccs of agitated normal saline, at rest, and wi th cough. Negative saline bubble study. No shunt noted Mild tricuspid regurgitation present. There is mild pulmonary hypertension. The right ventricular systolic pressure, as measured by Doppler, is 37.19mmHg. There is no pericardial effusion. CONCLUSIONS -------- 1. Limited Study 2. Overall left ventricular systolic function is normal with, an EF between 55 - 60 %. 3. Contrast study was performed with 2 iv injections of 8 ccs of agitated normal saline, at rest, and with cough. 4. Negative saline bubble study. No shunt noted 5. Mild tricuspid regurgitation present. 6. There is mild pulmonary hypertension. 7. The right ventricular systolic pressure, as measured by Doppler, is 37.19mmHg. 8. There is no pericardial effusion. BUILDING PERFORMANCE SPECIALIST: Amy Landin RDCS
--- NOTE | 2021-04-29 12:26 | P.DS ---
Providers Date of admission: 04/20/21 21:26 Expected date of discharge: 04/29/21 Attending physician: Dixon Webb MD Consults: 04/20/21 21:56 Consult Physician Urgent Consulting Provider: Aggie Chang Consult Reason/Comments: Medical Clearance Surgery - Right Hip IT fracture Do you want consulting provider notified?: Yes 04/21/21 07:38 Consult Physician Routine Consulting Provider: Tiffany Palma Consult Reason/Comments: hyponatremia Do you want consulting provider notified?: Yes 04/28/21 08:33 Consult Physician Routine Consulting Provider: Danilo Gill Consult Reason/Comments: hypoxia, 5L O2 Do you want consulting provider notified?: Yes Primary care physician: Stated None Hospital Course: Discharge Diagnosis: Acute respiratory failure with Hypoxia, being discharged to SNF on 3 L O2 Hypomagnesemia, resolved Hypothyroidism Hypertension Hyperlipidemia Fall resulting in intertrochanteric fracture of right femur status post intramedullary nailing on 04/22/21 Hospital Course: Patient is a very pleasant 86-year-old female with a past medical history of CAD, hypertension, hyperlipidemia, and hypogonadism. she presented to the hospital on 04/21/21 after experiencing a fall at home resulting in an intertrochanteric fracture of her right femur. Patient underwent surgical repair on 04/22/21. She was initially admitted under primary orthopedic team and we were on consult for continued medical management, however patient was later transferred under our services secondary to persistent hypoxia status post surgical procedure. X-ray lungs revealing small opacity at the right lung base possibly representing an early pneumonic process versus pulmonary edema. CT chest with contrast revealing small bilateral pleural effusions with adjacent comprehensive atelectasis negative for acute PE. Echocardiogram revealing a normal EF 60-65% with mild to moderate pulmonary hypertension. Repeat chest x- ray showing small tiny bilateral pleural effusions. Patient was encouraged to use her incentive spirometer 10-15 times hourly while awake. Pulmonology was also consulted and after evaluating patient recommended for her to continue with use of incentive spirometer along with coughing and deep breathing exercises potential plan for evaluation for possible home oxygen. During admission patient was found to have hypomagnesemia which was replaced and has resolved. She was also found to have hypothyroidism with TSH 19.880 and free T4 of 0.70, her Synthroid was increased to 100 g daily from previous 75 g daily and patient was instructed she will need to follow up outpatient with PCP/endocrinology for continued long-term monitoring and management and repeat TSH in 8-12 weeks. Patient's condition has been stabilized. She is being sent to [facility] for continued treatment and rehabilitation. Patient being discharged on 3 L O2 via nasal cannula and to follow up outpatient with pulmonary for further evaluation and possible evaluation for continued home oxygen upon discharge from rehabilitation facility. Physical exam: Patient seen and fully evaluated at the bedside this morning. Patient was resting comfortably showing no signs of acute distress, she remains on 3 L O2 via nasal cannula. Morning SpO2 95% . Patient denies having any complaints including headache, lightheadedness, dizziness, chest pain, palpitations, shortness of breath, cough or congestion, or experiencing any num bness/tingling/weakness in her extremities. Vital signs reviewed and stable. General: Nontoxic, no distress and appears stated age. Derm: Skin warm and dry, normal coloration for ethnicity. Head: Atraumatic, normocephalic and symmetric. Very hard of hearing Eyes: EOMs intact, no lid lag, and anicteric sclera Mouth: no lip lesions, mucus membranes moist Cardiovascular: regular rate and rhythm with normal S1S2, no murmur, positive posterior tibial pulses bilaterally, and cap refill < 2 seconds. Lungs: Respirations even, regular, and unlabored on 3 L O2 via nasal cannula. Lungs CTA bilaterally, no rhonchi, no rales, no wheezing, and no accessory muscle usage. Abdominal: soft, nontender to palpation, no guarding, no appreciable organomegaly Ext: ROM intact. No gross muscle atrophy, no edema, no contractures. Dressing right lateral hip in place, no signs of postoperative bleeding or drainage. Neuro: Speech clear, face symmetrical and CN II-XII grossly intact with no noted focal neuro deficits Psych: Alert and oriented to person, place, time, and situation. Appropriate and pleasant affect. A total of 45 minutes of time were spent preparing this complex discharge summary. Patient Condition at Discharge: Stable Plan - Discharge Summary New Discharge Prescriptions: New Acetaminophen Tab [Tylenol] 650 mg PO Q6HR PRN tab PRN Reason: Mild Pain Or Fever > 100.5 Ipratropium-Albuterol Nebulize [Duoneb 0.5 mg-3 mg/3 ml Soln] 3 ml INHALATION RT-QID PRN ml PRN Reason: Shortness Of Breath Or Wheezing Levothyroxine Sodium [Synthroid] 100 mcg PO DAILY@629 30 Days #30 tab Continue amLODIPine [Norvasc] 10 mg PO HS Timolol 0.5% Ophth Soln [Timoptic 0.5% Ophth Soln] 1 drop BOTH EYES QAM Pantoprazole Sodium [Protonix] 40 mg PO DAILY Metoprolol Tartrate [Lopressor] 12.5 mg PO BID Latanoprost [Xalatan 0.005%] 1 drop BOTH EYES HS Escitalopram [Lexapro] 10 mg PO DAILY hydrALAZINE HCL 25 mg PO BID Atorvastatin Calcium [Lipitor] 10 mg PO DAILY Discontinued Levothyroxine Sodium [Synthroid] 75 mcg PO DAILY Discharge Medication List Timolol 0.5% Ophth Soln [Timoptic 0.5% Ophth Soln] 1 drop BOTH EYES QAM 08/17/17 [History] amLODIPine [Norvasc] 10 mg PO HS 08/17/17 [History] Pantoprazole Sodium [Protonix] 40 mg PO DAILY 08/18/17 [History] Metoprolol Tartrate [Lopressor] 12.5 mg PO BID 12/06/17 [History] Latanoprost [Xalatan 0.005%] 1 drop BOTH EYES HS 01/08/19 [History] Atorvastatin Calcium [Lipitor] 10 mg PO DAILY 04/20/21 [History] Escitalopram [Lexapro] 10 mg PO DAILY 04/20/21 [History] hydrALAZINE HCL 25 mg PO BID 04/20/21 [History] Acetaminophen Tab [Tylenol] 650 mg PO Q6HR PRN tab 04/29/21 [Rx] Ipratropium-Albuterol Nebulize [Duoneb 0.5 mg-3 mg/3 ml Soln] 3 ml INHALATION RT-QID PRN ml 04/29/21 [Rx] Levothyroxine Sodium [Synthroid] 100 mcg PO DAILY@629 30 Days #30 tab 04/29/21 [Rx] Follow up Appointment(s)/Referral(s): Danilo Gill MD [STAFF PHYSICIAN] - 1 Week Henrique Garibay DO [Doctor of Osteopathic Medicine] - 1 Week Curry Will [STAFF PHYSICIAN] - 1 Week Activity/Diet/Wound Care/Special Instructions: Activity: As tolerated Diet: Heart healthy diet Wound Care: Monitor postsurgical site right lateral hip and keep area clean and dry. Special Instructions: Patient being discharged to [facility] on 3 L O2 via nasal cannula, patient will follow up with pulmonology for evaluation of home O2. TSH 19.880 and free T4 of 0.70, Synthroid was increased to 100 mcg daily from previous 75 mcg daily. Patient will need to follow up outpatient with PCP/endocrinology for continued long-term monitoring and management of thyroid function and replacement hormones and will require a repeat TSH in 8-12 weeks. Discharge Disposition: TRANSFER TO SNF/ECF
== END 2021-04-29 13:41 | DRG 480 ==
LOC: EC 19:12 → 4SSUR 21:26
PROVIDERS: ADMIT Internal Medicine; ATTEND Internal Medicine
PROC: 0QS636Z Reposition Right Upper Femur with Intramedullary Internal Fixation Device, Percutaneous Approach (ICD-10-PCS; principal; 2021-04-22 10:40)
DX: S72.141A Displaced intertrochanteric fracture of right femur, initial encounter for closed fracture (principal); J96.01 Acute respiratory failure with hypoxia; J69.0 Pneumonitis due to inhalation of food and vomit; I50.33 Acute on chronic diastolic (congestive) heart failure; E22.2 Syndrome of inappropriate secretion of antidiuretic hormone; J98.11 Atelectasis; E03.9 Hypothyroidism, unspecified; F10.129 Alcohol abuse with intoxication, unspecified; Y90.6 Blood alcohol level of 120-199 mg/100 ml; E87.5 Hyperkalemia; I25.10 Atherosclerotic heart disease of native coronary artery without angina pectoris; E86.1 Hypovolemia; J43.9 Emphysema, unspecified; I27.20 Pulmonary hypertension, unspecified; I11.0 Hypertensive heart disease with heart failure; Z20.822 Contact with and (suspected) exposure to COVID-19; E83.42 Hypomagnesemia; D64.9 Anemia, unspecified; E78.5 Hyperlipidemia, unspecified; K21.9 Gastro-esophageal reflux disease without esophagitis; H40.9 Unspecified glaucoma; H35.30 Unspecified macular degeneration; L40.9 Psoriasis, unspecified; M81.0 Age-related osteoporosis without current pathological fracture; I73.00 Raynaud's syndrome without gangrene; H91.90 Unspecified hearing loss, unspecified ear; I25.2 Old myocardial infarction; Z79.890 Hormone replacement therapy; Z79.899 Other long term (current) drug therapy; Z87.440 Personal history of urinary (tract) infections; Z87.01 Personal history of pneumonia (recurrent); Z85.819 Personal history of malignant neoplasm of unspecified site of lip, oral cavity, and pharynx; Z90.49 Acquired absence of other specified parts of digestive tract; Z87.19 Personal history of other diseases of the digestive system; Z96.1 Presence of intraocular lens; Z98.41 Cataract extraction status, right eye; Z98.42 Cataract extraction status, left eye; Z87.2 Personal history of diseases of the skin and subcutaneous tissue; Z98.891 History of uterine scar from previous surgery; Z87.891 Personal history of nicotine dependence; Z98.890 Other specified postprocedural states; W19.XXXA Unspecified fall, initial encounter; Y92.009 Unspecified place in unspecified non-institutional (private) residence as the place of occurrence of the external cause; Z88.1 Allergy status to other antibiotic agents; Z88.7 Allergy status to serum and vaccine; Z88.8 Allergy status to other drugs, medicaments and biological substances; Z80.1 Family history of malignant neoplasm of trachea, bronchus and lung; Z82.49 Family history of ischemic heart disease and other diseases of the circulatory system
CPT/HCPCS: 36415; 70450; 71045; 71260; 71275; 72125; 73502; 80048; 80053; 80306; 80320; 81001; 82570; 82728; 83540; 83550; 83735; 83880; 83930; 83935; 84075; 84295; 84439; 84443; 84450; 84460; 85025; 85027; 85379; 85610; 85730; 93005; 93306; 93308; 94760; 96374; 99285

== ENCOUNTER 2021-07-31 06:16 | Inpatient (IN) | payer MEDICARE, BC ==
[2021-07-31] MEDS ORDERED: SODIUM CHLORIDE 0.9% 1,000 ML IV STA (06:33)
--- NOTE | 2021-07-31 06:39 | ED ---
General Adult HPI - General Chief complaint: Shortness of Breath Stated complaint: SOB Time Seen by Provider: 07/31/21 06:24 Source: patient, EMS, RN notes reviewed Mode of arrival: EMS Limitations: no limitations - History of Present Illness Initial comments: This is a 86-year-old female presents emergency Department chief complaint of generalized weakness. Patient states that she just been tired, feeling weak last couple days. She has no specific complaints. Is very difficulty information from patient as she is hard of hearing. Patient denies any chest pain shortness breath fever chills abdominal pain no nausea vomiting. Patient does admit that she had right hip fracture several months ago. Patient denies any headache dizziness. Patient did have her medical alert button and which EMS arrived on her bed awake and alert. - Related Data Home Medications Medication Instructions Recorded Confirmed Timolol 0.5% Ophth Soln [Timoptic 1 drop BOTH EYES QAM 08/17/17 04/20/21 0.5% Ophth Soln] amLODIPine [Norvasc] 10 mg PO HS 08/17/17 04/20/21 Pantoprazole Sodium [Protonix] 40 mg PO DAILY 08/18/17 04/20/21 Metoprolol Tartrate [Lopressor] 12.5 mg PO BID 12/06/17 04/20/21 Latanoprost [Xalatan 0.005%] 1 drop BOTH EYES HS 01/08/19 04/20/21 Atorvastatin Calcium [Lipitor] 10 mg PO DAILY 04/20/21 04/20/21 Escitalopram [Lexapro] 10 mg PO DAILY 04/20/21 04/20/21 hydrALAZINE HCL 25 mg PO BID 04/20/21 04/20/21 Previous Rx's Medication Instructions Recorded Acetaminophen Tab [Tylenol] 650 mg PO Q6HR PRN tab 04/29/21 Ipratropium-Albuterol Nebulize 3 ml INHALATION RT-QID PRN ml 04/29/21 [Duoneb 0.5 mg-3 mg/3 ml Soln] Levothyroxine Sodium [Synthroid] 100 mcg PO DAILY@0630 30 Days #30 04/29/21 tab Allergies Allergy/AdvReac Type Severity Reaction Status Date / Time cetirizine [From [facility]] Allergy Unknown Verified 07/31/21 06:32 guaifenesin Allergy Unknown Verified 07/31/21 06:32 Latex, Natural Rubber Allergy BURNING Verified 07/31/21 06:32 SKIN levofloxacin [From Levaquin] Allergy Unknown Verified 07/31/21 06:32 pneumococcal vaccine Allergy Unknown Verified 07/31/21 06:32 Review of Systems ROS Statement: Those systems with pertinent positive or pertinent negative responses have been documented in the HPI. ROS Other: All systems not noted in ROS Statement are negative. Past Medical History Past Medical History: Cancer, Eye Disorder, GERD/Reflux, Hyperlipidemia, Hyperte nsion, Myocardial Infarction ([place]), Pneumonia, Skin Disorder, Thyroid Disorder Additional Past Medical History / Comment(s): Glaucoma and macular degeneration bilaterally, hypothyroid, heart murmur, oral cancer with removal, UTIs, bronchitis, Raynauld's syndrome, osteoporosis, psoriasis, hemorrhoids. Last Myocardial Infarction Date:: ? 1-1.5 yrs ago per pt History of Any Multi-Drug Resistant Organisms: None Reported Past Surgical History: Breast Surgery, Section, Cholecystectomy Additional Past Surgical History / Comment(s): Oral cancer removed, R breast lumpectomy-benign, colonoscopies, bilateral cataract removal with lens implants. Past Anesthesia/Blood Transfusion Reactions: No Reported Reaction Past Psychological History: No Psychological Hx Reported Smoking Status: Former smoker Past Alcohol Use History: Daily Past Drug Use History: None Reported - Past Family History Father Family Medical History: Cancer, Myocardial Infarction ([place]) Additional Family Medical History / Comment(s): Father at age 77yrs from a [place] and lung cancer. Mother Family Medical History: No Reported History Additional Family Medical History / Comment(s): Mother at age 87yrs. She was healthy. General Exam Limitations: no limitations General appearance: alert, in no apparent distress Head exam: Present: atraumatic, normocephalic, normal inspection Eye exam: Present: normal appearance, PERRL, EOMI. Absent: scleral icterus, conjunctival injection, periorbital swelling ENT exam: Present: normal exam, normal oropharynx, mucous membranes moist, TM's normal bilaterally Neck exam: Present: normal inspection, full ROM. Absent: tenderness, meningismus, lymphadenopathy Respiratory exam: Present: normal lung sounds bilaterally. Absent: respiratory distress, wheezes, rales, rhonchi, stridor Cardiovascular Exam: Present: normal rhythm, tachycardia, normal heart sounds. Absent: systolic murmur, diastolic murmur, rubs, gallop, clicks GI/Abdominal exam: Present: soft, normal bowel sounds. Absent: distended, tenderness, guarding, rebound, rigid Neurological exam: Present: alert, oriented X3 Course Vital Signs 07/31/21 07/31/21 06:28 07:30 Temperature 98.6 F Pulse Rate 101 H 95 Respiratory 20 23 Rate Blood Pressure 147/78 143/74 O2 Sat by Pulse 97 93 L Oximetry Medical Decision Making - Medical Decision Making 86-year-old presented for generalized weakness, unable to care for herself. Caregiver who was helping her states that she is unable to care for secondary to her own health issues. Patient is not getting out of bed secondary to weakness unable to care for self patient is requesting snf. Patient is acutely dehydrated, does have mild hyponatremia patient be placed for further treatment. I did discuss case with Dr. schaffer - Lab Data Result diagrams: 07/31/21 06:40 07/31/21 06:40 Lab Results 07/31/21 07/31/21 07/31/21 Range/Units 06:40 06:40 06:40 WBC 7.5 (3.8-10.6) k/uL RBC 4.31 (3.80-5.40) m/uL Hgb 12.9 (11.4-16.0) gm/dL Hct 39.3 (34.0-46.0) % MCV 91.3 (80.0-100.0) fL MCH 29.9 (25.0-35.0) pg MCHC 32.7 (31.0-37.0) g/dL RDW 13.8 (11.5-15.5) % Plt Count 420 (150-450) k/uL MPV 7.5 Neutrophils % 79 % Lymphocytes % 7 % Monocytes % 10 % Eosinophils % 2 % Basophils % 0 % Neutrophils # 5.9 (1.3-7.7) k/uL Lymphocytes # 0.5 L (1.0-4.8) k/uL Monocytes # 0.7 (0-1.0) k/uL Eosinophils # 0.2 (0-0.7) k/uL Basophils # 0.0 (0-0.2) k/uL PT 10.9 (9.0-12.0) sec INR 1.0 (<1.2) APTT 25.4 (22.0-30.0) sec Sodium (137-145) mmol/L Potassium (3.5-5.1) mmol/L Chloride (98-107) mmol/L Carbon Dioxide (22-30) mmol/L Anion Gap mmol/L BUN (7-17) mg/dL Creatinine (0.52-1.04) mg/dL Est GFR (CKD-EPI)AfAm (>60 ml/min/1.73 sqM) Est GFR (CKD-EPI)NonAf (>60 ml/min/1.73 sqM) Glucose (74-99) mg/dL Plasma Lactic Acid Alexys (0.7-2.0) mmol/L Calcium (8.4-10.2) mg/dL Magnesium (1.6-2.3) mg/dL Total Bilirubin (0.2-1.3) mg/dL AST (14-36) U/L ALT (4-34) U/L Alkaline Phosphatase (38-126) U/L Troponin I (0.000-0.034) ng/mL Total Protein (6.3-8.2) g/dL Albumin (3.5-5.0) g/dL Urine Color Light Yellow Urine Appearance Clear (Clear) Urine pH 7.0 (5.0-8.0) Ur Specific [place] 1.005 (1.001-1.035) Urine Protein Trace H (Negative) Urine Glucose (UA) Negative (Negative) Urine Ketones Negative (Negative) Urine Blood Negative (Negative) Urine Nitrite Negative (Negative) Urine Bilirubin Negative (Negative) Urine Urobilinogen <2.0 (<2.0) mg/dL Ur Leukocyte Esterase Negative (Negative) 07/31/21 07/31/21 07/31/21 Range/Units 06:40 06:40 06:40 WBC (3.8-10.6) k/uL RBC (3.80-5.40) m/uL Hgb (11.4-16.0) gm/dL Hct (34.0-46.0) % MCV (80.0-100.0) fL MCH (25.0-35.0) pg MCHC (31.0-37.0) g/dL RDW (11.5-15.5) % Plt Count (150-450) k/uL MPV Neutrophils % % Lymphocytes % % Monocytes % % Eosinophils % % Basophils % % Neutrophils # (1.3-7.7) k/uL Lymphocytes # (1.0-4.8) k/uL Monocytes # (0-1.0) k/uL Eosinophils # (0-0.7) k/uL Basophils # (0-0.2) k/uL PT (9.0-12.0) sec INR (<1.2) APTT (22.0-30.0) sec Sodium 128 L (137-145) mmol/L Potassium 4.1 (3.5-5.1) mmol/L Chloride 90 L (98-107) mmol/L Carbon Dioxide 28 (22-30) mmol/L Anion Gap 10 mmol/L BUN 12 (7-17) mg/dL Creatinine 0.50 L (0.52-1.04) mg/dL Est GFR (CKD-EPI)AfAm >90 (>60 ml/min/1.73 sqM) Est GFR (CKD-EPI)NonAf 87 (>60 ml/min/1.73 sqM) Glucose 128 H (74-99) mg/dL Plasma Lactic Acid Alexys 1.1 (0.7-2.0) mmol/L Calcium 9.7 (8.4-10.2) mg/dL Magnesium 1.9 (1.6-2.3) mg/dL Total Bilirubin 0.9 (0.2-1.3) mg/dL AST 42 H (14-36) U/L ALT 24 (4-34) U/L Alkaline Phosphatase 632 H (38-126) U/L Troponin I <0.012 (0.000-0.034) ng/mL Total Protein 7.9 (6.3-8.2) g/dL Albumin 3.9 (3.5-5.0) g/dL Urine Color Urine Appearance (Clear) Urine pH (5.0-8.0) Ur Specific [place] (1.001-1.035) Urine Protein (Negative) Urine Glucose (UA) (Negative) Urine Ketones (Negative) Urine Blood (Negative) Urine Nitrite (Negative) Urine Bilirubin (Negative) Urine Urobilinogen (<2.0) mg/dL Ur Leukocyte Esterase (Negative) Disposition Clinical Impression: Weakness, Failure to thrive, Dehydration, Hyponatremia Disposition: ADMITTED IP TO THIS HOSP Condition: Fair Referrals: Darwin Schaffer MD [Primary Care Provider] - 1-2 days
[2021-07-31 07:05] LABS: Basophils % (A) 0 %; Eosinophils # (A) 0.2 k/uL (0-0.7); Eosinophils % (A) 2 %; HCT 39.3 % (34.0-46.0); HGB 12.9 gm/dL (11.4-16.0); Lymphocytes # (A) 0.5 k/uL (1.0-4.8); Lymphocytes % (A) 7 %; MCH 29.9 pg (25.0-35.0); MCHC 32.7 g/dL (31.0-37.0); MCV 91.3 fL (80.0-100.0); Mean Platelet Volume 7.5; Monocytes # (A) 0.7 k/uL (0-1.0); Monocytes % (A) 10 %; Neutrophils # (A) 5.9 k/uL (1.3-7.7); Neutrophils % (A) 79 %; Platelet Count 420 k/uL (150-450); RBC 4.31 m/uL (3.80-5.40); RDW 13.8 % (11.5-15.5); WBC 7.5 k/uL (3.8-10.6)
--- NOTE | 2021-07-31 07:06 | XR ---
EXAMINATION TYPE: XR chest 2V DATE OF EXAM: 07/31/2021 COMPARISON: 04/28/2021 HISTORY: Weakness TECHNIQUE: Frontal and lateral views of the chest are obtained. FINDINGS: There is no focal air space opacity, pleural effusion, or pneumothorax seen. The cardiac silhouette size is within normal limits. The osseous structures are intact. IMPRESSION: No acute cardiopulmonary process.
[2021-07-31 07:18] LABS: ALT 24 U/L (4-34); AST 42 U/L (14-36); African American GFR (CKD) >90 (>60 ml/min/1.73 sqM); Albumin 3.9 g/dL (3.5-5.0); Alkaline Phosphatase 632 U/L (38-126); Anion Gap 10 mmol/L; Blood Urea Nitrogen 12 mg/dL (7-17); Calcium 9.7 mg/dL (8.4-10.2); Carbon Dioxide 28 mmol/L (22-30); Chloride 90 mmol/L (98-107); Glucose 128 mg/dL (74-99); Magnesium 1.9 mg/dL (1.6-2.3); Non-African American GFR(CKD) 87 (>60 ml/min/1.73 sqM); Potassium 4.1 mmol/L (3.5-5.1); Sodium 128 mmol/L (137-145); Total Bilirubin 0.9 mg/dL (0.2-1.3); Total Protein 7.9 g/dL (6.3-8.2)
[2021-07-31 07:25] LABS: Partial Thromboplastin Time 25.4 sec (22.0-30.0); Prothrombin Time 10.9 sec (9.0-12.0)
[2021-07-31 08:26] LABS: Appearance,Urine Clear (Clear); Bilirubin,Urine Negative (Negative); Blood,Urine Negative (Negative); Color,Urine Light Yellow; Glucose,Urine (UA) Negative (Negative); Ketones,Urine Negative (Negative); Leukocyte Esterase,Urine Negative (Negative); Nitrite,Urine Negative (Negative); Protein,Urine Trace (Negative); Specific Gravity,Urine 1.005 (1.001-1.035); Urobilinogen,Urine <2.0 mg/dL (<2.0)
[2021-07-31] MEDS ORDERED: NALOXONE 0.4 MG/ML 1 ML VIAL IV PRN (08:40)
[2021-07-31] MEDS ORDERED: ONDANSETRON 4 MG/2 ML VIAL IVP PRN (08:40)
[2021-07-31] MEDS ORDERED: ACETAMINOPHEN TAB 325 MG TAB PO PRN ×2 (08:40→11:43)
[2021-07-31] MEDS: SODIUM CHLORIDE 0.9% 1,000 ML IV SCH (09:29)
[2021-07-31] MEDS ORDERED: METOPROLOL TARTRATE 12.5 MG TAB PO SCH (12:15)
[2021-07-31] MEDS: traMADol 50 MG TAB PO SCH ×3 (12:26→21:31)
--- NOTE | 2021-07-31 13:14 | P.HPIM ---
History of Present Illness H&P Date: 07/31/21 (hyponatremia, hypoxemia, depression, stony deafness) Chief Complaint: #1 generalized weakness, unable to thrive #2 unable to do her LDL, history and physical Date of service 07/31/[address] Russell. Chief complaint: Patient profile by EMS to the emergency room with the complaint generalized weakness and feeling weak lost couple days diet unable to do her ADL, she had severe neurosensory hearing loss, severe macular degeneration almost blind He need written paper to understand and to able to read it to answer the questions. Patient lives alone and her nieces helping her intermittently she needed full care. In the ER patient complaining of inability to urinate with the past history of neurogenic bladder, they inserted in the ER Taveras catheter which is draining well, however patient complaining of severe abdominal pain the etiology is unclear. Past medical history: #1 hypertension was hypertensive heart disease #2 history of anteroseptal OR in the past. #3 hyperlipidemia #4depression, #5 COPD with hypoxemia and desaturation to the 80s with minimal exertion. #6 pneumonia in the past #7 hypothyroidism. #8 oral cancer with surgical history oropharynx, section, cholecystectomy, oral cancer removed, right breast lumpectomy benign, colonoscopy, bilateral cataract with lens implant. She has breast surgery, Former smoker. Family history father at age of 77 with OR and lung cancer Review of systems : Neuropsychiatry history of agitation intermittently with the loss of hearing and severe diminution of her vision and ability to communicate goals to be anxious and nervous and depressed. Cardiovascular she has denied any chest pain or angina however the heart rate in the ER is between 107-90. With tachycardia Respiratory she has been short of breath with minimal exertion and she has been on oxygen before and her last admission which was [facility] [facility] without notifying me. Endocrine hypothyroidism Musculoskeletal: Difficulty of walking a few steps use walker with renal however she had frequent fall and she had multiple advanced degenerative arthritis of the spine and joint. Abdominal complain of lower abdominal pain upper abdominal pain despite the Taveras catheter in place. No history of strokes in the past. In the view of the 14 bullet no added finding. Physical exam: On admission her temperature was 98.6 Head was normocephalic and atraumatic, hearing aid bilaterally could not hear even with the hearing aids and only communication is on the paperand bilkrissy she can see with the underlying macular degeneration and subsequently she can answer. Oropharynx she had upper plate dentures and no teeth on the lower.. Neck was supple no JVD no thyromegaly no lymphadenopathy trachea midline. Chest is as symmetrical with kyphoscoliosis and increased anteroposterior diameter the previous history of smoking and history of COPD. No rhonchi's and no wheezes Heart is sinus tachycardia with no murmurs will try to obtain the echo just was done and her loss of admission. Abdomen there is tenderness suprapubic and she has a Taveras catheter also tenderness on the 4 quadrant. No rebound tenderness. She has a scar from previous surgery. Extremities: No edema pulses pulses. Catheter in place. With history of neurogenic bladder and urine hypertension. Assessment #1 hyponatremia with sodium 128 #2 dehydration. #3 renal function stable. Inability to take care of herself unable to do her ADLs. Laboratory WBC 7.5 and a hemoglobin 12.9 and MCV of 91.3, platelet counturine analysis is negative despite symptoms of lower abdominal pain. PT 10.9 and INR 1 and PTT 25.4. Plan: Mild hydration #2 the patient lab in a.m. numbers 3 obtain x-ray of the abdomen with the underlying lower abdominal pain and vague abdominal pain in spite of that she had the cast that could be secondary to spasm #4 pain control with adding Ultram renal function stable. #5 pediatric social worker consultation for fpc placement patient requesting medical [facility] Past Medical History Past Medical History: Cancer, Eye Disorder, GERD/Reflux, Hyperlipidemia, Hypertension, Myocardial Infarction ([place]), Pneumonia, Skin Disorder, Thyroid Disorder Additional Past Medical History / Comment(s): Glaucoma and macular degeneration bilaterally, hypothyroid, heart murmur, oral cancer with removal, UTIs, bronchitis, Raynauld's syndrome, osteoporosis, psoriasis, hemorrhoids. Last Myocardial Infarction Date:: ? 1-1.5 yrs ago per pt History of Any Multi-Drug Resistant Organisms: None Reported Past Surgical History: Breast Surgery, Section, Cholecystectomy Additional Past Surgical History / Comment(s): Oral cancer removed, R breast lumpectomy-benign, colonoscopies, bilateral cataract removal with lens implants. Past Anesthesia/Blood Transfusion Reactions: No Reported Reaction Past Psychological History: No Psychological Hx Reported Smoking Status: Former smoker Past Alcohol Use History: Daily Past Drug Use History: None Reported - Past Family History Father Family Medical History: Cancer, Myocardial Infarction ([place]) Additional Family Medical History / Comment(s): Father at age 77yrs from a OR and lung cancer. Mother Family Medical History: No Reported History Additional Family Medical History / Comment(s): Mother at age 87yrs. She was healthy. Medications and Allergies Home Medications Medication Instructions Recorded Confirmed Type Timolol 0.5% Ophth Soln [Timoptic 1 drop BOTH EYES DAILY 08/17/17 07/31/21 History 0.5% Ophth Soln] amLODIPine [Norvasc] 10 mg PO HS 08/17/17 07/31/21 History Pantoprazole Sodium [Protonix] 40 mg PO DAILY 08/18/17 07/31/21 History Metoprolol Tartrate [Lopressor] 12.5 mg PO BID 12/06/17 07/31/21 History Latanoprost [Xalatan 0.005%] 1 drop BOTH EYES HS 01/08/19 07/31/21 History Atorvastatin Calcium [Lipitor] 10 mg PO DAILY 04/20/21 07/31/21 History Escitalopram [Lexapro] 10 mg PO DAILY 04/20/21 07/31/21 History hydrALAZINE HCL 25 mg PO BID 04/20/21 07/31/21 History Acetaminophen Tab [Tylenol] 650 mg PO Q6HR PRN tab 04/29/21 07/31/21 Rx Levothyroxine Sodium [Synthroid] 75 mcg PO DAILY 07/31/21 07/31/21 History Multivitamins, Thera [Multivitamin 1 tab PO DAILY 07/31/21 07/31/21 History (formulary)] Vitc/E/Zinc/Copper/Lutein/Zeax 1 tab PO BID 07/31/21 07/31/21 History [Icaps Areds2 Tablet] Allergies Allergy/AdvReac Type Severity Reaction Status Date / Time cetirizine [From Zyrtec] Allergy Unknown Verified 07/31/21 06:32 guaifenesin Allergy Unknown Verified 07/31/21 06:32 Latex, Natural Rubber Allergy BURNING Verified 07/31/21 06:32 SKIN levofloxacin [From Levaquin] Allergy Unknown Verified 07/31/21 06:32 pneumococcal vaccine Allergy Unknown Verified 07/31/21 06:32 Physical Exam Vitals: Vital Signs Temp Pulse Resp BP Pulse Ox 07/31/21 11:00 97 18 136/75 92 L 07/31/21 10:00 93 18 133/76 91 L 07/31/21 09:30 94 22 128/69 90 L 07/31/21 09:00 95 15 133/74 92 L 07/31/21 08:30 96 21 127/74 92 L 07/31/21 08:00 101 H 18 142/72 91 L 07/31/21 07:30 95 23 143/74 93 L 07/31/21 06:28 98.6 F 101 H 20 147/78 97 Intake and Output 07/30/21 07/31/21 07/31/21 23:59 06:59 14:59 Output Total 600 Balance -600 Output: Urine 600 Uretheral (Taveras) 600 Other: Weight Results CBC & Chem 7: 07/31/21 06:40 07/31/21 06:40 Labs: Abnormal Lab Results - Last 24 Hours (Table) 07/31/21 07/31/21 07/31/21 Range/Units 06:40 06:40 06:40 Lymphocytes # 0.5 L (1.0-4.8) k/uL Sodium 128 L (137-145) mmol/L Chloride 90 L (98-107) mmol/L Creatinine 0.50 L (0.52-1.04) mg/dL Glucose 128 H (74-99) mg/dL AST 42 H (14-36) U/L Alkaline Phosphatase 632 H (38-126) U/L Urine Protein Trace H (Negative)
--- NOTE | 2021-07-31 13:22 | XR ---
EXAMINATION TYPE: XR abdomen complete w decub DATE OF EXAM: 07/31/2021 COMPARISON: 03/17/2019 HISTORY: Pain TECHNIQUE: Supine, upright, and left side down lateral decubitus views of the abdomen are obtained. FINDINGS: Lung bases are clear. Surgical clips are seen in right upper quadrant bowel gas pattern is nonspecific with no obstruction. Postsurgical change and nonunion fractures involving the right femur . Arthropathy of the hips bilaterally degenerative change of the spine with diffuse osteopenia. Numer ous calcifications in pelvis likely vascular. . IMPRESSION: Nonspecific abdomen with no obstruction.
[2021-07-31 21:19] LABS: Glucose,Whole Blood 83 mg/dL (75-99)
[2021-07-31] MEDS: hydrALAZINE HCL 25 MG TAB PO SCH (21:31)
[2021-07-31] MEDS: amLODIPine 10 MG TAB PO SCH (21:31)
[2021-07-31] MEDS: METOPROLOL TARTRATE 25 MG TAB PO SCH (21:31)
[2021-08-01] MEDS: VIT A,C & E-LUTEIN-MINERALS 1 EACH TAB PO SCH ×3 (00:17→21:47)
[2021-08-01] MEDS: SODIUM CHLORIDE 0.9% 1,000 ML IV SCH ×2 (00:17→13:48)
[2021-08-01] MEDS: LATANOPROST 0.005% OPHTH DROPS 2.5 ML BTL BOTH EYES SCH ×2 (00:17→21:47)
[2021-08-01] MEDS ORDERED: LEVOTHYROXINE 75 MCG TAB PO SCH (06:30)
[2021-08-01] MEDS: METOPROLOL TARTRATE 25 MG TAB PO SCH ×2 (07:29→21:47)
[2021-08-01] MEDS: traMADol 50 MG TAB PO SCH ×4 (07:29→21:47)
[2021-08-01] MEDS: PANTOPRAZOLE 40 MG TABLET PO SCH (07:30)
[2021-08-01] MEDS: ATORVASTATIN 10 MG TAB PO SCH (07:30)
[2021-08-01] MEDS: hydrALAZINE HCL 25 MG TAB PO SCH ×2 (07:30→21:47)
[2021-08-01] MEDS: MULTIVITAMINS, THERA 1 EACH TAB PO SCH (07:30)
[2021-08-01] MEDS: TIMOLOL 0.5% OPHTH DROPS 5 ML BTL BOTH EYES SCH (07:32)
[2021-08-01 07:48] LABS: Glucose,Whole Blood 99 mg/dL (75-99)
[2021-08-01] MEDS: ESCITALOPRAM 10 MG TAB PO SCH (08:50)
[2021-08-01 09:35] LABS: Basophils # (A) 0.05 X 10*3/uL (0.00-0.10); Basophils % (A) 0.7 %; Eosinophils # (A) 0.13 X 10*3/uL (0.04-0.35); Eosinophils % (A) 1.7 %; HGB 10.3 g/dL (12.0-15.0); Lymphocytes # (A) 0.46 X 10*3/uL (0.90-5.00); Lymphocytes % (A) 6.1 %; MCHC 32.2 g/dL (32.0-37.0); MCV 90.1 fL (80.0-97.0); Mean Platelet Volume 9.2 fL (9.5-12.2); Monocytes # (A) 1.04 X 10*3/uL (0.20-1.00); Monocytes % (A) 13.8 %; Neutrophils # (A) 5.82 X 10*3/uL (1.80-7.70); Neutrophils % (A) 77.3 %; Platelet Count 324 X 10*3/uL (140-440); RBC 3.55 X 10*6/uL (4.10-5.20); RDW 14.2 % (11.5-14.5); WBC 7.53 X 10*3/uL (4.50-10.00)
[2021-08-01 12:16] LABS: Glucose,Whole Blood 130 mg/dL (75-99)
--- NOTE | 2021-08-01 13:04 | P.PN ---
Progress Note - Text Progress Note Date: 08/01/21 (Hyponatremia, dehydration, anemia,) This is a progress note date of service 08/01/2021. Dictation by Dr. schaffer. Patient seen evaluated. Discussed with her nurse Margo. Patient admitted with hyponatremia, dehydration, failure to thrive, laboratory this morning indicating drop of the hemoglobin 2.6 g with hydration Will be checking on stool for Hemoccult, iron and iron binding capacity and serum ferritin to clarify the etiology. X-ray of the abdomen indicating right hip nonunion with a history of hip fracture and we will be consulting Dr. Suly Bocanegra the orthopedic surgeon [facility] who did the surgery for the patient, patient was [place] [facility] [place] and with inability to see the orthopedic or follow-up with the orthopedic as outpatient and she will be seen by his group in the hospital due to [place]. We'll consult the occupation therapy because of the patient could not hear any question or communicate and the only way is paper and pencil to write the question and she will answer verbally inspired that she had deterioration of her site and macular degeneration but she still able to recognize the communication with the hand writing. 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 We don't have today yet the BMP which is ordered to see how the sodium has been improved. On the exam patient severely difficult communication was hard of hearing and severe visual impairment she had upper plate was difficult to eat solid food and an antiemetic with loss of muscle mass. Head was normocephalic and atraumatic and she had unequal pupil with the previous surgery on the right pupil and normal left pupil. She had a hearing aid bilateral and she had surgery on the upper jaw. Neck was supple no JVD no thyromegaly no lymphadenopathy trachea midline. The chest has symmetrical was kyphoscoliosis and history of smoking in the past and increased anteroposterior diameter and she had history of COPD but not symptomatic at this time. The heart is regular sinus rhythm and her last echocardiogram was done when she was admitted for her right hip fracture and at that time the dictated on April 23 and at that time she was under care of radha the hospitalist Dr. Webb the [facility] with the [facility] with the [facility] doctor Troy Bocanegra orthopedic surgeon, she had an echocardiogram and found that she had mild mitral annular calcification, mild tricuspid regurgitation, [id number] pulmonary hypertension, right ventricular systolic pressure 45.50. They found that ejection fraction 60-65, borderline concentric left ventricular hypertrophy. With mild aortic valve sclerosis, mild tricuspid regurgitation. Abdomen positive bowel sounds soft x-ray of the abdomen was negative for obstruction however also showed that she had nonunion of the right hip surgery which improved the pain with Ultram medication she had normal renal function. Extremities no edema and positive pulses and could not ambulate due to her right hip surgery Neurologic currently stable no lateralizing sign. Assessment and plan: #1 consultation with [facility] doctor for evaluation of the right hip non-union and if anything else needs to be treated or addressed. #2 check on the iron and iron-binding capacity and serum ferritin with the stool for Hemoccult. #3 anemia with drop of hemoglobin 2.6 a gram was hydration. #4 dehydration and hyponatremia today BMP is unavailable. #5 hypertension with hypertensive heart disease and pulmonary hypertension. #6 inability to thrive with loss of hearing, macular degeneration and loss of vision, advanced osteoarthritis need to people to help with the patient #7 inability of communication with anybody except with paper and pencil to be written and patient able to redirect and she Is a answer the question. #8 need [place], she was treated badly and had previous admission to [facility], and she is requesting to go to medical [place] [place].
[2021-08-01 14:30] VITALS: BMI 20.5
--- NOTE | 2021-08-01 14:41 | XR ---
EXAMINATION TYPE: XR Hip Complete RT DATE OF EXAM: 08/01/2021 COMPARISON: NONE HISTORY: Pain TECHNIQUE: Two view submitted. FINDINGS: There is postsurgical change in near anatomic alignment. There is soft tissue edema and emphysema. V ascular calcifications. Arthropathy of the hip. Remote trauma involving the right femur. IMPRESSION: 1. Postoperative change. Appears in near-anatomic alignment.
--- NOTE | 2021-08-01 14:52 | P.CNOR ---
History of Present Illness - [facility] Consult date: 08/01/21 Consult reason: other (Previous right hip surgery) History of present illness: Patient is an 86-year-old female who was brought to [facility] yesterday with regards to generalized weakness, shortness of breath and difficulty with ambulation. Patient lives on her own, she is family members at help take care of her. Over the last few weeks it's become more difficult for the patient to do her ADLs and she is requiring a lot of extra help. Patient was admitted under internal medicine's with likely plan for rehab placement. Patient was evaluated today at bedside, she is resting comfortably. Patient is very hard of hearing, I was able to communicate with her today at bedside and she was able to answer all my questions adequately. Patient has a history of a right intertrochanteric femur fracture back in March 2021. She underwent surgery by Dr. Garibay at that time. Patient states that she was in rehab for a few months and then went home. She's been having no issues with regards to the right lower extremity. She has had no recent falls. Patient denies any other orthopedic issues. Review of Systems Constitutional: Reports as per HPI Past Medical History Past Medical History: Cancer, Eye Disorder, GERD/Reflux, Hyperlipidemia, Hypertension, Myocardial Infarction ([place]), Pneumonia, Skin Disorder, Thyroid Disorder Additional Past Medical History / Comment(s): Glaucoma and macular degeneration bilaterally, hypothyroid, heart murmur, oral cancer with removal, UTIs, bron chitis, Raynauld's syndrome, osteoporosis, psoriasis, hemorrhoids. Last Myocardial Infarction Date:: ? 1-1.5 yrs ago per pt History of Any Multi-Drug Resistant Organisms: None Reported Past Surgical History: Breast Surgery, Section, Cholecystectomy Additional Past Surgical History / Comment(s): Oral cancer removed, R breast lumpectomy-benign, colonoscopies, bilateral cataract removal with lens implants. Past Anesthesia/Blood Transfusion Reactions: No Reported Reaction Past Psychological History: No Psychological Hx Reported Additional Psychological History / Comment(s): Pt resides alone. She uses a walker occasionally. She no longer has a vehicle. She uses [employer] for transportation. She does light housework and has a [employer] clinical programmer every 2 weeks for the heavier cleaning. She manages her own medications. Smoking Status: Former smoker Past Alcohol Use History: Daily Additional Past Alcohol Use History / Comment(s): Pt smoked from [id number]. She used to drink 2-3 beers each evening but states she no longer drinks at all. Past Drug Use History: None Reported - Past Family History Father Family Medical History: Cancer, Myocardial Infarction ([place]) Additional Family Medical History / Comment(s): Father at age 77yrs from a [place] and lung cancer. Mother Family Medical History: No Reported History Additional Family Medical History / Comment(s): Mother at age 87yrs. She was healthy. Medications and Allergies Home Medications Medication Instructions Recorded Confirmed Type Timolol 0.5% Ophth Soln [Timoptic 1 drop BOTH EYES DAILY 08/17/17 07/31/21 History 0.5% Ophth Soln] amLODIPine [Norvasc] 10 mg PO HS 08/17/17 07/31/21 History Pantoprazole Sodium [Protonix] 40 mg PO DAILY 08/18/17 07/31/21 History Metoprolol Tartrate [Lopressor] 12.5 mg PO BID 12/06/17 07/31/21 History Latanoprost [Xalatan 0.005%] 1 drop BOTH EYES HS 01/08/19 07/31/21 History Atorvastatin Calcium [Lipitor] 10 mg PO DAILY 04/20/21 07/31/21 History Escitalopram [Lexapro] 10 mg PO DAILY 04/20/21 07/31/21 History hydrALAZINE HCL 25 mg PO BID 04/20/21 07/31/21 History Acetaminophen Tab [Tylenol] 650 mg PO Q6HR PRN tab 04/29/21 07/31/21 Rx Levothyroxine Sodium [Synthroid] 75 mcg PO DAILY 07/31/21 07/31/21 History Multivitamins, Thera [Multivitamin 1 tab PO DAILY 07/31/21 07/31/21 History (formulary)] Vitc/E/Zinc/Copper/Lutein/Zeax 1 tab PO BID 07/31/21 07/31/21 History [Icaps Areds2 Tablet] Allergies Allergy/AdvReac Type Severity Reaction Status Date / Time cetirizine [From Zyrte] Allergy Unknown Verified 07/31/21 06:32 guaifenesin Allergy Unknown Verified 07/31/21 06:32 Latex, Natural Rubber Allergy BURNING Verified 07/31/21 06:32 SKIN levofloxacin [From Levaquin] Allergy Unknown Verified 07/31/21 06:32 pneumococcal vaccine Allergy Unknown Verified 07/31/21 06:32 Physical Examination Right lower extremity: Well-healed incisions noted on the lateral aspect of the right lower extremity, there are no obvious skin changes, this to include open lesions, sores, areas of erythema There is no significant swelling present throughout the extremity Patient is nontender with palpation involving the proximal aspect of the extremity, knee, lower leg, foot or ankle Logroll maneuver reproduces no groin pain She is able to straight leg raise with minimal difficulty Knee flexion, knee extension, plantar flexion, dorsiflexion, EHL, FHL are intact, no obvious strength deficits appreciated, generalized weakness due to patient's age and medical status Her sensory exam to light touch is intact throughout the extremity Calf is soft no tenderness with palpation Dorsalis pedis pulses 2+ Results - Labs Labs: Abnormal Lab Results - Last 24 Hours (Table) 08/01/21 08/01/21 08/01/21 Range/Units 06:27 06:27 12:15 RBC 3.55 L (4.10-5.20) X 10*6/uL Hgb 10.3 L (12.0-15.0) g/dL Hct 32.0 L (37.2-46.3) % MPV 9.2 L (9.5-12.2) fL Lymphocytes # 0.46 L (0.90-5.00) X 10*3/uL Monocytes # 1.04 H (0.20-1.00) X 10*3/uL POC Glucose (mg/dL) 130 H (75-99) mg/dL TSH 11.600 H (0.350-5.500) uIU/mL H & H 07/31/21 08/01/21 Range/Units 06:40 06:27 Hgb 12.9 10.3 L (11.4-16.0) gm/dL Hct 39.3 32.0 L (34.0-46.0) % Coagulation 07/31/21 Range/Units 06:40 INR 1.0 (<1.2) Result Diagrams: 08/01/21 06:27 07/31/21 06:40 - Diagnostic results Hip x-ray: report reviewed, image reviewed (Report and images were reviewed of the right hip. Images demonstrate no acute fractures or dislocations. Intramedullary nail is in good position, the hip joint remains intact. There are no obvious signs of malunion) Assessment and Plan Assessment: Previous right intertrochanteric femur fracture, status post intramedullary nail March 2021, stable components Generalized weakness Other medical comorbidities Plan: I was able to discuss the case, this including both physical exam findings and imaging studies my attending Dr. Garibay. No orthopedic surgical intervention warranted at this time. Patient is demonstrating no acute signs of hardware failure, generalized weakness due to patient's medical status and age. Recommend weight-bear as tolerated, walker at all times PT/OT evaluation GI and DVT prophylaxis per primary medical service Other medical specialty recommendations Discharge planning: Recommend permanent rehab placement for assistance with ADLs, we'll be available for any further questions regarding this patient. Recommend follow up in the outpatient setting in the next 6 weeks Time with Patient: Less than 30
--- NOTE | 2021-08-01 15:26 | P.PN ---
Progress Note - Text Progress Note Date: 08/01/21 Imaging reviewed hardware is in good position with no evidence of fracture failure or loosening. The right hip is essentially healed from her intertrochanteric fracture. No other lesions fractures or bony abnormality seen at this time.
[2021-08-01 16:29] LABS: Glucose,Whole Blood 125 mg/dL (75-99)
[2021-08-01] MEDS: amLODIPine 10 MG TAB PO SCH (21:47)
[2021-08-01] MEDS: HEPARIN SODIUM,PORCINE/PF 5,000 UNIT/0.5 ML SYRINGE SQ SCH (21:48)
[2021-08-02] MEDS: SODIUM CHLORIDE 0.9% 1,000 ML IV SCH (01:40)
[2021-08-02] MEDS: LEVOTHYROXINE 100 MCG TAB PO SCH (06:07)
[2021-08-02 07:09] LABS: Glucose,Whole Blood 94 mg/dL (75-99)
[2021-08-02] MEDS: PANTOPRAZOLE 40 MG TABLET PO SCH (07:41)
[2021-08-02] MEDS: MULTIVITAMINS, THERA 1 EACH TAB PO SCH (10:25)
[2021-08-02] MEDS: hydrALAZINE HCL 25 MG TAB PO SCH ×2 (10:25→22:46)
[2021-08-02] MEDS: VIT A,C & E-LUTEIN-MINERALS 1 EACH TAB PO SCH ×2 (10:25→22:47)
[2021-08-02] MEDS: METOPROLOL TARTRATE 25 MG TAB PO SCH ×2 (10:26→22:46)
[2021-08-02] MEDS: ATORVASTATIN 10 MG TAB PO SCH (10:26)
[2021-08-02] MEDS: HEPARIN SODIUM,PORCINE/PF 5,000 UNIT/0.5 ML SYRINGE SQ SCH ×2 (10:36→22:47)
[2021-08-02] MEDS: traMADol 50 MG TAB PO SCH ×4 (10:48→22:45)
[2021-08-02 11:28] LABS: Glucose,Whole Blood 113 mg/dL (75-99)
[2021-08-02] MEDS: TIMOLOL 0.5% OPHTH DROPS 5 ML BTL BOTH EYES SCH (11:52)
[2021-08-02] MEDS: ESCITALOPRAM 10 MG TAB PO SCH (11:54)
--- NOTE | 2021-08-02 12:23 | P.PN ---
Subjective Progress Note Date: 08/02/21 Principal diagnosis: #1 dehydration #2 hyponatremia #3 anemia with hydration with the drop of hemoglobin 2.6 g. #4 failure to thrive #5 right hip fracture seen by the Ortho and he cleared her up with the recommendation. #6 COPD #7 severe kyphoscoliosis #8 walking disability and need rehabilitation. #9 needs prison placement at medical [facility]. #10 hypothyroidism was not controlled well the dose is adjusted in the hospital. #11 history of tachycardia and hypertension currently controlled medication also adjusted. #12 remote history of [place] with the last admission ejection fraction is normal. #13 pulmonary hypertension. And valvular heart disease Patient seen and evaluated today date of service 08/02/2021. Dictation by Dr. Chawla. Patient seen evaluated discussed with the patient. Patient transferred to from her room to continue room 554 after they found bedbug in her bed and she was isolated and removed and disinfected. And they talk her hearing aid as well glasses. Discussed with her nurse Dayanara, and the need for social services director for discharge planning as well as the laboratory ordered that not done and I did not recognize that the laboratory if it is a routine send her to [facility] and only lab done in the hospital is a stat. Patient had hyponatremia and we unable to know the level because of the lab is still not returned back from remote laboratory implant. Patient is conscious alert oriented and however she has severe deafness with hearing aid and without the hearing aid. She could not see with macular degeneration and they took her glasses for this infection. She has history of jaw surgery and the she has only upper plate dentures and unable to eat and motor tester and dietitian is did discuss with her the supplementation. The head was normocephalic and atraumatic pupils unequal with the right pupil have iritis surgery and the left pupil is normal and she had bilateral cataract surgery in the past. Oropharynx has only upper plate dentures and nose was negative. Neck was supple no JVD no thyromegaly no lymphadenopathy trachea midline. Chest as symmetrical with the hyperinflation of the lung mildly no wheezes no rhonchi's. However patient need 3 L oxygen for her hypoxemia and the saturation. Heart regular sinus rhythm and compensated with the previous echo indicating her ejection fraction is normal was done in admission when she break her right hip Abdomen was soft positive bowel sounds no organ enlargement. Extremities right hip fracture with intercurrent trochanteric with yo and the femur. Seen by the [facility] and he cleared her. Walking disability and she is afraid to fell down and fractured again rehabilitation adjusting for the patient. Neurologically no lateralizing sign and stable. Assessment and plan: #1 waiting for the lab which it will be, and added to 2:30 in the PM or after 2 VSS on her hypo-natremia. #2 dehydration and we will be decreasing her IV fluid to 50 mL an hour until the available lab. #3 waiting for also the bed availability and medical [facility] and the to be transferred. #4 blood pressure is stable and we decreased air and the amlodipine to 5 mg at at bedtime. And she is on beta blockers heart rate is stable as well. With the laboratory review when it is available and bed available hopefully tomorrow we can transfer her to medical [facility] if the social services director cyber policy and strategy planner did the approach in the prison and the paper and ac ceptance by the insurance done. Objective - Vital Signs Vital signs: Vital Signs Temp 98.1 F 08/02/21 08:00 Pulse 76 08/02/21 08:00 Resp 16 08/02/21 08:00 BP 108/66 08/02/21 08:00 Pulse Ox 90 L 08/02/21 08:00 Intake & Output 08/01/21 08/02/21 08/02/21 18:59 06:59 18:59 Output Total 400 400 Balance -400 -400 Weight 47.627 kg Output: Urine 400 400 Other: Voiding Method Indwelling Catheter Indwelling Catheter Indwelling Catheter # Bowel Movements 0 - Labs CBC & Chem 7: 08/01/21 06:27 07/31/21 06:40 Labs: Abnormal Lab Results - Last 24 Hours (Table) 08/01/21 08/01/21 08/02/21 Range/Units 12:15 16:27 05:32 POC Glucose (mg/dL) 130 H 125 H (75-99) mg/dL Lipase 103 H (14-63) U/L 08/02/21 Range/Units 11:26 POC Glucose (mg/dL) 113 H (75-99) mg/dL Lipase (14-63) U/L
--- NOTE | 2021-08-02 12:27 | CDI ---
Documentation Clarification Form Date: 08/02/2021 12:00:50 PM From: Joie Dominguez RN CCDS Admit Date: 07/31/2021 08:43:00 AM Patient Name: Elizabeth Correa Visit Number: [id number] Discharge Date: ATTENTION: The Clinical Documentation Specialists (CDI) and [facility] Coding Staff appreciate your assistance in clarifying documentation. Please respond to the clarification below the line at the bottom and electronically sign. The CDI & [facility] Coding staff will review the response and follow-up if needed. Please note: Queries are made part of the Legal Health Record. If you have any questions, please contact the author of this message via ITS. Dr. Darwin Jaquez The Registered Dietitian documented that the patient is underweight. Based on this information and the findings below, is there an additional diagnosis that is clinically appropriate for this patient? History/Risk Factors: 86-year-old female presents to the ED with generalized weakness and unable to do ADLs. Medical history: Oral CA removed, and COPD. Admitted with Failure to thrive. Clinical Indicators: Nutritional Consult Assessment: 08/01 Current BMI: 20.5 Nutrition: Intake, fair. Percent consumed, 25 50%. Concerns, difficulty chewing/ no bottom teeth. Related Medications: Antiemetic, Multivitamin, PPI, Synthroid and Statin. Labs Na 128, K 4.1 cr 0.50. Weight: 47.627 kg [place] body weight: 45.5 kg Physical finding: Underweight. Medicine Progress Note 08/01 she had upper plate was difficult to eat solid food and an antiemetic with loss of muscle mass. Treatment: Dietary Consult: see above Supplements: Ensure compact TID Kcal /Serving 220, Protein serving 9 Is there an additional diagnosis that is clinically appropriate for this patient? [ ] Mild Protein-Calorie Malnutrition [ x ] Moderate Protein-Calorie Malnutrition [ ] Severe Protein-Calorie Malnutrition [ ] Other condition, please specify [ ] Unable to Determine (Template Last Revised: November 2020) MTDD
[2021-08-02 16:39] LABS: Glucose,Whole Blood 148 mg/dL (75-99)
[2021-08-02] MEDS: amLODIPine 5 MG TAB PO SCH (22:47)
[2021-08-02] MEDS: LATANOPROST 0.005% OPHTH DROPS 2.5 ML BTL BOTH EYES SCH (22:52)
[2021-08-02 22:55] LABS: Glucose,Whole Blood 137 mg/dL (75-99)
[2021-08-03] MEDS: LEVOTHYROXINE 100 MCG TAB PO SCH (05:33)
[2021-08-03 07:30] LABS: Glucose,Whole Blood 119 mg/dL (75-99)
--- NOTE | 2021-08-03 07:56 | P.PN ---
Progress Note - Text Progress Note Date: 08/03/21 Pt s/e. No issues. Exam is stable no pain in hip. Would continue with conservative measures. No orthopedic intervention at this time.
[2021-08-03] MEDS: traMADol 50 MG TAB PO SCH ×4 (08:08→21:23)
[2021-08-03] MEDS: ATORVASTATIN 10 MG TAB PO SCH (08:08)
[2021-08-03] MEDS: MULTIVITAMINS, THERA 1 EACH TAB PO SCH (08:08)
[2021-08-03] MEDS: METOPROLOL TARTRATE 25 MG TAB PO SCH ×2 (08:08→21:23)
[2021-08-03] MEDS: hydrALAZINE HCL 25 MG TAB PO SCH ×2 (08:08→21:23)
[2021-08-03] MEDS: PANTOPRAZOLE 40 MG TABLET PO SCH (08:09)
[2021-08-03] MEDS: VIT A,C & E-LUTEIN-MINERALS 1 EACH TAB PO SCH ×2 (08:09→21:22)
[2021-08-03] MEDS: TIMOLOL 0.5% OPHTH DROPS 5 ML BTL BOTH EYES SCH (08:09)
[2021-08-03] MEDS: HEPARIN SODIUM,PORCINE/PF 5,000 UNIT/0.5 ML SYRINGE SQ SCH ×2 (08:09→21:22)
[2021-08-03] MEDS: ESCITALOPRAM 10 MG TAB PO SCH (08:09)
[2021-08-03] MEDS ORDERED: IPRATROPIUM-ALBUTEROL 3 ML NEB INHALATION PRN (08:45)
[2021-08-03 09:46] LABS: % Iron Saturation 8.39 (12.00-45.00); African American GFR (CKD) 100.2 (60.0-200.0); BUN/Creat Ratio 14.8 Ratio (12.00-20.00); Blood Urea Nitrogen 7.4 mg/dL (9.0-27.0); Non-African American GFR(CKD) 86.4 (60.0-200.0); Potassium 3.9 mmol/L (3.5-5.5)
[2021-08-03 10:31] LABS: African American GFR (CKD) >90 (>60 ml/min/1.73 sqM); Anion Gap 7 mmol/L; Blood Urea Nitrogen 6 mg/dL (7-17); Calcium 8.7 mg/dL (8.4-10.2); Carbon Dioxide 30 mmol/L (22-30); Chloride 90 mmol/L (98-107); Glucose 150 mg/dL (74-99); Non-African American GFR(CKD) >90 (>60 ml/min/1.73 sqM); Potassium 3.6 mmol/L (3.5-5.1); Sodium 127 mmol/L (137-145)
[2021-08-03 11:43] LABS: Glucose,Whole Blood 157 mg/dL (75-99)
--- NOTE | 2021-08-03 13:05 | P.PN ---
Subjective Progress Note Date: 08/03/21 Progress note, date of service 08/03/2021. Dictation by Dr. Chawla Patient seen and evaluated and discussed with her RN nurse Pratik. I order today stat BMP, found that her sodium 127 with hypo-natremia, I did request consultation with nephrology for evaluation and treatment. I did discuss with the RN obtaining her hearing aid from her bags and to be clean and to be used especially patient had still need to have with severe hearing deficit even with the hearing aid, but she feel more satisfied if her hearing aid in her ears to try to hear. I did request from occupational therapy, to place a pad and the pin right the question as the patient we had her glasses she still can read and can answer the question appropriately, she is conscious and alert but could not hear the spoken word. And I did not see any pad or help from the occupational therapy this morning on the trial of discussion with the patient. However I discussed that with the RN This patient seen today and evaluated The head was normocephalic and atraumatic, she could not eat solid food, she is able to communicate with her tongue and speak well with complete conscious if she understand that spoken word. Unequal pupil due to surgery of the right eye. Oropharynx denture upper only. Neck was supple no JVD no thyromegaly no lymphadenopathy trachea midline. Chest is clear to auscultation and percussion Heart regular sinus rhythm she had echocardiogram on her previous admission with the underlying pulmonary hypertension and the chest x-ray done on this admission. The abdomen was soft positive bowel sounds, on admission she had abdominal pain, she had retention of the urine. We did take the catheter out and doing trial of bladder scan every 6 hour to estimate if there is any urinary retention, which happened when she came to the ER and the place the [place] catheter with the urinary retention added to history that she had a neurogenic bladder in the past. Extremities: No edema and positive pulses and she is requesting a walker stable and we A. fib that to the rehabilitation and physical therapy to clarify the kind of walker the patient requesting to be able to balance her gait spatially with the right hip arthroplasty, patient seen by the orthopedic currently signed out. Patient on heparin subcu as she is in bed with the rehab. Assessment and plan: #1 hyponatremia persist despite of hydration since admission we'll plan to consult the nephrology for evaluation and treatment. #2 moderate protein calorie deficiency. #3 history of hypertension and hypertensive heart disease currently stable #4 echocardiogram done on 04/23 21 was indicating left ventricular systolic function is normal with ejection fraction 60-65%, mild tricuspid regurgitation, mild to moderate pulmonary hypertension, right ventricular systolic pressure measured 45.50 mmHg mild mitral annular calcification, mild tricuspid regurgitation mitral valve leaflet mildly thickened. Plan: #1 consultation with nephrology with the resistant and recurrent hypo-natremia unclear etiology. #2 future plan for admission to [facility] group home when the bed is available and cleared by nephrology after the treatment. #3 patient is total care, need rehabilitation, and need to be in the group home with the aging process and no ability to serve her ADLs. With the deficiency of special senses as her site of the vision deteriorating rapidly with macular degeneration, severe hearing deficit, inability to thrive, walking disability and inability to give herself showers or essential of life. Objective - Vital Signs Vital signs: Vital Signs Temp 98.2 F 08/03/21 07:52 Pulse 91 08/03/21 09:13 Resp 16 08/03/21 07:52 BP 134/68 08/03/21 07:52 Pulse Ox 90 L 08/03/21 09:10 Intake & Output 08/02/21 08/03/21 08/03/21 18:59 06:59 18:59 Intake Total 1400 Output Total 420 850 Balance 980 -850 Intake: Oral 1400 Output: Urine 420 850 Other: Voiding Method Indwelling Catheter Indwelling Catheter Toilet - Labs CBC & Chem 7: 08/01/21 06:27 08/03/21 09:34 Labs: Abnormal Lab Results - Last 24 Hours (Table) 08/01/21 08/02/21 08/02/21 Range/Units 06:27 16:38 22:53 Sodium 133 L (135-145) mmol/L Chloride (98-107) mmol/L Anion Gap 14.00 H (4.00-12.00) mmol/L BUN 7.4 L (9.0-27.0) mg/dL Creatinine 0.5 L (0.6-1.5) mg/dL Glucose (74-99) mg/dL POC Glucose (mg/dL) 148 H 137 H (75-99) mg/dL Iron 17 L (50-170) ug/dL TIBC 200 L (228-460) ug/dL % Saturation 8.39 L (12.00-45.00) Transferrin 143.0 L (204.0-354.0) mg/dL 08/03/21 08/03/21 08/03/21 Range/Units 07:28 09:34 11:42 Sodium 127 L (135-145) mmol/L Chloride 90 L (98-107) mmol/L Anion Gap (4.00-12.00) mmol/L BUN 6 L (9.0-27.0) mg/dL Creatinine 0.37 L (0.6-1.5) mg/dL Glucose 150 H (74-99) mg/dL POC Glucose (mg/dL) 119 H 157 H (75-99) mg/dL Iron (50-170) ug/dL TIBC (228-460) ug/dL % Saturation (12.00-45.00) Transferrin (204.0-354.0) mg/dL
[2021-08-03 16:56] LABS: Glucose,Whole Blood 132 mg/dL (75-99)
[2021-08-03 20:33] LABS: Glucose,Whole Blood 106 mg/dL (75-99)
[2021-08-03] MEDS: amLODIPine 5 MG TAB PO SCH (21:23)
[2021-08-03] MEDS: LATANOPROST 0.005% OPHTH DROPS 2.5 ML BTL BOTH EYES SCH (21:23)
[2021-08-04] MEDS: LEVOTHYROXINE 100 MCG TAB PO SCH (05:56)
[2021-08-04 07:15] LABS: Glucose,Whole Blood 119 mg/dL (75-99)
[2021-08-04] MEDS: HEPARIN SODIUM,PORCINE/PF 5,000 UNIT/0.5 ML SYRINGE SQ SCH ×2 (08:15→22:34)
[2021-08-04] MEDS: MULTIVITAMINS, THERA 1 EACH TAB PO SCH (08:16)
[2021-08-04] MEDS: ESCITALOPRAM 10 MG TAB PO SCH (08:16)
[2021-08-04] MEDS: METOPROLOL TARTRATE 25 MG TAB PO SCH ×2 (08:16→22:34)
[2021-08-04] MEDS: PANTOPRAZOLE 40 MG TABLET PO SCH (08:16)
[2021-08-04] MEDS: traMADol 50 MG TAB PO SCH ×4 (08:16→22:32)
[2021-08-04] MEDS: hydrALAZINE HCL 25 MG TAB PO SCH ×2 (08:16→22:31)
[2021-08-04] MEDS: VIT A,C & E-LUTEIN-MINERALS 1 EACH TAB PO SCH (08:16)
[2021-08-04] MEDS: ATORVASTATIN 10 MG TAB PO SCH (08:16)
[2021-08-04] MEDS: TIMOLOL 0.5% OPHTH DROPS 5 ML BTL BOTH EYES SCH (08:18)
--- NOTE | 2021-08-04 09:34 | P.NPCON ---
History of Present Illness - Reason for Consult hyponatremia - History of Present Illness Reason for consultation: Hyponatremia History of present illness: Patient is a 86-year-old female seen in renal consultation for hyponatremia. Patient's sodium level this admission has been in the range of 127-133. Patient presented to the hospital with generalized weakness. Patient is not a reliable historian and is very hard of hearing. No vomiting or diarrhea. Blood pressure stable. No fever or chills. Per the nurse her oral intake has been fair. Has been voiding. No hematuria. No history of kidney disease. GFR is at baseline. She is currently not on any IV fluids.no history of diabetes. No active malignancy. Not on any diuretics. Vital signs are stable. HEENT: Head exam is unremarkable. LUNGS: Breath sounds decreased. HEART: Rate and Rhythm are regular. ABDOMEN:, No distention. EXTREMITITES: No edema. Past Medical History Past Medical History: Cancer, Eye Disorder, GERD/Reflux, Hyperlipidemia, Hypertension, Myocardial Infarction (AR), Pneumonia, Skin Disorder, Thyroid Disorder Additional Past Medical History / Comment(s): Glaucoma and macular degeneration bilaterally, hypothyroid, heart murmur, oral cancer with removal, UTIs, bronchitis, Raynauld's syndrome, osteoporosis, psoriasis, hemorrhoids. Last Myocardial Infarction Date:: ? 1-1.5 yrs ago per pt History of Any Multi-Drug Resistant Organisms: None Reported Past Surgical History: Breast Surgery, Section, Cholecystectomy Additional Past Surgical History / Comment(s): Oral cancer removed, R breast lumpectomy-benign, colonoscopies, bilateral cataract removal with lens implants. Past Anesthesia/Blood Transfusion Reactions: No Reported Reaction Past Psychological History: No Psychological Hx Reported Additional Psychological History / Comment(s): Pt resides alone. She uses a walker occasionally. She no longer has a vehicle. She uses [employer] for transportation. She does light housework and has a furnace door tender every 2 weeks for the heavier cleaning. She manages her own medications. Smoking Status: Former smoker Past Alcohol Use History: Daily Additional Past Alcohol Use History / Comment(s): Pt smoked from [id number]. She used to drink 2-3 beers each evening but states she no longer drinks at all. Past Drug Use History: None Reported - Past Family History Father Family Medical History: Cancer, Myocardial Infarction (AR) Additional Family Medical History / Comment(s): Father at age 77yrs from a AR and lung cancer. Mother Family Medical History: No Reported History Additional Family Medical History / Comment(s): Mother at age 87yrs. She was healthy. Medications and Allergies Home Medications Medication Instructions Recorded Confirmed Type Timolol 0.5% Ophth Soln [Timoptic 1 drop BOTH EYES DAILY 08/17/17 07/31/21 History 0.5% Ophth Soln] amLODIPine [Norvasc] 10 mg PO HS 08/17/17 07/31/21 History Pantoprazole Sodium [Protonix] 40 mg PO DAILY 08/18/17 07/31/21 History Metoprolol Tartrate [Lopressor] 12.5 mg PO BID 12/06/17 07/31/21 History Latanoprost [Xalatan 0.005%] 1 drop BOTH EYES HS 01/08/19 07/31/21 History Atorvastatin Calcium [Lipitor] 10 mg PO DAILY 04/20/21 07/31/21 History Escitalopram [Lexapro] 10 mg PO DAILY 04/20/21 07/31/21 History hydrALAZINE HCL 25 mg PO BID 04/20/21 07/31/21 History Acetaminophen Tab [Tylenol] 650 mg PO Q6HR PRN tab 04/29/21 07/31/21 Rx Levothyroxine Sodium [Synthroid] 75 mcg PO DAILY 07/31/21 07/31/21 History Multivitamins, Thera [Multivitamin 1 tab PO DAILY 07/31/21 07/31/21 History (formulary)] Vitc/E/Zinc/Copper/Lutein/Zeax 1 tab PO BID 07/31/21 07/31/21 History [Icaps Areds2 Tablet] Allergies Allergy/AdvReac Type Severity Reaction Status Date / Time cetirizine [From Zyrtec] Allergy Unknown Verified 07/31/21 06:32 guaifenesin Allergy Unknown Verified 07/31/21 06:32 Latex, Natural Rubber Allergy BURNING Verified 07/31/21 06:32 SKIN levofloxacin [From Levaquin] Allergy Unknown Verified 07/31/21 06:32 pneumococcal vaccine Allergy Unknown Verified 07/31/21 06:32 Physical Exam Vitals: Vital Signs Temp Pulse Resp BP Pulse Ox 08/04/21 08:00 98.6 F 78 20 128/62 91 L 08/04/21 02:00 97.8 F 76 20 137/62 93 L 08/03/21 20:34 98.4 F 74 18 134/62 95 08/03/21 14:43 97.5 F L 69 18 119/65 91 L Intake and Output 08/03/21 08/04/21 08/04/21 22:59 06:59 14:59 Intake Total 450 Balance 450 Intake: Oral 450 Other: # Voids 1 4 Results - Lab Results Most recent lab results Calcium 8.7 mg/dL (8.4-10.2) 08/03/21 09:34 Magnesium 1.9 mg/dL (1.6-2.3) 07/31/21 06:40 08/01/21 06:27 08/03/21 09:34 Assessment and Plan Plan: Assessment: 1. Hyponatremia. Appears euvolemic. Urine osmolality 513. 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 Sodium level 127 yesterday. 2. Hypothyroidism maintained on Synthroid. Recent TSH was 11. 3. Benign hypertension. Stable. Plan: 1200 mL fluid restriction. Encouraged oral intake. Follow-up urine sodium. Follow-up morning labs. Thank you for the consultation. I will continue to follow the patient with you during her hospital stay.
[2021-08-04 11:27] LABS: Glucose,Whole Blood 116 mg/dL (75-99)
[2021-08-04 13:34] LABS: African American GFR (CKD) 104.3 (60.0-200.0); BUN/Creat Ratio 8.67 Ratio (12.00-20.00); Blood Urea Nitrogen 3.8 mg/dL (9.0-27.0); Calcium 9.1 mg/dL (8.7-10.3); Carbon Dioxide 30.4 mmol/L (21.6-31.8); Chloride 88 mmol/L (96-109); Glucose 103 mg/dL (70-110); Magnesium 1.7 mg/dL (1.5-2.4); Potassium 3.8 mmol/L (3.5-5.5); Sodium 131 mmol/L (135-145)
[2021-08-04 16:40] LABS: Glucose,Whole Blood 147 mg/dL (75-99)
--- NOTE | 2021-08-04 17:21 | PN ---
PROGRESS NOTE DATE OF SERVICE: 08/04/2021 The patient is seen today, evaluated and discussed with her nurse. The patient was also seen by Dr. aJmes, the deputy harbormaster, because of hyponatremia. The patient was admitted to the hospital with hyponatremia and dehydration. After hydration, her serum sodium level was 133. At that time we discontinued the IV and subsequently her sodium dropped again to 127. The patient is an 86-year-old elderly female with multiple medical problems. She is very hard of hearing, even with a hearing aid. She has denied any nausea, vomiting or diarrhea. She was dehydrated. Her hemoglobin dropped 2.6 grams with hydration. The patient otherwise has no complaint except for inability to serve herself, to do her ADLs, to ambulate. She had history of right hip fracture and underwent surgery by the [facility]. She has no history of diabetes. Her oral intake was fair in spite of having upper denture plate; no denture lower. She had previous surgery on her jaw due to cancer removal. As her sodium dropped, we consulted Dr. James, and he addressed the issue with his impression hyponatremia, volemic with urine 513. He stated that the Lexapro for patient's underlying depression can cause the hyponatremia. Unfortunately today she already had the pill this morning. We discontinued the Lexapro starting today; no pill tomorrow. He considered SIADH and he put her on 1200 mL fluid restriction. In regard to hypothyroidism, she was on 75 mcg of levothyroxine. When the level of TSH came back high at 11, we increased her levothyroxine to 100 mcg per day, which was taken care of. Her blood pressure was stable as well. Dr. James did order labs as well in the morning and urine sodium in the morning and increased oral intake. I did stop the Lexapro, and in the future we will be using different medication that does not affect her sodium, if possible. PHYSICAL EXAMINATION: She was conscious, alert, oriented. She has difficulty hearing. I spoke with her nurse today and I requested again to have a note and a pen or pencil so that anybody asking questions could write them down and then she can answer them. Although she had macular degeneration and severe vision abnormalities, she still can read the written word and can answer freely. She is conscious. She is alert. She has no evidence of dementia. On the examination, her head was normocephalic, atraumatic, She had right eye pupil abnormalities from previous surgery for cataract. Her left eye pupil is normally reactive. The oropharynx, as mentioned, reveals an upper plate and no lower dentures. She had no lymph node in the neck. No lumps, no masses. Trachea midline. The chest had kyphoscoliosis with the history of underlying COPD and she is an ex-smoker. We gave her inhalation therapy with nebulizer DuoNeb and did clear her wheezing and rhonchi. The chest x-ray on admission was negative. The heart: She has regular sinus rhythm and she had mild pulmonary hypertension. Otherwise, her ejection fraction is normal. She had an echocardiogram on her previous admission when she fractured her right hip. The extremities have no edema and positive pulses. She is on rehabilitation to give her some help with ambulation as well. The patient has no sons or daughter in town and she will be in a assisted, [facility]. However, we are waiting for reasonable adjustment of the sodium and then subsequently she will be continued to be monitored in the assisted for the sodium. She is currently on 1200 mL restriction. Meanwhile, we discontinued the Lexapro as well. Subsequently will be checking her sodium and further addressing it in the assisted once we have stabilization of the sodium. Laboratory and vital signs are on the computer. She is stable currently. MMODL / IJN: [id number] /
[2021-08-04 21:44] LABS: Glucose,Whole Blood 88 mg/dL (75-99)
[2021-08-04] MEDS: amLODIPine 5 MG TAB PO SCH (22:34)
[2021-08-04] MEDS: LATANOPROST 0.005% OPHTH DROPS 2.5 ML BTL BOTH EYES SCH (22:34)
[2021-08-05] MEDS: VIT A,C & E-LUTEIN-MINERALS 1 EACH TAB PO SCH ×2 (00:40→07:49)
[2021-08-05] MEDS: LEVOTHYROXINE 100 MCG TAB PO SCH (07:10)
[2021-08-05 07:39] LABS: Glucose,Whole Blood 110 mg/dL (75-99)
[2021-08-05] MEDS: hydrALAZINE HCL 25 MG TAB PO SCH (07:49)
[2021-08-05] MEDS: MULTIVITAMINS, THERA 1 EACH TAB PO SCH (07:49)
[2021-08-05] MEDS: HEPARIN SODIUM,PORCINE/PF 5,000 UNIT/0.5 ML SYRINGE SQ SCH (07:49)
[2021-08-05] MEDS: ATORVASTATIN 10 MG TAB PO SCH (07:49)
[2021-08-05] MEDS: PANTOPRAZOLE 40 MG TABLET PO SCH (07:49)
[2021-08-05] MEDS: METOPROLOL TARTRATE 25 MG TAB PO SCH (07:49)
[2021-08-05] MEDS: traMADol 50 MG TAB PO SCH ×2 (07:50→13:59)
[2021-08-05] MEDS: TIMOLOL 0.5% OPHTH DROPS 5 ML BTL BOTH EYES SCH (07:51)
[2021-08-05 08:18] VITALS: RESP 18
--- NOTE | 2021-08-05 09:50 | P.PN ---
Subjective Patient is seen in follow-up for hyponatremia. Sodium level 131 yesterday. Oral intake fair. No chest pain or shortness of breath. Patient is very hard of hearing. Vital signs are stable. General: The patient appeared well nourished and normally developed. HEENT: Head exam is unremarkable. LUNGS: Breath sounds decreased. HEART: Rate and Rhythm are regular. ABDOMEN: Soft, no distention. EXTREMITITES: No edema. Objective - Vital Signs Vital signs: Vital Signs Temp 97.8 F 08/05/21 08:00 Pulse 81 08/05/21 08:00 Resp 18 08/05/21 08:00 BP 133/57 08/05/21 08:00 Pulse Ox 91 L 08/05/21 08:00 Intake & Output 08/04/21 08/05/21 08/05/21 18:59 06:59 18:59 Output Total 600 Balance -600 Weight 47.627 kg Output: Urine 600 Other: Voiding Method Toilet Bedside Commode Bedpan External Catheter # Voids 2 - Labs CBC & Chem 7: 08/01/21 06:27 08/04/21 05:45 Labs: Abnormal Lab Results - Last 24 Hours (Table) 08/04/21 08/04/21 08/04/21 Range/Units 05:45 11:19 16:35 Sodium 131 L (135-145) mmol/L Chloride 88 L (96-109) mmol/L Anion Gap 12.50 H (4.00-12.00) mmol/L BUN 3.8 L (9.0-27.0) mg/dL Creatinine 0.4 L (0.6-1.5) mg/dL BUN/Creatinine Ratio 8.67 L (12.00-20.00) Ratio POC Glucose (mg/dL) 116 H 147 H (75-99) mg/dL TSH 13.000 H (0.350-5.500) uIU/mL 08/05/21 Range/Units 07:14 Sodium (135-145) mmol/L Chloride (96-109) mmol/L Anion Gap (4.00-12.00) mmol/L BUN (9.0-27.0) mg/dL Creatinine (0.6-1.5) mg/dL BUN/Creatinine Ratio (12.00-20.00) Ratio POC Glucose (mg/dL) 110 H (75-99) mg/dL TSH (0.350-5.500) uIU/mL Assessment and Plan Plan: Assessment: 1. Hyponatremia. Appears euvolemic. Urine osmolality 513. Urine sodium 67. She was on Lexapro which can induce SIADH - now discontinued. Sodium level 131 yesterday. 2. Hypothyroidism maintained on Synthroid. Recent TSH was 11. 3. Benign hypertension. Stable. Plan: 1200 mL fluid restriction. Encouraged oral intake. Plan to go to rehab today. Repeat BMP and magnesium level 2-3 days postdischarge. Follow up outpatient in 1 week.
[2021-08-05] MEDS ORDERED: SODIUM FERRIC GLUCONAT-SUCROSE 125 MG in SODIUM CHLORIDE 0.9% 100 ML IVPB ONE (10:01)
[2021-08-05 11:14] LABS: African American GFR (CKD) 102.3 (60.0-200.0); Anion Gap 11.2 mmol/L (4.00-12.00); BUN/Creat Ratio 7.36 Ratio (12.00-20.00); Blood Urea Nitrogen 3.5 mg/dL (9.0-27.0); Calcium 9.4 mg/dL (8.7-10.3); Carbon Dioxide 33.3 mmol/L (21.6-31.8); Magnesium 1.8 mg/dL (1.5-2.4); Non-African American GFR(CKD) 88.3 (60.0-200.0); Potassium 3.7 mmol/L (3.5-5.5)
[2021-08-05 11:23] LABS: Glucose,Whole Blood 141 mg/dL (75-99)
--- NOTE | 2021-08-05 13:07 | P.DS ---
Providers Date of admission: 07/31/21 08:43 Expected date of discharge: 08/05/21 Attending physician: Darwin Jaquez Consults: 08/01/21 12:43 Consult Physician Urgent Consulting Provider: Henrique Garibay Consult Reason/Comments: Right hip nonhealing, nonunion fracture Do you want consulting provider notified?: Yes 08/01/21 13:44 Consult Physician Routine Consulting Provider: Henrique Garibay Consult Reason/Comments: nonhealing right hip sx Do you want consulting provider notified?: Yes 08/03/21 11:00 Consult Physician Urgent Consulting Provider: Vishal James Consult Reason/Comments: Hyponatremia Do you want consulting provider notified?: Yes Primary care physician: Darwin Jaquez Discharge summary Date of service 08/05/[address] Jaquez. 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 #6 need for further rehabilitation for ambulation and occupational therapy. #7 hypothyroidism medication adjusted future check in 6 weeks TSH and free T4. #8 history of surgery on the Zohaib with the otopharyngeal cancer removed and inability to chew and eat solid food. #9 right hip fracture with status post surgery by Dr. Suly rey [facility]opedic [facility] #10 need for communication pencil and paper to write the question and she will be answering. #11 she is on 1200 mL fluid restriction for the SIADH and she is euvolemic currently and the sodium is improved to 133. ER presentation: Admitted through the emergency room with hyponatremia, dehydration, generalized weakness, unable to thrive at home with the need for more than 2% to take care of her as well. Hospital course: Patient underwent hydration gently and subsequently consultation with the orthopedic surgeon and they cleared her up with no farther treatment except rehabilitation. The IV stopped after the hydration and subsequently her sodium become low again and become hypo-natremia make and consultation with the nephrology Dr. James was requested who indicated that Lexapro for the depression can cause SIADH and we discontinued the medication. Also patient was on 1200 mL fluid restriction. Currently her pain was controlled with no medication needed for pain Patient initially in the ER she had urine retention and with a history of ne urogenic bladder they placed a Taveras catheter, subsequently on the floor able to remove the Taveras catheter for trial with the bladder scan and she is able to sustain without having catheter replaced again or inserted and she did well. For her decrease in nutrition we obtained consultation with the claim representative in the hospital and dietitian and able to give her the feeding needed. And the need that to be communicated with the [facility]. Patient is conscious alert Physical exam on discharge: #1 vital signs stable and afebrile #2 head was normocephalic and atraumatic she has right pupil surgery with abnormalities however left pupil is normal Oropharynx she had previous surgery and she had an upper plate denture no dentures in the lower jaw she had severe hearing neurosensory deficit as well as vision abnormality with macular degeneration. Neck was supple no JVD no thyromegaly no lymphadenopathy trachea midline Chest was clear to auscultation percussion and he had kyphoscoliosis as well as history of COPD and need to occasionally nebulizer, though nap updraft 4 times a day when necessary. Heart was regular sinus rhythm and she had previous echo in her admission for the hip fracture with the mild pulmonary hypertension and mild valvular disease with normal ejection fraction. Abdomen soft positive bowel sounds and no tenderness in the 4 quadrants and no Taveras catheter. Extremities no edema and positive pulses. Assessment stable general condition for transfer and discharged to [facility] for continue rehabilitation and care with the patient unable to do her ADLs and needs 2 person for care. Reviewed that her medication and she will be continued the medication in the hospital no pain medicine needed I will follow the patient at [facility] Patient Condition at Discharge: Fair Plan - Discharge Summary New Discharge Prescriptions: New Ipratropium-Albuterol Nebulize [Duoneb 0.5 mg-3 mg/3 ml Soln] 3 ml INHALATION RT-QID PRN ml PRN Reason: Shortness Of Breath Or Wheezing Levothyroxine Sodium [Synthroid] 100 mcg PO DAILY@0630 tab Continue amLODIPine [Norvasc] 10 mg PO HS Timolol 0.5% Ophth Soln [Timoptic 0.5% Ophth Soln] 1 drop BOTH EYES DAILY Pantoprazole Sodium [Protonix] 40 mg PO DAILY Metoprolol Tartrate [Lopressor] 12.5 mg PO BID Latanoprost [Xalatan 0.005%] 1 drop BOTH EYES HS hydrALAZINE HCL 25 mg PO BID Acetaminophen Tab [Tylenol] 650 mg PO Q6HR PRN tab PRN Reason: Mild Pain Or Fever > 100.5 Vitc/E/Zinc/Copper/Lutein/Zeax [Icaps Areds2 Tablet] 1 tab PO BID Atorvastatin Calcium [Lipitor] 10 mg PO DAILY Multivitamins, Thera [Multivitamin (formulary)] 1 tab PO DAILY Discontinued Escitalopram [Lexapro] 10 mg PO DAILY Levothyroxine Sodium [Synthroid] 75 mcg PO DAILY Discharge Medication List Timolol 0.5% Ophth Soln [Timoptic 0.5% Ophth Soln] 1 drop BOTH EYES DAILY 08/17/17 [History] amLODIPine [Norvasc] 10 mg PO HS 08/17/17 [History] Pantoprazole Sodium [Protonix] 40 mg PO DAILY 08/18/17 [History] Metoprolol Tartrate [Lopressor] 12.5 mg PO BID 12/06/17 [History] Latanoprost [Xalatan 0.005%] 1 drop BOTH EYES HS 01/08/19 [History] Atorvastatin Calcium [Lipitor] 10 mg PO DAILY 04/20/21 [History] hydrALAZINE HCL 25 mg PO BID 04/20/21 [History] Acetaminophen Tab [Tylenol] 650 mg PO Q6HR PRN tab 04/29/21 [Rx] Multivitamins, Thera [Multivitamin (formulary)] 1 tab PO DAILY 07/31/21 [History ] Vitc/E/Zinc/Copper/Lutein/Zeax [Icaps Areds2 Tablet] 1 tab PO BID 07/31/21 [History] Ipratropium-Albuterol Nebulize [Duoneb 0.5 mg-3 mg/3 ml Soln] 3 ml INHALATION RT-QID PRN ml 08/05/21 [Rx] Levothyroxine Sodium [Synthroid] 100 mcg PO DAILY@0630 tab 08/05/21 [Rx] Follow up Appointment(s)/Referral(s): Henrique Garibay DO [Doctor of Osteopathic Medicine] - 6 Weeks Darwin Jaquez MD [Primary Care Provider] - 1-2 days
[2021-08-05 14:41] VITALS: BP 122/69; PULSE 71; TEMP 97.5
== END 2021-08-05 15:50 | DRG 644 ==
LOC: EC 06:16 → 4SSUR 08:43
PROVIDERS: ADMIT Internal Medicine; ATTEND Internal Medicine
DX: E22.2 Syndrome of inappropriate secretion of antidiuretic hormone (principal); E44.0 Moderate protein-calorie malnutrition; S72.001K Fracture of unspecified part of neck of right femur, subsequent encounter for closed fracture with nonunion; E86.0 Dehydration; R62.7 Adult failure to thrive; D64.9 Anemia, unspecified; E03.9 Hypothyroidism, unspecified; E78.5 Hyperlipidemia, unspecified; F32.9 Major depressive disorder, single episode, unspecified; H35.30 Unspecified macular degeneration; H90.5 Unspecified sensorineural hearing loss; I48.91 Unspecified atrial fibrillation; I27.20 Pulmonary hypertension, unspecified; I35.8 Other nonrheumatic aortic valve disorders; J44.9 Chronic obstructive pulmonary disease, unspecified; I25.2 Old myocardial infarction; I11.9 Hypertensive heart disease without heart failure; M19.90 Unspecified osteoarthritis, unspecified site; M41.9 Scoliosis, unspecified; M81.0 Age-related osteoporosis without current pathological fracture; N31.9 Neuromuscular dysfunction of bladder, unspecified; R09.02 Hypoxemia; Z20.822 Contact with and (suspected) exposure to COVID-19; Z79.890 Hormone replacement therapy; Z79.899 Other long term (current) drug therapy; Z80.1 Family history of malignant neoplasm of trachea, bronchus and lung; Z82.49 Family history of ischemic heart disease and other diseases of the circulatory system; Z87.01 Personal history of pneumonia (recurrent); Z85.819 Personal history of malignant neoplasm of unspecified site of lip, oral cavity, and pharynx; Z87.81 Personal history of (healed) traumatic fracture; Z87.891 Personal history of nicotine dependence; Z96.1 Presence of intraocular lens; Z96.641 Presence of right artificial hip joint; Z98.41 Cataract extraction status, right eye; Z98.42 Cataract extraction status, left eye; T43.225A Adverse effect of selective serotonin reuptake inhibitors, initial encounter; Z88.8 Allergy status to other drugs, medicaments and biological substances; Z88.1 Allergy status to other antibiotic agents; Z91.040 Latex allergy status; Z68.20 Body mass index [BMI] 20.0-20.9, adult
CPT/HCPCS: 36415; 71046; 73502; 74021; 80048; 80053; 81003; 82728; 83540; 83550; 83605; 83690; 83735; 83930; 83935; 84300; 84439; 84443; 84484; 85025; 85610; 85730; 87635; 93005; 96360; 96361; 99285

== ENCOUNTER 2022-02-08 03:23 | Emergency (ER) | payer MEDICARE, BC, OTHER ==
[2022-02-08 03:37] VITALS: RESP 18; TEMP 98
[2022-02-08 04:01] LABS: Basophils # (A) 0.1 k/uL (0-0.2); Basophils % (A) 1 %; Eosinophils # (A) 0.2 k/uL (0-0.7); Eosinophils % (A) 2 %; HCT 43.2 % (34.0-46.0); HGB 13.6 gm/dL (11.4-16.0); Lymphocytes # (A) 0.9 k/uL (1.0-4.8); Lymphocytes % (A) 9 %; MCH 29.7 pg (25.0-35.0); MCHC 31.6 g/dL (31.0-37.0); MCV 94.2 fL (80.0-100.0); Mean Platelet Volume 7.4; Monocytes # (A) 0.6 k/uL (0-1.0); Monocytes % (A) 6 %; Neutrophils # (A) 8.1 k/uL (1.3-7.7); Neutrophils % (A) 82 %; Platelet Count 192 k/uL (150-450); RBC 4.58 m/uL (3.80-5.40); RDW 12.9 % (11.5-15.5)
[2022-02-08 04:11] LABS: Partial Thromboplastin Time 25.8 sec (22.0-30.0); Prothrombin Time 10.6 sec (9.0-12.0)
[2022-02-08 04:12] LABS: ALT 42 U/L (4-34); AST 101 U/L (14-36); African American GFR (CKD) >90 (>60 ml/min/1.73 sqM); Alkaline Phosphatase 218 U/L (38-126); Anion Gap 6 mmol/L; Blood Urea Nitrogen 12 mg/dL (7-17); Calcium 9.1 mg/dL (8.4-10.2); Carbon Dioxide 31 mmol/L (22-30); Chloride 100 mmol/L (98-107); Glucose 153 mg/dL (74-99); Magnesium 1.6 mg/dL (1.6-2.3); Non-African American GFR(CKD) 81 (>60 ml/min/1.73 sqM); Potassium 3.5 mmol/L (3.5-5.1); Sodium 137 mmol/L (137-145); Total Bilirubin 0.9 mg/dL (0.2-1.3); Total Protein 7.6 g/dL (6.3-8.2)
--- NOTE | 2022-02-08 04:16 | XR ---
EXAMINATION TYPE: XR chest 2V DATE OF EXAM: 02/08/2022 COMPARISON: 07/31/2021 HISTORY: Chest pain TECHNIQUE: FINDINGS: Heart is normal. Lungs are clear of infiltrate. There is no heart failure. There are no hil ar masses. There are chest leads. Bony thorax is intact. IMPRESSION: No active cardiopulmonary disease. Normal heart. No change.
--- NOTE | 2022-02-08 04:38 | ED ---
Chest Pain HPI - General Chief Complaint: Chest Pain Stated Complaint: Chest Pain Time Seen by Provider: 02/08/22 04:31 Source: patient, EMS Mode of arrival: EMS - History of Present Illness Initial Comments: This patient is an 86-year-old woman [facility] evaluation of chest pain. It started proximally 5 hours ago. She states that it had lasted up until a little after she arrived here. The pain has now resolved. She has difficult time characterizing it. She states she also felt like she was warm all over. MD Complaint: chest pain Onset/Timin -: hour(s) Onset: during rest Pain Location: left chest Pain Radiation: none Quality: aching Consistency: now resolved Improves With: nothing Treatments Prior to Arrival: none - Related Data Home Medications Medication Instructions Recorded Confirmed Timolol 0.5% Ophth Soln [Timoptic 1 drop BOTH EYES DAILY 08/17/17 07/31/21 0.5% Ophth Soln] amLODIPine [Norvasc] 10 mg PO HS 08/17/17 07/31/21 Pantoprazole Sodium [Protonix] 40 mg PO DAILY 08/18/17 07/31/21 Metoprolol Tartrate [Lopressor] 12.5 mg PO BID 12/06/17 07/31/21 Latanoprost [Xalatan 0.005%] 1 drop BOTH EYES HS 01/08/19 07/31/21 Atorvastatin Calcium [Lipitor] 10 mg PO DAILY 04/20/21 07/31/21 hydrALAZINE HCL 25 mg PO BID 04/20/21 07/31/21 Multivitamins, Thera [Multivitamin 1 tab PO DAILY 07/31/21 07/31/21 (formulary)] Vitc/E/Zinc/Copper/Lutein/Zeax 1 tab PO BID 07/31/21 07/31/21 [Icaps Areds2 Tablet] Previous Rx's Medication Instructions Recorded Acetaminophen Tab [Tylenol] 650 mg PO Q6HR PRN tab 04/29/21 Ipratropium-Albuterol Nebulize 3 ml INHALATION RT-QID PRN ml 08/05/21 [Duoneb 0.5 mg-3 mg/3 ml Soln] Levothyroxine Sodium [Synthroid] 100 mcg PO DAILY@0630 tab 08/05/21 Allergies Allergy/AdvReac Type Severity Reaction Status Date / Time cetirizine [From Zyrtec] Allergy Unknown Verified 02/08/22 03:37 guaifenesin Allergy Unknown Verified 02/08/22 03:37 Latex, Natural Rubber Allergy BURNING Verified 02/08/22 03:37 SKIN levofloxacin [From Levaquin] Allergy Unknown Verified 02/08/22 03:37 pneumococcal vaccine Allergy Unknown Verified 02/08/22 03:37 Review of Systems ROS Statement: Those systems with pertinent positive or pertinent negative responses have been documented in the HPI. ROS Other: All systems not noted in ROS Statement are negative. Constitutional: Denies: fever, chills Respiratory: Denies: cough, dyspnea Cardiovascular: Reports: chest pain. Denies: palpitations, edema, syncope Gastrointestinal: Denies: abdominal pain, nausea, vomiting Genitourinary: Denies: dysuria Musculoskeletal: Denies: back pain Skin: Denies: rash Neurological: Denies: headache, weakness EKG Findings - EKG Results: EKG: interpreted by ERMBam, sinus rhythm (Rate 73 bpm) - Blocks, [place], Hypertrophy, ST Abn: AV and intraventricular conduction: intraventricular conduction delay Past Medical History Past Medical History: Cancer, Eye Disorder, GERD/Reflux, Hyperlipidemia, Hypertension, Myocardial Infarction (ND), Pneumonia, Skin Disorder, Thyroid Disorder Additional Past Medical History / Comment(s): Glaucoma and macular degeneration bilaterally, hypothyroid, heart murmur, oral cancer with removal, UTIs, bronchitis, Raynauld's syndrome, osteoporosis, psoriasis, hemorrhoids. Last Myocardial Infarction Date:: ? 1-1.5 yrs ago per pt History of Any Multi-Drug Resistant Organisms: None Reported Past Surgical History: Breast Surgery, Section, Cholecystectomy Additional Past Surgical History / Comment(s): Oral cancer removed, R breast lumpectomy-benign, colonoscopies, bilateral cataract removal with lens implants. Past Anesthesia/Blood Transfusion Reactions: No Reported Reaction Past Psychological History: No Psychological Hx Reported Smoking Status: Former smoker Past Alcohol Use History: Daily Past Drug Use History: None Reported - Past Family History Father Family Medical History: Cancer, Myocardial Infarction (ND) Additional Family Medical History / Comment(s): Father at age 77yrs from a ND and lung cancer. Mother Family Medical History: No Reported History Additional Family Medical History / Comment(s): Mother at age 87yrs. She was healthy. General Exam General appearance: alert, in no apparent distress Head exam: Present: atraumatic, normocephalic Eye exam: Present: normal appearance. Absent: scleral icterus, conjunctival injection Neck exam: Present: normal inspection, full ROM Respiratory exam: Present: normal lung sounds bilaterally. Absent: respiratory distress, wheezes, rales, rhonchi, stridor, chest wall tenderness Cardiovascular Exam: Present: regular rate, normal rhythm, normal heart sounds. Absent: systolic murmur, diastolic murmur, rubs, gallop GI/Abdominal exam: Present: soft. Absent: distended, tenderness, guarding, rebound, rigid, mass Extremities exam: Present: normal inspection, normal capillary refill. Absent: pedal edema, calf tenderness Back exam: Present: normal inspection Neurological exam: Present: alert Skin exam: Present: warm, dry, intact, normal color. Absent: rash Course Vital Signs 02/08/22 02/08/22 03:34 04:51 Temperature 98 F Pulse Rate 75 78 Respiratory 18 18 Rate Blood Pressure 127/65 116/61 O2 Sat by Pulse 96 99 Oximetry Disposition Clinical Impression: Chest pain Disposition: HOME SELF-CARE Condition: Good Instructions (If sedation given, give patient instructions): Chest Pain (ED) Is patient prescribed a controlled substance at d/c from ED?: No Referrals: Darwin Jaquez MD [Primary Care Provider] - 1-2 days
[2022-02-08 04:52] VITALS: PULSE 78
[2022-02-08 11:37] VITALS: BP 116/84
== END 2022-02-08 11:37 | disposition home or self-care (01) ==
LOC: EC 03:23
DX: Z88.1 Allergy status to other antibiotic agents (principal); E78.5 Hyperlipidemia, unspecified; I10 Essential (primary) hypertension; K21.9 Gastro-esophageal reflux disease without esophagitis; Z79.83 Long term (current) use of bisphosphonates; Z87.891 Personal history of nicotine dependence; Z88.7 Allergy status to serum and vaccine; Z88.8 Allergy status to other drugs, medicaments and biological substances; Z88.2 Allergy status to sulfonamides; Z91.040 Latex allergy status
CPT/HCPCS: 36415; 71046; 80053; 83735; 84484; 85025; 85610; 85730; 93005; 99285

== ENCOUNTER 2022-12-16 01:17 | Emergency (ER) | payer MEDICARE, BC, OTHER ==
[2022-12-16 01:27] VITALS: TEMP 97.7
[2022-12-16] MEDS ORDERED: ASPIRIN 81 MG PO STA (01:35)
[2022-12-16] MEDS ORDERED: SODIUM CHLORIDE 0.9% 500 ML 500 ML IV STA (01:35)
--- NOTE | 2022-12-16 02:07 | XR ---
EXAMINATION TYPE: XR chest 2V DATE OF EXAM: 12/16/2022 COMPARISON: 02/08/2022 HISTORY: Chest pain TECHNIQUE: 3 views FINDINGS: There is pulmonary hyperinflation with flattening of the diaphragm. There are no hilar mass es. Costophrenic angles are clear. Bony thorax is intact. Thoracic aorta is atheromatous. IMPRESSION: No active cardiopulmonary disease. Atheromatous aorta. No change. There is probably some COPD.
[2022-12-16 02:43] LABS: Basophils % (A) 0 %; Eosinophils # (A) 0.1 k/uL (0-0.7); Eosinophils % (A) 1 %; HCT 40.3 % (34.0-46.0); HGB 13.3 gm/dL (11.4-16.0); Lymphocytes # (A) 0.6 k/uL (1.0-4.8); Lymphocytes % (A) 7 %; MCH 29.6 pg (25.0-35.0); MCHC 33.1 g/dL (31.0-37.0); MCV 89.4 fL (80.0-100.0); Monocytes # (A) 0.5 k/uL (0-1.0); Monocytes % (A) 6 %; Neutrophils # (A) 6.9 k/uL (1.3-7.7); Neutrophils % (A) 83 %; Platelet Count 266 k/uL (150-450); RBC 4.51 m/uL (3.80-5.40); RDW 13.4 % (11.5-15.5); WBC 8.3 k/uL (3.8-10.6)
[2022-12-16 02:52] LABS: Appearance,Urine Clear (Clear); Bilirubin,Urine Negative (Negative); Blood,Urine Negative (Negative); Color,Urine Light Yellow; Glucose,Urine (UA) Negative (Negative); Ketones,Urine Negative (Negative); Leukocyte Esterase,Urine Negative (Negative); Nitrite,Urine Negative (Negative); Protein,Urine Negative (Negative); Urobilinogen,Urine <2.0 mg/dL (<2.0)
[2022-12-16 02:56] LABS: ALT 35 U/L (4-34); AST 66 U/L (14-36); African American GFR (CKD) >90 (>60 ml/min/1.73 sqM); Albumin 3.8 g/dL (3.5-5.0); Alkaline Phosphatase 284 U/L (38-126); Anion Gap 7 mmol/L; Blood Urea Nitrogen 15 mg/dL (7-17); Carbon Dioxide 28 mmol/L (22-30); Chloride 99 mmol/L (98-107); Glucose 136 mg/dL (74-99); Magnesium 1.8 mg/dL (1.6-2.3); Non-African American GFR(CKD) 82 (>60 ml/min/1.73 sqM); Sodium 134 mmol/L (137-145); Total Protein 7.5 g/dL (6.3-8.2)
[2022-12-16 02:58] LABS: Prothrombin Time 10.8 sec (9.0-12.0)
[2022-12-16 03:09] LABS: Lipase 1993 U/L (23-300)
--- NOTE | 2022-12-16 04:11 | CT ---
EXAMINATION TYPE: CT abdomen pelvis w con DATE OF EXAM: 12/16/2022 COMPARISON: 11/29/2012 HISTORY: Abdominal pain CT DLP: 582.9 mGycm Automated exposure control for dose reduction was used. CONTRAST: Performed with IV Contrast, patient injected with 100ml mL of Isovue 300. Images obtained from the diaphragm to the floor of the pelvis with IV contrast. The lung bases are clear of consolidation. No pleural effusion. Heart size is normal. No pericardial effusion. There is moderately dilated biliary tree. There are clips from cholecystectomy. The common bile duct measures 1.5 cm. Spleen is intact. No pancreatic mass. There is a 5 mm calculus in the comm on bile duct distally. There is no adrenal mass. Kidneys show satisfactory contrast opacification. No hydronephrosis. Delaye d images show normal renal excretion. There is no retroperitoneal adenopathy. Abdominal aorta is athe romatous. Appendix is posterior and appears normal. Bladder distends smoothly. There is right hip pro sthesis. There is small amount of low-density fluid in the pelvis. There are phleboliths in the pelvi s. There is no ascites or free air. No sign of a bowel obstruction. No mesenteric edema. Lumbar vertebra have normal alignment. There is minimal 15% wedging of L1 verteb ra that is likely old. Bony pelvis is intact. Sacroiliac joints are intact. IMPRESSION: There is dilated biliary tree and distal common duct stone could be obstructing the ampulla. Follow-u p recommended. Dilation is a change compared to old exam. Atherosclerotic vascular disease. Normal appendix. Mild colonic diverticulosis without diverticulitis .
[2022-12-16] MEDS ORDERED: SODIUM CHLORIDE 0.9% 1,000 ML IV STA (05:24)
--- NOTE | 2022-12-16 05:26 | ED ---
General Adult HPI - General Chief complaint: Chest Pain Stated complaint: chest pain Time Seen by Provider: 12/16/22 01:20 Source: patient, EMS, Caregiver Mode of arrival: EMS - History of Present Illness Initial comments: Patient is an 87-year-old female who presents to the department complaining of chest pain. Presents from her nursing facility. Chest pain occurred earlier this evening. Per EMS, the nursing staff at her halfway stated that the patient was hypotensive and hypoxic but in no distress. When they arrived, patient had normal blood pressure and normal oxygenation. They brought her here for further evaluation. Patient does endorse a cardiac history and prior "minor heart attack.". She is hard of hearing, and does have a power of attorney at law which is in her chart. She denies any nausea or vomiting. Has no acute complaints at this time. States the pain came on suddenly and then resolved. Is located on the inferior aspect of her sternum. No nausea or diaphoresis associated with it. No other acute complaints. Denies abdominal pain, nausea, vomiting, diarrhea currently. Denies any fevers or chills. No coughing. No other acute complaints at this time. Presents over concern for the chest pain. - Related Data Home Medications Medication Instructions Recorded Confirmed Timolol 0.5% Ophth Soln [Timoptic 1 drop BOTH EYES DAILY 08/17/17 07/31/21 0.5% Ophth Soln] amLODIPine [Norvasc] 10 mg PO HS 08/17/17 07/31/21 Pantoprazole Sodium [Protonix] 40 mg PO DAILY 08/18/17 07/31/21 Metoprolol Tartrate [Lopressor] 12.5 mg PO BID 12/06/17 07/31/21 Latanoprost [Xalatan 0.005%] 1 drop BOTH EYES HS 01/08/19 07/31/21 Atorvastatin Calcium [Lipitor] 10 mg PO DAILY 04/20/21 07/31/21 hydrALAZINE HCL 25 mg PO BID 04/20/21 07/31/21 Multivitamins, Thera [Multivitamin 1 tab PO DAILY 07/31/21 07/31/21 (formulary)] Vitc/E/Zinc/Copper/Lutein/Zeax 1 tab PO BID 07/31/21 07/31/21 [Icaps Areds2 Tablet] Previous Rx's Medication Instructions Recorded Acetaminophen Tab [Tylenol] 650 mg PO Q6HR PRN tab 04/29/21 Ipratropium-Albuterol Nebulize 3 ml INHALATION RT-QID PRN ml 08/05/21 [Duoneb 0.5 mg-3 mg/3 ml Soln] Levothyroxine Sodium [Synthroid] 100 mcg PO DAILY@0630 tab 08/05/21 Allergies Allergy/AdvReac Type Severity Reaction Status Date / Time cetirizine [From Zyrtec] Allergy Unknown Verified 12/16/22 01:27 guaifenesin Allergy Unknown Verified 12/16/22 01:27 Latex, Natural Rubber Allergy BURNING Verified 12/16/22 01:27 SKIN levofloxacin [From Levaquin] Allergy Unknown Verified 12/16/22 01:27 pneumococcal vaccine Allergy Unknown Verified 12/16/22 01:27 Review of Systems ROS Statement: Those systems with pertinent positive or pertinent negative responses have been documented in the HPI. Review of Systems: CONST: Denies fever EYES: Denies blurry vision ENT: Denies nasal congestion C/V: Denies Chest pain RESP: Denies shortness of breath GI: Denies abdominal pain : Denies dysuria SKIN: Denies rash. MSK: Denies joint pain. NEURO: Denies headache ROS Other: All systems not noted in ROS Statement are negative. Past Medical History Past Medical History: Cancer, Eye Disorder, GERD/Reflux, Hyperlipidemia, Hypertension, Myocardial Infarction ([place]), Pneumonia, Skin Disorder, Thyroid Disorder Additional Past Medical History / Comment(s): Glaucoma and macular degeneration bilaterally, hypothyroid, heart murmur, oral cancer with removal, UTIs, bronchitis, Raynauld's syndrome, osteoporosis, psoriasis, hemorrhoids. Last Myocardial Infarction Date:: ? 1-1.5 yrs ago per pt History of Any Multi-Drug Resistant Organisms: None Reported Past Surgical History: Breast Surgery, Section, Cholecystectomy Additional Past Surgical History / Comment(s): Oral cancer removed, R breast lumpectomy-benign, colonoscopies, bilateral cataract removal with lens implants. Past Anesthesia/Blood Transfusion Reactions: No Reported Reaction Past Psychological History: No Psychological Hx Reported Smoking Status: Former smoker Past Alcohol Use History: Daily Past Drug Use History: None Reported - Past Family History Father Family Medical History: Cancer, Myocardial Infarction ([place]) Additional Family Medical History / Comment(s): Father at age 77yrs from a [place] and lung cancer. Mother Family Medical History: No Reported History Additional Family Medical History / Comment(s): Mother at age 87yrs. She was healthy. General Exam - General Exam Comments Initial Comments: General: Appears in no acute distress. HEAD: Normal with no signs of head trauma. EYES: PERRLA, EOMI, conjunctiva normal, no discharge. ENT: Hearing grossly intact however she is hard of hearing, normal oropharynx. RESPIRATORY: Clear breath sounds bilaterally. No wheezes, rales, or rhonchi. C/V: Regular rate and rhythm. S1 and S2 auscultated, no edema, peripheral pulses 2+ and intact throughout ABD: Abd is soft, nontender, nondistended EXT: Normal range of motion, no obvious deformity SKIN: No rashes or lesions observed on exposed skin. NEURO: Alert and oriented 3. No focal deficits. Patient is hard of hearing. Course Vital Signs 12/16/22 12/16/22 12/16/22 01:18 04:34 04:40 Temperature 97.7 F Pulse Rate 79 93 93 Respiratory 16 27 H 25 H Rate Blood Pressure 127/72 O2 Sat by Pulse 99 94 L 94 L Oximetry 12/16/22 12/16/22 12/16/22 04:50 05:00 05:10 Temperature Pulse Rate 85 89 94 Respiratory 8 L 20 13 Rate Blood Pressure O2 Sat by Pulse 97 94 L 92 L Oximetry 12/16/22 12/16/22 12/16/22 05:20 05:30 05:40 Temperature Pulse Rate 87 85 82 Respiratory 23 17 12 Rate Blood Pressure 119/82 O2 Sat by Pulse 95 98 95 Oximetry 12/16/22 05:41 Temperature Pulse Rate Respiratory Rate Blood Pressure 119/82 O2 Sat by Pulse Oximetry Medical Decision Making - Medical Decision Making Was pt. sent in by a medical professional or institution (, PA, KENNEL OPERATOR, urgent care, hospital, or halfway...) When possible be specific @ -Sent in by her nursing facility. Did you speak to anyone other than the patient for history (EMS, parent, family, police, friend...)? What history was obtained from this source @ -Spoke with EMS who assisted in the history. Spoke with patient's power of attorney at law Meka who was in agreement the overall plan and provided some history for the patient. Did you review nursing and triage notes (agree or disagree)? Why? @ -I reviewed and agree with nursing and triage notes Were old charts reviewed (outside hosp., previous admission, EMS record, old EKG, old radiological studies, urgent care reports/EKG's, halfway records)? Report findings @ -Yes, reviewed old charts in EKGs from January 2022. Differential Diagnosis (chest pain, altered mental status, abdominal pain women, abdominal pain men, vaginal bleeding, weakness, fever, dyspnea, syncope, headache, dizziness, GI bleed, back pain, seizure, CVA, palpatations, mental health, musculoskeletal)? @ -Differential Chest Pain: Stable Angina, Unstable Angina, STEMI, NSTEMI Aortic Dissection, Pneumothorax, Musculoskeletal, Esophageal Spasm GERD, Cholecystitis, Pancreatitis, Zoster, this is not meant to be an all-inclusive list. EKG interpreted by me (3pts min.). @ -As above X-rays interpreted by me (1pt min.). @ -Chest x-ray revealed no obvious acute cardio pulmonary process. CT interpreted by me (1pt min.). @ -CT and pelvis revealed findings concerning for a dilated biliary tree, and possible obstruction despite having a cholecystectomy. CBD is dilated to 1.5 cm which is acute per radiology. U/S interpreted by me (1pt. min.). @ -None done What testing was considered but not performed or refused? (CT, X-rays, U/S, labs)? Why? @ -None What meds were considered but not given or refused? Why? @ -None Did you discuss the management of the patient with other professionals (professionals i.e. , PA, KENNEL OPERATOR, lab, RT, psych nurse, high school social studies tutor, or manager, teacher, founder and chief technical officer, leather case finisher)? Give summary @ -Discussed with transferring physician Dr. Gardner who accepted the patient. Was smoking cessation discussed for >3mins.? @ -No Was critical care preformed (if so, how long)? @ -Yes, 35 minutes Were there social determinants of health that impacted care today? How? (Homelessness, low income, unemployed, alcoholism, drug addiction, transportation, low edu. Level, literacy, decrease access to med. care, prison, rehab)? @ -No Was there de-escalation of care discussed even if they declined (Discuss DNR or withdrawal of care, Hospice)? DNR status @ -No What co-morbidities impacted this encounter? (DM, HTN, Smoking, COPD, CAD, Cancer, CVA, ARF, Chemo, Hep., AIDS, mental health diagnosis, sleep apnea, morbid obesity)? @ -None Was patient admitted / discharged? Hospital course, mention meds given and route, prescriptions, significant lab abnormalities, going to OR and other pertinent info. @ -Based on the patient's presentation and physical exam, we will obtain car to pulmonary labs to rule out cardiac cause for current symptoms. She is asymptomatic at this time. We also will obtain abdominal labs as her pain that she describes as somewhat located in the epigastric region. She was in agreement this plan. She'll be given a 1 L fluid bolus. Currently has no pain. She'll be given aspirin as well. Vital signs within acceptable limits. EKG showed no signs of acute ischemia. Laboratory studies are remarkable for an undetectable troponin. Patient has elevated AST, ALT, alk phos. Patient also has an elevated lipase of 1900. Urinalysis is within acceptable limits. Patient's LFTs and alk phos are, in the past somewhat elevated but the lipase is acutely elevated at this time. I did the patient therefore we will obtain CT abdomen and pelvis. She is still asymptomatic. CT returned and showed a dilated biliary tree and concern for a distal common duct stone. Dilation is new. CBD is 1.5 cm. Radiology does see a 5 mm calculus in the common bile duct distally. I discussed results of the patient as well as her power of attorney at law, Meka vázquez. Patient is DO NOT RESUSCITATE but they did recommend and were in agreement with transfer for evaluation by GI services. We do not have GI services available. Patient was in agreement this plan. I discussed with the transfer facility, [facility] and excepting physician is Dr. Gardner. Patient will be transferred in stable condition. Undiagnosed new problem with uncertain prognosis? @ -No Drug Therapy requiring intensive monitoring for toxicity (Heparin, Nitro, Insulin, Cardizem)? @ -No Were any procedures done? @ -No Diagnosis/symptom? @ -Acute pancreatitis, concern for choledocholithiasis/pancreatic duct obstruction Acute, or Chronic, or Acute on Chronic? @ -Acute Uncomplicated (without systemic symptoms) or Complicated (systemic symptoms)? @ -Complicated Side effects of treatment? @ -No Exacerbation, Progression, or Severe Exacerbation? @ -No Poses a threat to life or bodily function? How? (Chest pain, [place], [place], pneumonia, PE, COPD, DKA, ARF, appy, cholecystitis, CVA, Diverticulitis, Homicidal, Suicidal, threat to staff... and all critical care pts) @ -Potentially can result in significant morbidity and mortality - Lab Data Result diagrams: 12/16/22 02:20 12/16/22 02:20 Lab Results 12/16/22 12/16/22 12/16/22 Range/Units 02:09 02:20 02:20 WBC 8.3 (3.8-10.6) k/uL RBC 4.51 (3.80-5.40) m/uL Hgb 13.3 (11.4-16.0) gm/dL Hct 40.3 (34.0-46.0) % MCV 89.4 (80.0-100.0) fL MCH 29.6 (25.0-35.0) pg MCHC 33.1 (31.0-37.0) g/dL RDW 13.4 (11.5-15.5) % Plt Count 266 (150-450) k/uL MPV 8.0 Neutrophils % 83 % Lymphocytes % 7 % Monocytes % 6 % Eosinophils % 1 % Basophils % 0 % Neutrophils # 6.9 (1.3-7.7) k/uL Lymphocytes # 0.6 L (1.0-4.8) k/uL Monocytes # 0.5 (0-1.0) k/uL Eosinophils # 0.1 (0-0.7) k/uL Basophils # 0.0 (0-0.2) k/uL PT 10.8 (9.0-12.0) sec INR 1.0 (<1.2) APTT 23.0 (22.0-30.0) sec Sodium (137-145) mmol/L Potassium (3.5-5.1) mmol/L Chloride (98-107) mmol/L Carbon Dioxide (22-30) mmol/L Anion Gap mmol/L BUN (7-17) mg/dL Creatinine (0.52-1.04) mg/dL Est GFR (CKD-EPI)AfAm (>60 ml/min/1.73 sqM) Est GFR (CKD-EPI)NonAf (>60 ml/min/1.73 sqM) Glucose (74-99) mg/dL Calcium (8.4-10.2) mg/dL Magnesium (1.6-2.3) mg/dL Total Bilirubin (0.2-1.3) mg/dL AST (14-36) U/L ALT (4-34) U/L Alkaline Phosphatase (38-126) U/L Troponin I (0.000-0.034) ng/mL NT-Pro-B Natriuret Pep pg/mL Total Protein (6.3-8.2) g/dL Albumin (3.5-5.0) g/dL Lipase (23-300) U/L Urine Color Light Yellow Urine Appearance Clear (Clear) Urine pH 7.0 (5.0-8.0) Ur Specific [place] 1.010 (1.001-1.035) Urine Protein Negative (Negative) Urine Glucose (UA) Negative (Negative) Urine Ketones Negative (Negative) Urine Blood Negative (Negative) Urine Nitrite Negative (Negative) Urine Bilirubin Negative (Negative) Urine Urobilinogen <2.0 (<2.0) mg/dL Ur Leukocyte Esterase Negative (Negative) 12/16/22 12/16/22 12/16/22 Range/Units 02:20 02:20 02:20 WBC (3.8-10.6) k/uL RBC (3.80-5.40) m/uL Hgb (11.4-16.0) gm/dL Hct (34.0-46.0) % MCV (80.0-100.0) fL MCH (25.0-35.0) pg MCHC (31.0-37.0) g/dL RDW (11.5-15.5) % Plt Count (150-450) k/uL MPV Neutrophils % % Lymphocytes % % Monocytes % % Eosinophils % % Basophils % % Neutrophils # (1.3-7.7) k/uL Lymphocytes # (1.0-4.8) k/uL Monocytes # (0-1.0) k/uL Eosinophils # (0-0.7) k/uL Basophils # (0-0.2) k/uL PT (9.0-12.0) sec INR (<1.2) APTT (22.0-30.0) sec Sodium 134 L (137-145) mmol/L Potassium 4.0 (3.5-5.1) mmol/L Chloride 99 (98-107) mmol/L Carbon Dioxide 28 (22-30) mmol/L Anion Gap 7 mmol/L BUN 15 (7-17) mg/dL Creatinine 0.58 (0.52-1.04) mg/dL Est GFR (CKD-EPI)AfAm >90 (>60 ml/min/1.73 sqM) Est GFR (CKD-EPI)NonAf 82 (>60 ml/min/1.73 sqM) Glucose 136 H (74-99) mg/dL Calcium 9.0 (8.4-10.2) mg/dL Magnesium 1.8 (1.6-2.3) mg/dL Total Bilirubin 1.0 (0.2-1.3) mg/dL AST 66 H (14-36) U/L ALT 35 H (4-34) U/L Alkaline Phosphatase 284 H (38-126) U/L Troponin I <0.012 (0.000-0.034) ng/mL NT-Pro-B Natriuret Pep 218 pg/mL Total Protein 7.5 (6.3-8.2) g/dL Albumin 3.8 (3.5-5.0) g/dL Lipase 1993 H (23-300) U/L Urine Color Urine Appearance (Clear) Urine pH (5.0-8.0) Ur Specific [place] (1.001-1.035) Urine Protein (Negative) Urine Glucose (UA) (Negative) Urine Ketones (Negative) Urine Blood (Negative) Urine Nitrite (Negative) Urine Bilirubin (Negative) Urine Urobilinogen (<2.0) mg/dL Ur Leukocyte Esterase (Negative) - EKG Data -: EKG Interpreted by Me EKG Comments: 12-lead Electrocardiogram Interpretation Note EKG was reviewed and interpreted by myself. 12-lead ECG performed at 0254 is interpreted by me as revealing normal sinus rhythm at a rate of 82 beats per minute. [place] is Normal. ID interval is 161 ms, QRS duration is 130 ms, QTc is 431 ms.. There were no ST or T wave abnormalities to suggest myocardial ischemia or injury. R wave progression across the precordium was delayed. By my interpretation this EKG is non-diagnostic for acute ischemia. When compared with EKG from January 2022, no significant change. Critical Care Time Critical Care Time: Yes Total Critical Care Time: 35 Critical Care Time: Upon my evaluation, this patient had a high probability of imminent or life- threatening deterioration due to acute pancreatitis, concern for choledocholithiasis or pancreatic duct obstruction, which required my direct attention, intervention, and personal management. I have personally provided 35 minutes of critical care time exclusive of time spent on separately billable procedures. Time includes review of laboratory data, radiology results, discussion with consultants, and monitoring for potential decompensation. Interventions were performed as documented in my note. Disposition Clinical Impression: Acute pancreatitis, Choledocholithiasis Disposition: OTHER INSTITUTION NOT DEFINED Condition: Stable Referrals: Darwin Jaquez MD [Primary Care Provider] - 1-2 days Time of Disposition: 05:00 - Out of Hospital Transfer - Req. Specs Out of Hospital Transfer - Requested Specifics: Other Emergency Center (Transferred for eval by GI services for ERCP. GI not available at our facility.)
[2022-12-16 05:41] VITALS: BP 119/82; PULSE 82; RESP 12
== END 2022-12-16 06:29 | disposition other institution (70) ==
LOC: EC 01:17
DX: K85.90 Acute pancreatitis without necrosis or infection, unspecified (principal); K80.50 Calculus of bile duct without cholangitis or cholecystitis without obstruction; I10 Essential (primary) hypertension; I25.2 Old myocardial infarction; E78.5 Hyperlipidemia, unspecified; K21.9 Gastro-esophageal reflux disease without esophagitis; Z87.891 Personal history of nicotine dependence; Z88.1 Allergy status to other antibiotic agents; Z88.7 Allergy status to serum and vaccine; Z91.040 Latex allergy status; Z88.8 Allergy status to other drugs, medicaments and biological substances; Z90.49 Acquired absence of other specified parts of digestive tract; Z79.899 Other long term (current) drug therapy
CPT/HCPCS: 36415; 93005; 83880; 80053; 83690; 83735; 84484; 85025; 85610; 85730; 81003; 71046; 74177; 99291; Q9967

== ENCOUNTER 2023-03-04 14:19 | Inpatient (IN) | payer MEDICARE, BC, OTHER ==
--- NOTE | 2023-03-04 15:12 | ED ---
General Adult HPI - General Chief complaint: Shortness of Breath Stated complaint: Difficulty breathing Time Seen by Provider: 03/04/23 14:30 Source: EMS Mode of arrival: EMS Limitations: no limitations - History of Present Illness Initial comments: Dictation was produced using [employer] dictation software. please excuse any grammatical, word or spelling errors. Chief Complaint: 87-year-old female past medical history of COPD brought to the emergency department for respiratory distress History of Present Illness: Patient is a 7-year-old female she is brought to the EMS from one of the local nursing homes. Patient apparently had witnessed episode of respiratory distress. EMS was concerned that patient had a fever. And was dyspneic. Patient states that she does feel weak and short of breath. Denies any chest pain. She does report cough. Patient has a history of COPD. The ROS documented in this emergency department record has been reviewed and confirmed by me. Those systems with pertinent positive or negative responses have been documented in the HPI. All other systems are other negative and/or noncontributory. - Related Data Home Medications Medication Instructions Recorded Confirmed RX: Timolol 0.5% Ophth Soln 1 drop BOTH EYES DAILY 08/17/17 07/31/21 [Timoptic 0.5% Ophth Soln] RX: amLODIPine [Norvasc] 10 mg PO HS 08/17/17 07/31/21 RX: Pantoprazole Sodium [Protonix] 40 mg PO DAILY 08/18/17 07/31/21 RX: Metoprolol Tartrate [Lopressor] 12.5 mg PO BID 12/06/17 07/31/21 RX: Latanoprost [Xalatan 0.005%] 1 drop BOTH EYES HS 01/08/19 07/31/21 RX: Atorvastatin Calcium [Lipitor] 10 mg PO DAILY 04/20/21 07/31/21 RX: hydrALAZINE HCL 25 mg PO BID 04/20/21 07/31/21 RX: Multivitamins, Thera 1 tab PO DAILY 07/31/21 07/31/21 [Multivitamin (formulary)] RX: Vitc/E/Zinc/Copper/Lutein/Zeax 1 tab PO BID 07/31/21 07/31/21 [Icaps Areds2 Tablet] Previous Rx's Medication Instructions Recorded RX: Acetaminophen Tab [Tylenol] 650 mg PO Q6HR PRN tab 04/29/21 RX: Ipratropium-Albuterol Nebulize 3 ml INHALATION RT-QID PRN ml 08/05/21 [Duoneb 0.5 mg-3 mg/3 ml Soln] RX: Levothyroxine Sodium 100 mcg PO DAILY@0630 tab 08/05/21 [Synthroid] Allergies Allergy/AdvReac Type Severity Reaction Status Date / Time cetirizine [From Zyrtec] Allergy Unknown Verified 03/04/23 14:28 guaifenesin Allergy Unknown Verified 03/04/23 14:28 Latex, Natural Rubber Allergy BURNING Verified 03/04/23 14:28 SKIN levofloxacin [From Levaquin] Allergy Unknown Verified 03/04/23 14:28 pneumococcal vaccine Allergy Unknown Verified 03/04/23 14:28 Review of Systems ROS Statement: Those systems with pertinent positive or pertinent negative responses have been documented in the HPI. ROS Other: All systems not noted in ROS Statement are negative. Past Medical History Past Medical History: Cancer, Eye Disorder, GERD/Reflux, Hyperlipidemia, Hypertension, Myocardial Infarction ([place]), Pneumonia, Skin Disorder, Thyroid Disorder Additional Past Medical History / Comment(s): Glaucoma and macular degeneration bilaterally, hypothyroid, heart murmur, oral cancer with removal, UTIs, bronchitis, Raynauld's syndrome, osteoporosis, psoriasis, hemorrhoids. Last Myocardial Infarction Date:: ? 1-1.5 yrs ago per pt History of Any Multi-Drug Resistant Organisms: None Reported Past Surgical History: Breast Surgery, Section, Cholecystectomy Additional Past Surgical History / Comment(s): Oral cancer removed, R breast lumpectomy-benign, colonoscopies, bilateral cataract removal with lens implants. Past Anesthesia/Blood Transfusion Reactions: No Reported Reaction Past Psychological History: No Psychological Hx Reported Smoking Status: Former smoker Past Alcohol Use History: Daily Past Drug Use History: None Reported - Past Family History Father Family Medical History: Cancer, Myocardial Infarction ([place]) Additional Family Medical History / Comment(s): Father at age 77yrs from a [place] and lung cancer. Mother Family Medical History: No Reported History Additional Family Medical History / Comment(s): Mother at age 87yrs. She was healthy. General Exam - General Exam Comments Initial Comments: PHYSICAL EXAM: General Impression: Alert and oriented x3, not in acute distress HEENT: Normocephalic atraumatic, extra-ocular movements intact, pupils equal and reactive to light bilaterally, mucous membranes moist. Cardiovascular: Heart regular rate and rhythm Chest: Able to complete full sentences, no retractions, no tachypnea Abdomen: abdomen soft, non-tender, non-distended, no organomegaly Musculoskeletal: Pulses present and equal in all extremities, no peripheral edema Motor: no focal deficits noted Neurological: CN II-XII grossly intact, no focal motor or sensory deficits noted Skin: Intact with no visualized rashes Psych: Normal affect and mood Limitations: no limitations Course Vital Signs 03/04/23 14:23 Temperature 99.3 F Pulse Rate 99 Respiratory 18 Rate Blood Pressure 111/65 O2 Sat by Pulse 87 L Oximetry Procedures - Sepsis Sepsis Focused Exam #1 Time Sepsis Criteria Met: 17: Sepsis Focused Exam Date: 03/04/23 Sepsis Focused Exam Time: 17:02 Sepsis Focused Exam Complete: Yes Vital Signs & RN Notes Reviewed: Yes Capillary Refill: < 2 Seconds: Fingers, Toes Peripheral Pulses: Normal: Radial (R), Radial (L), Posterior Tibialis (R), Posterior Tibialis (L), Dorsalis Pedis (R), Dorsalis Pedis (L) Skin Color: Normal for Patient Respiratory Exam: normal lung sounds Cardiovascular Exam: regular rate, normal rhythm Medical Decision Making - Medical Decision Making Was pt. sent in by a medical professional or institution (Dr. PA, QUALITY MEASUREMENT SPECIALIST, urgent care, hospital, or half-way...) When possible be specific @ - half-way Did you speak to anyone other than the patient for history (EMS, parent, family, police, friend...)? What history was obtained from this source @ -No Did you review nursing and triage notes (agree or disagree)? Why? @ -skilled nursing documentation was reviewed Were old charts reviewed (outside hosp., previous admission, EMS record, old EKG, old radiological studies, urgent care reports/EKG's, half-way records)? Report findings @ -No old charts were reviewed Differential Diagnosis (chest pain, altered mental status, abdominal pain women, abdominal pain men, vaginal bleeding, musculoskeletal, weakness, fever, dyspnea, syncope, headache, dizziness, GI bleed, back pain, seizure, CVA, palpatations, mental health)? @ -Differential Dyspnea: Coronary syndrome, arrhythmia, tamponade, asthma, COPD, pulmonary embolism, pneumonia, pneumothorax, pulmonary effusion, anaphylaxis, diabetic ketoacidosis, flailed chest, pulmonary contusion, diaphragmatic rupture, anemia, neuromuscular, this is not meant to be an all-inclusive list. EKG interpreted by me (3pts min.). @ -9My EKG interpretation: Ventricular rate 93, sinus rhythm,. 1:30, QRS 121, QTC 393. No VT prolongation, no QTC prolongation, no ST or T-wave changes noted. Overall, this EKG is unremarkable X-rays interpreted by me (1pt min.). @ -Chest x-ray shows patchy infiltrates suspicious for pneumonia CT interpreted by me (1pt min.). @ -None done U/S interpreted by me (1pt. min.). @ -None done What testing was considered but not performed or refused? (CT, X-rays, U/S, labs)? Why? @ -None What meds were considered but not given or refused? Why? @ -None Did you discuss the management of the patient with other professionals (professionals i.e. , PA, QUALITY MEASUREMENT SPECIALIST, lab, RT, psych nurse, secondary social studies teacher, assistant track and field coach, teacher, staff air tactical officer, family preservation caseworker)? Give summary @ -Labs and imaging and clinical presentation discussed with Dr. Jaquez for admission Was smoking cessation discussed for >3mins.? @ -No Was critical care preformed (if so, how long)? @ -No Were there social determinants of health that impacted care today? How? (Homelessness, low income, unemployed, alcoholism, drug addiction, transportation, low edu. Level, literacy, decrease access to med. care, halfway, rehab)? @ -No Was there de-escalation of care discussed even if they declined (Discuss DNR or withdrawal of care, Hospice)? DNR status @ -No What co-morbidities impacted this encounter? (DM, HTN, Smoking, COPD, CAD, Cancer, CVA, ARF, Chemo, Hep., AIDS, mental health diagnosis, sleep apnea, morbid obesity)? @ -COPD Was patient admitted / discharged? Hospital course, mention meds given and route, prescriptions, significant lab abnormalities, going to OR and other pertinent info. @ -87-year-old female presents emergency department for chief complaint of weakness, respiratory distress. Vital signs showed hypoxia on room air 87%. Rest vital signs within acceptable limits. Laboratory evaluation within acceptable limits. Patient is well-appearing at bedside. Patient has multiple comorbidities. Chest x-ray suggested pneumonia. Clinical presentation not concerned for severe sepsis. Lactic acid is normal Undiagnosed new problem with uncertain prognosis? @ -No Drug Therapy requiring intensive monitoring for toxicity (Heparin, Nitro, Insulin, Cardizem)? @ -No Were any procedures done? @ -No Diagnosis/symptom? Acute, or Chronic, or Acute on Chronic? Uncomplicated (without systemic symptoms) or Complicated (systemic symptoms)? @ -1. Pneumonia Side effects of treatment? @ -No Exacerbation, Progression, or Severe Exacerbation? @ -No Poses a threat to life or bodily function? How? (Chest pain, [place], PA, pneumonia, PE, COPD, DKA, ARF, appy, cholecystitis, CVA, Diverticulitis, Homicidal, Suicidal, threat to staff... and all critical care pts) @ -yes - Lab Data Result diagrams: 03/04/23 14:32 03/04/23 14:32 Lab Results 03/04/23 03/04/23 03/04/23 Range/Units 14:32 14:32 14:32 WBC 10.7 H (3.8-10.6) k/uL RBC 4.57 (3.80-5.40) m/uL Hgb 13.4 (11.4-16.0) gm/dL Hct 41.4 (34.0-46.0) % MCV 90.6 (80.0-100.0) fL MCH 29.4 (25.0-35.0) pg MCHC 32.4 (31.0-37.0) g/dL RDW 14.3 (11.5-15.5) % Plt Count 248 (150-450) k/uL MPV 8.2 Neutrophils % 87 % Lymphocytes % 4 % Monocytes % 8 % Eosinophils % 0 % Basophils % 0 % Neutrophils # 9.3 H (1.3-7.7) k/uL Lymphocytes # 0.4 L (1.0-4.8) k/uL Monocytes # 0.8 (0-1.0) k/uL Eosinophils # 0.0 (0-0.7) k/uL Basophils # 0.0 (0-0.2) k/uL PT 10.8 (9.0-12.0) sec INR 1.0 (<1.2) APTT 20.5 L (22.0-30.0) sec Sodium 130 L (137-145) mmol/L Potassium 4.8 (3.5-5.1) mmol/L Chloride 95 L (98-107) mmol/L Carbon Dioxide 25 (22-30) mmol/L Anion Gap 10 mmol/L BUN 15 (7-17) mg/dL Creatinine 0.63 (0.52-1.04) mg/dL Est GFR (CKD-EPI)AfAm >90 (>60 ml/min/1.73 sqM) Est GFR (CKD-EPI)NonAf 80 (>60 ml/min/1.73 sqM) Glucose 194 H (74-99) mg/dL Plasma Lactic Acid Alexys (0.7-2.0) mmol/L Calcium 8.4 (8.4-10.2) mg/dL Magnesium 2.0 (1.6-2.3) mg/dL Total Bilirubin 1.1 (0.2-1.3) mg/dL AST 28 (14-36) U/L ALT 23 (4-34) U/L Alkaline Phosphatase 239 H (38-126) U/L Troponin I (0.000-0.034) ng/mL NT-Pro-B Natriuret Pep pg/mL Total Protein 6.9 (6.3-8.2) g/dL Albumin 3.3 L (3.5-5.0) g/dL Influenza Type A (PCR) (Not Detectd) Influenza Type B (PCR) (Not Detectd) RSV (PCR) (Not Detectd) SARS-CoV-2 (PCR) (Not Detectd) 03/04/23 03/04/23 03/04/23 Range/Units 14:32 14:32 15:15 WBC (3.8-10.6) k/uL RBC (3.80-5.40) m/uL Hgb (11.4-16.0) gm/dL Hct (34.0-46.0) % MCV (80.0-100.0) fL MCH (25.0-35.0) pg MCHC (31.0-37.0) g/dL RDW (11.5-15.5) % Plt Count (150-450) k/uL MPV Neutrophils % % Lymphocytes % % Monocytes % % Eosinophils % % Basophils % % Neutrophils # (1.3-7.7) k/uL Lymphocytes # (1.0-4.8) k/uL Monocytes # (0-1.0) k/uL Eosinophils # (0-0.7) k/uL Basophils # (0-0.2) k/uL PT (9.0-12.0) sec INR (<1.2) APTT (22.0-30.0) sec Sodium (137-145) mmol/L Potassium (3.5-5.1) mmol/L Chloride (98-107) mmol/L Carbon Dioxide (22-30) mmol/L Anion Gap mmol/L BUN (7-17) mg/dL Creatinine (0.52-1.04) mg/dL Est GFR (CKD-EPI)AfAm (>60 ml/min/1.73 sqM) Est GFR (CKD-EPI)NonAf (>60 ml/min/1.73 sqM) Glucose (74-99) mg/dL Plasma Lactic Acid Alexys 0.8 (0.7-2.0) mmol/L Calcium (8.4-10.2) mg/dL Magnesium (1.6-2.3) mg/dL Total Bilirubin (0.2-1.3) mg/dL AST (14-36) U/L ALT (4-34) U/L Alkaline Phosphatase (38-126) U/L Troponin I (0.000-0.034) ng/mL NT-Pro-B Natriuret Pep 959 pg/mL Total Protein (6.3-8.2) g/dL Albumin (3.5-5.0) g/dL Influenza Type A (PCR) Not Detected (Not Detectd) Influenza Type B (PCR) Not Detected (Not Detectd) RSV (PCR) Not Detected (Not Detectd) SARS-CoV-2 (PCR) Not Detected (Not Detectd) 03/04/23 Range/Units 15:15 WBC (3.8-10.6) k/uL RBC (3.80-5.40) m/uL Hgb (11.4-16.0) gm/dL Hct (34.0-46.0) % MCV (80.0-100.0) fL MCH (25.0-35.0) pg MCHC (31.0-37.0) g/dL RDW (11.5-15.5) % Plt Count (150-450) k/uL MPV Neutrophils % % Lymphocytes % % Monocytes % % Eosinophils % % Basophils % % Neutrophils # (1.3-7.7) k/uL Lymphocytes # (1.0-4.8) k/uL Monocytes # (0-1.0) k/uL Eosinophils # (0-0.7) k/uL Basophils # (0-0.2) k/uL PT (9.0-12.0) sec INR (<1.2) APTT (22.0-30.0) sec Sodium (137-145) mmol/L Potassium (3.5-5.1) mmol/L Chloride (98-107) mmol/L Carbon Dioxide (22-30) mmol/L Anion Gap mmol/L BUN (7-17) mg/dL Creatinine (0.52-1.04) mg/dL Est GFR (CKD-EPI)AfAm (>60 ml/min/1.73 sqM) Est GFR (CKD-EPI)NonAf (>60 ml/min/1.73 sqM) Glucose (74-99) mg/dL Plasma Lactic Acid Alexys (0.7-2.0) mmol/L Calcium (8.4-10.2) mg/dL Magnesium (1.6-2.3) mg/dL Total Bilirubin (0.2-1.3) mg/dL AST (14-36) U/L ALT (4-34) U/L Alkaline Phosphatase (38-126) U/L Troponin I 0.023 (0.000-0.034) ng/mL NT-Pro-B Natriuret Pep pg/mL Total Protein (6.3-8.2) g/dL Albumin (3.5-5.0) g/dL Influenza Type A (PCR) (Not Detectd) Influenza Type B (PCR) (Not Detectd) RSV (PCR) (Not Detectd) SARS-CoV-2 (PCR) (Not Detectd) Disposition Clinical Impression: Pneumonia Disposition: ADMITTED IP TO THIS HOSP Condition: Fair Referrals: Darwin Jaquez MD [Primary Care Provider] - 1-2 days Decision Time: 16:38
[2023-03-04 15:30] LABS: Basophils % (A) 0 %; Eosinophils % (A) 0 %; HCT 41.4 % (34.0-46.0); HGB 13.4 gm/dL (11.4-16.0); Lymphocytes # (A) 0.4 k/uL (1.0-4.8); Lymphocytes % (A) 4 %; MCH 29.4 pg (25.0-35.0); MCHC 32.4 g/dL (31.0-37.0); MCV 90.6 fL (80.0-100.0); Mean Platelet Volume 8.2; Monocytes # (A) 0.8 k/uL (0-1.0); Monocytes % (A) 8 %; Neutrophils # (A) 9.3 k/uL (1.3-7.7); Neutrophils % (A) 87 %; Platelet Count 248 k/uL (150-450); RBC 4.57 m/uL (3.80-5.40); RDW 14.3 % (11.5-15.5); WBC 10.7 k/uL (3.8-10.6)
[2023-03-04 15:42] LABS: ALT 23 U/L (4-34); African American GFR (CKD) >90 (>60 ml/min/1.73 sqM); Albumin 3.3 g/dL (3.5-5.0); Anion Gap 10 mmol/L; Blood Urea Nitrogen 15 mg/dL (7-17); Calcium 8.4 mg/dL (8.4-10.2); Carbon Dioxide 25 mmol/L (22-30); Chloride 95 mmol/L (98-107); Glucose 194 mg/dL (74-99); Non-African American GFR(CKD) 80 (>60 ml/min/1.73 sqM); Sodium 130 mmol/L (137-145); Total Bilirubin 1.1 mg/dL (0.2-1.3); Total Protein 6.9 g/dL (6.3-8.2)
[2023-03-04 15:45] LABS: Potassium 4.8 mmol/L (3.5-5.1)
[2023-03-04 15:46] LABS: AST 28 U/L (14-36); Alkaline Phosphatase 239 U/L (38-126)
[2023-03-04 16:05] LABS: Partial Thromboplastin Time 20.5 sec (22.0-30.0); Prothrombin Time 10.8 sec (9.0-12.0)
--- NOTE | 2023-03-04 16:32 | XR ---
EXAMINATION TYPE: XR chest 2V DATE OF EXAM: 03/04/2023 COMPARISON: 12/16/2022 HISTORY: 87-year-old female with cough, shortness of breath, dyspnea TECHNIQUE: AP and lateral views FINDINGS: Heart normal size. Mild atherosclerotic arch calcifications. There is patchy airspace opacity through out the right and mid and lower lung. No pleural effusion. IMPRESSION: Patchy infiltrate throughout the right mid and lower lung. Correlate for multifocal pneumonia.
[2023-03-04] MEDS ORDERED: AZITHROMYCIN 500 MG in SODIUM CHLORIDE 0.9% 250 ML IVPB STA (16:37)
[2023-03-04] MEDS ORDERED: cefTRIAXone IN SWFI 1,000 MG/10 ML SYRINGE IVP STA (16:37)
[2023-03-04] MEDS ORDERED: PNEUMONIA PROTOCOL UTILIZED 1 EACH MISC PO PRN (16:56)
[2023-03-04 17:43] LABS: Glucose,Whole Blood 129 mg/dL (70-110)
[2023-03-04] MEDS ORDERED: ALBUTEROL NEBULIZED 2.5 MG/3 ML INHALATION SCH (20:00)
[2023-03-04] MEDS: HEPARIN SODIUM,PORCINE/PF 5,000 UNIT/0.5 ML SYRINGE SQ SCH (20:28)
[2023-03-04] MEDS: ATORVASTATIN 10 MG TAB PO SCH (20:29)
[2023-03-04] MEDS ORDERED: ALPRAZolam 0.5 MG TAB PO PRN (20:40)
[2023-03-05] MEDS ORDERED: IPRATROPIUM-ALBUTEROL 3 ML NEB INHALATION PRN (02:22)
--- NOTE | 2023-03-05 02:42 | P.CNPUL ---
History of Present Illness Consult date: 03/05/23 Requesting physician: Darwin Jaquez Reason for consult: pneumonia Chief complaint: Shortness of breath History of present illness: I am seeing this patient in new consultation today 11/05/2022 for a right-sided pneumonia. Patient is a 87-year-old white female who is a poor historian, largely because she refuses to wear her hearing aids, and cannot answer my questions. Patient has a medical history significant for COPD, hypertension, hyperlipidemia, hypothyroidism, macular degeneration, and oral cancer. Patient resides at [facility], where she was reportedly witnessed to have an episode of resp iratory distress yesterday afternoon. She does have an occasional cough. She is currently sitting up in bed, on 3 L/m nasal cannula, in no acute distress. I am told she is chronically oxygen dependent. Chest x-ray on arrival shows patchy infiltrates throughout the right upper and lower lung sandoval. CBC on arrival shows a WBC count of 10.7, hemoglobin 13.4, hematocrit 41.4, platelets 248. BMP shows sodium 130, potassium 4.8, chloride 95, serum CO2 25, BUN 15, creatinine 0.63, glucose 194. Lactic was 0.8. Initial troponin was 0.023. NT proBNP was 959, which is not significantly elevated considering her age. She was negative for influenza, RSV, COVID-19. She is covered on a combination of Rocephin and Zithromax. she is also receiving bronchodilators. Patient appears nontoxic, and will be transferred to the general medical floor once bed available. Review of Systems ROS unobtainable: due to mental status Past Medical History Past Medical History: Cancer, Eye Disorder, GERD/Reflux, Hyperlipidemia, Hypertension, Myocardial Infarction ([place]), Pneumonia, Skin Disorder, Thyroid Disorder Additional Past Medical History / Comment(s): Glaucoma and macular degeneration bilaterally, hypothyroid, heart murmur, oral cancer with removal, UTIs, bronchitis, Raynauld's syndrome, osteoporosis, psoriasis, hemorrhoids. Last Myocardial Infarction Date:: ? 1-1.5 yrs ago per pt History of Any Multi-Drug Resistant Organisms: None Reported Past Surgical History: Breast Surgery, Section, Cholecystectomy Additional Past Surgical History / Comment(s): Oral cancer removed, R breast lumpectomy-benign, colonoscopies, bilateral cataract removal with lens implants. Past Anesthesia/Blood Transfusion Reactions: No Reported Reaction Past Psychological History: No Psychological Hx Reported Smoking Status: Former smoker Past Alcohol Use History: Daily Past Drug Use History: None Reported - Past Family History Father Family Medical History: Cancer, Myocardial Infarction ([place]) Additional Family Medical History / Comment(s): Father at age 77yrs from a [place] and lung cancer. Mother Family Medical History: No Reported History Additional Family Medical History / Comment(s): Mother at age 87yrs. She was healthy. Medications and Allergies Home Medications Medication Instructions Recorded Confirmed Type Timolol 0.5% Ophth Soln [Timoptic 1 drop BOTH EYES DAILY 08/17/17 03/04/23 History 0.5% Ophth Soln] amLODIPine [Norvasc] 10 mg PO DAILY@0800 08/17/17 03/04/23 History Metoprolol Tartrate [Lopressor] 12.5 mg PO BID@0800,1700 12/06/17 03/04/23 History Latanoprost [Xalatan 0.005%] 1 drop BOTH EYES HS@199901/08/19 03/04/23 History Atorvastatin Calcium [Lipitor] 10 mg PO HS@199904/20/21 03/04/23 History Acetaminophen Tab [Tylenol Tab] 500 mg PO Q6H PRN 03/04/23 03/04/23 History Artificial Tears-Hypromellose 1 drop BOTH EYES DAILY 03/04/23 03/04/23 History [Artificial Tear Drops] Healthshake 1 can PO BID 03/04/23 03/04/23 History Levothyroxine Sodium [Synthroid] 100 mcg PO DAILY@0700 03/04/23 03/04/23 History Melatonin 3 mg PO HS@199903/04/23 03/04/23 History Phenyleph/Pramoxin/Glycr/W.pet 1 applic RECTAL DAILY PRN 03/04/23 03/04/23 History [Preparation H Cream] Sennosides/Docusate Sodium 1 tab PO DAILY PRN 03/04/23 03/04/23 History [Senna-S 8.6-50 mg Tablet] Tamsulosin [Flomax] 0.4 mg PO DAILY@0800 03/04/23 03/04/23 History busPIRone HCl [Buspar] 20 mg PO BID@0800,1600 03/04/23 03/04/23 History Allergies Allergy/AdvReac Type Severity Reaction Status Date / Time cetirizine [From Zyrtec] Allergy Unknown Verified 03/04/23 17:14 guaifenesin Allergy Unknown Verified 03/04/23 17:14 Latex, Natural Rubber Allergy BURNING Verified 03/04/23 17:14 SKIN levofloxacin [From Levaquin] Allergy Unknown Verified 03/04/23 17:14 pneumococcal vaccine Allergy Unknown Verified 03/04/23 17:14 Physical Exam Vitals: Vital Signs Temp Pulse Resp BP Pulse Ox 03/05/23 01:00 98.8 F 98 20 119/61 94 L 03/05/23 00:00 92 L 03/04/23 22:32 102 H 22 125/65 94 L 03/04/23 19:58 99 03/04/23 19:54 92 03/04/23 18:00 99.2 F 94 18 117/61 95 03/04/23 14:23 99.3 F 99 18 111/65 87 L Intake and Output 03/04/23 03/04/23 03/05/23 14:59 22:59 06:59 Other: Weight 40.823 kg GENERAL EXAM: Alert, 87-year-old white female, comfortable in no apparent distress. HEAD: Normocephalic and atraumatic EYES: Normal reaction of pupils, equal size. NOSE: Clear with pink turbinates. THROAT: No erythema or exudates. NECK: No masses, no JVD. CHEST: No chest wall deformity. LUNGS: Equal air entry with right lung inspiratory crackles. no wheeze, rhonchi or dullness. On 3 L a minute nasal cannula. No conversational dyspnea or accessory muscle use.. CVS: S1 and S2 normal with no audible murmur, regular rhythm. No extra heart sounds ABDOMEN: No hepatosplenomegaly, active bowel sounds, no guarding or rigidity. SPINE: No scoliosis or deformity SKIN: No rashes CENTRAL NERVOUS SYSTEM: No focal deficits, tone is normal in all 4 extremities. EXTREMITIES: There is no peripheral edema, clubbing, or cyanosis. Peripheral pulses are intact. Results - Laboratory Findings CBC and BMP: 03/04/23 14:32 03/04/23 14:32 PT/INR, D-dimer PT 10.8 sec (9.0-12.0) 03/04/23 14:32 INR 1.0 (<1.2) 03/04/23 14:32 Abnormal lab findings: Abnormal Labs 03/04/23 03/04/23 03/04/23 14:32 14:32 14:32 WBC 10.7 H Neutrophils # 9.3 H Lymphocytes # 0.4 L APTT 20.5 L Sodium 130 L Chloride 95 L Glucose 194 H POC Glucose (mg/dL) Alkaline Phosphatase 239 H Albumin 3.3 L 03/04/23 17:42 WBC Neutrophils # Lymphocytes # APTT Sodium Chloride Glucose POC Glucose (mg/dL) 129 H Alkaline Phosphatase Albumin - Diagnostic Findings Chest x-ray: image reviewed Assessment and Plan Assessment: Right-sided healthcare associated pneumonia. Chest x-ray shows patchy infiltrates throughout the right mid and lower lung sandoval. Negative for influenza, RSV, COVID-19. Acute on chronic hypoxemic respiratory failure secondary to above, currently on 3 L/m nasal cannula. She is chronically oxygen dependent at the custodial Chronic obstructive pulmonary disease, appears stable Essential hypertension Hyperlipidemia Hypothyroidism Macular degeneration History of oral cancer Plan: Patient's medications, labs, chest x-ray reviewed Continue antibiotics Blood cultures are pending Continue supplemental oxygen Continue Bronchodilators Restart home medications We will continue to follow I have personally seen and examined the patient, performed the documentation and the assessment and plan as written. Number of minutes spent on the visit:20 Time with Patient: Greater than 30
[2023-03-05] MEDS: ACETAMINOPHEN TAB 500 MG TAB PO PRN ×2 (04:55→22:47)
[2023-03-05 07:20] LABS: Basophils % (A) 0 %; Eosinophils # (A) 0.1 k/uL (0-0.7); Eosinophils % (A) 1 %; HCT 35.4 % (34.0-46.0); HGB 11.4 gm/dL (11.4-16.0); Lymphocytes # (A) 0.5 k/uL (1.0-4.8); Lymphocytes % (A) 5 %; MCH 29.3 pg (25.0-35.0); MCHC 32.1 g/dL (31.0-37.0); MCV 91.3 fL (80.0-100.0); Monocytes % (A) 9 %; Neutrophils # (A) 8.7 k/uL (1.3-7.7); Neutrophils % (A) 83 %; Platelet Count 260 k/uL (150-450); RBC 3.88 m/uL (3.80-5.40); RDW 14.3 % (11.5-15.5); WBC 10.4 k/uL (3.8-10.6)
[2023-03-05 07:24] LABS: African American GFR (CKD) >90 (>60 ml/min/1.73 sqM); Anion Gap 5 mmol/L; Blood Urea Nitrogen 12 mg/dL (7-17); Carbon Dioxide 28 mmol/L (22-30); Chloride 99 mmol/L (98-107); Glucose 129 mg/dL (74-99); Non-African American GFR(CKD) 84 (>60 ml/min/1.73 sqM); Potassium 4.2 mmol/L (3.5-5.1); Sodium 132 mmol/L (137-145)
--- NOTE | 2023-03-05 07:59 | XR ---
EXAMINATION TYPE: XR chest 1V portable DATE OF EXAM: 03/05/2023 HISTORY: Shortness of breath. COMPARISON: 03/04/2023 TECHNIQUE: Single view of the chest is submitted. FINDINGS: Demonstrated are scattered senescent parenchymal change. Areas of right basilar and right upper lobe infiltrate persists without significant change. The left lung is clear. The heart is stable. Hilar and mediastinal structures are within normal limits. Degenerative changes are seen of the dorsal spine. IMPRESSION: 1. Areas of right basilar and right upper lobe infiltrate persists without significant change. The l eft lung is clear.
[2023-03-05] MEDS ORDERED: amLODIPine 10 MG TAB PO SCH (08:00)
[2023-03-05] MEDS: IPRATROPIUM-ALBUTEROL 3 ML NEB INHALATION SCH ×4 (08:01→20:59)
[2023-03-05] MEDS: METOPROLOL TARTRATE 12.5 MG TAB PO SCH ×2 (08:16→17:48)
[2023-03-05] MEDS: busPIRone HCl 10 MG TAB PO SCH ×2 (08:16→17:48)
[2023-03-05] MEDS: LEVOTHYROXINE 100 MCG TAB PO SCH (08:16)
[2023-03-05] MEDS: AZITHROMYCIN 500 MG TAB PO SCH (08:57)
[2023-03-05] MEDS: ARTIFICIAL TEARS-HYPROMELLOSE DROPS 15 ML BTL BOTH EYES SCH (08:57)
[2023-03-05] MEDS: HEPARIN SODIUM,PORCINE/PF 5,000 UNIT/0.5 ML SYRINGE SQ SCH ×2 (08:59→22:38)
--- NOTE | 2023-03-05 09:52 | P.HPIM ---
History of Present Illness H&P Date: 03/05/23 (Pneumonia) Chief Complaint: Oxygen desaturation at the alf with low-grade temperature and coug This is dictation on this admission history and physical Date of service 03/05/[address] MOFFETT Chief complaint. Patient has been having low-grade temperature at the alf med medical [place], she had also cough as well as desaturation of her oxygen to 82% with the persistent symptoms over the lost 48 hour patient transferred to the emergency room at [facility] History of present illness. 87 years old white female resides and the medical [facility] [place] she has doing well until lost 48 hour and started with the coughing 6 and low oxygen as well as decreased blood pressure and the nursing staff sending the patient to the emergency room for for further evaluation. In the ER patient seen and evaluated and she had covariant 19 testing was negative and influenza A and B- and RSV negative and the do chest x-ray found that she has a patchy infiltrate throughout the right mid and lower lung. Patient started on antibiotic in the ER. Past medical history Patient has history of COPD and history on oxygen at alf intermittently and found to be desaturated and patient was at the time of admission dyspneic as well. She has severe hearing deficit and using hearing aid and still does not hear She had also history of hypothyroidism, and previous surgery for oral due to come cancer. And history of macular degeneration and inability to see with her glasses. She had history of GERD disease with reflux hyperlipidemia, hypertension however currently in the low blood pressure with the history of FL in the past, history of pneumonia in the past, skin cancer in the past. She has also history of glaucoma and UTI, Raynaud's syndrome, osteoporosis hemorrhoids. She had the bilateral lens implant. Habits former smoker. Surgical history history of breast surgery for cancer and history of section and history of recent cholecystectomy. Family history of [place], father age of 77 from [place] and lung cancer. Mother of age of 87. Review of system: Patient very severe hearing impairment even with a hearing aid could not hear me and could not communicate or answer the question with the severe stony . She complain of any respiratory symptoms of cough and weakness and low-grade temperature. She had history of COPD No symptoms of cardiac origin no chest pain no palpitation. GI no symptoms of diarrhea or constipation. Rest of bullets was noncontributory and could not be obtained from the patient with her severe deficit Physical exam: On admission Temperature 99.2 F, heart rate 94 per minute and blood pressure 117/61 with a mean 79 her oxygen saturation 95 with the 2 L nasal cannula. Patient was in the ER room for and held for overflow. Subsequently her oxygen has been monitored and dating and her oxygen increased to 3 L because of the saturation dropped to 94. On the physical exam: Patient is conscious alert oriented but severe hearing deficit and stony left, The head was normocephalic atraumatic and the pupil was equal reactive with bilateral cataract removal and severe vision impairment was macular degeneration Severe hearing impairment Oral she hadn't upper jaw implant and lower jaw surgical repair for the gum. Neck supple no JVD no thyromegaly no lymphadenopathy she had the mole on the left side of the neck. Chest she had inspiratory expiratory wheezes as well as decreased air entry on the basis as well as her x-ray indicating as repeated again today on 03/05/2023 and showed that right basilar and right upper lobe infiltrate persist. In the review of the white count is normalized. But he she has element of wheezing. Inspiratory and expiratory Heart regular sinus rhythm no indication of congestive heart failure Abdomen soft positive bowel sounds Extremities no edema. Pulses. She had advanced arthritis and she was at the alf only able to transfer unable to ambulate. Neurological evaluation stable no lateralizing sign and conscious and alert. Assessment: #1 underlying right-sided pneumonia right upper lobe infiltrate and lower lobe basilar in the left lung is clear suspicious of aspiration. #2 COPD with inspiratory expiratory wheezes. And exacerbation. #3 hyperlipidemia #4 hypothyroidism. #5 hyponatremia. #6 advanced hearing deficit was difficult communication #7 macular degeneration with severe and having glasses was barely seeing. With incapacitated Plan: #[address] Acevedo pulmonary and critical care for evaluation and treatment Continue the antibiotic as started in the ER Started to steroid with the wheezing and restarted the inhalation therapy We'll obtain pro-calcitonin level as well 4 [phone] depend on the patient's condition and response to antibiotic. Past Medical History Past Medical History: Cancer, Eye Disorder, GERD/Reflux, Hyperlipidemia, Hypertension, Myocardial Infarction ([place]), Pneumonia, Skin Disorder, Thyroid Disorder Additional Past Medical History / Comment(s): Glaucoma and macular degeneration bilaterally, hypothyroid, heart murmur, oral cancer with removal, UTIs, bronchitis, Raynauld's syndrome, osteoporosis, psoriasis, hemorrhoids. Last Myocardial Infarction Date:: ? 1-1.5 yrs ago per pt History of Any Multi-Drug Resistant Organisms: None Reported Past Surgical History: Breast Surgery, Section, Cholecystectomy Additional Past Surgical History / Comment(s): Oral cancer removed, R breast lumpectomy-benign, colonoscopies, bilateral cataract removal with lens implants. Past Anesthesia/Blood Transfusion Reactions: No Reported Reaction Past Psychological History: No Psychological Hx Reported Smoking Status: Former smoker Past Alcohol Use History: Daily Past Drug Use History: None Reported - Past Family History Father Family Medical History: Cancer, Myocardial Infarction ([place]) Additional Family Medical History / Comment(s): Father at age 77yrs from a [place] and lung cancer. Mother Family Medical History: No Reported History Additional Family Medical History / Comment(s): Mother at age 87yrs. She was healthy. Medications and Allergies Home Medications Medication Instructions Recorded Confirmed Type Timolol 0.5% Ophth Soln [Timoptic 1 drop BOTH EYES DAILY 08/17/17 03/04/23 History 0.5% Ophth Soln] amLODIPine [Norvasc] 10 mg PO DAILY@0800 08/17/17 03/04/23 History Metoprolol Tartrate [Lopressor] 12.5 mg PO BID@0800,1700 12/06/17 03/04/23 History Latanoprost [Xalatan 0.005%] 1 drop BOTH EYES HS@199901/08/19 03/04/23 History Atorvastatin Calcium [Lipitor] 10 mg PO HS@199904/20/21 03/04/23 History Acetaminophen Tab [Tylenol Tab] 500 mg PO Q6H PRN 03/04/23 03/04/23 History Artificial Tears-Hypromellose 1 drop BOTH EYES DAILY 03/04/23 03/04/23 History [Artificial Tear Drops] Healthshake 1 can PO BID 03/04/23 03/04/23 History Levothyroxine Sodium [Synthroid] 100 mcg PO DAILY@0700 03/04/23 03/04/23 History Melatonin 3 mg PO HS@199903/04/23 03/04/23 History Phenyleph/Pramoxin/Glycr/W.pet 1 applic RECTAL DAILY PRN 03/04/23 03/04/23 History [Preparation H Cream] Sennosides/Docusate Sodium 1 tab PO DAILY PRN 03/04/23 03/04/23 History [Senna-S 8.6-50 mg Tablet] Tamsulosin [Flomax] 0.4 mg PO DAILY@0800 03/04/23 03/04/23 History busPIRone HCl [Buspar] 20 mg PO BID@0800,1600 03/04/23 03/04/23 History Allergies Allergy/AdvReac Type Severity Reaction Status Date / Time cetirizine [From Zyrtec] Allergy Unknown Verified 03/04/23 17:14 guaifenesin Allergy Unknown Verified 03/04/23 17:14 Latex, Natural Rubber Allergy BURNING Verified 03/04/23 17:14 SKIN levofloxacin [From Levaquin] Allergy Unknown Verified 03/04/23 17:14 pneumococcal vaccine Allergy Unknown Verified 03/04/23 17:14 Physical Exam Vitals: Vital Signs Temp Pulse Resp BP Pulse Ox 03/05/23 08:14 85 03/05/23 08:01 89 03/05/23 06:32 98.4 F 70 18 109/55 92 L 03/05/23 05:00 89 16 109/56 92 L 03/05/23 04:00 89 19 94 L 03/05/23 03:00 87 20 95 03/05/23 02:00 92 L 03/05/23 01:00 98.8 F 98 20 119/61 94 L 03/05/23 00:00 92 L 03/04/23 22:32 102 H 22 125/65 94 L 03/04/23 19:58 99 03/04/23 19:54 92 03/04/23 18:00 99.2 F 94 18 117/61 95 03/04/23 14:23 99.3 F 99 18 111/65 87 L Results CBC & Chem 7: 03/05/23 06:57 03/05/23 06:57 Labs: Abnormal Lab Results - Last 24 Hours (Table) 03/04/23 03/04/23 03/04/23 Range/Units 14:32 14:32 14:32 WBC 10.7 H (3.8-10.6) k/uL Neutrophils # 9.3 H (1.3-7.7) k/uL Lymphocytes # 0.4 L (1.0-4.8) k/uL APTT 20.5 L (22.0-30.0) sec Sodium 130 L (137-145) mmol/L Chloride 95 L (98-107) mmol/L Glucose 194 H (74-99) mg/dL POC Glucose (mg/dL) (70-110) mg/dL Calcium (8.4-10.2) mg/dL Alkaline Phosphatase 239 H (38-126) U/L Albumin 3.3 L (3.5-5.0) g/dL Procalcitonin (0.02-0.09) ng/mL 03/04/23 03/04/23 03/05/23 Range/Units 17:40 17:42 06:57 WBC (3.8-10.6) k/uL Neutrophils # 8.7 H (1.3-7.7) k/uL Lymphocytes # 0.5 L (1.0-4.8) k/uL APTT (22.0-30.0) sec Sodium (137-145) mmol/L Chloride (98-107) mmol/L Glucose (74-99) mg/dL POC Glucose (mg/dL) 129 H (70-110) mg/dL Calcium (8.4-10.2) mg/dL Alkaline Phosphatase (38-126) U/L Albumin (3.5-5.0) g/dL Procalcitonin 0.25 H (0.02-0.09) ng/mL 03/05/23 Range/Units 06:57 WBC (3.8-10.6) k/uL Neutrophils # (1.3-7.7) k/uL Lymphocytes # (1.0-4.8) k/uL APTT (22.0-30.0) sec Sodium 132 L (137-145) mmol/L Chloride (98-107) mmol/L Glucose 129 H (74-99) mg/dL POC Glucose (mg/dL) (70-110) mg/dL Calcium 8.0 L (8.4-10.2) mg/dL Alkaline Phosphatase (38-126) U/L Albumin (3.5-5.0) g/dL Procalcitonin (0.02-0.09) ng/mL
[2023-03-05] MEDS: methylPREDNISolone SOD SUCCI 125 MG/2 ML VIAL IV SCH ×3 (14:47→23:58)
[2023-03-05 20:58] LABS: Glucose,Whole Blood 198 mg/dL (70-110)
[2023-03-05] MEDS: ATORVASTATIN 10 MG TAB PO SCH (22:38)
[2023-03-06] MEDS: LEVOTHYROXINE 100 MCG TAB PO SCH (05:32)
[2023-03-06] MEDS: methylPREDNISolone SOD SUCCI 125 MG/2 ML VIAL IV SCH ×2 (05:32→13:00)
[2023-03-06 05:59] LABS: Glucose,Whole Blood 198 mg/dL (70-110)
[2023-03-06] MEDS: IPRATROPIUM-ALBUTEROL 3 ML NEB INHALATION SCH ×4 (09:02→21:31)
[2023-03-06] MEDS: METOPROLOL TARTRATE 12.5 MG TAB PO SCH ×2 (10:06→16:40)
[2023-03-06] MEDS: busPIRone HCl 10 MG TAB PO SCH ×2 (10:06→16:39)
[2023-03-06] MEDS: amLODIPine 5 MG TAB PO SCH (10:06)
[2023-03-06] MEDS: HEPARIN SODIUM,PORCINE/PF 5,000 UNIT/0.5 ML SYRINGE SQ SCH ×2 (10:06→21:12)
[2023-03-06] MEDS: ARTIFICIAL TEARS-HYPROMELLOSE DROPS 15 ML BTL BOTH EYES SCH (10:06)
[2023-03-06] MEDS: AZITHROMYCIN 500 MG TAB PO SCH (10:08)
[2023-03-06 11:26] LABS: Glucose,Whole Blood 240 mg/dL (70-110)
--- NOTE | 2023-03-06 11:34 | P.PN ---
Subjective Progress Note Date: 03/06/23 I am seeing this patient in new consultation today 11/05/2022 for a right-sided pneumonia. Patient is a 87-year-old white female who is a poor historian, largely because she refuses to wear her hearing aids, and cannot answer my questions. Patient has a medical history significant for COPD, hypertension, hyperlipidemia, hypothyroidism, macular degeneration, and oral cancer. Patient resides at [facility], where she was reportedly witnessed to have an episode of respiratory distress yesterday afternoon. She does have an occasional cough. She is currently sitting up in bed, on 3 L/m nasal cannula, in no acute distress. I am told she is chronically oxygen dependent. Chest x-ray on arrival shows patchy infiltrates throughout the right upper and lower lung sandoval. CBC on arrival shows a WBC count of 10.7, hemoglobin 13.4, hematocrit 41.4, platelets 248. BMP shows sodium 130, potassium 4.8, chloride 95, serum CO2 25, BUN 15, creatinine 0.63, glucose 194. Lactic was 0.8. Initial troponin was 0.023. NT proBNP was 959, which is not significantly elevated considering her age. She was negative for influenza, RSV, COVID-19. She is covered on a combination of Rocephin and Zithromax. she is also receiving bronchodilators. Patient appears nontoxic, and will be transferred to the general medical floor once bed available. The patient is seen today 03/06/2023 in follow-up on the regular medical floor. She is currently resting comfortably in bed. Awake and alert. She is requiring 5 L nasal cannula to maintain O2 saturations in the 90s. No IV fluids. She is being treated for right basilar right upper lobe infiltrate/pneumonia. Left lung is clear. Blood culture reveals no growth to date. Blood glucose 198. She remains on DuoNeb inhalations, IV Solu-Medrol, antibiotics in the form of ceftriaxone. Completed azithromycin. Objective - Vital Signs Vital signs: Vital Signs Temp 97.8 F 03/06/23 07:30 Pulse 84 03/06/23 09:15 Resp 17 03/06/23 07:30 BP 123/68 03/06/23 07:30 Pulse Ox 95 03/06/23 07:30 FiO2 Intake & Output 03/05/23 03/06/23 03/06/23 18:59 06:59 18:59 Intake Total 240 Output Total 0 Balance 0 240 Weight 40.823 kg Intake: Oral 240 Output: Urine 0 - Exam GENERAL EXAM: Alert, 87-year-old female, on 5 L nasal cannula, comfortable in no apparent distress. HEAD: Normocephalic and atraumatic EYES: Normal reaction of pupils, equal size. NOSE: Clear with pink turbinates. THROAT: No erythema or exudates. NECK: No masses, no JVD. CHEST: No chest wall deformity. LUNGS: Equal air entry with right lung inspiratory crackles. No conversational dyspnea or accessory muscle use. CVS: S1 and S2 normal with no audible murmur, regular rhythm. No extra heart sounds ABDOMEN: No hepatosplenomegaly, active bowel sounds, no guarding or rigidity. SPINE: No scoliosis or deformity SKIN: No rashes CENTRAL NERVOUS SYSTEM: No focal deficits, tone is normal in all 4 extremities. EXTREMITIES: There is no peripheral edema, clubbing, or cyanosis. Peripheral pulses are intact. - Labs CBC & Chem 7: 03/05/23 06:57 03/05/23 06:57 Labs: Abnormal Lab Results - Last 24 Hours (Table) 03/05/23 03/06/23 Range/Units 20:56 05:58 POC Glucose (mg/dL) 198 H 198 H (70-110) mg/dL Microbiology - Last 24 Hours (Table) 03/04/23 17:15 Blood Culture - Preliminary Blood 03/04/23 17:00 Blood Culture - Preliminary Blood Assessment and Plan Assessment: Right-sided healthcare associated pneumonia. Chest x-ray shows patchy infiltrates throughout the right mid and lower lung sandoval. Negative for influenza, RSV, COVID-19. Acute on chronic hypoxemic respiratory failure secondary to above, currently on 3 L/m nasal cannula. She is chronically oxygen dependent at the halfway Chronic obstructive pulmonary disease, appears stable Essential hypertension Hyperlipidemia Hypothyroidism Macular degeneration History of oral cancer Plan: The patient is seen and evaluated Continue the current treatment plan Titrate the FiO2 as tolerated Increase her activity as tolerated We will continue to follow I have personally seen and examined the patient, performed the documentation and the assessment and plan as written. Number of minutes spent on the visit: 10.
[2023-03-06 12:09] VITALS: BMI 17.6
[2023-03-06] MEDS ORDERED: MELATONIN 5 MG TABLET PO PRN (12:36)
--- NOTE | 2023-03-06 12:59 | P.PN ---
Subjective Progress Note Date: 03/06/23 (Right upper and lower lung pneumonia and COPD exacerbation) Principal diagnosis: Initial diagnosis: #1 right upper and lower lung pneumonia started on pneumonia protocol in the ER and Dr. Acevedo advised was continue the antibiotic Rocephin and azithromycin. #2 acute distress COPD exacerbation with wheezing and rhonchi with baseline history of asthma patient started on a steroid and inhalation therapy. 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 #5 hypothyroidism stable #6 advanced degenerative osteoarthritis generalized with impaired walking. #7 generalized weakness. Progress note Date of service 03/06/[address] Jaquez Patient seen today evaluated [id number] and she complained of being very fatigued and her blood glucose has been elevated associated with this steroid as well it was elevated prior to initiation of the steroid and covered with insulin to scale NovoLog. And we'll obtain a hemoglobin A1c. Patient seen by the pulmonary team. Poor appetite On exam HEENT negative Neck was supple Chest decreased air entry on the right side as well as the right base and the left base, wheezes has been resolved with the steroid therapy still coughing but no expectoration. We'll repeat the chest x-ray to evaluate if there is an advancement of the pneumonia versus improvement with the decreased air entry If it is proved that there is worsening probably we will be obtaining a CT of the chest as well as changing antibiotic versus obtaining consultation with infectious disease. She had insomnia started the melatonin. GI examined abdomen no nausea no vomiting no diarrhea Extremities no edema. Pulses she has no IV. Neurologically awake alert able to move her upper and lower extremities and feed herself. Assessment: #1 still decreased air entry and dullness and rhonchi on the right side worse than the left side and a wheezes inspiratory expiratory has been improved with the steroid. #2 hyperglycemia and diabetes mellitus type 2 covered with CBG and insulin to scale. #3 continuing the home medication #4 started on melatonin for insomnia. #5 continuation of the bronchodilator inhalation therapy. Plan: #1 obtain CBC with differential, BMP, magnesium. #2 obtain a chest x-ray portable tomorrow to address improvement versus worsening #3 events appeared to be worsening we have to proceed with a computed tomography scan of the chest #4 and if is still as mentioned above worsening we'll have to change the antibiotic to Zosyn with the consideration of aspiration. #5 is no clinical improvement we'll be looking for infectious disease consultation. #6 discussed with the patient and the nurse and orders written. Objective - Vital Signs Vital signs: Vital Signs Temp 97.8 F 03/06/23 07:30 Pulse 92 03/06/23 12:17 Resp 17 03/06/23 07:30 BP 123/68 03/06/23 07:30 Pulse Ox 95 03/06/23 07:30 FiO2 Intake & Output 03/05/23 03/06/23 03/06/23 18:59 06:59 18:59 Intake Total 240 Output Total 0 Balance 0 240 Weight 40.823 kg 40.823 kg Intake: Oral 240 Output: Urine 0 - Labs CBC & Chem 7: 03/05/23 06:57 03/05/23 06:57 Labs: Abnormal Lab Results - Last 24 Hours (Table) 03/05/23 03/06/23 03/06/23 Range/Units 20:56 05:58 11:25 POC Glucose (mg/dL) 198 H 198 H 240 H (70-110) mg/dL Microbiology - Last 24 Hours (Table) 03/04/23 17:15 Blood Culture - Preliminary Blood 03/04/23 17:00 Blood Culture - Preliminary Blood
[2023-03-06] MEDS: INSULIN ASPART (NovoLOG) 100 UNIT/ML VIAL SQ SCH ×2 (13:01→16:44)
[2023-03-06] MEDS: ACETAMINOPHEN TAB 500 MG TAB PO PRN ×2 (15:37→21:12)
[2023-03-06 16:30] LABS: Glucose,Whole Blood 420 mg/dL (70-110)
[2023-03-06] MEDS: ALPRAZolam 0.25 MG TAB PO PRN (16:57)
[2023-03-06 20:48] LABS: Glucose,Whole Blood 198 mg/dL (70-110)
[2023-03-06] MEDS: methylPREDNISolone SOD SUCCI 40 MG/ML 1 ML VIAL IV SCH (21:12)
[2023-03-06] MEDS: ATORVASTATIN 10 MG TAB PO SCH (21:12)
[2023-03-06] MEDS: TIMOLOL 0.5% OPHTH DROPS 5 ML BTL BOTH EYES SCH (21:22)
[2023-03-07] MEDS: LEVOTHYROXINE 100 MCG TAB PO SCH (05:34)
[2023-03-07 06:13] LABS: Glucose,Whole Blood 171 mg/dL (70-110)
[2023-03-07 07:31] LABS: Basophils % (A) 0 %; Eosinophils % (A) 0 %; HGB 12.5 gm/dL (11.4-16.0); Hypochromasia Slight; Lymphocytes # (A) 0.3 k/uL (1.0-4.8); Lymphocytes % (A) 2 %; MCH 29.2 pg (25.0-35.0); MCHC 31.3 g/dL (31.0-37.0); MCV 93.1 fL (80.0-100.0); Mean Platelet Volume 7.4; Monocytes # (A) 0.4 k/uL (0-1.0); Monocytes % (A) 3 %; Neutrophils # (A) 13.1 k/uL (1.3-7.7); Neutrophils % (A) 94 %; Platelet Count 399 k/uL (150-450); RDW 14.2 % (11.5-15.5)
[2023-03-07] MEDS: IPRATROPIUM-ALBUTEROL 3 ML NEB INHALATION SCH ×4 (08:30→21:43)
[2023-03-07] MEDS: methylPREDNISolone SOD SUCCI 40 MG/ML 1 ML VIAL IV SCH ×2 (08:45→20:50)
[2023-03-07] MEDS: AZITHROMYCIN 500 MG TAB PO SCH (08:47)
[2023-03-07] MEDS: amLODIPine 5 MG TAB PO SCH (08:47)
[2023-03-07] MEDS: busPIRone HCl 10 MG TAB PO SCH ×2 (08:47→15:10)
[2023-03-07] MEDS: METOPROLOL TARTRATE 12.5 MG TAB PO SCH ×2 (08:47→17:17)
[2023-03-07] MEDS: INSULIN ASPART (NovoLOG) 100 UNIT/ML VIAL SQ SCH ×3 (08:48→17:04)
[2023-03-07] MEDS: HEPARIN SODIUM,PORCINE/PF 5,000 UNIT/0.5 ML SYRINGE SQ SCH ×2 (08:48→20:50)
[2023-03-07] MEDS: TIMOLOL 0.5% OPHTH DROPS 5 ML BTL BOTH EYES SCH ×2 (08:52→20:51)
[2023-03-07] MEDS: ARTIFICIAL TEARS-HYPROMELLOSE DROPS 15 ML BTL BOTH EYES SCH (08:52)
[2023-03-07 09:38] LABS: African American GFR (CKD) >90 (>60 ml/min/1.73 sqM); Anion Gap 5 mmol/L; Blood Urea Nitrogen 27 mg/dL (7-17); Calcium 8.6 mg/dL (8.4-10.2); Carbon Dioxide 32 mmol/L (22-30); Chloride 97 mmol/L (98-107); Glucose 171 mg/dL (74-99); Magnesium 2.3 mg/dL (1.6-2.3); Non-African American GFR(CKD) 80 (>60 ml/min/1.73 sqM); Sodium 134 mmol/L (137-145)
--- NOTE | 2023-03-07 09:39 | XR ---
EXAMINATION TYPE: XR chest 1V portable DATE OF EXAM: 03/07/2023 COMPARISON: 03/05/2023 INDICATION: Right lung pneumonia TECHNIQUE: Single frontal view of the chest is obtained. FINDINGS: The heart size is normal. The pulmonary vasculature is normal. Mild diffuse increased lung markings on the right slightly greater than the right base. Finding is no nspecific atelectasis and pneumonia could be considered. Continued follow-up is recommended. IMPRESSION: 1. Mild infiltrate right lung base. Correlate for atelectasis and pneumonia.
[2023-03-07 11:23] LABS: Glucose,Whole Blood 265 mg/dL (70-110)
--- NOTE | 2023-03-07 12:17 | P.PN ---
Subjective Progress Note Date: 03/07/23 Dictation on progress note Date of service 03/07/2023 Dictation by Patient seen today evaluated [id number] and discussed with her what happened during the night. I was called during the night with the retention of the urine more than 500 mL with a bladder scan and resulted in placement of the Taveras catheter to relieve the patient from pain discomfort with the urine retention. Patient still coughing and we did a chest x-ray today will see what opinion of the pulmonary and critical care. Patient still on antibiotic. Laboratory: WBC 14, hemoglobin 12.5, hematocrit 40, the absolute neutrophil 13.1. Chemistry: Sodium 134, potassium is 5, chloride 97, carbon dioxide 32 and blood sugar 171, GFR 80 and calcium 8.6, magnesium 2.3. Patient is comfortable now and she still have complaining of cough and weakness. Severe hearing deficit with inability to hear even with hearing aid, also severe visual impairment with the macular degeneration. Able to eat and swallow was underlying implanted teeth in the upper and lower normal swallowing with no coughing or choking Neck was supple no JVD no thyromegaly no lymphadenopathy trachea midline Chest she had mild kyphosis and still decreased air entry on the right lower lung field and she is on 5 L of oxygen with the hypoxemia. Heart regular sinus rhythm controlled prop pressure Abdomen soft positive bowel sounds no tenderness Extremities no edema and positive pulses with the advanced osteoarthritis of the knee and hip and the spine has generalized Psychiatry she has an anxiety disorder, she requested Xanax however in the [facility] they use boost bar. And we started the Xanax 0.25 mg every 12 hours when necessary tell seen by the psychiatry as we requested psych consult for evaluation of her underlying anxiety neurosis. Neurology: No lateralizing sign and she is awake alert oriented and she requested no code which was ordered. Assessment: #1 right-sided pneumonia #2 acute hypoxic exacerbation of COPD #3 anxiety neurosis with exacerbation #4 urine retention more than 500 mL of urine by bladder scan currently on Taveras catheter and we order UA and culture and sensitivity at that time. #5 diabetes mellitus and hyperglycemia covered with insulin to scale. Plan: #1 will wait for the pulmonary evaluation and review the chest x-ray #2 continue the antibiotic till opinion of the pulmonary and critical care #3 gradual decrease in the steroid from 62 8 hour to 40 every 12 hours. #4 nutritional support. Patient is with minimal eating. #5 physical therapy for ambulation and strengthening. Objective - Vital Signs Vital signs: Vital Signs Temp 97.4 F L 03/07/23 08:18 Pulse 83 03/07/23 11:58 Resp 19 03/07/23 08:18 BP 117/55 03/07/23 08:18 Pulse Ox 93 L 03/07/23 08:18 FiO2 Intake & Output 03/06/23 03/07/23 03/07/23 18:59 06:59 18:59 Intake Total 240 Output Total 151 Balance 240 -151 Weight 40.823 kg Intake: Oral 240 Output: Urine 150 Stool 1 Other: # Voids 1 # Bowel Movements 1 - Labs CBC & Chem 7: 03/07/23 07:13 03/07/23 07:13 Labs: Abnormal Lab Results - Last 24 Hours (Table) 03/06/23 03/06/23 03/07/23 Range/Units 16:29 20:46 06:11 WBC (3.8-10.6) k/uL Neutrophils # (1.3-7.7) k/uL Lymphocytes # (1.0-4.8) k/uL Sodium (137-145) mmol/L Chloride (98-107) mmol/L Carbon Dioxide (22-30) mmol/L BUN (7-17) mg/dL Glucose (74-99) mg/dL POC Glucose (mg/dL) 420 H 198 H 171 H (70-110) mg/dL 03/07/23 03/07/23 03/07/23 Range/Units 07:13 07:13 11:21 WBC 14.0 H (3.8-10.6) k/uL Neutrophils # 13.1 H (1.3-7.7) k/uL Lymphocytes # 0.3 L (1.0-4.8) k/uL Sodium 134 L (137-145) mmol/L Chloride 97 L (98-107) mmol/L Carbon Dioxide 32 H (22-30) mmol/L BUN 27 H (7-17) mg/dL Glucose 171 H (74-99) mg/dL POC Glucose (mg/dL) 265 H (70-110) mg/dL Microbiology - Last 24 Hours (Table) 03/04/23 17:15 Blood Culture - Preliminary Blood 03/04/23 17:00 Blood Culture - Preliminary Blood
--- NOTE | 2023-03-07 13:59 | P.CN ---
Psychiatric Consult - . Consult date: 03/07/23 Consult:: 03/07/23 13:19 IDENTIFYING DATA: This patient is a 87-year-old female with history of COPD who presented with COPD exacerbation and pneumonia, coming from a local [facility], is and has 2 kids. REASON FOR REFERRAL: Psychiatry was consulted for severe anxiety HISTORY OF PRESENT ILLNESS: The patient presented to the hospital initially on 03/04 via EMS and presented with COPD exacerbation, shortness of breath/respi ratory distress, weakness. Patient was admitted for pneumonia and COPD exacerbation. The patients nurse claims that patient has been fairly appropriate, no behavioral issues does have some anxiety. Patient was seen laying down in her bed after eating her lunch. She was fairly hard of hearing however was fairly pleasant and cooperative with tag writer. She attempted to answer all questions. She states that she is doing "okay now" however does state that she does feel weak at times and also tired. She claims that her sleep has been on and off at nighttime. Claims that she has been struggling with anxiety for quite some time now and states that she does get panic attacks every now and again. States usually with her medications and her panic attacks are fairly rare. Claims that she does have some mild depression, has been fairly compliant with her medications. Denies any changes to her appetite at this time. She is agreeable to have her medications adjusted. At this time patient denies any suicidal or homical ideations, intent or plan. Patient denies any auditory, visual hallucinations and denies any paranoia or delusions. Patients admits to using no recreational drugs or cigarettes. PAST PSYCHIATRIC HISTORY: Patient has a a history of anxiety and depression. Patient is currently on when necessary Xanax and also when necessary BuSpar. Patient denies any previous psychiatric hospitalizations. Patient denies any psychiatric outpatient follow-up. Patient denies any history of suicide attempts in the past. Past Medical History: Cancer, Eye Disorder, GERD/Reflux, Hyperlipidemia, Hypertension, Myocardial Infarction (OR), Pneumonia, Skin Disorder, Thyroid Disorder Additional Past Medical History / Comment(s): Glaucoma and macular degeneration bilaterally, hypothyroid, heart murmur, oral cancer with removal, UTIs, bronchitis, Raynauld's syndrome, osteoporosis, psoriasis, hemorrhoids. Last Myocardial Infarction Date:: ? 1-1.5 yrs ago per pt History of Any Multi-Drug Resistant Organisms: None Reported Past Surgical History: Breast Surgery, Section, Cholecystectomy Additional Past Surgical History / Comment(s): Oral cancer removed, R breast lumpectomy-benign, colonoscopies, bilateral cataract removal with lens implants. Past Anesthesia/Blood Transfusion Reactions: No Reported Reaction Past Psychological History: No Psychological Hx Reported Smoking Status: Former smoker Past Alcohol Use History: Daily Past Drug Use History: None Reported ALLERGIES: as per EMR. CHEMICAL DEPENDENCY HISTORY: as per HPI. FAMILY PSYCHIATRIC/SUBSTANCE USE HISTORY: Claims that her mother had alcohol use disorder. SOCIAL HISTORY: Patient was born and raised in [place] and also in the [facility]. 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 She is currently . She lives in a fci. She has 2 kids.. MENTAL STATUS EXAM: General Appearance: Patient appears to be thin, shorter hair, pleasant, stated age is alert, attempts to be cooperative. Patient appears to have fair hygiene and grooming wearing hospital gown with fair eye contact. Behavior: Patient is calmly lying in bed without any agitated behavior. Mildly anxious. Speech: Patient's speech is fluent and nonpressured. Mood/Affect: Patient reports their mood is "a little depressed", affect is congruent Suicidality/Homicidality: Patient denies having any suicidal or homicidal ideation intent or plan. Perceptions: Patient denies any visual hallucinations and denies any auditory hallucinations Though content/process: There is no evidence of any delusional thought content and thought process is linear and goal-directed. Memory and concentration: AOX3, grossly intact for the purposes of this session. Can spell "WORLD" backwards Judgment and insight: limited IMPRESSIONS: Depressive disorder unspecified Generalized anxiety disorder with panic attacks PLAN: -At this time patient DOES NOT meet criteria for inpatient psychiatric admission. -Would recommend the following medication changes/additions: Can continue Xanax and BuSpar when necessary for anxiety. Start Lexapro 5 mg daily for mood/anxiety, melatonin 3 mg scheduled daily at bedtime for sleep. -Communicated plan to patient's nurse -Psychiatry will sign off at this time -Please contact with any questions. 03/07/23 13:55
[2023-03-07] MEDS ORDERED: busPIRone HCl 5 MG TAB PO PRN (14:00)
[2023-03-07] MEDS: ALPRAZolam 0.25 MG TAB PO PRN (14:01)
[2023-03-07] MEDS: ESCITALOPRAM 5 MG TAB PO SCH (15:10)
[2023-03-07] MEDS: ACETAMINOPHEN TAB 500 MG TAB PO PRN ×2 (15:53→20:50)
[2023-03-07 16:41] LABS: Glucose,Whole Blood 148 mg/dL (70-110)
[2023-03-07] MEDS: MELATONIN 3 MG TABLET PO SCH (20:50)
[2023-03-07] MEDS: ATORVASTATIN 10 MG TAB PO SCH (20:50)
[2023-03-07 21:11] LABS: Glucose,Whole Blood 225 mg/dL (70-110)
[2023-03-08] MEDS: LEVOTHYROXINE 100 MCG TAB PO SCH (05:29)
[2023-03-08 06:03] LABS: Glucose,Whole Blood 162 mg/dL (70-110)
[2023-03-08] MEDS: INSULIN ASPART (NovoLOG) 100 UNIT/ML VIAL SQ SCH ×3 (07:52→17:09)
[2023-03-08] MEDS: amLODIPine 5 MG TAB PO SCH (07:53)
[2023-03-08] MEDS: ESCITALOPRAM 5 MG TAB PO SCH (07:53)
[2023-03-08] MEDS: methylPREDNISolone SOD SUCCI 40 MG/ML 1 ML VIAL IV SCH (07:53)
[2023-03-08] MEDS: busPIRone HCl 10 MG TAB PO SCH (07:53)
[2023-03-08] MEDS: AZITHROMYCIN 500 MG TAB PO SCH (07:53)
[2023-03-08] MEDS: HEPARIN SODIUM,PORCINE/PF 5,000 UNIT/0.5 ML SYRINGE SQ SCH ×2 (07:53→21:14)
[2023-03-08] MEDS: METOPROLOL TARTRATE 12.5 MG TAB PO SCH ×2 (07:53→17:25)
[2023-03-08] MEDS: TIMOLOL 0.5% OPHTH DROPS 5 ML BTL BOTH EYES SCH ×2 (07:54→21:15)
[2023-03-08] MEDS: ARTIFICIAL TEARS-HYPROMELLOSE DROPS 15 ML BTL BOTH EYES SCH (07:54)
[2023-03-08] MEDS: IPRATROPIUM-ALBUTEROL 3 ML NEB INHALATION SCH ×4 (08:49→20:11)
[2023-03-08 11:33] LABS: Glucose,Whole Blood 131 mg/dL (70-110)
[2023-03-08 14:32] VITALS: RESP 18
--- NOTE | 2023-03-08 14:38 | P.PN ---
Subjective Progress Note Date: 03/08/23 Progress note Date of service 03/08/[address] Jaquez Patient seen and evaluated [id number] Patient today seen on the recliner stated that she is tired and wants to go to bed. She complained of her coccyx and pain with laying down on her Jessica. Her vital sign indicating Temperature 98.3 F oral, blood pressure 126/66, mean blood pressure 86, pulse ox 92% patient on 5 L of nasal cannula. Cough has been improved and her general condition is improved Seen by Dr. Jackson psychiatry for evaluation with the underlying depression and anxiety and he recommended Lexapro 5 mg. Which he did order it we'll be discontinuing the BuSpar and the Xanax. Patient had urinary incontinence event but also she presented with retention of the urine and she had the Taveras catheter was placed, we'll have a trial of removal of the Taveras catheter and obtaining bladder scan every 6 hour if patient to retain again we'll place with the insertion of the Taveras catheter again, patient already on Flomax for that purpose. On the examination Conscious alert oriented her head normocephalic and atraumatic pupil was equal reactive was severe macular degeneration with the impaired vision as well as severely impaired hearing in spite of the hearing aid no rhinitis of the nose Neck was supple no JVD no thyromegaly no lymphadenopathy. Chest: Her breath sound is improving bilateral and she is on antibiotic for the right sided pneumonia. Heart: Pulsated normal sinus rhythm and no dysrhythmia Abdomen soft nontender positive bowel sounds Extremities no edema and positive pulses Neurologically stable Musculoskeletal she had the pain on the lower end of the spine and the coccyx and the sacral area we'll obtain x-ray today Rehab medication has been ordered Psychiatry with the major depression and anxiety he follow the order of the psychiatrist. Assessment: Right sided pneumonia with the response to antibiotic No. 2 COPD with exacerbation proved #3 acute respiratory failure on the top of chronic with increased oxygen supplementation to 5 L from 3. 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 Hyperglycemia and diabetes mellitus type 2 with the steroid called the hyperglycemia. Hypertension is controlled Hypothyroidism is controlled. Bilateral macular degeneration with poor vision Impaired hearing bilateral even with the use of hearing 8 Plan: #1 we'll do trial removal of the Taveras catheter and recheck her bladder every 6 hour, if she retain the urine [address] again Taveras cath and to be followed as outpatient with urology associate. #2 continue the antibiotic IV and tomorrow we'll switch to oral. #3 plan for discharge to medical [facility] #4 discontinuation the steroid today and monitor the blood sugar still continue covering with insulin to scale. #5 DC Xanax and DC puspyrone , and continue with the order of the psychiatry of Lexapro 5 mg once daily. 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 Objective - Vital Signs Vital signs: Vital Signs Temp 98.3 F 03/08/23 07:00 Pulse 80 03/08/23 11:44 Resp 17 03/08/23 07:00 BP 126/66 03/08/23 07:00 Pulse Ox 92 L 03/08/23 07:00 FiO2 Intake & Output 03/07/23 03/08/23 03/08/23 18:59 06:59 18:59 Intake Total 118 Output Total 900 425 Balance -782 -425 Weight 40.823 kg Intake: Oral 118 Output: Urine 900 425 Other: Voiding Method Indwelling Catheter # Bowel Movements 1 - Labs CBC & Chem 7: 03/07/23 07:13 03/07/23 07:13 Labs: Abnormal Lab Results - Last 24 Hours (Table) 03/07/23 03/07/23 03/08/23 Range/Units 16:40 21:10 06:02 POC Glucose (mg/dL) 148 H 225 H 162 H (70-110) mg/dL 03/08/23 Range/Units 11:32 POC Glucose (mg/dL) 131 H (70-110) mg/dL Microbiology - Last 24 Hours (Table) 03/04/23 17:15 Blood Culture - Preliminary Blood 03/04/23 17:00 Blood Culture - Preliminary Blood
--- NOTE | 2023-03-08 15:17 | XR ---
EXAMINATION TYPE: XR sacrum coccyx DATE OF EXAM: 03/08/2023 CLINICAL HISTORY: pain TECHNIQUE: Three views of the sacrum and coccyx are submitted. COMPARISON: None Sacral alae appear symmetric. No evidence for fracture or bony lesion. Sacroiliac joints are within normal limits. Visualized coccygeal segments are free of fracture or lesion. IMPRESSION: Normal study
[2023-03-08] MEDS: ACETAMINOPHEN TAB 500 MG TAB PO PRN (15:36)
[2023-03-08 16:58] LABS: Glucose,Whole Blood 218 mg/dL (70-110)
[2023-03-08] MEDS: ALPRAZolam 0.25 MG TAB PO PRN (17:53)
[2023-03-08 20:29] LABS: Glucose,Whole Blood 190 mg/dL (70-110)
[2023-03-08] MEDS: MELATONIN 3 MG TABLET PO SCH (21:15)
[2023-03-08] MEDS: ATORVASTATIN 10 MG TAB PO SCH (21:18)
[2023-03-09 05:46] LABS: Glucose,Whole Blood 97 mg/dL (70-110)
[2023-03-09] MEDS: INSULIN ASPART (NovoLOG) 100 UNIT/ML VIAL SQ SCH (06:16)
[2023-03-09] MEDS: LEVOTHYROXINE 100 MCG TAB PO SCH (06:24)
[2023-03-09 08:03] VITALS: BP 115/65; TEMP 97.7
[2023-03-09] MEDS: ACETAMINOPHEN TAB 500 MG TAB PO PRN (08:12)
[2023-03-09] MEDS: TIMOLOL 0.5% OPHTH DROPS 5 ML BTL BOTH EYES SCH (08:13)
[2023-03-09] MEDS: ALPRAZolam 0.25 MG TAB PO PRN (08:13)
[2023-03-09] MEDS: HEPARIN SODIUM,PORCINE/PF 5,000 UNIT/0.5 ML SYRINGE SQ SCH (08:13)
[2023-03-09] MEDS: amLODIPine 5 MG TAB PO SCH (08:13)
[2023-03-09] MEDS: ESCITALOPRAM 5 MG TAB PO SCH (08:13)
[2023-03-09] MEDS: METOPROLOL TARTRATE 12.5 MG TAB PO SCH (08:13)
[2023-03-09] MEDS: ARTIFICIAL TEARS-HYPROMELLOSE DROPS 15 ML BTL BOTH EYES SCH (08:13)
[2023-03-09] MEDS: IPRATROPIUM-ALBUTEROL 3 ML NEB INHALATION SCH ×2 (08:34→11:39)
[2023-03-09 08:39] VITALS: PULSE 76
--- NOTE | 2023-03-09 09:52 | P.DS ---
Providers Date of admission: 03/04/23 16:56 Expected date of discharge: 03/09/23 Attending physician: Darwin Jaquez Consults: 03/05/23 17:22 Consult Physician Routine Consulting Provider: Miguel Stein Consult Reason/Comments: severe anxiety-evaluate and treat Do you want consulting provider notified?: Already Contacted 03/09/23 09:08 Consult Physician Urgent Consulting Provider: Karthik Acevedo Consult Reason/Comments: Pneumonia follow-up and okay for discharge if it's okay with him Do you want consulting provider notified?: Yes Primary care physician: Darwin Jaquez Discharge summary Date of service 03/09/[address] Jaquez Final diagnoses : #1 right-sided pneumonia #2 COPD exacerbation #3 acute hypoxic respiratory failure #4 urinary retention urine culture negative #5 trial of removal of the Taveras catheter failed and to be discharged with Taveras catheter and follow-up with the urology associate for the urinary retention. #6 hypoxemia and required oxygen 5 L/m. #7 hypothyroidism #8 advanced degenerative arthritis, coccyx and sacrum pain due to osteoarthritis #9 diabetes mellitus with hyperglycemia associated with the steroid discontinued #10 on insulin NovoLog to scale mild for coverage. 11 depression and anxiety seen by the psychiatry in the hospital Dr. Lay who recommended Lexapro and Xanax. #12 hyper lipidemia #13 hypertension with hypertensive heart disease medication adjusted. #14 macular degeneration with the vision severely impaired 15 severe hearing deficit with even use of hearing aid. Consultation with pulmonary Dr. Acevedo ER presentation: Patient resides in [facility], nursing staff send the patient by ambulance to the ER because of severe shortness of breath and cough, in the ER found that she had a infiltrate of the right side of the lung, patient was started on pneumonia protocol and consultation with pulmonary was obtained Dr. Acevedo [facility] course: Patient monitored and with the hypotension and wheezes was already started on pneumonia protocol antibiotic and seen by the pulmonary With the wheezing acute exacerbation of COPD and started on steroid for short time with she cleared from the wheezing and rhonchi's however her diabetes mellitus exacerbated with hyperglycemia covered with insulin NovoLog to scale. Today her blood sugar 94 after discontinuation but will continue coverage with NovoLog at intermediate. Patient has severe anxiety disorder consultation with the psychiatry Dr. Goyes psychiatry in the hospital and they started her on Lexapro 5 mg daily as well as Xanax 0.25 mg twice a day to be followed as outpatient in the intermediate by psychiatry group. Patient started on inhalation therapy by pulmonary was do not to be continued 4 times a day. Negative blood culture, negative urine culture, no evidence of COVID-19 or influenza A and B or RSV. The urine retention with inability to urinate BladderScan showed to be more than 500 mL of urine subsequently has patient on Flomax repeat trial of removal of the Taveras catheter however patient retain again more than 300 mL of urine and the need for catheter. And to be [facility] as [facility]. Lema, Dr. Fisher. To be arranged as outpatient through the [facility] intermediate. We did review consult pulmonary and critical care for follow-up and clearance for discharge today toe [facility] and the Taveras catheter reinserted. On discharge exam Patient's conscious alert oriented. HEENT negative Neck was supple no JVD no thyromegaly no lymphadenopathy Lungs kyphoscoliosis. anteroposterior diameter and underlying COPD chronic with the acute exacerbation no wheezes. Heart regular sinus rhythm Abdomen soft positive bowel sounds Extremities no edema positive pulses Psych stable with the current medication Neurological stable no lateralizing sign no neuro deficit. Assessment: #1 stable general condition to be discharged to intermediate [facility] today #2 continue oxygen nasal cannula 5 L #3 [facility] for evaluation of the urinary retention and Taveras catheter. #4 to be followed by psychiatry group in [facility] in regarding of the Xanax prescribed by the psychiatry in the hospital. Plan discharge today medication reconciled prescription of the Xanax given to the nursing staff. Patient Condition at Discharge: Fair Plan - Discharge Summary Discharge Rx Participant: No New Discharge Prescriptions: New Escitalopram [Lexapro] 5 mg PO DAILY #30 tab ALPRAZolam [Xanax] 0.25 mg PO BID PRN #60 tab PRN Reason: Anxiety Ipratropium-Albuterol Nebulize [Duoneb 0.5 mg-3 mg/3 ml Soln] 3 ml INHALATION RT-QID #30 each amLODIPine [Norvasc] 5 mg PO DAILY@0800 #30 tab INSULIN ASPART (NovoLOG) [NovoLOG (formulary)] 0 unit SQ AC-TID #0 each Continue Timolol 0.5% Ophth Soln [Timoptic 0.5% Ophth Soln] 1 drop BOTH EYES DAILY Metoprolol Tartrate [Lopressor] 12.5 mg PO BID@0800,1700 Latanoprost [Xalatan 0.005%] 1 drop BOTH EYES HS@1999 Tamsulosin [Flomax] 0.4 mg PO DAILY@0800 Melatonin 3 mg PO HS@1999 Acetaminophen Tab [Tylenol] 500 mg PO Q6H PRN PRN Reason: Pain Or Fever > 100.5 Sennosides/Docusate Sodium [Senna-S 8.6-50 mg Tablet] 1 tab PO DAILY PRN PRN Reason: Constipation Phenyleph/Pramoxin/Glycr/W.pet [Preparation H Cream] 1 applic RECTAL DAILY PRN PRN Reason: Hemorrhoids Atorvastatin Calcium [Lipitor] 10 mg PO HS@1999 Artificial Tears-Hypromellose [Artificial Tear Drops] 1 drop BOTH EYES DAILY Levothyroxine Sodium [Synthroid] 100 mcg PO DAILY@0700 Healthshake 1 can PO BID Discontinued amLODIPine [Norvasc] 10 mg PO DAILY@0800 busPIRone HCl [Buspar] 20 mg PO BID@0800,1600 Discharge Medication List Timolol 0.5% Ophth Soln [Timoptic 0.5% Ophth Soln] 1 drop BOTH EYES DAILY 08/17/17 [History] Metoprolol Tartrate [Lopressor] 12.5 mg PO BID@0800,1700 12/06/17 [History] Latanoprost [Xalatan 0.005%] 1 drop BOTH EYES HS@199901/08/19 [History] Atorvastatin Calcium [Lipitor] 10 mg PO HS@199904/20/21 [History] Acetaminophen Tab [Tylenol] 500 mg PO Q6H PRN 03/04/23 [History] Artificial Tears-Hypromellose [Artificial Tear Drops] 1 drop BOTH EYES DAILY 03/04/23 [History] Healthshake 1 can PO BID 03/04/23 [History] Levothyroxine Sodium [Synthroid] 100 mcg PO DAILY@0700 03/04/23 [History] Melatonin 3 mg PO HS@199903/04/23 [History] Phenyleph/Pramoxin/Glycr/W.pet [Preparation H Cream] 1 applic RECTAL DAILY PRN 03/04/23 [History] Sennosides/Docusate Sodium [Senna-S 8.6-50 mg Tablet] 1 tab PO DAILY PRN 03/04/23 [History] Tamsulosin [Flomax] 0.4 mg PO DAILY@0800 03/04/23 [History] ALPRAZolam [Xanax] 0.25 mg PO BID PRN #60 tab 03/09/23 [Rx] Escitalopram [Lexapro] 5 mg PO DAILY #30 tab 03/09/23 [Rx] INSULIN ASPART (NovoLOG) [NovoLOG (formulary)] 0 unit SQ AC-TID #0 each 03/09/23 [Rx] Ipratropium-Albuterol Nebulize [Duoneb 0.5 mg-3 mg/3 ml Soln] 3 ml INHALATION RT-QID #30 each 03/09/23 [Rx] amLODIPine [Norvasc] 5 mg PO DAILY@0800 #30 tab 03/09/23 [Rx] Follow up Appointment(s)/Referral(s): Lexi Mcnamara, [NON-STAFF] - As Needed Darwin Jaquez MD [Primary Care Provider] - 1-2 days
== END 2023-03-09 11:50 | DRG 193 ==
LOC: EC 14:19 → 4SSUR 16:56
PROVIDERS: ADMIT Internal Medicine; ATTEND Internal Medicine
DX: J18.9 Pneumonia, unspecified organism (principal); J96.21 Acute and chronic respiratory failure with hypoxia; E87.1 Hypo-osmolality and hyponatremia; J44.0 Chronic obstructive pulmonary disease with (acute) lower respiratory infection; J44.1 Chronic obstructive pulmonary disease with (acute) exacerbation; E03.9 Hypothyroidism, unspecified; E78.5 Hyperlipidemia, unspecified; F32.9 Major depressive disorder, single episode, unspecified; I11.9 Hypertensive heart disease without heart failure; I73.00 Raynaud's syndrome without gangrene; M15.9 Polyosteoarthritis, unspecified; Z20.822 Contact with and (suspected) exposure to COVID-19; Z66 Do not resuscitate; G47.00 Insomnia, unspecified; H35.30 Unspecified macular degeneration; H91.90 Unspecified hearing loss, unspecified ear; M81.0 Age-related osteoporosis without current pathological fracture; F41.1 Generalized anxiety disorder; R32 Unspecified urinary incontinence; Y95 Nosocomial condition; Z96.1 Presence of intraocular lens; Z79.890 Hormone replacement therapy; Z79.899 Other long term (current) drug therapy; Z97.4 Presence of external hearing-aid; I25.2 Old myocardial infarction; Z85.819 Personal history of malignant neoplasm of unspecified site of lip, oral cavity, and pharynx; Z85.828 Personal history of other malignant neoplasm of skin; Z87.01 Personal history of pneumonia (recurrent); Z87.891 Personal history of nicotine dependence; Z98.41 Cataract extraction status, right eye; Z98.42 Cataract extraction status, left eye; Z99.81 Dependence on supplemental oxygen
CPT/HCPCS: 36415; 71045; 71046; 72220; 80048; 80053; 83605; 83735; 83880; 84145; 84484; 85025; 85610; 85730; 87040; 87086; 87636; 93005; 94640; 94760; 96365; 96366; 96367; 96375; 99285